=== PATIENT | male | born 1945 | race Caucasian/White ===

== ENCOUNTER → 2016-06-24 | Outpatient (CLI) | payer OTHER, MEDICARE ==
[~2016-06-24] MED LIST: ACET-1257 PO; ACET-1311 PO; ACET2SOL7 OT; ALFU10TA30 PO; ATEN-173 PO; CYAN10005 UT; CYNI1000 INJ; DIGO0.2518 PO; GLC/500 PO; GLC500 PO; GLIM4TAB2 PO; HYDR12.56 PO; LACT10CA3 PO; LISI-461 PO; LISI-729 PO; LORA10CA2 PO; MULT-845 PO; SENN-65 PO; SENN1TAB77 PO; SIMV10TA2 PO; TPRSR50 PO; WARF-283 PO; WARF2.5T8 PO; WARF5TAB7 PO; [UNRECOGNIZED DRUG - CODE] PO; lovenox SQ.
[2016-06-24 12:52] LABS: ALT/SGPT 29 U/L (12-78); BLOOD UREA NITROGEN 18 mg/dl (7-18); BUN/CREATININE RATIO 17.8 (10-20); CALCIUM 9.4 mg/dl (8.5-10.1); CARBON DIOXIDE 29 mmol/L (21-32); CHLORIDE 103 mmol/L (98-107); CHOLESTEROL 142 mg/dl (0-200); GLUCOSE 132 mg/dl (70-99); POTASSIUM 4.1 mmol/L (3.5-5.1); SODIUM 141 mmol/L (136-145); TRIGLYCERIDES 90 mg/dl (0-150); VERY LOW DENSITY LIPOPROT CALC 18 mg/dl
[2016-06-24 12:55] LABS: ALB/GLOB RATIO 1.3 (0.9-2); ALKALINE PHOSPHATASE 51 U/L (45-117); AST/SGOT 17 U/L (15-37); CHOLESTEROL/HDL RATIO 3.1; HDL CHOLESTEROL 46 mg/dl; LDL CHOLESTEROL CALCULATED 78 mg/dl
[2016-06-24 12:56] LABS: ESTIMATED AVERAGE GLUCOSE 140 mg/dl; HA1C FLAG Normal (Normal)
[2016-06-24 13:26] LABS: RATIO 55.4 mcg/mg (0-30.0)
== END | disposition home or self-care (01) ==
LOC: C.LABBFT 08:51
PROVIDERS: ATTEND Family Medicine
DX: E11.9 Type 2 diabetes mellitus without complications (principal)

== ENCOUNTER → 2016-07-12 | Outpatient (CLI) | payer OTHER, MEDICARE ==
[~2016-07-12] MED LIST changes: +ALFU10TA2 PO; -ALFU10TA30 PO
[2016-07-12 18:09] LABS: URINE APPEARANCE CLEAR (CLEAR); URINE BILIRUBIN NEG (NEG); URINE COLOR DK YELLOW; URINE EPITHELIAL CELL AUTO 0-5 /lpf (0-5); URINE NITRITE NEG (NEG); URINE SPECIFIC GRAVITY 1.021 (1.000-1.030); UROBILINOGEN NEG (NEG)
[2016-07-12 18:22] LABS: MANUAL MICROSCOPIC REQUIRED? NO; REVIEW REQ? NO
== END | disposition home or self-care (01) ==
LOC: C.LABBFT 14:57
PROVIDERS: ATTEND Family Medicine
DX: R39.15 Urgency of urination (principal)

== ENCOUNTER 2016-09-05 07:40 | Emergency (ER) | payer OTHER, MEDICARE ==
[~2016-09-05] VITALS: Ht 185.4 cm; Wt 126.1 kg
[~2016-09-05 07:40] MED LIST changes: -ACET-1257 PO; -ACET2SOL7 OT; -CYAN10005 UT; -GLC500 PO; -HYDR12.56 PO; -LACT10CA3 PO; -LISI-729 PO; -LORA10CA2 PO; -SENN-65 PO; -SENN1TAB77 PO; -TPRSR50 PO; -WARF-283 PO; -[UNRECOGNIZED DRUG - CODE] PO; -lovenox SQ.
[2016-09-05 07:50] VITALS: Ht 185.4 cm; Wt 126.1 kg
[2016-09-05] MEDS ORDERED: MoRPHine SULFATE 4 MG/ML 1 ML CARP\\VIAL IV STA (07:51)
[2016-09-05 08:07] VITALS: O2SAT 94
[2016-09-05] MEDS ORDERED: ALFU10TA2 PO (08:15)
[2016-09-05] MEDS ORDERED: SIMV10TA2 PO (08:15)
[2016-09-05] MEDS ORDERED: SENN-65 PO (08:15)
[2016-09-05] MEDS ORDERED: WARF-283 PO (08:15)
[2016-09-05] MEDS ORDERED: TPRSR50 PO (08:15)
[2016-09-05] MEDS ORDERED: [UNRECOGNIZED DRUG - CODE] PO (08:15)
[2016-09-05] MEDS ORDERED: ACET2SOL7 OT (08:15)
[2016-09-05] MEDS ORDERED: OPTIRAY 320 IV PRN (08:15)
[2016-09-05] MEDS ORDERED: LORA10CA2 PO (08:15)
[2016-09-05] MEDS ORDERED: LACT10CA3 PO (08:15)
[2016-09-05] MEDS ORDERED: LISI-729 PO (08:15)
[2016-09-05] MEDS ORDERED: CYAN10005 UT (08:15)
[2016-09-05] MEDS ORDERED: ACET-1257 PO (08:15)
[2016-09-05] MEDS ORDERED: HYDR12.56 PO (08:15)
[2016-09-05] MEDS ORDERED: SENN1TAB77 PO (08:15)
[2016-09-05] MEDS ORDERED: GLIM4TAB2 PO (08:15)
[2016-09-05] MEDS ORDERED: GLC500 PO (08:15)
[2016-09-05] MEDS ORDERED: MULT-845 PO (08:15)
[2016-09-05 08:25] LABS: BASO % 0.4 %; BASO ABS # 0.02 K/uL (0-0.2); COMPLETE YES; EOS % 1.4 %; HEMATOCRIT 41.8 % (42-52); IG% 0.2 %; LYMPH % 48.9 %; LYMPH ABS # 2.46 K/uL (1.2-3.4); MEAN CELL VOLUME 91.9 fL (80-100); MEAN CORPUSCULAR HGB CONC 33.7 g/dl (32-36); MEAN PLATELET VOLUME 11.5 fL (7.4-10.4); NEUT % 41.1 %; PLATELET COUNT 150 K/uL (130-400); RED BLOOD COUNT 4.55 M/uL (4.7-6.1); WHITE BLOOD COUNT 5.03 K/uL (4.8-10.8)
--- NOTE | 2016-09-05 08:29 | DIAGNOSTIC IMAGING REPORT ---
CHEST ONE VIEW PORTABLE CLINICAL HISTORY: Fever, sepsis COMPARISON STUDY: 06/07/2013 FINDINGS: The heart is mildly enlarged. There is no failure. There is no focal pulmonary consolidation. No pleural effusions are visualized.[ IMPRESSION: Mild cardiomegaly. No acute findings. Electronically signed by: Narciso Parson M.D. 09/05/2016 8:28 AM Dictated Date/Time: 09/05/2016 8:27 AM
[2016-09-05 08:51] LABS: ALKALINE PHOSPHATASE 56 U/L (45-117); ALT/SGPT 38 U/L (12-78); AST/SGOT 26 U/L (15-37); BLOOD UREA NITROGEN 13 mg/dl (7-18); BUN/CREATININE RATIO 12.5 (10-20); CALCIUM 9.5 mg/dl (8.5-10.1); CARBON DIOXIDE 28 mmol/L (21-32); CHLORIDE 105 mmol/L (98-107); CKMB/CK RATIO 1.4 (0-3.0); GLUCOSE 190 mg/dl (70-99); POTASSIUM 3.9 mmol/L (3.5-5.1); SODIUM 142 mmol/L (136-145)
--- NOTE | 2016-09-05 09:33 | DIAGNOSTIC IMAGING REPORT ---
ABDOMINAL ULTRASOUND, RIGHT UPPER QUADRANT HISTORY: Right upper quadrant pain. COMPARISON: CT of the chest abdomen and pelvis and) ultrasound June 07, 2013. FINDINGS: This exam is compromised by suboptimal penetration. There is fatty infiltration of the liver. No hepatic lesions are identified by sonography. There is no biliary ductal dilatation. The pancreatic body is normal. The head and tail are partially obscured. Stones and sludge are noted within the gallbladder. There is no gallbladder wall thickening. There is no right hydronephrosis. IMPRESSION: 1. Gallstones and sludge within the gallbladder. No gallbladder wall thickening. 2. Fatty liver. 3. No biliary ductal dilatation. Electronically signed by: Maciel Saldivar M.D. 09/05/2016 9:32 AM Dictated Date/Time: 09/05/2016 9:29 AM
[2016-09-05 10:21] LABS: INR 1.8 (0.9-1.1); PARTIAL THROMBOPLASTIN RATIO 1.2; PROTHROMBIN TIME (PATIENT) 19.3 SECONDS (9.0-12.0)
--- NOTE | 2016-09-05 10:37 | DIAGNOSTIC IMAGING REPORT ---
Study: CT angiography of the chest HISTORY: Chest pain FINDINGS: Moderate atherosclerotic change thoracic aorta. No evidence for aneurysm or dissection. No significant hilar or mediastinal adenopathy. Pulmonary vasculature enhances appropriately. There is a component of mild emphysematous change. IMPRESSION: 1. Mild atherosclerotic change thoracic aorta. 2. Otherwise negative study of the thoracic aorta. 3. Mild emphysematous change. Electronically signed by: Yunier Solorzano M.D. 09/05/2016 10:36 AM Dictated Date/Time: 09/05/2016 10:32 AM
--- NOTE | 2016-09-05 12:18 | EMERGENCY ROOM VISIT NOTE ---
History Report prepared by Marivelibnoemy: Gregory Crawford Under the Supervision of: Dr. Logan Blake D.O. First contact with patient: 07:44 Chief Complaint: CHEST PAIN Stated Complaint: CHEST PAIN History of Present Illness The patient is a 71 year old male who presents to the Emergency Room via EMS with complaints of waxing and waning diffuse chest pain starting about an hour ago. He reports pain radiation to the back. He describes it to be a pressure- like pain. He has worsening pain with lying down flat. He had an initial pain intensity of 10/10. When EMS arrived, he had a pain intensity of 8/10. EMS gave the patient Nitro which reduced the pain intensity to 5/10. He also complains of nausea. The patient denies any abdominal pain but reports that "there is something going on in my upper stomach." He has a history of similar pain but the source of the pain was never found. The patient denies fevers, chills, vomiting, urinary symptoms, or any other complaints. He has a history of A-Fib. Source of History: patient Onset: about an hour ago Position: chest (diffuse) Symptom Intensity: 5/10 Quality: pressure Timing: waxes/wanes Modifying Factors (Worsening): other (lying down flat) Modifying Factors (Relieving): other (Nitro) Associated Symptoms: + nausea, No chills, No fevers, No urinary symptoms, No vomiting Review of Systems See HPI for pertinent positives & negatives. A total of 10 systems reviewed and were otherwise negative. Past Medical & Surgical Medical Problems: (1) Atrial fibrillation (2) Diabetes mellitus (3) Diverticulitis (4) Heart disease (5) HTN (hypertension) (6) Hyperlipidemia Family History Diabetes mellitus FH: cancer FH: heart disease Social History Alcohol Use: none Marital Status: Housing Status: lives with significant other Current/Historical Medications Scheduled Acetic Acid (Otic) (Acetic Acid), 4-6 DROPS OT Q2-3H Alfuzosin Hcl (Uroxatral), 10 MG PO DAILY Cyanocobalamin (Vitamin B-12), 1,000 MCG UT DAILY Qod-Hiz-Hsxgxzdh Oil-Vitamin E (Thera Tears Nutrition), 1 CAP PO DAILY Glimepiride (Glimepiride), 2 MG PO DAILY Hydrochlorothiazide (Hctz), 12.5 MG PO DAILY Lactobacillus-Inulin (Culturelle), 1 CAP PO UD Lisinopril (Prinivil), 7.5 MG PO DAILY Metformin HCl (Metformin HCl), 1,000 MG PO BID Metoprolol Succinate (Metoprolol Succinate ER), 50 MG PO QAM Multiple Vitamins W/ Minerals (Centrum Silver Adult 50+), 1 TAB PO DAILY Simvastatin (Zocor), 10 MG PO HS Warfarin Sodium (Warfarin Sodium), 1 TAB PO DAILY Scheduled PRN Acetaminophen (Tylenol Extra Strength), 500 MG PO UD PRN for Pain Loratadine (Claritin), 10 MG PO UD PRN for ALLERGIES Senna/Docusate Sod (Senokot S), 1 TAB PO UD PRN for Constipation Sennosides (Senokot), 8.6 MG PO UD PRN for Constipation Allergies Coded Allergies: Atorvastatin (Verified Adverse Reaction, Intermediate, MUSCLE PAIN/ WEAKNESS, 06/07/13) Physical Exam Vital Signs Date Time Temp Pulse Resp B/P Pulse Ox O2 Delivery O2 Flow Rate FiO2 09/05/16 12:33 121 09/05/16 12:00 103 13 118/81 96 Nasal Cannula 2.0 09/05/16 10:47 110 12 104/80 96 Room Air 09/05/16 09:46 119 20 94/65 96 Room Air 2.0 Nasal Cannula 09/05/16 08:41 122 09/05/16 08:07 94 Nasal Cannula 2.0 09/05/16 08:04 111 15 93 Room Air 09/05/16 07:50 93 Room Air 09/05/16 07:50 97 25 99/69 93 Room Air Physical Exam CONSTITUTIONAL/VITAL SIGNS: Reviewed / noted above. GENERAL: Non-toxic in appearance. INTEGUMENTARY: Warm, dry, and [place]. HEAD: Normocephalic. EYES: without scleral icterus or trauma. ENT/OROPHARYNX: clear and moist. LYMPHADENOPATHY/NECK: Is supple without lymphadenopathy or meningismus. RESPIRATORY: Lungs clear and equal. CARDIOVASCULAR: Regular rate and rhythm. GI/ABDOMEN: Soft and nontender. No organomegaly or pulsatile mass. No rebound or guarding. Normal bowel sounds. EXTREMITIES: Warm and well perfused. BACK: No CVA tenderness. NEUROLOGICAL: Intact without focal deficits. PSYCHIATRIC: normal affect. MUSCULOSKELETAL: Normally developed with good muscle tone. TRIAGE NURSING DOCUMENTATION REVIEWED. Medical Decision & Procedures ER Provider Diagnostic Interpretation: X ray results and stated below per my interpretation and radiology interpretation. CHEST ONE VIEW PORTABLE CLINICAL HISTORY: Fever, sepsis COMPARISON STUDY: 06/07/2013 FINDINGS: The heart is mildly enlarged. There is no failure. There is no focal pulmonary consolidation. No pleural effusions are visualized.[ IMPRESSION: Mild cardiomegaly. No acute findings. Electronically signed by: Narciso Parson M.D. 09/05/2016 8:28 AM Dictated Date/Time: 09/05/2016 8:[address] and US results as stated below per my review and radiologist interpretation: Study: CT angiography of the chest HISTORY: Chest pain FINDINGS: Moderate atherosclerotic change thoracic aorta. No evidence for aneurysm or dissection. No significant hilar or mediastinal adenopathy. Pulmonary vasculature enhances appropriately. There is a component of mild emphysematous change. IMPRESSION: 1. Mild atherosclerotic change thoracic aorta. 2. Otherwise negative study of the thoracic aorta. 3. Mild emphysematous change. Electronically signed by: Yunier Solorzano M.D. 09/05/2016 10:36 AM Dictated Date/Time: 09/05/2016 10:32 AM ABDOMINAL ULTRASOUND, RIGHT UPPER QUADRANT HISTORY: Right upper quadrant pain. COMPARISON: CT of the chest abdomen and pelvis and) ultrasound June 07, 2013. FINDINGS: This exam is compromised by suboptimal penetration. There is fatty infiltration of the liver. No hepatic lesions are identified by sonography. There is no biliary ductal dilatation. The pancreatic body is normal. The head and tail are partially obscured. Stones and sludge are noted within the gallbladder. There is no gallbladder wall thickening. There is no right hydronephrosis. IMPRESSION: 1. Gallstones and sludge within the gallbladder. No gallbladder wall thickening. 2. Fatty liver. 3. No biliary ductal dilatation. Electronically signed by: Maciel Saldivar M.D. 09/05/2016 9:32 AM Dictated Date/Time: 09/05/2016 9:29 AM Laboratory Results 09/05/16 07:15 Red Blood Count 4.55, Mean Corpuscular Volume 91.9, Mean Corpuscular Hemoglobin 31.0, Mean Corpuscular Hemoglobin Concent 33.7, Mean Platelet Volume 11.5, Neutrophils (%) (Auto) 41.1, Lymphocytes (%) (Auto) 48.9, Monocytes (%) (Auto) 8.0, Eosinophils (%) (Auto) 1.4, Basophils (%) (Auto) 0.4, Neutrophils # (Auto) 2.07, Lymphocytes # (Auto) 2.46, Monocytes # (Auto) 0.40, Eosinophils # (Auto) 0.07, Basophils # (Auto) 0.02 09/05/16 07:15 Test 09/05/16 07:15 09/05/16 09:45 09/05/16 12:06 White Blood Count 5.03 K/uL (4.8-10.8) Red Blood Count 4.55 M/uL (4.7-6.1) Hemoglobin 14.1 g/dL (14.0-18.0) Hematocrit 41.8 % (42-52) Mean Corpuscular Volume 91.9 fL (80-100) Mean Corpuscular Hemoglobin 31.0 pg (25-34) Mean Corpuscular Hemoglobin Concent 33.7 g/dl (32-36) Platelet Count 150 K/uL (130-400) Mean Platelet Volume 11.5 fL (7.4-10.4) Neutrophils (%) (Auto) 41.1 % Lymphocytes (%) (Auto) 48.9 % Monocytes (%) (Auto) 8.0 % Eosinophils (%) (Auto) 1.4 % Basophils (%) (Auto) 0.4 % Neutrophils # (Auto) 2.07 K/uL (1.4-6.5) Lymphocytes # (Auto) 2.46 K/uL (1.2-3.4) Monocytes # (Auto) 0.40 K/uL (0.11-0.59) Eosinophils # (Auto) 0.07 K/uL (0-0.5) Basophils # (Auto) 0.02 K/uL (0-0.2) RDW Standard Deviation 43.4 fL (36.4-46.3) RDW Coefficient of Variation 13.0 % (11.5-14.5) Immature Granulocyte % (Auto) 0.2 % Immature Granulocyte # (Auto) 0.01 K/uL (0.00-0.02) Anion Gap 9.0 mmol/L (3-11) Est Creatinine Clear Calc Drug Dose 91.5 ml/min Estimated GFR () 86.2 Estimated GFR (Non- 74.3 BUN/Creatinine Ratio 12.5 (10-20) Calcium Level 9.5 mg/dl (8.5-10.1) Total Bilirubin 1.2 mg/dl (0.2-1) Direct Bilirubin 0.2 mg/dl (0-0.2) Aspartate Amino Transf (AST/SGOT) 26 U/L (15-37) Alanine Aminotransferase (ALT/SGPT) 38 U/L (12-78) Alkaline Phosphatase 56 U/L (45-117) Total Creatine Kinase 92 U/L (39-308) Creatine Kinase MB 1.3 ng/ml (0.5-3.6) Creatine Kinase MB Ratio 1.4 (0-3.0) Troponin I < 0.015 ng/ml (0-0.045) Total Protein 7.3 gm/dl (6.4-8.2) Albumin 4.1 gm/dl (3.4-5.0) Lipase 173 U/L (73-393) Thyroid Stimulating Hormone (TSH) 2.940 uIu/ml (0.300-4.500) Digoxin Level 0.1 ng/ml (0.8-2.0) Prothrombin Time 19.3 SECONDS (9.0-12.0) Prothromb Time International Ratio 1.8 (0.9-1.1) Activated Partial Thromboplast Time 30.8 SECONDS (21.0-31.0) Partial Thromboplastin Ratio 1.2 Laboratory results as stated above per my review. Medications Administered Medications (Trade) Dose Ordered Sig/Homero Route Start Time Stop Time Status Last Admin Dose Admin Morphine Sulfate (MoRPHine SULFATE INJ) 4 mg NOW STAT IV 09/05/16 07:51 09/05/16 07:54 DC 09/05/16 08:10 4 MG ECG Indication: chest pain Rate (beats per minute): 98 Rhythm: atrial fibrillation Findings: no acute ischemic change, no ectopy ED Course 0744: Previous medical records were reviewed. The patient was evaluated in room A02. A complete history and physical examination was performed. 0751: Morphine Sulfate 4 mg IV 1214: On reevaluation, the patient is resting comfortably. I discussed the results and findings with the patient. He verbalized agreement of the treatment plan. The patient was discharged home. Medical Decision Differential considered: pancreatitis, hepatitis, acute cholecystitis, AAA, UTI , pyelonephritis, kidney stones, appendicitis, diverticulitis, shingles, bowel obstruction, mesenteric ischemia, intussusception,hernia, testicular torsion.the differential that was considered includes acute myocardial infarction, acute coronary syndrome, myocarditis, pericarditis, pericardial effusions /tamponade, esophageal perforation, thoracic aortic dissection, pulmonary embolism, pneumonia, pneumothorax, pancreatitis, shingles, acute cholecystitis, perforated abdominal viscus. This is a 71-year-old male who presents to the ED with a chief complaint of upper abdominal pain and back pain. The patient states that his symptoms started suddenly this morning around 6:30 AM. He reports having had previous symptoms like this in 2013 but no one could tell him what was the cause. He denies associated shortness of breath. He has not had a fever. He denies any trauma. His exam was unremarkable. He does appear to be in distress. At times he screams/groans because of his pain. An EKG shows A. fib at a rate of 98. He does have a history of this. There is no acute injury or ectopy. CBC is normal. Complete metabolic panel was unremarkable with exception of a glucose of 190. Troponin is negative. Lipase is negative. TSH was normal. Chest x-ray did not show acute disease. INR is 1.8. He is on Coumadin. CT scan of the chest did not show acute process for dissection study that goes through the abdomen. Chest x-ray did not show acute disease. Gallbladder ultrasound shows gallbladder stones and sludge. There is no evidence of acute cholecystitis. The patient was treated with IV morphine and IV fluids. He was reassessed. He was told the results. His symptoms did improve. The patient's symptoms might be related to biliary colic. There is no evidence of other acute intrathoracic or intra-abdominal process. His glucose is little elevated. He does have diabetes. He is felt to be stable for discharge. His is going to drive him home. Referral to general surgery provided. Impression Primary Impression: Biliary colic Scribe Attestation The scribe's documentation has been prepared under my direction and personally reviewed by me in its entirety. I confirm that the note above accurately reflects all work, treatment, procedures, and medical decision making performed by me. Departure Information Dispostion Home / Self-Care Referrals Shameka Mejia DO (PCP) Kulwant Ellison D.O. Forms HOME CARE DOCUMENTATION FORM, IMPORTANT VISIT INFORMATION Patient Instructions My [facility] [employer] Additional Instructions Your symptoms today could be related to your gallstones. Follow-up with Dr. Kulwant Ellison for further evaluation for possible gallbladder removal. Follow-up with your doctor for further care and evaluation in 1-2 days. Return to the emergency department for worsening or new symptoms or any concerns. You have been examined and treated today on an emergency basis only. This is not a substitute for, or an effort to provide, complete comprehensive medical care. It is impossible to recognize and treat all injuries or illnesses in a single emergency department visit. It is therefore important that you follow up closely with your doctor. Call as soon as possible for an appointment.
[2016-09-05 12:36] LABS: URINE APPEARANCE CLEAR (CLEAR); URINE BILIRUBIN NEG (NEG); URINE COLOR DK YELLOW; URINE NITRITE NEG (NEG); URINE PH 5.5 (4.5-7.5); URINE SPECIFIC GRAVITY > 1.045 (1.000-1.030); UROBILINOGEN NEG (NEG)
[2016-09-05 12:51] LABS: MANUAL MICROSCOPIC REQUIRED? NO; REVIEW REQ? NO
[2016-09-05 13:03] VITALS: BP 120/79; PULSE 112; O2SAT 94
--- NOTE | 2016-09-06 11:42 | DIAGNOSTIC IMAGING REPORT ---
CT abdomen and pelvis angiogram ANGIO ABD/PELVIS COMBO CLINICAL HISTORY: Pain nausea TECHNIQUE: Transaxial acquisition with multi axial reformatted images COMPARISON STUDY: 06/07/2013 FINDINGS: Study is submitted delayed fashion for unknown reasons. Atherosclerotic changes noted throughout the arterial vasculature of the abdomen as well as pelvis. No evidence for aneurysm or dissection. Gallstones are present within the gallbladder lumen. Kidneys negative for hydronephrosis. Bowel pattern is nonobstructive. Several bladder calculi are present. IMPRESSION: 1. No evidence for aneurysm or dissection. 2. Nonobstructive bowel pattern. 3. Gallstones. 4. Bladder calculi. 5. This examination is submitted in a delayed fashion for interpretation for unknown reasons Electronically signed by: Yunier Solorzano M.D. 09/06/2016 11:41 AM Dictated Date/Time: 09/06/2016 11:36 AM
[2016-09-06] MEDS ORDERED: OPTIRAY 320 IV PRN (12:00)
[2016-10-10] MEDS ORDERED: lovenox SQ. (05:45)
== END 2016-09-05 13:10 | disposition home or self-care (01) ==
LOC: EDBD 07:40 → C.EDA 07:41
DX: K80.70 Calculus of gallbladder and bile duct without cholecystitis without obstruction (principal); E11.65 Type 2 diabetes mellitus with hyperglycemia; I48.91 Unspecified atrial fibrillation; I10 Essential (primary) hypertension; E78.5 Hyperlipidemia, unspecified; Z83.3 Family history of diabetes mellitus; Z80.9 Family history of malignant neoplasm, unspecified; Z79.899 Other long term (current) drug therapy; Z79.01 Long term (current) use of anticoagulants

== ENCOUNTER → 2016-10-10 | Day surgery (SDC) | payer OTHER, MEDICARE ==
[2016-09-26 09:03] VITALS: BMI 32.0
--- NOTE | 2016-09-26 10:01 | PAT Medication Instructions ---
Service Date September 26, 2016. Current Home Medication List Acetaminophen (Tylenol Extra Strength), 500 MG PO UD PRN for Pain Alfuzosin Hcl (Uroxatral), 10 MG PO QPM Cyanocobalamin (Vitamin B-12), 1,000 MCG UT QPM Kaa-Cuz-Pvwlhqtk Oil-Vitamin E (Thera Tears Nutrition), 1 CAP PO QPM Glimepiride (Glimepiride), 2 MG PO QAM Hydrochlorothiazide (Hctz), 12.5 MG PO QAM Lisinopril (Prinivil), 7.5 MG PO QAM Loratadine (Claritin), 10 MG PO UD PRN for ALLERGIES Metformin HCl (Metformin HCl), 1,000 MG PO BID Metoprolol Succinate (Metoprolol Succinate ER), 50 MG PO QAM Multiple Vitamins W/ Minerals (Centrum Silver Adult 50+), 1 TAB PO QAM Senna/Docusate Sod (Senokot S), 1 TAB PO UD PRN for Constipation Sennosides (Senokot), 8.6 MG PO UD PRN for Constipation Simvastatin (Zocor), 10 MG PO HS Warfarin Sodium (Warfarin Sodium), 1 TAB PO DAILY Medication Instructions For Your Scheduled Surgery - Check with surgeon/resolution specialist for instructions: Warfarin Sodium (Warfarin Sodium), 1 TAB PO DAILY - Hold the following medications 48 hours prior to surgery: Metformin HCl (Metformin HCl), 1,000 MG PO BID - Hold the following medications the morning of surgery: Sennosides (Senokot), 8.6 MG PO UD PRN for Constipation Multiple Vitamins W/ Minerals (Centrum Silver Adult 50+), 1 TAB PO QAM Senna/Docusate Sod (Senokot S), 1 TAB PO UD PRN for Constipation Glimepiride (Glimepiride), 2 MG PO QAM Loratadine (Claritin), 10 MG PO UD PRN for ALLERGIES Hydrochlorothiazide (Hctz), 12.5 MG PO QAM Lisinopril (Prinivil), 7.5 MG PO QAM - Take the following medications the morning of surgery with a sip of water: Metoprolol Succinate (Metoprolol Succinate ER), 50 MG PO QAM Acetaminophen (Tylenol Extra Strength), 500 MG PO UD PRN for Pain (if needed) - Take the following medications as scheduled the night before surgery: Simvastatin (Zocor), 10 MG PO HS Sennosides (Senokot), 8.6 MG PO UD PRN for Constipation Loratadine (Claritin), 10 MG PO UD PRN for ALLERGIES Eym-Svm-Nbjhyion Oil-Vitamin E (Thera Tears Nutrition), 1 CAP PO QPM Cyanocobalamin (Vitamin B-12), 1,000 MCG UT QPM Alfuzosin Hcl (Uroxatral), 10 MG PO QPM Acetaminophen (Tylenol Extra Strength), 500 MG PO UD PRN for Pain (if needed) If you have any questions please call us at [phone] (Elvie Hernández PA-C ) or [phone] or [phone]
[~2016-10-10] VITALS: Ht 185.4 cm; Wt 112.3 kg
[~2016-10-10] MED LIST changes: +ACET-1257 PO; -ACET-1311 PO; -ATEN-173 PO; +ATROPINE SULFATE 0.1 MG/ML 5ML SYR IV PRN; +BUPIVACAINE 0.5 % 5 MG/1 ML MPF 30ML VIAL ONE; +CEFAZOLIN 2000 MG/60 ML D5W IV SCH; +CEFAZOLIN SOD 1 GM VIAL ONE; +CONRAY 60% 50 ML VIAL ONE; +CYAN10005 UT; -CYNI1000 INJ; -DIGO0.2518 PO; +EpHEDrine SULFATE INJ 50 MG/ML AMP IV PRN; +FENTANYL CITRATE INJ 50 MCG/1 ML 2 ML VIAL ONE; -GLC/500 PO; +GLC500 PO; +GLYCOPYRROLATE INJ 0.2 MG/ML VIAL ONE; +HEPARIN SOD (PORCINE) 1000 UNIT/ML 10 ML VIAL ONE; +HYDR12.56 PO; +HYDROmorphone INJ 1 MG/ML SYR ONE; +LACTATED RINGER'S 1000ML 1,000 ML IV SCH; +LIDOCAINE HCL 2% 2 ML VIAL (20MG/ML) ONE; -LISI-461 PO; +LISI-729 PO; +LORA10CA2 PO; +MIDAZOLAM HCL 1 MG/ML 2ML VIAL ONE; +MoRPHine SULFATE 4 MG/ML 1 ML CARP\\VIAL IV PRN; +NEOSTIGMINE METHYLSULFATE 5 MG/5 ML SYR ONE; +ONDANSETRON INJ 2 MG/ML 2 ML VIAL IV PRN; +ONDANSETRON INJ 2 MG/ML 2 ML VIAL ONE; +OXYCODONE/ACETAMINOPHEN 5-325 TAB PO PRN; +PHENYLEPHRINE 100MCG/ML 5ML SYR IV PRN; +PROPOFOL IV EMULSION 10 MG/ML 20 ML VIAL IV ONE; +ROCURONIUM BROMIDE 10 MG/ML 5 ML VIAL ONE; +SENN-65 PO; +SENN1TAB77 PO; +SODIUM CHLORIDE 0.9% 1000ML 1,000 ML IV SCH; +TPRSR50 PO; +WARF-283 PO; -WARF2.5T8 PO; -WARF5TAB7 PO; +[UNRECOGNIZED DRUG - CODE] PO; +lovenox SQ.
[2016-10-10 05:49] VITALS: BP 140/87; PULSE 88; TEMP 36.7; O2SAT 98; Ht 185.4 cm; Wt 112.3 kg
[2016-10-10 06:02] LABS: INR 1.1 (0.9-1.1); PARTIAL THROMBOPLASTIN RATIO 1.2
--- NOTE | 2016-10-10 06:39 | History & Physical Bridge Note ---
H&P Re-Evaluation Bridge Note: I have examined the patient, reviewed the History & Physical and in the interval since the performance of the History & Physical I have noted the following changes of clinical significance: No changes noted
--- NOTE | 2016-10-10 08:23 | [facility] Post Operative Brief Note ---
Immediate Operative Summary Operative Date Oct 10, 2016. Pre-Operative Diagnosis cholelithiasis; gallbladder sludge Post-Operative Diagnosis cholelithiasis; gallbladder sludge Procedure(s) Performed Laparoscopic Cholecystectomy Surgeon Dr. Yunier Dial [employer] Rep Surgeon(s) Joy Stewart PA-C Estimated Blood Loss 5ML Findings See dictation Specimens A. Gallbladder Drains None Anesthesia General Complication(s) None Disposition Recovery Room / PACU
--- NOTE | 2016-10-10 08:26 | Discharge Instructions ---
Discharge Instructions Date of Service Oct 10, 2016. Admission Reason for Admission: Cholelitthiasis Discharge Discharge Diagnosis / Problem: Same Discharge Goals Goal(s): Decrease discomfort Activity Recommendations Activity Limitations: per Instructions/Follow-up section Lifting Limitations: no more than 10 pounds (for 2 weeks) Shower/Bathe: tomorrow (Shower only) . Instructions / Follow-Up Instructions / Follow-Up Post-Surgical ~ Discharge Instructions Activity Recommendations: - lifting limitation: (10 pounds for 2 weeks), - exercise/sex/sports limit: (nonstrenuous for 2 weeks), - driving or machine use limit: (none for 1 week), - Shower/bathe limit: (may shower beginning tomorrow) Diet: - Resume previous diet SPECIAL CARE INSTRUCTIONS: - May shower in 24 hours. Let water run over area and pat dry. - Leave steri strips on for one week. - Call the surgeon's office with any questions or concerns - - (ex. temperature higher than 101 degrees F, excessive bleeding or pain). MEDICATIONS: - Resume previous medications unless instructed otherwise by your surgeon. - Ibuprofen 600 mg every 6 hours with food - Percocet 1 every 4 hours, as needed for pain FOLLOW UP VISIT: - If not already scheduled, please call the office to schedule a two week follow-up appointment. Office number Current Hospital Diet Patient's current hospital diet: Discharge Diet Recommended Diet: Regular Diet Procedures Procedures Performed: Laparoscopic Cholecystectomy Pending Studies Studies pending at discharge: no Medical Emergencies . Who to Call and When: Medical Emergencies: If at any time you feel your situation is an emergency, please call 911 immediately. . Non-Emergent Contact Non-Emergency issues call your: Primary Care Provider, Surgeon Call Non-Emergent contact if: your pain is worsening, wound has increased redness, wound has increased pain . "Provider Documentation" section prepared by Yunier Dial. . VTE Core Measure Inpt VTE Proph given/why not?: Enoxaparin (Lovenox)SQ, Warfarin (Coumadin) (As per instructions)
[2016-10-10] MEDS: HYDROmorphone INJ 2 MG/ML SYR/VIAL IV PRN ×6 (08:40→09:05)
--- NOTE | 2016-10-10 09:03 | OPERATIVE REPORT ---
DATE OF OPERATION: 10/10/2016 PREOPERATIVE DIAGNOSES: Cholelithiasis, gallbladder sludge, and chronic cholecystitis. POSTOPERATIVE DIAGNOSES: Same. PROCEDURE: Laparoscopic cholecystectomy. SURGEON: Dr. Yunier Dial. POLYGRAPH OPERATOR: Rea Stewart PA-C. FINDINGS: The gallbladder was not enlarged. It had multiple very small black stones and a lot of sludge. There was no evidence of acute inflammation. The liver was of normal size and contour. The visible bowel appeared normal. The cystic duct was not dilated. TECHNIQUE: The patient was given a general anesthetic and the area was prepped and draped in the usual sterile fashion. Transverse incision was made below the umbilicus and carried down through the subcutaneous tissue to the fascia, which was grasped with 2 Jesus clamps and incised between. The peritoneum was identified, incised, and the introducer was placed bluntly. The abdomen was then insufflated to a pressure of 15 mmHg with carbon dioxide. The upper midline, mid clavicular and anterior axillary introducers were placed under direct vision through small skin incisions. Traction was placed on the gallbladder beginning on the lateral side of the infundibulum. The peritoneum was opened and peeled down towards the common bile duct. That was carried out until the inferior side of the infundibulum was identified. I then worked over the anterior infundibulum and into the triangle of Calot and opened that and peeled all those tissues and connective tissue as well as some lymphatics until I could identify the cystic duct. The cystic duct was then skeletonized medially and laterally. I was then able to establish a plane behind the cystic duct that allowing me to confirm the junction of the cystic duct with the gallbladder. I then skeletonized the duct medially. The cystic duct lymph node was identified and the feeding lymphatics were cauterized and were kept with the gallbladder. That allowed better mobility and I was able to confirm the gallbladder cystic duct junction. Three clips were placed on the proximal cystic duct, one near the junction with the gallbladder and it was divided. Further dissection was then carried out posterior to where the cystic duct again. There was a large lymphatic that was clamped and divided. That allowed access behind there where the cystic artery was identified. It was isolated, clamped twice proximally and once near the gallbladder and divided. Further dissection was then carried out of the gallbladder away from the liver. There was 1 posterior branch of the artery that was identified, clipped and divided. Completion of the division of the attachments to the liver was undertaken. It was then placed into an Endobag and brought out through the upper midline incision. I had to open the gallbladder outside and remove the stones and allowing me to extract the gallbladder within the bag. That introducer was replaced and liver edge was elevated. There was a small amount of oozing from the dissected area near where the cystic duct lymph node had been and this area was clipped. There was no further oozing. The gallbladder bed of the liver was inspected. There was no oozing. The subdiaphragmatic and subhepatic spaces were irrigated. The irrigation was removed. The gas was allowed to escape and was removed. The introducers were removed and the fascia of the umbilical and upper midline introducer sites was closed with interrupted 0 Vicryl. The skin of all the incisions was closed with 4-0 Monocryl in either an interrupted or running subcuticular fashion. The skin was anesthetized with 0.5% Marcaine. The skin was cleansed, dried, and benzoin placed. Steri-Strips applied. The estimated blood loss was 5 mL. Sponge, needle and instrument counts were correct prior to closure. The patient tolerated the surgical procedure without complication and was transferred to recovery. I attest to the content of the Intraoperative Record and any orders documented therein. Any exceptions are noted below. CHRISTIED
[2016-10-10 09:30] VITALS: BP 101/66; PULSE 74; TEMP 36.6; O2SAT 93
[2016-10-10 10:00] VITALS: BP 111/66; PULSE 72; O2SAT 95
--- NOTE | 2016-10-10 10:25 | Anesthesiology Progress Note ---
Anesthesia Post Op Note Date & Time Oct 10, 2016 at 10:25 Vital Signs Pain Intensity: 1 Vital Signs Past 12 Hours Date Time Temp Pulse Resp B/P (MAP) Pulse Ox O2 Delivery O2 Flow Rate FiO2 10/10/16 10:00 72 18 111/66 95 Room Air 10/10/16 09:30 36.6 74 18 101/66 93 Room Air 10/10/16 09:20 36.7 76 18 96/74 95 Room Air 10/10/16 09:10 75 18 108/77 96 Mask 4 10/10/16 09:00 79 18 113/77 96 Mask 4 10/10/16 08:50 63 18 115/66 96 Mask 4 10/10/16 08:40 69 18 130/85 99 Mask 10 10/10/16 08:32 36.8 92 18 128/79 99 Mask 10 10/10/16 05:49 36.7 88 20 140/87 (104) 98 Room Air Notes Mental Status: alert / awake / arousable, participated in evaluation Pt Amnestic to Procedure: Yes Nausea / Vomiting: adequately controlled Pain: adequately controlled Airway Patency, RR, SpO2: stable & adequate BP & HR: stable & adequate Hydration State: stable & adequate Anesthetic Complications: no major complications apparent
[2016-10-10 10:30] VITALS: BP 107/67; PULSE 80; TEMP 36.6; O2SAT 94
[2016-10-10 11:30] VITALS: BP 118/69; PULSE 85; O2SAT 94
[2016-10-10 12:35] VITALS: BP 121/82; PULSE 78; TEMP 36.8; O2SAT 95
== END | disposition home or self-care (01) ==
LOC: C.ACU 05:06
PROVIDERS: ATTEND Surgery
DX: K80.10 Calculus of gallbladder with chronic cholecystitis without obstruction (principal); K82.8 Other specified diseases of gallbladder; Z86.73 Personal history of transient ischemic attack (TIA), and cerebral infarction without residual deficits; E11.9 Type 2 diabetes mellitus without complications; E78.00 Pure hypercholesterolemia, unspecified; I10 Essential (primary) hypertension; Z96.651 Presence of right artificial knee joint; Z79.01 Long term (current) use of anticoagulants; Z79.84 Long term (current) use of oral hypoglycemic drugs; Z87.891 Personal history of nicotine dependence; Z90.79 Acquired absence of other genital organ(s); I48.91 Unspecified atrial fibrillation; F41.9 Anxiety disorder, unspecified; E66.9 Obesity, unspecified

== ENCOUNTER → 2017-01-18 | Outpatient (CLI) | payer OTHER, MEDICARE ==
[~2017-01-18] MED LIST changes: -ACET-1257 PO; -ALFU10TA2 PO; +ALFU10TA30 PO; -ATROPINE SULFATE 0.1 MG/ML 5ML SYR IV PRN; -BUPIVACAINE 0.5 % 5 MG/1 ML MPF 30ML VIAL ONE; -CEFAZOLIN 2000 MG/60 ML D5W IV SCH; -CEFAZOLIN SOD 1 GM VIAL ONE; -CONRAY 60% 50 ML VIAL ONE; -EpHEDrine SULFATE INJ 50 MG/ML AMP IV PRN; -FENTANYL CITRATE INJ 50 MCG/1 ML 2 ML VIAL ONE; -GLYCOPYRROLATE INJ 0.2 MG/ML VIAL ONE; -HEPARIN SOD (PORCINE) 1000 UNIT/ML 10 ML VIAL ONE; -HYDROmorphone INJ 1 MG/ML SYR ONE; -LACTATED RINGER'S 1000ML 1,000 ML IV SCH; -LIDOCAINE HCL 2% 2 ML VIAL (20MG/ML) ONE; -MIDAZOLAM HCL 1 MG/ML 2ML VIAL ONE; -MoRPHine SULFATE 4 MG/ML 1 ML CARP\\VIAL IV PRN; -NEOSTIGMINE METHYLSULFATE 5 MG/5 ML SYR ONE; -ONDANSETRON INJ 2 MG/ML 2 ML VIAL IV PRN; -ONDANSETRON INJ 2 MG/ML 2 ML VIAL ONE; -OXYCODONE/ACETAMINOPHEN 5-325 TAB PO PRN; -PHENYLEPHRINE 100MCG/ML 5ML SYR IV PRN; -PROPOFOL IV EMULSION 10 MG/ML 20 ML VIAL IV ONE; -ROCURONIUM BROMIDE 10 MG/ML 5 ML VIAL ONE; -SODIUM CHLORIDE 0.9% 1000ML 1,000 ML IV SCH
[2017-01-18 12:41] LABS: BASO % 0.5 %; BASO ABS # 0.02 K/uL (0-0.2); COMPLETE YES; EOS % 2.1 %; HEMATOCRIT 42.6 % (42-52); IG% 0.2 %; LYMPH % 41.7 %; LYMPH ABS # 1.83 K/uL (1.2-3.4); MEAN CELL VOLUME 90.6 fL (80-100); MEAN CORPUSCULAR HEMOGLOBIN 31.1 pg (25-34); MEAN CORPUSCULAR HGB CONC 34.3 g/dl (32-36); MEAN PLATELET VOLUME 11.2 fL (7.4-10.4); MONO % 6.4 %; NEUT % 49.1 %; PLATELET COUNT 165 K/uL (130-400); WHITE BLOOD COUNT 4.39 K/uL (4.8-10.8)
[2017-01-18 13:04] LABS: ALT/SGPT 29 U/L (12-78); BLOOD UREA NITROGEN 15 mg/dl (7-18); BUN/CREATININE RATIO 16.3 (10-20); CALCIUM 9.7 mg/dl (8.5-10.1); CARBON DIOXIDE 31 mmol/L (21-32); CHLORIDE 103 mmol/L (98-107); CHOLESTEROL 116 mg/dl (0-200); CREATININE 0.89 mg/dl (0.60-1.40); GLUCOSE 110 mg/dl (70-99); SODIUM 138 mmol/L (136-145)
[2017-01-18 13:14] LABS: ESTIMATED AVERAGE GLUCOSE 137 mg/dl; HA1C FLAG Normal (Normal)
[2017-01-18 13:15] LABS: ALB/GLOB RATIO 1.2 (0.9-2); ALKALINE PHOSPHATASE 50 U/L (45-117); AST/SGOT 19 U/L (15-37); HDL CHOLESTEROL 39 mg/dl; LDL CHOLESTEROL CALCULATED 56 mg/dl; TRIGLYCERIDES 103 mg/dl (0-150); VERY LOW DENSITY LIPOPROT CALC 21 mg/dl
== END | disposition home or self-care (01) ==
LOC: C.LABPVFM 08:12
PROVIDERS: ATTEND Family Medicine
DX: I48.91 Unspecified atrial fibrillation (principal); E11.9 Type 2 diabetes mellitus without complications; M48.06 Spinal stenosis, lumbar region; E78.5 Hyperlipidemia, unspecified; I10 Essential (primary) hypertension; N40.1 Benign prostatic hyperplasia with lower urinary tract symptoms; E53.8 Deficiency of other specified B group vitamins; R21 Rash and other nonspecific skin eruption

== ENCOUNTER → 2017-01-20 | Outpatient (CLI) | payer OTHER, MEDICARE ==
--- NOTE | 2017-01-20 11:31 | DIAGNOSTIC IMAGING REPORT ---
LEFT PELVIS/UNILATERAL HIP 2-3VIEWS CLINICAL HISTORY: Left buttock pain. COMPARISON: CT of the abdomen and pelvis September 05, 2016. FINDINGS: Multiple bladder calculi measure up to 1.1 cm. There is no acute fracture or suspicious lesion within the pelvis or hips. Calcification at the origin of the hamstrings is unchanged. There is mild arthritis of both hips. There is no evidence for avascular necrosis of the femoral heads. IMPRESSION: 1. No acute fracture within the pelvis or hips. 2. Mild osteoarthritis of the left hip. 3. No change in calcification of the proximal bilateral hamstrings which suggests tendinopathy. 4. Bladder calculi. Electronically signed by: Maciel Saldivar M.D. 01/20/2017 11:29 AM Dictated Date/Time: 01/20/2017 11:25 AM
--- NOTE | 2017-01-20 11:36 | DIAGNOSTIC IMAGING REPORT ---
LUMBAR SPINE 5 VIEWS HISTORY: M51.9 Lumbar disc [id number] Lumbar spinal [id number] Le COMPARISON: Lumbar spine MRI 06/24/2015. FINDINGS: There is no fracture. No subluxation. Cholecystectomy. Old, healed right 10th rib fracture. The sacrum appears intact. A 4 mm calcification within the left kidney. Mild facet degenerative changes seen within the lower lumbar spine. Mild disc space narrowing at L4-L5. Moderate disc space narrowing at L5-S1 with small endplate osteophytes. IMPRESSION: No fracture or subluxation within the lumbar spine. Degenerative changes as described above. Electronically signed by: Jose Carreon M.D. 01/20/2017 11:34 AM Dictated Date/Time: 01/20/2017 11:32 AM
== END | disposition home or self-care (01) ==
LOC: C.RADBC 10:37
PROVIDERS: ATTEND Nurse Practitioner Family
DX: M51.9 Unspecified thoracic, thoracolumbar and lumbosacral intervertebral disc disorder (principal); M48.06 Spinal stenosis, lumbar region; M25.552 Pain in left hip; N32.89 Other specified disorders of bladder

== ENCOUNTER → 2017-05-11 | Outpatient (CLI) | payer OTHER, MEDICARE ==
[~2017-05-11] MED LIST changes: +ALFU10TA2 PO; -ALFU10TA30 PO; +CYAN10005 SL; -CYAN10005 UT; +ENOX1INJ14 SQ
--- NOTE | 2017-05-11 09:50 | DIAGNOSTIC IMAGING REPORT ---
LUMBAR SPINE W/O CONTRAST CLINICAL HISTORY: 71 years-old Male with SPINAL STENOSIS. Chronic low back pain with left-sided sciatica. Left buttock and left foot pain and numbness COMPARISON: Lumbar spine radiographs 01/20/2017. TECHNIQUE: Multiplanar, multi sequence MRI of the lumbar spine was performed without intravenous contrast. FINDINGS: No acute fracture, subluxation, focal soft tissue or bone marrow edema. Conus medullaris terminates at the T12-L1 level. Signal within the imaged spinal cord is unremarkable. The cauda equina appear to be within normal limits. No acute intra-abdominal, intrapelvic or paraspinal abnormality identified. Mild nonspecific bilateral perinephric stranding. T12-L1: Mild spondylitic spurring and facet arthrosis without central canal or foraminal narrowing on the sagittal images alone. L1-L2: Mild intervertebral disc space narrowing with circumferential spondylitic spurring and circumferential annular disc bulge favoring the left paracentral and left lateral recess region causes mild left lateral recess and mild inferior left foraminal narrowing. The central canal and right foramen are patent. Mild facet arthrosis. L2-L3: Minimal posterior spondylitic spurring and mild facet arthrosis. Small broad-based posterior disc bulge causes mild inferior foraminal stenosis bilaterally. No central canal narrowing. L3-L4: Minimal posterior spondylitic spurring with moderate facet arthrosis and ligamentum flavum thickening with broad-based right foraminal and extraforaminal disc protrusion with annular fissure causes mild right lateral recess and moderate right foraminal narrowing abutting the adjacent exiting L3 nerve root. L4-L5: Moderate posterior intervertebral disc space narrowing with disc desiccation, broad-based posterior disc bulge with central disc protrusion causes moderate central canal, moderate left lateral recess and mild inferior bilateral foraminal narrowing. Moderate facet arthrosis. L5-S1: Moderate intervertebral disc space narrowing with mild posterior spondylitic spurring and small circumferential annular disc bulge with mild facet arthrosis. Mild inferior bilateral foraminal narrowing. Flattening of the ventral thecal sac without significant central canal stenosis. IMPRESSION: 1. At L3-L4 there is minimal posterior spondylitic spurring with moderate facet arthrosis and ligamentum flavum thickening along with a broad-based right foraminal and extraforaminal disc protrusion and annular fissure causing mild right lateral recess and mild right foraminal narrowing abutting the exiting L3 nerve root. 2. Moderate central canal, moderate left lateral recess and mild inferior bilateral foraminal narrowing at L4-L5 as above. 3. No acute fracture, subluxation or focal bone marrow edema. The above report was generated using voice recognition software. It may contain grammatical, syntax or spelling errors. Electronically signed by: Navin Flores M.D. 05/11/2017 9:49 AM Dictated Date/Time: 05/11/2017 9:35 AM
== END | disposition home or self-care (01) ==
LOC: C.MRIBC 08:35
PROVIDERS: ATTEND Orthopaedic Surgery Orthopaedic Surgery of the Spine
DX: M48.061 Spinal stenosis, lumbar region without neurogenic claudication (principal); M46.06 Spinal enthesopathy, lumbar region; M47.896 Other spondylosis, lumbar region; M51.26 Other intervertebral disc displacement, lumbar region; M51.36 Other intervertebral disc degeneration, lumbar region

== ENCOUNTER → 2017-05-17 | Outpatient (CLI) | payer OTHER, MEDICARE ==
[2017-05-17 13:46] LABS: INR 2.5 (0.9-1.1); PTT PATIENT 37.3 SECONDS (21.0-31.0)
[2017-05-17 13:56] LABS: BASO % 0.5 %; BASO ABS # 0.02 K/uL (0-0.2); EOS % 0.7 %; EOS ABS # 0.03 K/uL (0-0.5); HEMATOCRIT 43.7 % (42-52); HEMOGLOBIN 14.5 g/dL (14.0-18.0); IG# 0.01 K/uL (0.00-0.02); LYMPH % 29.1 %; LYMPH ABS # 1.27 K/uL (1.2-3.4); MEAN CELL VOLUME 91.8 fL (80-100); MEAN CORPUSCULAR HEMOGLOBIN 30.5 pg (25-34); MEAN CORPUSCULAR HGB CONC 33.2 g/dl (32-36); MEAN PLATELET VOLUME 11.2 fL (7.4-10.4); MONO % 8.5 %; MONO ABS # 0.37 K/uL (0.11-0.59); NEUT ABS # 2.66 K/uL (1.4-6.5); PLATELET COUNT 141 K/uL (130-400); RED CELL DISTRIBUTION WIDTH SD 43.6 fL (36.4-46.3); WHITE BLOOD COUNT 4.36 K/uL (4.8-10.8)
[2017-05-17 14:02] LABS: BLOOD UREA NITROGEN 12 mg/dl (7-18); CALCIUM 9.5 mg/dl (8.5-10.1); CARBON DIOXIDE 29 mmol/L (21-32); CREATININE 1.02 mg/dl (0.60-1.40); GLUCOSE 132 mg/dl (70-99); POTASSIUM 4.1 mmol/L (3.5-5.1); SODIUM 137 mmol/L (136-145)
== END | disposition home or self-care (01) ==
LOC: C.LABBC 10:34
PROVIDERS: ATTEND Orthopaedic Surgery Orthopaedic Surgery of the Spine
DX: Z01.818 Encounter for other preprocedural examination (principal)

== ENCOUNTER 2017-05-22 05:08 | Observation (INO) | payer OTHER, MEDICARE ==
[2017-05-18 09:05] VITALS: BMI 33.0
--- NOTE | 2017-05-19 16:28 | HISTORY & PHYSICAL EXAMINATION ---
DATE OF ADMISSION: 05/22/2017 PREOPERATIVE HISTORY AND PHYSICAL CHIEF COMPLAINT: He is being preoped for a lumbar spine, spinal stenosis surgery and laminectomy - L4-L5, L5-S1. HISTORY OF PRESENT ILLNESS: Luiz is a delightful patient with ongoing back and lower extremity difficulty, progressing to sciatic nerve root irritation, 23 years in duration, worsening over time. It progressed to be a pretty disabling for the patient with difficulty standing, walking and irritation. He has no red flags of fevers, sweats, chills, weight loss or gain. PAST MEDICAL HISTORY: Positive for hypertension, high cholesterol, palpitations, positive stress test in the past, type 2 diabetes mellitus, muscle weakness and a prior mini stroke. PAST SURGICAL HISTORY: Knee surgery, right shoulder, cholecystectomy, and tonsils. ALLERGIES: LIPITOR, ADHESIVE TAPE AND EKG LEADS. MEDICATIONS: Listed on this patient inquiry. SOCIAL HISTORY: Nonsmoker, non-[employer] user. REVIEW OF SYSTEMS: Denies any blurred vision, double vision, tinnitus, confusion. No chest pain, palpitations, shortness of breath. No nausea, vomiting, bowel and bladder incontinence. He mostly has back and lower extremity difficulty paresthesias. PHYSICAL EXAMINATION: VITAL SIGNS: Blood pressure 130/80, pulse of 80, respiratory rate 16, afebrile. HEENT: Pupils react to light and accommodation. Ear, nose and throat clear. CARDIAC: Normal S1, S2, no S3. LUNGS: Clear to auscultation. No rales, rhonchi or wheezing. ABDOMEN: Soft and nontender. MUSCULOSKELETAL: He has decreased range of motion of lumbar spine. Pain with percussion of lumbar spine. Pain with straight leg raising. He does walk with a limp. He has some muscle atrophy. He has some pain with straight leg raising and significant ____ pain. IMAGING DATA: Images demonstrated fairly significant stenosis at L4-L5, lesser degree at L5-S1. IMPRESSION: Spinal stenosis, lumbar spine. DISPOSITION: Includes a laminectomy L4-L5 and L5-S1, lumbar spine.
[~2017-05-22] VITALS: Ht 185.4 cm; Wt 113.0 kg
[2017-05-22] VITALS (9 sets, daily range): BP systolic 92–132; BP diastolic 65–97; PULSE 61–91; TEMP 36.4–36.8; O2SAT 92–98; Ht 185.4 cm; Wt 113.0 kg
[~2017-05-22 05:08] MED LIST changes: -LORA10CA2 PO; -SENN-65 PO; -SENN1TAB77 PO; -lovenox SQ.
[2017-05-22 05:59] LABS: PTT PATIENT 28.6 SECONDS (21.0-31.0)
[2017-05-22] MEDS ORDERED: LACTATED RINGER'S 1000ML 1,000 ML IV SCH (06:00)
[2017-05-22] MEDS ORDERED: CEFAZOLIN 2000MG IV PUSH 10 ML IV SCH (06:00)
[2017-05-22] MEDS ORDERED: NSS 1000ML IV SCH (06:00)
[2017-05-22] MEDS ORDERED: GELATIN SPONGE SZ 100 ONE (06:55)
[2017-05-22] MEDS ORDERED: THROMBIN FOR SOLN 20000 UNIT KIT ONE (06:55)
[2017-05-22] MEDS ORDERED: VANCOMYCIN HCL 1000MG/20ML VIAL ONE (06:55)
[2017-05-22] MEDS ORDERED: BACITRACIN 50000 UNIT VIAL ONE (06:56)
[2017-05-22] MEDS ORDERED: BUPIVACAINE 0.25% 30 ML VIAL ONE ×2 (06:57→07:05)
[2017-05-22] MEDS ORDERED: EpINEphrine INJ 1MG/ML AMP 1 MG/ML AMP ONE (06:57)
[2017-05-22] MEDS ORDERED: GLYCOPYRROLATE INJ 0.2 MG/ML VIAL ONE (06:58)
[2017-05-22] MEDS ORDERED: LIDOCAINE HCL 2% 2 ML VIAL (20MG/ML) ONE (06:58)
[2017-05-22] MEDS ORDERED: NEOSTIGMINE METHYLSULFATE 5 MG/5 ML SYR ONE (06:58)
[2017-05-22] MEDS ORDERED: PROPOFOL IV EMULSION 10 MG/ML 20 ML VIAL IV ONE (06:58)
[2017-05-22] MEDS ORDERED: DEXAMETHASONE SOD INJ 4 MG/ML VIAL ONE (06:58)
[2017-05-22] MEDS ORDERED: ROCURONIUM BROMIDE 10 MG/ML 5 ML VIAL IV ONE ×2 (06:58→08:41)
[2017-05-22] MEDS ORDERED: ONDANSETRON INJ 2 MG/ML 2 ML VIAL ONE (06:58)
[2017-05-22] MEDS ORDERED: MIDAZOLAM HCL 1 MG/ML 2ML VIAL ONE (06:59)
[2017-05-22] MEDS ORDERED: FENTANYL CITRATE INJ 50 MCG/1 ML 2 ML VIAL ONE (06:59)
[2017-05-22] MEDS ORDERED: ONDANSETRON INJ 2 MG/ML 2 ML VIAL IV PRN ×2 (08:15→09:30)
[2017-05-22] MEDS ORDERED: ATROPINE SULFATE 0.1 MG/ML 5ML SYR IV PRN (08:15)
[2017-05-22] MEDS ORDERED: EpHEDrine SULFATE INJ 50 MG/ML AMP IV PRN (08:15)
[2017-05-22] MEDS ORDERED: HYDROmorphone INJ 1 MG/ML SYR IV PRN ×3 (08:15→09:30)
[2017-05-22] MEDS ORDERED: FENTANYL CITRATE INJ 50 MCG/1 ML 2 ML VIAL IV PRN (08:15)
[2017-05-22] MEDS ORDERED: HYDROmorphone INJ 2 MG/ML SYR/VIAL ONE (08:36)
[2017-05-22] MEDS ORDERED: SODIUM CHLORIDE 0.9% 1000ML 1,000 ML IV SCH (09:16)
--- NOTE | 2017-05-22 09:19 | [facility] Post Operative Brief Note ---
Immediate Operative Summary Operative Date May 22, 2017. Pre-Operative Diagnosis Spinal stenosis, lumbar spine Post-Operative Diagnosis Same Procedure(s) Performed L4-L5, L5-S1 Laminectomy Surgeon Dr Ricks Manager Lighting Surgeon(s) José Brady PA-C Estimated Blood Loss 100ML Findings severe stenosis Specimens NONE Complication(s) None Disposition Recovery Room / PACU
--- NOTE | 2017-05-22 09:23 | DIAGNOSTIC IMAGING REPORT ---
SPINE ONE VIEW, ANY LEVEL HISTORY: 71 years-old Male L4-S1 LAMINECTOMY COMPARISON: Lumbar spine MR 05/11/2017 TECHNIQUE: Single lateral spot fluoroscopic image of the lumbar spine was obtained utilizing 2.5 seconds of fluoroscopy time FINDINGS: Metallic device is noted posterior to the lumbar spine at the L4-S1 levels. Multilevel endplate spurring and intervertebral disc space narrowing is noted. Alignment appears satisfactory. IMPRESSION: Fluoroscopic assistance as above. Please see operative report for further details. The above report was generated using voice recognition software. It may contain grammatical, syntax or spelling errors. Electronically signed by: Navin Flores M.D. 05/22/2017 9:22 AM Dictated Date/Time: 05/22/2017 9:20 AM
[2017-05-22] MEDS ORDERED: ESMOLOL HCL 10 MG/ML 10 ML VIAL ONE (09:29)
--- NOTE | 2017-05-22 09:29 | OPERATIVE REPORT ---
DATE OF OPERATION: 05/22/2017 PREOPERATIVE DIAGNOSIS: Stenosis lumbar spine L4-5 sacrum. POSTOPERATIVE DIAGNOSIS: Same. PROCEDURE: Include laminectomy at L4-5, sacrum, foraminotomy, partial facetectomy, decompression of all neural elements. SURGEON: Raphael Ricks DO. COMMISSIONER PUBLIC WORKS: VY Balderas. COMPLICATIONS: Again zero. BLOOD LOSS: 100 mL. COUNTS: Sponge and needle count correct at the close. IMPLANTS USED: No implants used. DESCRIPTION OF THE PROCEDURE: The patient was taken to the operating room and general intubated anesthetic provided to the patient, placed prone, scrubbed, prepped, draped sterile. We made a skin incision from L4 to the sacrum dissecting the soft tissue in the same plane. We put in a deep self-retaining retractor. We meticulously dissected off the lamina, L4, L5 and the upper part of S1. Foraminotomy was done at S1, 4 and 5 at the appropriate nerve roots. I was pleased with the decompression complete with the freedom of the nerve roots visually and by palpation. We then irrigated thoroughly, closed with 1-0 Vicryl suture over a Hemovac drain over vancomycin powder. A 2-0 in the subcuticular layer and 3-0 nylon on the skin. Sterile dressings applied. The patient returned to recovery room satisfactory and stable. I attest to the content of the Intraoperative Record and any orders documented therein. Any exception s are noted below.
[2017-05-22] MEDS ORDERED: METOCLOPRAMIDE HCL INJ 5 MG/ML 2 ML VIAL IV PRN (09:30)
[2017-05-22] MEDS ORDERED: LORAZEPAM 1 MG TAB PO PRN (09:30)
[2017-05-22] MEDS ORDERED: OXYCODONE/ACETAMINOPHEN 5-325 TAB PO PRN ×2 (09:30)
[2017-05-22] MEDS ORDERED: CEFAZOLIN IV 2,000 MG in DEXTROSE 5% 50ML 50 ML IV SCH (09:30)
[2017-05-22] MEDS ORDERED: PROMETHAZINE HCL INJ 12.5 MG in SODIUM CHLORIDE 0.9% 50ML 50 ML IV PRN (09:30)
[2017-05-22] MEDS ORDERED: ACETAMINOPHEN 325 MG TAB PO PRN (09:30)
[2017-05-22] MEDS ORDERED: MAGNESIUM HYDROXIDE SUSP 30 ML UDC PO PRN (09:30)
[2017-05-22] MEDS ORDERED: IV FLUIDS COMPLETED PRN (10:15)
--- NOTE | 2017-05-22 10:16 | Anesthesiology Progress Note ---
Anesthesia Post Op Note Date & Time May 22, 2017 at 10:16 Vital Signs Pain Intensity: 0 Vital Signs Past 12 Hours Date Time Temp Pulse Resp B/P (MAP) Pulse Ox O2 Delivery O2 Flow Rate FiO2 05/22/17 10:00 36.3 67 13 137/90 96 Nasal Cannula 2 05/22/17 09:50 78 18 117/86 96 Nasal Cannula 2 05/22/17 09:40 71 12 135/89 98 Oxymask 10 05/22/17 09:30 87 18 120/90 98 Oxymask 10 05/22/17 09:22 36.5 87 18 136/89 100 Oxymask 10 05/22/17 06:01 36.4 88 22 130/97 96 Room Air Notes Mental Status: alert / awake / arousable, participated in evaluation Pt Amnestic to Procedure: Yes Nausea / Vomiting: adequately controlled Pain: adequately controlled Airway Patency, RR, SpO2: stable & adequate BP & HR: stable & adequate Hydration State: stable & adequate Anesthetic Complications: no major complications apparent
[2017-05-22] MEDS: KETOROLAC TROMETHAMINE 15 MG/ML VIAL IV. SCH ×3 (12:07→23:43)
[2017-05-22] MEDS: ASPIRIN/ALUM/MAGNES/CAL CARB 325 MG TAB PO SCH (12:07)
[2017-05-22] MEDS ORDERED: [UNRECOGNIZED DRUG - OTHER] PO SCH (14:00)
[2017-05-22] MEDS ORDERED: GLUCAGON FOR INJ 1 MG VIAL SQ PRN (14:45)
[2017-05-22] MEDS ORDERED: GLUCOSE 40% GEL 15 GM TUBE PO PRN (14:45)
[2017-05-22] MEDS ORDERED: DEXTROSE 50% 50 ML SYR IV PRN (14:45)
[2017-05-22] MEDS ORDERED: GLUCOSE 10 TABS/TUBE PO PRN (14:45)
--- NOTE | 2017-05-22 15:03 | Medical Consult ---
Consultation Date of Consultation: May 22, 2017. Attending Physician: Raphael Ricks DO History of Present Illness Mr. Turner has a history of Type 2 DM and CVA 23 years ago, cholecystectomy in November, hypertension, BPH, atrial fibrillation. He is always in an a.fib and takes warfarin for it. He is post op today with lumbar spine surgery. His feeling well, though he is very concerned for his blood thinner regimen. He is not having pain unless he moves. He does not have any urge to urinate. Blood pressure is generally well controlled. He is unsure about his blood sugars at home as he does not take his blood sugar regularly. ROS Constitutional: no chills, aches, sweats or fever Respiratory: no sob,cough, sputum, or wheezing Cardiac: no chest pain, palpitations, edema, orthopnea or lightheadedness GI: no abdominal pain, nausea, vomiting, diarrhea or constipation : no dysuria or hesitancy Extremities: see HPI Skin: no rash All other systems reviewed and negative Past Medical/Surgical History Medical Problems: (1) Biliary colic Status: Acute Family History Diabetes mellitus FH: cancer FH: heart disease Social History Smoking Status: Former Smoker Smokeless Tobacco Use: No Alcohol Use: none Marital Status: Housing Status: lives with significant other 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[employer]) Allergies Coded Allergies: Adhesives (Verified Adverse Reaction, Intermediate, blister/rash - EKG lead tape, 05/22/17) Atorvastatin (Verified Adverse Reaction, Intermediate, MUSCLE PAIN/ WEAKNESS, 05/22/17) Current Inpatient Medications Current Inpatient Medications Medications (Trade) Dose Ordered Sig/Homero Route Start Time Stop Time Status Last Admin Dose Admin Sodium Chloride 1,000 ml @ 15 mls/hr Q24H IV 05/22/17 06:00 05/23/17 05:59 Cefazolin Sodium 10 ml @ 2.5 mls/min PREOP IV 05/22/17 06:00 05/22/17 18:00 05/22/17 07:30 2.5 MLS/MIN Lactated Ringer's 1,000 ml @ 15 mls/hr Q24H IV 05/22/17 06:00 05/23/17 05:59 05/22/17 06:30 15 MLS/HR Acetaminophen (Tylenol Tab) 650 mg Q6H PRN PO 05/22/17 09:30 06/21/17 09:29 Hydromorphone HCl (Dilaudid Inj) 1 mg Q3H PRN IV 05/22/17 09:30 06/05/17 09:29 Hydromorphone HCl (Dilaudid Inj) 1.5 mg Q3H PRN IV 05/22/17 09:30 06/05/17 09:29 Ketorolac Tromethamine (Toradol Inj) 15 mg Q6H IV. 05/22/17 11:00 05/27/17 10:59 05/22/17 12:07 15 MG Promethazine HCl 12.5 mg/Sodium Chloride 50.5 ml @ 202 mls/hr Q6H PRN IV 05/22/17 09:30 06/21/17 09:29 Ondansetron HCl (Zofran Inj) 4 mg Q6H PRN IV 05/22/17 09:30 06/21/17 09:29 Metoclopramide HCl (Reglan Inj) 10 mg Q6H PRN IV 05/22/17 09:30 06/21/17 09:29 Lorazepam (Ativan Tab) 1 mg Q6H PRN PO 05/22/17 09:30 06/21/17 09:29 Polyethylene (Miralax Powder Packet) 17 gm DAILY PO 05/23/17 09:00 06/22/17 08:59 Bisacodyl (Dulcolax Tab) 5 mg DAILY PRN PO 05/23/17 06:00 06/22/17 05:59 Bisacodyl (Dulcolax Supp) 10 mg DAILY PRN ME 05/23/17 06:00 06/22/17 05:59 Magnesium Hydroxide (Milk Of Magnesia Susp) 30 ml DAILY PRN PO 05/22/17 09:30 06/21/17 09:29 Diphenhydramine HCl (Benadryl Cap) 25 mg Q6H PRN PO 05/22/17 09:30 06/21/17 09:29 Oxycodone/ Acetaminophen (Percocet 5-325mg Tab) 1 tab Q4H PRN PO 05/22/17 09:30 06/05/17 09:29 Oxycodone/ Acetaminophen (Percocet 5-325mg Tab) 2 tab Q4H PRN PO 05/22/17 09:30 06/05/17 09:29 Sodium Chloride 1,000 ml @ 80 mls/hr [id number] IV 05/22/17 09:16 06/21/17 09:15 05/22/17 12:12 80 MLS/HR Aspirin/Aluminum/ Magnesium/Ca Carb (Ascriptin Tab) 325 mg DAILY PO 05/22/17 12:00 05/24/17 08:59 05/22/17 12:07 325 MG Alfuzosin HCl (Uroxatral Tab) 10 mg QPM PO 05/22/17 21:00 06/21/17 20:59 Cyanocobalamin (Vitamin B-12 Tab) 1,000 mcg QPM PO 05/22/17 21:00 06/21/17 20:59 Hydrochlorothiazide (Hydrochlorothiazide Tab) 12.5 mg QAM PO 05/23/17 09:00 06/22/17 08:59 Lisinopril (Zestril Tab) 7.5 mg QAM PO 05/23/17 09:00 06/22/17 08:59 Metformin HCl (Glucophage Tab) 1,000 mg BID PO 05/22/17 21:00 06/21/17 20:59 Metoprolol Succinate (Toprol Xl Tab) 50 mg QAM PO 05/23/17 09:00 06/22/17 08:59 Multivitamins/ Minerals (Multivitamin W/ Minerals Tab) 1 tab QAM PO 05/23/17 09:00 06/22/17 08:59 Simvastatin (Zocor Tab) 10 mg HS PO 05/22/17 21:00 06/21/17 20:59 Warfarin Sodium (Coumadin Tab) 4 mg DAILY@1600 PO 05/22/17 16:00 06/21/17 15:59 Glimepiride (Amaryl Tab) 2 mg QAM PO 05/23/17 09:00 06/22/17 08:59 Miscellaneous (Iv Fluids Completed) 1 ea PRN PRN N/A 05/22/17 10:15 05/22/18 10:14 Cefazolin Sodium 2000 mg/Syringe 10 ml @ 2.5 mls/min Q8H IV 05/22/17 16:00 05/23/17 08:03 Physical Exam Date Time Temp Pulse Resp B/P (MAP) Pulse Ox O2 Delivery O2 Flow Rate FiO2 05/22/17 13:41 36.4 74 17 104/65 (78) 97 Nasal Cannula 2.0 05/22/17 13:21 36.5 61 19 107/70 (82) 98 Room Air 05/22/17 11:41 36.4 68 19 117/75 (89) 96 Nasal Cannula 2.0 05/22/17 11:11 36.4 66 17 117/74 (88) 92 Nasal Cannula 2.0 05/22/17 10:40 Nasal Cannula 2.0 05/22/17 10:40 Nasal Cannula 2.0 05/22/17 10:40 36.4 85 14 132/93 (106) 97 Nasal Cannula 2.0 05/22/17 10:15 80 12 138/99 96 Nasal Cannula 2 05/22/17 10:00 36.3 67 13 137/90 96 Nasal Cannula 2 05/22/17 09:50 78 18 117/86 96 Nasal Cannula 2 05/22/17 09:40 71 12 135/89 98 Oxymask 10 05/22/17 09:30 87 18 120/90 98 Oxymask 10 05/22/17 09:22 36.5 87 18 136/89 100 Oxymask 10 05/22/17 06:01 36.4 88 22 130/97 96 Room Air General: no distress Eyes: normal inspection, PERLL Respiratory: chest non tender, clear to auscultation, normal breath sounds, no respiratory distress, no accessory muscle use Cardiac: irregular rate and rhythm, no rub or gallop, no murmur, no edema, no jvd GI/: active bowel sounds, no abd pain or tenderness, soft, non distended Extremities: normal range of motion, normal strength, non tender Neuro/Psych: alert and oriented x 3, normal mood and affect Skin: normal color, dry Laboratory Results Last 24 Hours Test 05/22/17 05:41 05/22/17 05:45 05/22/17 09:28 05/22/17 10:57 Bedside Glucose 146 mg/dl 146 mg/dl 147 mg/dl Prothrombin Time 10.7 SECONDS Prothromb Time International Ratio 1.0 Activated Partial Thromboplast Time 28.6 SECONDS Partial Thromboplastin Ratio 1.1 Assessment & Plan Mr. Turner is a 71 year old man post op 05/22 spinal surgery Post op - monitor for blood loss - cbc am - bowel regimen, pain control per primary team - DVT prophylaxis/ anticoagulation for A.fib per primary - patient is extremely concerned about his Coumadin management outpatient. Discussed with his pcp - apparently patient is fairly labile when put on ss/nomogram coumadin and he has in the past used bridging with Lovenox rather than titrating Coumadin quickly to achieve therapeutic INR when he has had procedures in the past. Given patient's lower Chads-vasc score, that his history of stroke is remote, and that his A.fib is rate controlled, I would advise against bridging at this point for risk of bleeding. UpToDate search supports this as bridging is not recommended in low risk patients. DMII - hold metformin for now - continue glimepiride - bsgs ac & hs - ss HTN - continue lisinopril, hctz - prp am A.fib - continue metoprolol, - starting warfarin tonight per primary team BPH - continue alfuzosin Attending Attestation & Consult note: Pt seen/examined, chart reviewed, care plan d/w OVI Mckinney. I agree w/ the guerrero components of her consult note except - would hold SULEIMAN and HCTZ due to low-normal BP. Pt w/o cp, dyspnea, abd pain during my post-op visit. He is significantly hearing impaired. pre-op leg paresthesias are resolved - he is happy about such. VSS, BPs low normal gen - nad neck - no JVD heart - irregular, HR<100 lungs - CTA b/l abd - minimally distended, BS+, NT ext - no edema neuro - strength 5/5 x b/l LEs A/P: 1. HTN - would hold SULEIMAN and HCTZ; follow BPs and check BMP in am. 2. a. fib - rates controlled; NO BRIDGE with lovenox due to higher risk of bleeding in the operative site with such. reasonable to resume coumadin and allow it to become therapeutic gradually over several days. 3. h/o stroke - quite remote, nearly 25 years ago. 4. T2DM - controlled; if being d/c home tomorrow, and if creatinine is stable, reasonable to resume PO meds tomorrow AM. Gloria STEPHEN MD
[2017-05-22] MEDS ORDERED: WARFARIN SOD 4 MG TAB PO SCH (16:00)
[2017-05-22] MEDS: CEFAZOLIN IV 2,000 MG in SYRINGE 0 ML IV SCH ×2 (16:49→23:43)
[2017-05-22] MEDS: INSULIN ASPART 100 UNITS/ML 3 ML PEN SC SCH ×2 (17:49→21:22)
[2017-05-22] MEDS ORDERED: METFORMIN HCL 500 MG TAB PO SCH (21:00)
[2017-05-22] MEDS ORDERED: CYANOCOBALAMIN 500 MCG TAB (VIT B-12) PO SCH (21:00)
[2017-05-22] MEDS ORDERED: SIMVASTATIN 10 MG TAB PO SCH (21:00)
[2017-05-22] MEDS ORDERED: ALFUZosin TAB 10 MG TAB PO SCH (21:00)
[2017-05-22] MEDS ORDERED: NURSING VERBAL MED ORDER ONE (21:30)
[2017-05-23 03:46] VITALS: BP 114/73; PULSE 81; TEMP 36.8; O2SAT 97
[2017-05-23] MEDS ORDERED: BISACODYL 5 MG TABEC PO PRN (06:00)
[2017-05-23] MEDS ORDERED: BISACODYL 10 MG SUPP PR PRN (06:00)
[2017-05-23 06:42] LABS: HEMATOCRIT 34.2 % (42-52); HEMOGLOBIN 11.5 g/dL (14.0-18.0); MEAN CELL VOLUME 90.2 fL (80-100); MEAN CORPUSCULAR HEMOGLOBIN 30.3 pg (25-34); MEAN CORPUSCULAR HGB CONC 33.6 g/dl (32-36); MEAN PLATELET VOLUME 10.3 fL (7.4-10.4); PLATELET COUNT 126 K/uL (130-400); RED CELL DISTRIBUTION WIDTH SD 42.2 fL (36.4-46.3); WHITE BLOOD COUNT 6.67 K/uL (4.8-10.8)
[2017-05-23 07:09] LABS: CALCIUM 8.9 mg/dl (8.5-10.1); CREATININE 1.15 mg/dl (0.60-1.40); POTASSIUM 3.9 mmol/L (3.5-5.1)
[2017-05-23 07:18] VITALS: BP 115/78; PULSE 85; TEMP 36.6; O2SAT 96
--- NOTE | 2017-05-23 07:33 | Discharge Instructions ---
Discharge Instructions Date of Service May 23, 2017. Admission Reason for Admission: Lumbar Spinal Stenosis, Disc Herniation L4-L5, L5- Discharge Discharge Diagnosis / Problem: same Discharge Goals Goal(s): Improve function Activity Recommendations Activity Limitations: as noted below Lifting Limitations: no more than 5 pounds Exercise/Sports Limitations: until after follow-up appointment May Resume Sexual Activity: after follow-up appointment Shower/Bathe: keep incision dry Driving or Machine Use: be very careful, dont overdo . Instructions / Follow-Up Instructions / Follow-Up MEDICATIONS: Please take your prescriptions as instructed at your pre-op appointment. SPECIAL CARE: The following information is intended to answer some of the common questions and concerns regarding your surgery. Each patient is an individual and receives individual counselling throughout the course of treatment, from diagnosis to surgery all the way through recovery. What follows is not an exhaustive list, but should be a useful guide to some of the common questions and concerns patients have regarding their surgeries. These are not provided to keep you from calling us; rather, they give you something accurate and concrete to reference as you recover from your procedure. If you need us, we are available to you. As always, if you are not sure about something, call us at [phone]. MEDICAL EMERGENCIES: For these conditions, call 911 or go to your local hospital-based Emergency Department - not [facility] or equivalent. * Paralysis * Severe chest pain or difficulty breathing * Swelling or redness of either leg Spine procedures can be rather complex and though complications are rare, they do occur. In such cases, effective advice regarding emergency situations cannot always be addressed over the telephone. You may be referred to the emergency department for more effective management of your problem. Activity Limitations: It is important to give your body time to heal, so please limit your activities : * In general, don't do anything that moves your spine too much. You should avoid contact sports, twisting or heavy lifting while you recover. * 5-10 pounds is all you should attempt to lift. * You should not plan on driving for approximately 3 weeks and you should avoid traveling more than 30-45 minutes at a time. Longer trips should be broken down with walking breaks spaced appropriately. * Physical therapy is not usually required. * Walking and good posture practices will help you recover and regain your function. * Avoid straining or sudden changes in position. * In general, the goal is to take it easy and recover. Don't cause any new problems. Just relax. Showers: * Do not take a bath, use a Jacuzzi or hot tub or otherwise submerge your incision. * It is usually safe to take a shower 4-5 days after your surgery. * Your incision does not require any special creams or ointments. * Simply clean it with soap and water, dry and re-dress with a clean bandage afterwards. Incision: * Keep incision clean, dry and protected until your first follow-up appointment. * Some amount of drainage and redness is normal. Any drainage should be fairly clear and not have a foul odor. * If you feel anything is wrong or you have excessive drainage, please call us. * Your stitches and mary will be removed 10-14 days after your surgery. At the time of your first post-op visit. * Neck surgeries are typically closed with a suture underneath the skin. The steri-strips over the incision should be maintained until we see you in the office. Bracing: * You may be provided with a back or neck brace to encourage good posture and prevent injury. It will remind you not to do too much as you heal and will alert others to the fact that you have had a surgery. * Back braces may be removed for showers and when you are resting at home. They must be worn when you are walking around for any period of time or for travel. * For neck surgery, you will likely be provided with two cervical collars. The soft collar (Hope or foam rubber) is worn most commonly throughout the day and while sleeping. The plastic collar (provided at the hospital) is for showering/bathing. * Except while eating, collars should remain in place. More specifically, bracing is provided for a purpose and should be worn. * Please obtain your brace or collars prior to your operation and bring them to the hospital with you on the day of surgery. * You should also bring your collars to your post-op appointment with Dr. Ricks. You should always take good care of your body and practice healthy habits, especially following surgery. You should: * Follow your doctor's treatment plan * Sit and stand properly with good posture (ears over shoulders, shoulders over hips) Don't slouch * Learn to lift correctly * Exercise regularly (low-impact aerobic exercise is especially good, but check with your doctor first) * Generally, be up and walking for 5-10 minutes at a time at least 3-4 times per day from the day you get home * Increasing walking to tolerance until you can walk for 20-30 minutes at a time * Attain and maintain a healthy body weight * Eat healthy foods ( a well-balanced, low-fat diet rich in fruits and vegetables) and get enough calcium * Avoid excessive use of alcohol When to call our office - If you notice any of the following: * Increased pain not relieve by pain medicine * Fevers greater then 100 degrees F, chills or flu symptoms * Increased redness around incision * Drainage from the incision that is not clear * Any foul smelling drainage * Swelling or fluid collection beneath the skin Miscellaneous: * In the hospital, you may be given a walker or cane for support while walking. These are temporary needs and are intended to prevent injuries due to falls. You may discontinue them when you feel strong and steady enough on your feet. * Sleep in a comfortable position. We find that many patients find a lounge chair or recliner with several pillows to be beneficial in the early post-operative period. * The support stockings should be used for 7-10 days and may be discontinued when you are back to walking more and conducting usual household activities. No problem is insignificant. We are here to help you and get you well. Contact us at [phone]. Definitions: Foraminotomy: If part of the disc or a bone spur (osteophyte) is pressing on a nerve as it leaves the vertebra (through an exit called the foramen), a foraminotomy may be done. Otomy means "to make an opening." A foraminotomy is making the opening of the foramen larger, so the nerve can exit without being compressed. Laminotomy: Similar to the foraminotomy, a laminotomy makes a larger opening, this time in your bony plate protecting your spinal canal and spinal cord (the lamina). The lamina may be pressing on your nerve, so the surgeon may make more room for the nerves using a laminotomy. Laminectomy: Sometimes, a laminotomy is not sufficient. The surgeon may need to remove all or part of the lamina. This procedure is called a laminectomy. This can often be done at many levels without any harmful effects. Current Hospital Diet Patient's current hospital diet: Diabetes Type 2 Diet Discharge Diet Recommended Diet: Diabetes Type 2 Diet Procedures Procedures Performed: L4-L5, L5-S1 Laminectomy Pending Studies Studies pending at discharge: no Medical Emergencies . Who to Call and When: Medical Emergencies: If at any time you feel your situation is an emergency, please call 911 immediately. . Non-Emergent Contact Non-Emergency issues call your: Primary Care Provider . "Provider Documentation" section prepared by Raphael Ricks. . VTE Core Measure Inpt VTE Proph given/why not?: Treatment not indicated
[2017-05-23] MEDS: CEFAZOLIN IV 2,000 MG in SYRINGE 0 ML IV SCH (07:42)
--- NOTE | 2017-05-23 07:42 | Anesthesiology Progress Note ---
Anesthesia Post Op Note Date & Time May 23, 2017 at 07:42 Vital Signs Pain Intensity: 0.0 Vital Signs Past 12 Hours Date Time Temp Pulse Resp B/P (MAP) Pulse Ox O2 Delivery O2 Flow Rate FiO2 05/23/17 07:18 36.6 85 16 115/78 (90) 96 Room Air 05/23/17 03:46 36.8 81 16 114/73 (87) 97 Room Air 05/23/17 00:00 Room Air 05/22/17 23:11 36.8 76 16 92/67 (75) 96 Room Air Notes Mental Status: alert / awake / arousable, participated in evaluation Pt Amnestic to Procedure: Yes Nausea / Vomiting: adequately controlled Pain: adequately controlled Airway Patency, RR, SpO2: stable & adequate BP & HR: stable & adequate Hydration State: stable & adequate Anesthetic Complications: no major complications apparent
[2017-05-23] MEDS: INSULIN ASPART 100 UNITS/ML 3 ML PEN SC SCH ×2 (08:00→11:56)
--- NOTE | 2017-05-23 08:53 | DISCHARGE SUMMARY ---
DATE OF DISCHARGE: 05/23/2017 SUBJECTIVE: He is alert and oriented this morning. Minimal complaints of pain and voiding. Alert, oriented. No confusion. No chest pain, shortness of breath or leg extremity pain. OBJECTIVE: Vital signs stable, alert, oriented. Wound clean and protected. ASSESSMENT: Status post reconstructive surgery. DISPOSITION: Will discharge him home later on today. I estimate about 1:00 in the afternoon. He has prescription strength medication at home. He can also supplement that with Tylenol and Motrin. He will continue with his home medications. He has a follow-up appointment in approximately 10 days. His wound is to be kept clean and dry at all times. He is given instructions here in the office and in the hospital setting.
[2017-05-23] MEDS ORDERED: HYDROCHLOROTHIAZIDE 25 MG TAB PO SCH (09:00)
[2017-05-23] MEDS ORDERED: CEROVITE ADV FORMULA TAB PO SCH (09:00)
[2017-05-23] MEDS ORDERED: METOPROLOL SUCC 50MG EXT REL TAB PO SCH (09:00)
[2017-05-23] MEDS ORDERED: LISINOPRIL 5 MG TAB PO SCH (09:00)
[2017-05-23] MEDS ORDERED: POLYETHYLENE (MIRALAX) 17 GM PACK PO SCH (09:00)
[2017-05-23] MEDS ORDERED: GLIMEPIRIDE 2 MG TAB PO SCH (09:00)
[2017-05-23] MEDS: ASPIRIN/ALUM/MAGNES/CAL CARB 325 MG TAB PO SCH (09:10)
--- NOTE | 2017-05-23 09:57 | Progress Note ---
Subjective Date of Service: May 23, 2017. Subjective Pt evaluation today including: conversation w/ patient Patient reports feeling well. Patient denies any symptoms. Problem List Medical Problems: (1) Biliary colic Status: Acute Review of Systems Constitutional: No fever, No chills ENT: No hearing loss Respiratory: No cough, No sputum Cardiac: No chest pain, No orthopnea Abdomen: No pain, No nausea Neurologic: No memory loss, No paralysis Psychiatric: No depression symptoms Heme: No abnormal bleeding/bruising Endo: No fatigue Skin: No rash, No itch All Other Systems: Reviewed and Negative Objective Vital Signs Date Time Temp Pulse Resp B/P (MAP) Pulse Ox O2 Delivery O2 Flow Rate FiO2 05/23/17 07:18 36.6 85 16 115/78 (90) 96 Room Air 05/23/17 07:15 Room Air 05/23/17 03:46 36.8 81 16 114/73 (87) 97 Room Air 05/23/17 00:00 Room Air 05/22/17 23:11 36.8 76 16 92/67 (75) 96 Room Air 05/22/17 19:01 36.7 91 20 114/76 (89) 95 Room Air 05/22/17 17:00 Room Air 05/22/17 15:03 36.7 86 18 118/79 (92) 95 Room Air 05/22/17 13:41 36.4 74 17 104/65 (78) 97 Nasal Cannula 2.0 05/22/17 13:21 36.5 61 19 107/70 (82) 98 Room Air 05/22/17 11:41 36.4 68 19 117/75 (89) 96 Nasal Cannula 2.0 05/22/17 11:11 36.4 66 17 117/74 (88) 92 Nasal Cannula 2.0 05/22/17 10:40 Nasal Cannula 2.0 05/22/17 10:40 Nasal Cannula 2.0 05/22/17 10:40 36.4 85 14 132/93 (106) 97 Nasal Cannula 2.0 05/22/17 10:15 80 12 138/99 96 Nasal Cannula 2 05/22/17 10:00 36.3 67 13 137/90 96 Nasal Cannula 2 Physical Exam Comments: General: no distress Eyes: normal inspection, PERLL Respiratory: chest non tender, clear to auscultation, normal breath sounds, no respiratory distress, no accessory muscle use Cardiac: irregular rate and rhythm, no rub or gallop, no murmur, no edema, no jvd GI/: active bowel sounds, no abd pain or tenderness, soft, non distended Extremities: normal range of motion, normal strength, non tender Neuro/Psych: alert and oriented x 3, normal mood and affect Skin: normal color, dry Laboratory Results Last 24 Hours Test 05/22/17 10:57 05/22/17 16:54 05/22/17 21:18 05/23/17 06:04 Bedside Glucose 147 mg/dl 149 mg/dl 161 mg/dl White Blood Count 6.67 K/uL Red Blood Count 3.79 M/uL Hemoglobin 11.5 g/dL Hematocrit 34.2 % Mean Corpuscular Volume 90.2 fL Mean Corpuscular Hemoglobin 30.3 pg Mean Corpuscular Hemoglobin Concent 33.6 g/dl RDW Standard Deviation 42.2 fL RDW Coefficient of Variation 13.0 % Platelet Count 126 K/uL Mean Platelet Volume 10.3 fL Prothrombin Time 10.7 SECONDS Prothromb Time International Ratio 1.0 Sodium Level 135 mmol/L Potassium Level 3.9 mmol/L Chloride Level 101 mmol/L Carbon Dioxide Level 28 mmol/L Anion Gap 6.0 mmol/L Blood Urea Nitrogen 24 mg/dl Creatinine 1.15 mg/dl Est Creatinine Clear Calc Drug Dose 75.4 ml/min Estimated GFR () 72.8 Estimated GFR (Non- 62.8 BUN/Creatinine Ratio 20.9 Random Glucose 139 mg/dl Calcium Level 8.9 mg/dl Test 05/23/17 08:04 Bedside Glucose 138 mg/dl Assessment and Plan Mr. Turner is a 71 year old man post op 05/22 spinal surgery Post op - H and H aas stable - bowel regimen, pain control per primary team - DVT prophylaxis/ anticoagulation for A.fib per primary - patient is extremely concerned about his Coumadin management outpatient. -Yesterday discussed with his pcp - apparently patient is fairly labile when put on ss/nomogram coumadin and he has in the past used bridging with Lovenox rather than titrating Coumadin quickly to achieve therapeutic INR when he has had procedures in the past. Given patient's lower Chads-vasc score, that his history of stroke is remote, and that his A.fib is rate controlled, I would advise against bridging at this point for risk of bleeding. UpToDate search supports this as bridging is not recommended in low risk patients. DMII - hold metformin for now - continue glimepiride -contiue metformin as outpatient - bsgs ac & hs - ss HTN - continue lisinopril, hctz in outpatient setting - prp am A.fib - continue metoprolol, - starting warfarin tonight per primary team BPH - continue alfuzosin
[2017-05-23 12:48] VITALS: BP 117/78; PULSE 72; TEMP 37; O2SAT 98
== END 2017-05-23 14:22 | disposition home health service (06) ==
LOC: C.ACU 05:08 → C.3E 09:25 → ENRESERV 10:15
PROVIDERS: ADMIT Orthopaedic Surgery Orthopaedic Surgery of the Spine; ATTEND Orthopaedic Surgery Orthopaedic Surgery of the Spine
DX: M48.061 Spinal stenosis, lumbar region without neurogenic claudication (principal); E11.9 Type 2 diabetes mellitus without complications; I10 Essential (primary) hypertension; N40.0 Benign prostatic hyperplasia without lower urinary tract symptoms; I48.91 Unspecified atrial fibrillation; Z87.891 Personal history of nicotine dependence; Z79.01 Long term (current) use of anticoagulants; Z86.73 Personal history of transient ischemic attack (TIA), and cerebral infarction without residual deficits; Z90.49 Acquired absence of other specified parts of digestive tract; Z82.49 Family history of ischemic heart disease and other diseases of the circulatory system; Z83.3 Family history of diabetes mellitus

== ENCOUNTER 2017-05-31 11:28 | Inpatient (IN) | payer OTHER, MEDICARE ==
[~2017-05-31] VITALS: Ht 185.4 cm; Wt 110.5 kg
[2017-05-31] MEDS ORDERED: MoRPHine SULFATE 4 MG/ML 1 ML CARP\\VIAL IV STA ×3 (11:45→13:59)
--- NOTE | 2017-05-31 11:54 | EMERGENCY ROOM VISIT NOTE ---
History Report prepared by Todd: John Shea Under the Supervision of: Dr. Supa Torres M.D. First contact with patient: 11:42 Chief Complaint: OTHER COMPLAINT Stated Complaint: HEMATOMA History of Present Illness The patient is a 71 year old male who presents to the Emergency Room with complaints of a constant hematoma in his lower back and severe lower back pain starting yesterday after having spinal surgery on 05/22. He states that he had surgery on his L4, L5, and S1. The patient no is complaining of sharp pain across his lower back. He states that he went to see his spinal surgeon this morning, and his bottom stitch was leaking, and he was told that he had a hematoma. The patient states that he has been weening himself off of Percocet and Tylenol, and he stopped taking those 3 days ago. The patient states that he is currently on warfarin and Lovenox, and yesterday his INR was 1.9. He denies any fever, chills, nausea, vomiting, diarrhea, and weakness in his legs. The patient has a history of A-fib, cholecystectomy, and a stroke 23 years ago. Source of History: patient Onset: yesterday Position: back (lower) Symptom Intensity: severe Quality: other (hematoma) Timing: constant Associated Symptoms: No fevers, No chills, No nausea, No vomiting, No diarrhea, No weakness Review of Systems See HPI for pertinent positives and negatives. A total of ten systems were reviewed and were otherwise negative. Past Medical & Surgical Medical Problems: (1) Atrial fibrillation (2) Diabetes mellitus (3) Diverticulitis (4) Heart disease (5) Hematoma of lumbar muscle (6) HTN (hypertension) (7) Hyperlipidemia (8) Lumbar spinal stenosis Family History Diabetes mellitus FH: cancer FH: heart disease Social History Smoking Status: Former Smoker Alcohol Use: none Marital Status: Housing Status: lives with significant other Occupation Status: retired Current/Historical Medications Scheduled Alfuzosin Hcl (Uroxatral), 10 MG PO QPM Cyanocobalamin (Vitamin B-12), 1,000 MCG SL QPM Aca-Qos-Iwksudkc Oil-Vitamin E (Thera Tears Nutrition), 1 CAP PO TID Enoxaparin Sodium (Enoxaparin Sodium), 1 DOSE SQ UD Glimepiride (Glimepiride), 2 MG PO QAM Hydrochlorothiazide (Hctz), 12.5 MG PO QAM Lisinopril (Prinivil), 7.5 MG PO QAM Metformin HCl (Metformin HCl), 1,000 MG PO BID Metoprolol Succinate (Metoprolol Succinate ER), 50 MG PO QAM Multiple Vitamins W/ Minerals (Centrum Silver Adult 50+), 1 TAB PO QAM Simvastatin (Zocor), 10 MG PO HS Warfarin Sodium (Warfarin Sodium), 6 MG PO QPM Allergies Coded Allergies: Adhesives (Verified Adverse Reaction, Intermediate, blister/rash - EKG lead tape, 05/31/17) Atorvastatin (Verified Adverse Reaction, Intermediate, MUSCLE PAIN/ WEAKNESS, 05/31/17) Physical Exam Vital Signs Date Time Temp Pulse Resp B/P (MAP) Pulse Ox O2 Delivery O2 Flow Rate FiO2 05/31/17 14:08 72 20 121/75 97 Nasal Cannula 2.0 05/31/17 13:42 78 20 110/79 96 Room Air 05/31/17 13:00 81 05/31/17 12:57 88 20 135/95 96 Room Air 05/31/17 11:28 36.8 107 20 120/88 96 Room Air Physical Exam GENERAL: Awake, alert, uncomfortable-appearing, in no distress HENT: Normocephalic, atraumatic. Oropharynx unremarkable. EYES: Normal conjunctiva. Sclera non-icteric. NECK: Supple. No nuchal rigidity. FROM. No JVD. RESPIRATORY: Clear to auscultation. CARDIAC: Regular rate, normal rhythm. Extremities warm and well perfused. Pulses equal. ABDOMEN: Soft, non-distended. No tenderness to palpation. No rebound or guarding. No masses. RECTAL: Deferred. MUSCULOSKELETAL: 10cm area of swelling and tenderness at the incision site with a small amount of bloody ooze. No crepitus or warmth. 5/5 strength in all 4 extremities. SILT. Chest examination reveals no tenderness. There is no CVA tenderness to palpation. No joint edema. LOWER EXTREMITIES: Calves are equal size bilaterally and non-tender. No edema. No discoloration. NEURO: Normal sensorium. No sensory or motor deficits noted. SKIN: No rash or jaundice noted. Medical Decision & Procedures ER Provider Diagnostic Interpretation: Radiology results as stated below per my review and radiologist interpretation: (CHEST) THORAX WITH CT DOSE: 3203.35 mGy.cm HISTORY: Postoperative pain s/p spinal fusion, hematoma TECHNIQUE: Multiaxial CT images of the chest were performed following the intravenous administration of contrast. A dose lowering technique was utilized adhering to the principles of ALARA. COMPARISON: None. FINDINGS: Mild bibasilar dependent atelectasis. Lungs otherwise are clear. Hilar and mediastinal regions show no significant adenopathy. Calcification of several coronary arterial structures. No acute process of the thoracic spine. IMPRESSION: No acute process. The above report was generated using voice recognition software. It may contain grammatical, syntax or spelling errors. Electronically signed by: Yunier Solorzano M.D. 05/31/2017 1:45 PM Dictated Date/Time: 05/31/2017 1:[address] OF THE ABDOMEN AND PELVIS WITH CONTRAST CLINICAL HISTORY: Status post spinal fusion. Hematoma. COMPARISON STUDY: CT of the abdomen and pelvis September 05, 2016 and MRI of the lumbar spine May 11, 2017. TECHNIQUE: Following IV administration of 94 mL of Optiray-320, axial images of the abdomen and pelvis were obtained from the lung bases to the proximal femurs. Images were reviewed in the axial, sagittal, and coronal planes. IV contrast was administered without complication. A dose lowering technique was utilized adhering to the principles of ALARA. FINDINGS: The chest CT will be reported separately. A 6 mm left renal calculus is noted. There are numerous bladder calculi which measure up to 1 cm. A small right lateral bladder diverticulum is present. There are no ureteral calculi and there is no hydronephrosis or hydroureter. There is no biliary ductal dilatation status post cholecystectomy. The spleen, adrenal glands and pancreas are unremarkable. There is no pancreatic ductal dilatation. The caliber and wall thickness of small and large bowel are normal. The appendix is normal. There is colonic diverticulosis without evidence for acute diverticulitis. The prostate is moderately enlarged. No suspicious osseous lesions are present. There are postoperative findings consistent with an L4-S1 laminectomy which is suboptimally assessed by CT. There is a 9.8 x 5.5 x 4.3 cm laminectomy bed fluid collection which contains a fluid fluid level with hematocrit effect consistent with a hematoma. The impact upon the thecal sac is difficult to assess by CT but there may be mass effect upon the thecal sac. Radiolucent material within the posterior epidural space likely reflects surgical material. This may contain a small amount of gas. IMPRESSION: 1. Status post L4-S1 laminectomies with a 9.8 x 5.5 x 4.3 cm laminectomy bed hematoma with hematocrit effect which suggests anticoagulation/coagulopathy. Central canal suboptimally assessed by CT. Hematoma may have mass effect upon the thecal sac which is difficult to assess by CT. Radiolucent material within the posterior epidural space likely reflects surgical material. 2. Left renal calculus and numerous bladder calculi. No ureteral calculi. 3. No bowel obstruction. No evidence for ileus. Electronically signed by: Maciel Saldivar M.D. 05/31/2017 2:00 PM Dictated Date/Time: 05/31/2017 1:45 PM Laboratory Results 05/31/17 12:09 Red Blood Count 3.99, Mean Corpuscular Volume 90.0, Mean Corpuscular Hemoglobin 30.6, Mean Corpuscular Hemoglobin Concent 34.0, Mean Platelet Volume 9.9, Neutrophils (%) (Auto) 68.9, Lymphocytes (%) (Auto) 20.7, Monocytes (%) (Auto) 8.7, Eosinophils (%) (Auto) 0.7, Basophils (%) (Auto) 0.5, Neutrophils # (Auto) 4.21, Lymphocytes # (Auto) 1.26, Monocytes # (Auto) 0.53, Eosinophils # (Auto) 0.04, Basophils # (Auto) 0.03 05/31/17 12:09 Test 05/31/17 12:09 05/31/17 15:20 White Blood Count 6.10 K/uL (4.8-10.8) Red Blood Count 3.99 M/uL (4.7-6.1) Hemoglobin 12.2 g/dL (14.0-18.0) Hematocrit 35.9 % (42-52) Mean Corpuscular Volume 90.0 fL (80-100) Mean Corpuscular Hemoglobin 30.6 pg (25-34) Mean Corpuscular Hemoglobin Concent 34.0 g/dl (32-36) Platelet Count 206 K/uL (130-400) Mean Platelet Volume 9.9 fL (7.4-10.4) Neutrophils (%) (Auto) 68.9 % Lymphocytes (%) (Auto) 20.7 % Monocytes (%) (Auto) 8.7 % Eosinophils (%) (Auto) 0.7 % Basophils (%) (Auto) 0.5 % Neutrophils # (Auto) 4.21 K/uL (1.4-6.5) Lymphocytes # (Auto) 1.26 K/uL (1.2-3.4) Monocytes # (Auto) 0.53 K/uL (0.11-0.59) Eosinophils # (Auto) 0.04 K/uL (0-0.5) Basophils # (Auto) 0.03 K/uL (0-0.2) RDW Standard Deviation 43.2 fL (36.4-46.3) RDW Coefficient of Variation 13.1 % (11.5-14.5) Immature Granulocyte % (Auto) 0.5 % Immature Granulocyte # (Auto) 0.03 K/uL (0.00-0.02) Prothrombin Time 22.6 SECONDS (9.0-12.0) Prothromb Time International Ratio 2.2 (0.9-1.1) Anion Gap 9.0 mmol/L (3-11) Est Creatinine Clear Calc Drug Dose 101.2 ml/min Estimated GFR () 99.7 Estimated GFR (Non- 86.0 BUN/Creatinine Ratio 16.5 (10-20) Calcium Level 9.8 mg/dl (8.5-10.1) Total Bilirubin 1.6 mg/dl (0.2-1) Direct Bilirubin 0.3 mg/dl (0-0.2) Aspartate Amino Transf (AST/SGOT) 26 U/L (15-37) Alanine Aminotransferase (ALT/SGPT) 35 U/L (12-78) Alkaline Phosphatase 48 U/L (45-117) Total Protein 7.6 gm/dl (6.4-8.2) Albumin 3.9 gm/dl (3.4-5.0) Lipase 106 U/L (73-393) Urine Color DK YELLOW Urine Appearance CLEAR (CLEAR) Urine pH 6.5 (4.5-7.5) Urine Specific [place] > 1.045 (1.000-1.030) Urine Protein NEG (NEG) Urine Glucose (UA) NEG (NEG) Urine Ketones 1+ (NEG) Urine Occult Blood NEG (NEG) Urine Nitrite NEG (NEG) Urine Bilirubin NEG (NEG) Urine Urobilinogen NEG (NEG) Urine Leukocyte Esterase NEG (NEG) Laboratory results reviewed by me Medications Administered Medications (Trade) Dose Ordered Sig/Homero Route Start Time Stop Time Status Last Admin Dose Admin Morphine Sulfate (MoRPHine SULFATE INJ) 4 mg NOW STAT IV 05/31/17 11:45 05/31/17 11:53 DC 05/31/17 12:15 4 MG Morphine Sulfate (MoRPHine SULFATE INJ) 4 mg NOW STAT IV 05/31/17 12:49 05/31/17 12:50 DC 05/31/17 12:57 4 MG Lorazepam (Ativan Inj) 0.5 mg NOW STAT IV 05/31/17 14:49 05/31/17 14:50 DC 05/31/17 15:29 0.5 MG ECG Indication: back/shoulder pain Rate (beats per minute): 82 Rhythm: atrial fibrillation Findings: PVC, no acute ischemic change, left axis deviation Change: Patient's EKG has been interpreted by me. ED Course 1142: The patient was evaluated in room B10. A complete history and physical exam was performed. 1421: I discussed the patient's case with Dr. Ricks - Orthopedics, and he recommends that the patient be evaluated by the hospitalist 1543: I discussed the patient with Emma Mckinney PA-C Hospitalist - She will evaluate the patient for further treatment. Medical Decision I reviewed the patient's past medical history, medications, and the nursing notes as described above. The patient's presentation and history were concerning for hematoma, seroma, abscess, and cellulitis. The patient is a 71 y/o gentleman with a pmhx of afib and remote CVA on coumadin with recent Lspine fusion presents to the emergency department with concern for post-op spina hematoma after being re-evaluated by his surgeon, Dr. Ricks, in clinic per HPI. On arrival the patient is uncomfortable but in NAD, AFVSS. On exam the patient lumbar incision site with underlying fluctuance with scant sanguinous ooze. 5/5 strength and SILT x 4 ext. INR 2.2. H/H at baseline. Case d/w Dr. Ricks who agrees with plan for admission and likely OR tomorrow for drainage. D/w Dr. DEVONTE Conway hospitalist. Plan for ortho-spine admission with medicine consultation. Given hemodynamically stable and neuro intact will defer plan for INR reversal to medicine-ortho discussion. Medication Reconcilliation Current Medication List: was personally reviewed by me Blood Pressure Screening Patient's blood pressure: Normal blood pressure Consults Time Called: 1416 Consulting Physician: Dr. Ricks - Orthopedics Returned Call: [phone] I discussed the patient's case with Dr. Rambo Do Orthopedics, and he recommends that the patient be evaluated by the hospitalist Additional Consults: Time Called: 1424 Consulted Physician: Emma Mckinney PA-C Hospitalist Returned Call: [phone] Additional Comments: I discussed the patient with Emma Mckinney PA-C Hospitalist - she will evaluate the patient for further treatment. Impression Primary Impression: Postoperative hematoma Scribe Attestation The scribe's documentation has been prepared under my direction and personally reviewed by me in its entirety. I confirm that the note above accurately reflects all work, treatment, procedures, and medical decision making performed by me. Departure Information Dispostion Being Evaluated By Hospitalist Referrals Alex Tillman III, CRNP (PCP) Patient Instructions My [facility]
[2017-05-31] MEDS ORDERED: OPTIRAY 320 IV PRN (12:00)
[2017-05-31 12:21] LABS: BASO % 0.5 %; BASO ABS # 0.03 K/uL (0-0.2); EOS % 0.7 %; EOS ABS # 0.04 K/uL (0-0.5); HEMATOCRIT 35.9 % (42-52); HEMOGLOBIN 12.2 g/dL (14.0-18.0); IG# 0.03 K/uL (0.00-0.02); LYMPH % 20.7 %; LYMPH ABS # 1.26 K/uL (1.2-3.4); MEAN CORPUSCULAR HEMOGLOBIN 30.6 pg (25-34); MEAN PLATELET VOLUME 9.9 fL (7.4-10.4); MONO % 8.7 %; MONO ABS # 0.53 K/uL (0.11-0.59); NEUT % 68.9 %; NEUT ABS # 4.21 K/uL (1.4-6.5); PLATELET COUNT 206 K/uL (130-400); RED CELL DISTRIBUTION WIDTH CV 13.1 % (11.5-14.5); RED CELL DISTRIBUTION WIDTH SD 43.2 fL (36.4-46.3)
[2017-05-31 12:29] LABS: INR 2.2 (0.9-1.1)
[2017-05-31 12:40] LABS: ALBUMIN 3.9 gm/dl (3.4-5.0); CALCIUM 9.8 mg/dl (8.5-10.1); CREATININE 0.86 mg/dl (0.60-1.40)
[2017-05-31 12:45] LABS: TOTAL PROTEIN 7.6 gm/dl (6.4-8.2)
--- NOTE | 2017-05-31 13:47 | DIAGNOSTIC IMAGING REPORT ---
(CHEST) THORAX WITH CT DOSE: 3203.35 mGy.cm HISTORY: Postoperative pain s/p spinal fusion, hematoma TECHNIQUE: Multiaxial CT images of the chest were performed following the intravenous administration of contrast. A dose lowering technique was utilized adhering to the principles of ALARA. COMPARISON: None. FINDINGS: Mild bibasilar dependent atelectasis. Lungs otherwise are clear. Hilar and mediastinal regions show no significant adenopathy. Calcification of several coronary arterial structures. No acute process of the thoracic spine. IMPRESSION: No acute process. The above report was generated using voice recognition software. It may contain grammatical, syntax or spelling errors. Electronically signed by: Yunier Solorzano M.D. 05/31/2017 1:45 PM Dictated Date/Time: 05/31/2017 1:40 PM
--- NOTE | 2017-05-31 14:02 | DIAGNOSTIC IMAGING REPORT ---
CT OF THE ABDOMEN AND PELVIS WITH CONTRAST CLINICAL HISTORY: Status post spinal fusion. Hematoma. COMPARISON STUDY: CT of the abdomen and pelvis September 05, 2016 and MRI of the lumbar spine May 11, 2017. TECHNIQUE: Following IV administration of 94 mL of Optiray-320, axial images of the abdomen and pelvis were obtained from the lung bases to the proximal femurs. Images were reviewed in the axial, sagittal, and coronal planes. IV contrast was administered without complication. A dose lowering technique was utilized adhering to the principles of ALARA. FINDINGS: The chest CT will be reported separately. A 6 mm left renal calculus is noted. There are numerous bladder calculi which measure up to 1 cm. A small right lateral bladder diverticulum is present. There are no ureteral calculi and there is no hydronephrosis or hydroureter. There is no biliary ductal dilatation status post cholecystectomy. The spleen, adrenal glands and pancreas are unremarkable. There is no pancreatic ductal dilatation. The caliber and wall thickness of small and large bowel are normal. The appendix is normal. There is colonic diverticulosis without evidence for acute diverticulitis. The prostate is moderately enlarged. No suspicious osseous lesions are present. There are postoperative findings consistent with an L4-S1 laminectomy which is suboptimally assessed by CT. There is a 9.8 x 5.5 x 4.3 cm laminectomy bed fluid collection which contains a fluid fluid level with hematocrit effect consistent with a hematoma. The impact upon the thecal sac is difficult to assess by CT but there may be mass effect upon the thecal sac. Radiolucent material within the posterior epidural space likely reflects surgical material. This may contain a small amount of gas. IMPRESSION: 1. Status post L4-S1 laminectomies with a 9.8 x 5.5 x 4.3 cm laminectomy bed hematoma with hematocrit effect which suggests anticoagulation/coagulopathy. Central canal suboptimally assessed by CT. Hematoma may have mass effect upon the thecal sac which is difficult to assess by CT. Radiolucent material within the posterior epidural space likely reflects surgical material. 2. Left renal calculus and numerous bladder calculi. No ureteral calculi. 3. No bowel obstruction. No evidence for ileus. Electronically signed by: Maciel Saldivar M.D. 05/31/2017 2:00 PM Dictated Date/Time: 05/31/2017 1:45 PM
[2017-05-31] MEDS ORDERED: LORAZEPAM 2 MG/ML 1 ML VIAL IV STA (14:49)
[2017-05-31] MEDS ORDERED: OXYCODONE/ACETAMINOPHEN 5-325 TAB PO PRN (16:30)
[2017-05-31] MEDS ORDERED: HYDROmorphone INJ 1 MG/ML SYR IM PRN (16:30)
[2017-05-31] MEDS ORDERED: ONDANSETRON INJ 2 MG/ML 2 ML VIAL IV PRN (16:30)
[2017-05-31 17:00] VITALS: O2SAT 96; Ht 185.4 cm; Wt 110.5 kg
[2017-05-31 17:25] VITALS: BP 148/89; PULSE 105; TEMP 36.7; O2SAT 97
[2017-05-31] MEDS ORDERED: HYDROmorphone INJ 1 MG/ML SYR ONE (17:27)
[2017-05-31] MEDS ORDERED: NURSING VERBAL MED ORDER ONE (17:30)
[2017-05-31] MEDS: ACETAMINOPHEN IV 1,000 MG in EMPTY BAG 0 ML IV SCH (19:06)
--- NOTE | 2017-05-31 19:15 | HISTORY & PHYSICAL EXAMINATION ---
DATE OF ADMISSION: 05/31/2017 CHIEF COMPLAINT: Back pain. HISTORY OF PRESENT ILLNESS: Luiz is a delightful patient. I have known him for several months. He had elective spine surgery 10 days ago. He did well. He developed a hematoma yesterday with increasing pain. He had a window of being pain free and a wonderful recovery for about 1-9 days postop. It was unusual to form a hematoma 9 days postsurgery, but that is what happened. Probably some irregularity in his clotting mechanism when he was going from Coumadin to Lovenox and being bridged with Lovenox. He is alert, oriented, moderate complaints of pain. I am seeing him on rounds at 6:35 on Monday evening and he is actually sleeping and comfortable. Vital signs also stable. PAST MEDICAL HISTORY: Positive for hypertension, high cholesterol, positive stress test, type 2 diabetes mellitus, prior mini stroke. PAST SURGICAL HISTORY: Knee and shoulder, cholecystectomy and recent spine surgery. ALLERGIES: LIPITOR, ADHESIVE TAPE AND EKG LEADS. MEDICATIONS: Listed. SOCIAL HISTORY: Nonsmoker, non-[employer] user. REVIEW OF SYSTEMS: He denied any blurred vision, double vision, tinnitus, vertigo, chest pain, shortness of breath. Denies nausea, vomiting, urgency, frequency, dysuria. He really has just back pain without radicular leg pain. PHYSICAL EXAMINATION: VITAL SIGNS: Stable, alert, oriented, pulse normal at 80 beats per minute, 36.7 temperature, blood pressure 140/80, pulse 72, pulse ox 97. HEENT: Pupils react to light and accommodation. Ear, nose and throat clear. CARDIAC: Normal S1, S2, no S3. LUNGS: Clear. ABDOMEN: Soft, nontender. EXTREMITIES: His wound is clean, has some bleeding consistent with a hematoma. The suture lines intact. IMPRESSION: Delightful human being, 71, with a postop hematoma roughly day 9-10 postoperatively. DISPOSITION: Right now he looks comfortable. We are gong to try and treat him medically with ice and Dilaudid see if we get this quieted down. I am not planning at this moment any repeat surgery or evacuation of hematoma. If he would not improve over the next few days, then surgery of evacuation of hematoma is certainly indicated but right now we are going to try to avoid surgery. We appreciate medical management. It will be tedious to monitor his Coumadin and Lovenox. Wanted to have direct communication and try to figure out the appropriate pathway. ARO
[2017-05-31 19:56] VITALS: PULSE 80
[2017-05-31] MEDS: DOCUSATE SODIUM 100 MG CAP PO SCH (21:37)
[2017-05-31] MEDS: HYDROmorphone INJ 1 MG/ML SYR IV PRN (21:40)
[2017-05-31 22:52] VITALS: BP 126/81; PULSE 77; TEMP 36.6; O2SAT 97
[2017-06-01] MEDS ORDERED: NURSING DECISION MEDICATION ORDER SCH (00:30)
[2017-06-01] MEDS: ACETAMINOPHEN IV 1,000 MG in EMPTY BAG 0 ML IV SCH ×3 (01:55→18:53)
[2017-06-01] MEDS: HYDROmorphone INJ 1 MG/ML SYR IV PRN ×2 (06:08→08:43)
[2017-06-01 07:16] VITALS: BP 128/73; PULSE 103; TEMP 36.8; O2SAT 97
[2017-06-01] MEDS ORDERED: OXYCODONE HCL IR 5 MG TAB (IMMEDIATE RELEASE) PO PRN (08:00)
[2017-06-01] MEDS ORDERED: HydrALAZINE HCL 20 MG/ML VIAL IV PRN (08:00)
[2017-06-01] MEDS: INSULIN ASPART 100 UNITS/ML 3 ML PEN SC SCH ×4 (08:00→21:13)
[2017-06-01] MEDS ORDERED: LORAZEPAM 2 MG/ML 1 ML VIAL IV PRN ×2 (08:00)
[2017-06-01] MEDS ORDERED: DEXTROSE 50% 50 ML SYR IV PRN (08:15)
[2017-06-01] MEDS ORDERED: GLUCOSE 10 TABS/TUBE PO PRN (08:15)
[2017-06-01] MEDS ORDERED: LORAZEPAM INJ 0.5 MG in SYRINGE 0.75 ML IV PRN (08:15)
[2017-06-01] MEDS ORDERED: GLUCAGON FOR INJ 1 MG VIAL SQ PRN (08:15)
[2017-06-01] MEDS ORDERED: GLUCOSE 40% GEL 15 GM TUBE PO PRN (08:15)
[2017-06-01] MEDS: LORAZEPAM INJ 1 MG in SYRINGE 0.5 ML IV PRN ×2 (08:43→16:01)
[2017-06-01] MEDS: DOCUSATE SODIUM 100 MG CAP PO SCH ×2 (08:44→21:10)
[2017-06-01] MEDS: SODIUM CHLORIDE 0.9% 1000ML 1,000 ML IV SCH ×2 (08:44→18:53)
--- NOTE | 2017-06-01 08:45 | ORTHOPEDICS PROGRESS NOTE ---
DATE: 06/01/2017 SUBJECTIVE: Luiz is in significant amount of pain this morning compared to last evening. The medication does work, but he gets significant pain when he moves even a little bit in the hospital bed. Fortunately, he has no gross neurological deficit. Moves all extremities and has no bowel or bladder issues. Images reviewed. He does have a hematoma of the lumbar spine. ASSESSMENT: Status post surgery with a hematoma of the lumbar spine with a delightful gentleman also in atrial fibrillation, also on Coumadin and few other comorbidities but relatively healthy. DISPOSITION: More than likely he will need evacuation of hematoma to reduce his pain. He has no neurological deficits and he was not in absolute emergency. He is also quite anxious. We will try to control his pain and anxiety today. We will also try to optimize him medically today including his anticoagulants. As of this time, I am going to be setting up for surgery tomorrow, which is Monday, about mid to late afternoon for evacuation of his hematoma, lumbar spine. We will do that under general anesthetic. I will be posting the case and that should work out appropriately. Dr. Ellington will be seeing him in consultation as well.
[2017-06-01 09:01] LABS: INR 2.2 (0.9-1.1)
[2017-06-01 09:13] LABS: HEMATOCRIT 33.1 % (42-52); MEAN CELL VOLUME 90.7 fL (80-100); MEAN CORPUSCULAR HEMOGLOBIN 30.1 pg (25-34); MEAN CORPUSCULAR HGB CONC 33.2 g/dl (32-36); MEAN PLATELET VOLUME 10.3 fL (7.4-10.4); PLATELET COUNT 186 K/uL (130-400); RED CELL DISTRIBUTION WIDTH CV 13.1 % (11.5-14.5); RED CELL DISTRIBUTION WIDTH SD 43.5 fL (36.4-46.3); WHITE BLOOD COUNT 6.12 K/uL (4.8-10.8)
[2017-06-01] MEDS: METOPROLOL TARTRATE 25 MG TAB PO SCH ×2 (09:59→21:11)
--- NOTE | 2017-06-01 14:45 | Anesthesiology Progress Note ---
Anesthesia Progress Note Date of Service Jun 01, 2017. Progress Notes Mr. Turner had lumbar surgery 10 days ago without incident. No significant changes in his medical status other than acute hematoma in lumbar spine now requiring evacuation. PMH significant for A fib, HTN, HLD, CVA 1994, NIDDM, anxiety and obesity. Previous smoker. Patient consented for GETA. All questions answered. Appears to be appropriate for anesthesia tomorrow.
[2017-06-01 15:34] VITALS: BP 113/74; PULSE 84; TEMP 36.7; O2SAT 96
[2017-06-01] MEDS: HYDROmorphone INJ 2 MG/ML SYR/VIAL IV PRN ×2 (16:01→21:05)
--- NOTE | 2017-06-01 16:16 | Medical Consult ---
History General Date of Service: Jun 01, 2017. Stated Complaint: Hematoma HPI The patient is a 71 year old male who presents to [facility] with complaints of Hematoma. The patient's primary care provider is Alex Tillman III, CRNP. pt presents with severe back pain and is found to have a epidural hematoma encouraged by his mcc anticoagulant, he has no neurological compromise and is not having bowel or bladder dysfunction Historian: patient Review of Systems Constitutional: reports: weakness, denies: chills, diaphoresis Cardiovascular: denies: chest pain, chest pressure Respiratory: denies: cough, orthopnea Gastrointestinal: denies: abdominal pain, constipation, diarrhea Genitourinary - Male: denies: dysuria, hematuria Musculoskeletal: reports: back pain, myalgias Integumentary: denies: rash, redness Neurologic: reports: general weakness, denies: focal weakness Past Medical History Past Medical History: A Fib, BPH, diabetes, hypertension Past Surgical History: other (spinal surgery) Family History Diabetes mellitus FH: cancer FH: heart disease Parent: Heart Disease, Hypertension Social History Hx Tobacco Use In Past Year?: No (QUIT 2008, SMOKED OFF AND ON FOR 20 YRS) Smoking Status: Former Smoker Marital status: Occupational Status: retired Allergies Coded Allergies: Adhesives (Verified Adverse Reaction, Intermediate, blister/rash - EKG lead tape, 05/31/17) Atorvastatin (Verified Adverse Reaction, Intermediate, MUSCLE PAIN/ WEAKNESS, 05/31/17) Current Medications Reported Home Medications Medications Dose Route/Sig Max Daily Dose Days Date Category Dose Instructions Enoxaparin Sodium 150 Mg/Ml Inj 1 Dose SQ UD 05/18/17 Reported STARTED 05/17/17 Uroxatral (Alfuzosin HCl) 10 Mg Tab 10 Mg PO QPM 09/05/16 Reported Metoprolol Succinate ER (Metoprolol Succinate) 50 Mg Tabcr 50 Mg PO QAM 09/05/16 Reported Hctz (Hydrochlorothiazide) 12.5 Mg Cap 12.5 Mg PO QAM 09/05/16 Reported Warfarin Sodium Unknown Strength Tab 6 Mg PO QPM 09/05/16 Reported sent home on 4mg, then pt states he was changed to 6mg daily. Thera Tears Nutrition (Mke-Jlk-Rsekkzhn Oil-Vitamin E) 1 Cap Cap 1 Cap PO TID 09/05/16 Reported Glimepiride 4 Mg Tab 2 Mg PO QAM 09/05/16 Reported Prinivil (Lisinopril) 5 Mg Tab 7.5 Mg PO QAM 09/05/16 Reported Metformin HCl 500 Mg Tab 1,000 Mg PO BID 09/05/16 Reported Vitamin B-12 (Cyanocobalamin) 1,000 Mcg Tab 1,000 Mcg SL QPM 09/05/16 Reported Zocor (Simvastatin) 10 Mg Tab 10 Mg PO HS 09/05/16 Reported Centrum Silver Adult 50+ (Multiple Vitamins W/ Minerals) 1 Tab Tab 1 Tab PO QAM 09/05/16 Reported Physical Physical Exam Vital Signs: Date Time Temp Pulse Resp B/P (MAP) Pulse Ox O2 Delivery O2 Flow Rate FiO2 06/01/17 07:45 Nasal Cannula 2.0 06/01/17 07:16 36.8 103 16 128/73 (91) 97 2.0 05/31/17 23:30 Nasal Cannula 2.0 05/31/17 22:52 36.6 77 20 126/81 (96) 97 Nasal Cannula 2.0 05/31/17 19:56 80 05/31/17 17:25 36.7 105 22 148/89 (108) 97 Nasal Cannula 2.0 05/31/17 17:20 36.8 72 20 121/75 96 05/31/17 17:20 Nasal Cannula 2.0 05/31/17 17:00 96 Nasal Cannula 2.0 General Appearance: WELL-APPEARING, moderate distress Head: NORMOCEPHALIC, ATRAUMATIC Eyes: PERRLA, EOMI Neck: NO TENDERNESS, TRACHEA MIDLINE Respiratory: BREATH SOUNDS NORMAL, CLEAR TO AUSCULTATION, CLEAR TO PERCUSSION Cardiovasular: REGULAR RATE/RHYTHM, NORMAL S1S2, NO M/G/R Abdomen: NON TENDER, NORMAL BOWEL SOUNDS, NO REBOUND, NO MASSES Upper Extremities: NO EDEMA, NORMAL ROM Lower Extremities: NO EDEMA, NORMAL ROM Neuro: ALERT, ORIENTED x 3, NORMAL MOTOR EXAM, NORMAL SENSATION Psychiatric: NORMAL AFFECT, NO SUICIDAL IDEATION Diagnostics Labs Results Past 24 Hours Test 05/31/17 15:20 05/31/17 17:50 05/31/17 20:33 06/01/17 00:29 Range/Units Urine Color DK YELLOW Urine Appearance CLEAR CLEAR Urine pH 6.5 4.5-7.5 Urine Specific [place] > 1.045 1.000-1.030 Urine Protein NEG NEG Urine Glucose (UA) NEG NEG Urine Ketones 1+ NEG Urine Occult Blood NEG NEG Urine Nitrite NEG NEG Urine Bilirubin NEG NEG Urine Urobilinogen NEG NEG Urine Leukocyte Esterase NEG NEG Bedside Glucose 110 131 139 70-99 mg/dl Test 06/01/17 08:31 Range/Units White Blood Count 6.12 4.8-10.8 K/uL Red Blood Count 3.65 4.7-6.1 M/uL Hemoglobin 11.0 14.0-18.0 g/dL Hematocrit 33.1 42-52 % Mean Corpuscular Volume 90.7 80-100 fL Mean Corpuscular Hemoglobin 30.1 25-34 pg Mean Corpuscular Hemoglobin Concent 33.2 32-36 g/dl RDW Standard Deviation 43.5 36.4-46.3 fL RDW Coefficient of Variation 13.1 11.5-14.5 % Platelet Count 186 130-400 K/uL Mean Platelet Volume 10.3 7.4-10.4 fL Prothrombin Time 22.7 9.0-12.0 SECONDS Prothromb Time International Ratio 2.2 0.9-1.1 Impression Assessment and Plan Mr. Turner is a 71 year old man post op 05/22 spinal surgery, developed a spinal hematoma and planning on surgical evacuation For surgical evacuation anticoagulation for A.fib will need to be reversed to INR less than 1.4, patient is extremely concerned about his Coumadin management. the pt will have vitamin K given to reverse inr as it is still elevated to 2.2 on 06/01 DMII- hold metformin bsgs ac & hs, continue ssi HTN/A.fib, will have metoprolol to control afib and prn hydralazine BPH alfuzosin was previously used, will have iglesias cath for now
[2017-06-01] MEDS ORDERED: PHYTONADIONE INJ 5 MG in SODIUM CHLORIDE 0.9% 50ML 50 ML IV ONE (16:30)
[2017-06-01 19:30] VITALS: BP 135/89; PULSE 101; TEMP 36.9; O2SAT 91
[2017-06-01 19:47] VITALS: BP 146/65; PULSE 106; TEMP 37.3; O2SAT 90
[2017-06-01 20:11] VITALS: BP 115/64; PULSE 96; TEMP 36.9; O2SAT 94
[2017-06-01 22:38] VITALS: BP 113/69; PULSE 95; TEMP 37.2; O2SAT 95
[2017-06-02] MEDS ORDERED: NURSING VERBAL MED ORDER ONE ×3 (01:15→19:15)
[2017-06-02] MEDS: ACETAMINOPHEN IV 1,000 MG in EMPTY BAG 0 ML IV SCH ×3 (01:51→18:00)
[2017-06-02] MEDS: HYDROmorphone INJ 1 MG/ML SYR IV PRN ×3 (01:52→12:27)
[2017-06-02] MEDS: SODIUM CHLORIDE 0.9% 1000ML 1,000 ML IV SCH ×2 (05:22→14:08)
[2017-06-02] MEDS: INSULIN ASPART 100 UNITS/ML 3 ML PEN SC SCH ×4 (06:00→21:00)
[2017-06-02 06:34] VITALS: BP 118/75; PULSE 89; TEMP 36.5; O2SAT 98
[2017-06-02 07:54] LABS: BASO % 0.3 %; BASO ABS # 0.02 K/uL (0-0.2); EOS % 1.3 %; EOS ABS # 0.08 K/uL (0-0.5); HEMATOCRIT 30.3 % (42-52); HEMOGLOBIN 10.1 g/dL (14.0-18.0); IG# 0.02 K/uL (0.00-0.02); LYMPH % 22.7 %; LYMPH ABS # 1.43 K/uL (1.2-3.4); MEAN CORPUSCULAR HEMOGLOBIN 30.3 pg (25-34); MEAN CORPUSCULAR HGB CONC 33.3 g/dl (32-36); MEAN PLATELET VOLUME 10.1 fL (7.4-10.4); MONO ABS # 0.63 K/uL (0.11-0.59); NEUT % 65.4 %; NEUT ABS # 4.11 K/uL (1.4-6.5); PLATELET COUNT 177 K/uL (130-400); RED CELL DISTRIBUTION WIDTH CV 13.2 % (11.5-14.5); RED CELL DISTRIBUTION WIDTH SD 43.8 fL (36.4-46.3); WHITE BLOOD COUNT 6.29 K/uL (4.8-10.8)
[2017-06-02] MEDS: DOCUSATE SODIUM 100 MG CAP PO SCH ×2 (07:59→21:36)
[2017-06-02] MEDS: METOPROLOL TARTRATE 25 MG TAB PO SCH (08:00)
[2017-06-02 08:02] LABS: INR 1.3 (0.9-1.1)
[2017-06-02] MEDS: LORAZEPAM INJ 1 MG in SYRINGE 0.5 ML IV PRN (10:02)
[2017-06-02] MEDS ORDERED: CEFAZOLIN SOD 2000MG/15 ML IV PUSH IV ONE (15:44)
[2017-06-02] MEDS ORDERED: BUPIVACAINE/EPINEPHRINE 0.5% MPF 1:200,000 30 ML VIAL ONE ×2 (15:49→16:03)
[2017-06-02] MEDS ORDERED: BACITRACIN 50000 UNIT VIAL ONE (15:50)
[2017-06-02] MEDS ORDERED: VANCOMYCIN HCL 1000MG/20ML VIAL ONE (15:50)
[2017-06-02] MEDS ORDERED: CEFAZOLIN 2000MG IV PUSH 10 ML IV SCH (16:00)
[2017-06-02] MEDS ORDERED: DEXAMETHASONE SOD INJ 4 MG/ML VIAL ONE (16:03)
[2017-06-02] MEDS ORDERED: GLYCOPYRROLATE INJ 0.2 MG/ML VIAL ONE (16:03)
[2017-06-02] MEDS ORDERED: LIDOCAINE HCL 2% 2 ML VIAL (20MG/ML) ONE (16:03)
[2017-06-02] MEDS ORDERED: FENTANYL CITRATE INJ 50 MCG/1 ML 2 ML VIAL ONE ×3 (16:03→17:55)
[2017-06-02] MEDS ORDERED: NEOSTIGMINE METHYLSULFATE 1 MG/ML 10ML VIAL ONE (16:03)
[2017-06-02] MEDS ORDERED: PROPOFOL IV EMULSION 10 MG/ML 20 ML VIAL IV ONE (16:03)
[2017-06-02] MEDS ORDERED: MIDAZOLAM HCL 1 MG/ML 2ML VIAL ONE (16:03)
[2017-06-02] MEDS ORDERED: ONDANSETRON INJ 2 MG/ML 2 ML VIAL ONE (16:03)
[2017-06-02] MEDS ORDERED: PHENYLEPHRINE 100MCG/ML 5ML SYR IV PRN (16:15)
[2017-06-02] MEDS ORDERED: ATROPINE SULFATE 0.1 MG/ML 5ML SYR IV PRN (16:15)
[2017-06-02] MEDS ORDERED: EpHEDrine SULFATE INJ 50 MG/ML AMP IV PRN (16:15)
[2017-06-02] MEDS ORDERED: ONDANSETRON INJ 2 MG/ML 2 ML VIAL IV PRN ×2 (16:15→18:00)
[2017-06-02] MEDS ORDERED: THROMBIN FOR SOLN 20000 UNIT KIT ONE (16:24)
[2017-06-02] MEDS ORDERED: GELATIN SPONGE SZ 100 ONE (16:24)
--- NOTE | 2017-06-02 16:45 | Progress Note ---
Subjective Date of Service: Jun 02, 2017. Subjective this pt is doing well having intermittent spasms of pain, slated for surgery today for hematoma evacuation Problem List Medical Problems: (1) Biliary colic Status: Acute (2) Postoperative hematoma Status: Acute Review of Systems Constitutional: No fever, No chills Respiratory: No cough, No shortness of breath Cardiac: No chest pain, No edema Abdomen: + constipation, No pain, No nausea, No diarrhea Musculoskeletal: No joint pain, No muscle pain Neurologic: No memory loss, No weakness Psychiatric: No depression symptoms, No anhedonism Objective Vital Signs Date Time Temp Pulse Resp B/P (MAP) Pulse Ox O2 Delivery O2 Flow Rate FiO2 06/02/17 07:30 Room Air 06/02/17 06:34 36.5 89 16 118/75 (89) 98 Room Air 06/01/17 22:38 37.2 95 18 113/69 (84) 95 Room Air 06/01/17 20:11 36.9 96 18 115/64 (81) 94 Room Air 06/01/17 19:47 37.3 106 20 146/65 (92) 90 Room Air 06/01/17 19:30 36.9 101 22 135/89 (104) 91 Room Air 06/01/17 19:15 Room Air Physical Exam General Appearance: WD/WN, + mild distress, + moderate distress Eyes: normal inspection, sclerae normal Neck: supple, no JVD Respiratory/Chest: chest non-tender, lungs clear, normal breath sounds Cardiovascular: regular rate, rhythm, no murmur Abdomen: normal bowel sounds, non tender, soft Neurologic/Psychiatric: alert, oriented x 3 Laboratory Results Last 24 Hours Test 06/01/17 17:20 06/01/17 20:50 06/02/17 06:11 06/02/17 07:33 Bedside Glucose 121 mg/dl 156 mg/dl 117 mg/dl White Blood Count 6.29 K/uL Red Blood Count 3.33 M/uL Hemoglobin 10.1 g/dL Hematocrit 30.3 % Mean Corpuscular Volume 91.0 fL Mean Corpuscular Hemoglobin 30.3 pg Mean Corpuscular Hemoglobin Concent 33.3 g/dl Platelet Count 177 K/uL Mean Platelet Volume 10.1 fL Neutrophils (%) (Auto) 65.4 % Lymphocytes (%) (Auto) 22.7 % Monocytes (%) (Auto) 10.0 % Eosinophils (%) (Auto) 1.3 % Basophils (%) (Auto) 0.3 % Neutrophils # (Auto) 4.11 K/uL Lymphocytes # (Auto) 1.43 K/uL Monocytes # (Auto) 0.63 K/uL Eosinophils # (Auto) 0.08 K/uL Basophils # (Auto) 0.02 K/uL RDW Standard Deviation 43.8 fL RDW Coefficient of Variation 13.2 % Immature Granulocyte % (Auto) 0.3 % Immature Granulocyte # (Auto) 0.02 K/uL Prothrombin Time 13.1 SECONDS Prothromb Time International Ratio 1.3 Test 06/02/17 11:54 Bedside Glucose 115 mg/dl Assessment and Plan Mr. Turner is a 71 year old man post op 05/22 spinal surgery, developed a spinal hematoma and planning on surgical evacuation 06/02 For surgical evacuation anticoagulation for A.fib was reversed with vitamin k to INR 1.3, patient is extremely concerned about his Coumadin management. will discuss with Dr Ricks about timing to restart given his recent bleeding DMII-continue holding metformin bsgs ac & hs, continue ssi, monitoring for toxic affects of hypoglycemia HTN/A.fib, metoprolol has controled rate of afib and prn hydralazine is being used to control blood pressure BPH alfuzosin was previously used, will have iglesias cath post op PT/OT scd's
[2017-06-02] MEDS ORDERED: ROCURONIUM BROMIDE 10 MG/ML 5 ML VIAL IV ONE (16:50)
[2017-06-02] MEDS ORDERED: COLLAGEN HEMOSTAT ABSORBABLE ONE (17:05)
--- NOTE | 2017-06-02 17:59 | [facility] Post Operative Brief Note ---
Immediate Operative Summary Operative Date Jun 02, 2017. Pre-Operative Diagnosis Lumbar hematoma Post-Operative Diagnosis Lumbar hematoma Procedure(s) Performed Evacuation of lumbar hematoma Surgeon Dr. Raphael Ricks Coil Tester Surgeon(s) Josué MCCLELLAN Estimated Blood Loss 50ml Findings Consistent with Post-Op Diagnosis Specimens none per surgeon Drains None Anesthesia Type General Disposition Disposition: Recovery Room / PACU
[2017-06-02] MEDS ORDERED: HYDROmorphone INJ 1 MG/ML SYR IV PRN (18:00)
[2017-06-02] MEDS ORDERED: ACETAMINOPHEN 325 MG TAB PO PRN (18:00)
[2017-06-02] MEDS ORDERED: PROMETHAZINE HCL INJ 12.5 MG in SODIUM CHLORIDE 0.9% 50ML 50 ML IV PRN (18:00)
[2017-06-02] MEDS ORDERED: HYDROmorphone INJ 2 MG/ML SYR/VIAL IV PRN (18:00)
[2017-06-02] MEDS ORDERED: LORAZEPAM INJ 1 MG in SYRINGE 0.5 ML IV PRN (18:00)
[2017-06-02] MEDS ORDERED: OXYCODONE/ACETAMINOPHEN 5-325 TAB PO PRN ×2 (18:00)
[2017-06-02] MEDS ORDERED: OXYCODONE HCL IR 5 MG TAB (IMMEDIATE RELEASE) PO PRN (18:00)
[2017-06-02] MEDS ORDERED: METOCLOPRAMIDE HCL INJ 5 MG/ML 2 ML VIAL IV PRN (18:00)
[2017-06-02] MEDS: HYDROmorphone INJ 2 MG/ML SYR/VIAL IV PRN ×4 (18:30→18:45)
[2017-06-02] MEDS ORDERED: SODIUM CHLORIDE 0.9% 1000ML 1,000 ML IV SCH (18:45)
--- NOTE | 2017-06-02 18:50 | Anesthesiology Progress Note ---
Anesthesia Post Op Note Date & Time Jun 02, 2017 at 18:50 Vital Signs Pain Intensity: 1 Vital Signs Past 12 Hours Date Time Temp Pulse Resp B/P (MAP) Pulse Ox O2 Delivery O2 Flow Rate FiO2 06/02/17 18:40 84 16 122/72 100 Nasal Cannula 4 06/02/17 18:30 79 16 133/80 100 Nasal Cannula 4 06/02/17 18:20 85 16 133/79 100 Oxymask 10 06/02/17 18:10 92 16 138/92 100 Oxymask 10 06/02/17 18:02 36.7 85 16 125/83 99 Oxymask 10 06/02/17 07:30 Room Air Notes Mental Status: alert / awake / arousable, participated in evaluation Pt Amnestic to Procedure: Yes Nausea / Vomiting: adequately controlled Pain: adequately controlled Airway Patency, RR, SpO2: stable & adequate BP & HR: stable & adequate Hydration State: stable & adequate Anesthetic Complications: no major complications apparent
[2017-06-02 19:10] VITALS: BP 128/77; PULSE 78; TEMP 36.7; O2SAT 95
[2017-06-02 19:40] VITALS: BP 132/77; PULSE 100; TEMP 36.7; O2SAT 95
[2017-06-02] MEDS ORDERED: IV FLUIDS COMPLETED PRN (20:30)
[2017-06-02] MEDS ORDERED: [UNRECOGNIZED DRUG - OTHER] PO SCH (21:00)
[2017-06-02] MEDS: ALFUZosin TAB 10 MG TAB PO SCH (21:36)
[2017-06-02] MEDS: SIMVASTATIN 10 MG TAB PO SCH (21:36)
[2017-06-02 22:10] VITALS: BP 118/71; PULSE 99; TEMP 37; O2SAT 93
[2017-06-02 23:13] VITALS: BP 123/70; PULSE 88; TEMP 37; O2SAT 94
[2017-06-03] VITALS (7 sets, daily range): BP systolic 106–148; BP diastolic 67–83; PULSE 75–116; TEMP 36.6–36.9; O2SAT 91–99
[2017-06-03] MEDS: CEFAZOLIN IV 2,000 MG in SYRINGE 0 ML IV SCH ×2 (00:10→08:58)
[2017-06-03] MEDS: DEXAMETHASONE INJ 10 MG in SYRINGE 0 ML IV SCH ×3 (00:10→16:26)
[2017-06-03] MEDS: ACETAMINOPHEN IV 1,000 MG in EMPTY BAG 0 ML IV SCH ×3 (01:58→18:27)
[2017-06-03] MEDS ORDERED: BISACODYL 10 MG SUPP PR PRN (06:00)
[2017-06-03] MEDS ORDERED: BISACODYL 5 MG TABEC PO PRN (06:00)
[2017-06-03] MEDS ORDERED: NURSING VERBAL MED ORDER ONE (06:45)
[2017-06-03 07:15] LABS: HEMATOCRIT 29.4 % (42-52); HEMOGLOBIN 9.8 g/dL (14.0-18.0); IG# 0.02 K/uL (0.00-0.02); LYMPH % 8.7 %; LYMPH ABS # 0.51 K/uL (1.2-3.4); MEAN CELL VOLUME 91.3 fL (80-100); MEAN CORPUSCULAR HEMOGLOBIN 30.4 pg (25-34); MEAN CORPUSCULAR HGB CONC 33.3 g/dl (32-36); MONO % 1.4 %; MONO ABS # 0.08 K/uL (0.11-0.59); NEUT % 89.6 %; NEUT ABS # 5.27 K/uL (1.4-6.5); PLATELET COUNT 201 K/uL (130-400); WHITE BLOOD COUNT 5.88 K/uL (4.8-10.8)
[2017-06-03 07:25] LABS: INR 1.1 (0.9-1.1)
[2017-06-03] MEDS: GLIMEPIRIDE 2 MG TAB PO SCH (08:59)
[2017-06-03] MEDS: DOCUSATE SODIUM 100 MG CAP PO SCH (09:00)
[2017-06-03] MEDS: METFORMIN HCL 500 MG TAB PO SCH ×2 (09:00→18:24)
[2017-06-03] MEDS ORDERED: POLYETHYLENE (MIRALAX) 17 GM PACK PO SCH (09:00)
[2017-06-03] MEDS: HYDROCHLOROTHIAZIDE 25 MG TAB PO SCH (09:01)
[2017-06-03] MEDS: CEROVITE ADV FORMULA TAB PO SCH (09:02)
[2017-06-03] MEDS: METOPROLOL SUCC 50MG EXT REL TAB PO SCH (09:14)
[2017-06-03] MEDS: LISINOPRIL 5 MG TAB PO SCH (09:16)
[2017-06-03] MEDS: INSULIN ASPART 100 UNITS/ML 3 ML PEN SC SCH ×4 (09:20→21:52)
--- NOTE | 2017-06-03 09:32 | ORTHOPEDICS PROGRESS NOTE ---
DATE: 06/03/2017 SUBJECTIVE: Alert, oriented, seemed pain controlled. Moves all 4 extremities. No paralysis. OBJECTIVE: Vital signs stable, blood pressure is stable. ASSESSMENT: Status post lumbar spine evacuation of hematoma, atrial fib, diabetes mellitus, moderate obesity, prior cerebrovascular accident. DISPOSITION: We will basically get him to sit up today and that will be the stent. He may use the bathroom. I went over with the nursing staff. We will advance his diet. We will discontinue his Dotson catheter and then progress. He also will be a good candidate for [facility] and a consultation will be placed today.
--- NOTE | 2017-06-03 11:01 | Progress Note ---
Subjective Date of Service: Jun 03, 2017. Subjective this pt is having some pain at the left drain site, otherwise is only slightly more groggy than yesterday. his and daughter are at the bedside Problem List Medical Problems: (1) Biliary colic Status: Acute (2) Postoperative hematoma Status: Acute Review of Systems Constitutional: No fever, No chills Respiratory: No cough, No shortness of breath Cardiac: No chest pain, No edema Abdomen: + constipation, No pain, No diarrhea Musculoskeletal: + muscle pain, + swelling, No joint pain Objective Vital Signs Date Time Temp Pulse Resp B/P (MAP) Pulse Ox O2 Delivery O2 Flow Rate FiO2 06/03/17 06:59 36.7 111 16 109/76 (87) 91 Room Air 06/03/17 06:03 115 97 Room Air 06/03/17 04:08 36.9 116 16 120/78 (92) 94 Nasal Cannula 2.0 06/03/17 00:10 Nasal Cannula 2.0 06/02/17 23:13 37.0 88 18 123/70 (87) 94 Nasal Cannula 2.0 06/02/17 22:10 37.0 99 18 118/71 (87) 93 Nasal Cannula 2.0 06/02/17 19:40 36.7 100 16 132/77 (95) 95 Nasal Cannula 2.0 06/02/17 19:10 36.7 78 14 128/77 (94) 95 Nasal Cannula 2.0 06/02/17 19:10 Nasal Cannula 2.0 06/02/17 19:00 36.6 92 16 139/79 98 Nasal Cannula 4 06/02/17 18:50 86 16 122/84 100 Nasal Cannula 4 06/02/17 18:40 84 16 122/72 100 Nasal Cannula 4 06/02/17 18:30 79 16 133/80 100 Nasal Cannula 4 06/02/17 18:20 85 16 133/79 100 Oxymask 10 06/02/17 18:10 92 16 138/92 100 Oxymask 10 06/02/17 18:02 36.7 85 16 125/83 99 Oxymask 10 Physical Exam General Appearance: WD/WN, + mild distress Eyes: normal inspection, sclerae normal Respiratory/Chest: chest non-tender, lungs clear, + decreased breath sounds ( bases) Cardiovascular: no murmur, + irregularly irregular Abdomen: normal bowel sounds, non tender, soft Neurologic/Psychiatric: alert, oriented x 3 Laboratory Results Last 24 Hours Test 06/02/17 11:54 06/02/17 15:56 06/02/17 18:07 06/02/17 20:36 Bedside Glucose 115 mg/dl 87 mg/dl 123 mg/dl 122 mg/dl Test 06/03/17 06:54 06/03/17 08:14 White Blood Count 5.88 K/uL Red Blood Count 3.22 M/uL Hemoglobin 9.8 g/dL Hematocrit 29.4 % Mean Corpuscular Volume 91.3 fL Mean Corpuscular Hemoglobin 30.4 pg Mean Corpuscular Hemoglobin Concent 33.3 g/dl Platelet Count 201 K/uL Mean Platelet Volume 10.0 fL Neutrophils (%) (Auto) 89.6 % Lymphocytes (%) (Auto) 8.7 % Monocytes (%) (Auto) 1.4 % Eosinophils (%) (Auto) 0.0 % Basophils (%) (Auto) 0.0 % Neutrophils # (Auto) 5.27 K/uL Lymphocytes # (Auto) 0.51 K/uL Monocytes # (Auto) 0.08 K/uL Eosinophils # (Auto) 0.00 K/uL Basophils # (Auto) 0.00 K/uL RDW Standard Deviation 43.0 fL RDW Coefficient of Variation 13.0 % Immature Granulocyte % (Auto) 0.3 % Immature Granulocyte # (Auto) 0.02 K/uL Prothrombin Time 11.6 SECONDS Prothromb Time International Ratio 1.1 Bedside Glucose 158 mg/dl Assessment and Plan Mr. Turner is a 71 year old man post op 05/22 spinal surgery, developed a spinal hematoma and surgical evacuation 06/02 with bilateral drains in place For surgical evacuation anticoagulation for A.fib was reversed with vitamin k patient is extremely concerned about his Coumadin management. i personally discussed this plan Dr Ricks about timing to restart given his recent bleeding , we will likely restart coumadin once the drains are removed and not bridge him with lovenox DMII has started po and po glimeparide intake but will be holding metformin and using bsgs ac & hs,plus ssi, monitoring for toxic affects of hypoglycemia HTN/A.fib, metoprolol has controlled rate of afib and prn hydralazine is being used to control blood pressure BPH alfuzosin was previously used, will have iglesias cath post op Constipation remains a big complaint, once pt is more mobile will use suppository or enema, for now will use oral meds PT/OT scd's
--- NOTE | 2017-06-03 12:07 | OPERATIVE REPORT ---
DATE OF OPERATION: 06/02/2017 PREOPERATIVE DIAGNOSIS: Hematoma lumbar spine post-surgical. POSTOPERATIVE DIAGNOSIS: Same. PRIMARY PROCEDURE: Included an evacuation of a hematoma on lumbar spinal elements. SURGEON: Dr. Raphael Ricks. MEDICAL IMAGING DIRECTOR: Josué Norris PA-C. COMPLICATIONS: Zero. BLOOD LOSS: Approximately 100 mL. ANESTHETIC: General. DESCRIPTION OF PROCEDURE: The patient was taken to the operating room and a general intubated anesthetic provided to the patient, placed prone, scrubbed, prepped and draped sterile. We used his old skin incision dissecting the soft tissue. He had absolutely torn through the fascial layer and the muscular layer on his entire lumbar area. We carefully got down to the dura where we were able to evacuate a significant hematoma, most of it looked relatively old, some of it looked relatively new. There was no significant active bleeding, although there was oozing from the skin surfaces and the soft tissue muscle surfaces. There did not appear to be any epidural bleeding. We carefully evacuated the hematoma. We irrigated thoroughly with approximately 1000 mL of fluid. I probed each and every nerve root. They were free of obstruction. There was no pressure. We then placed some FloSeal and Avitene on to the soft tissue structures, Gelfoam over the dura and closed in a layered fashion over 2 large Hemovac drains in layered fashion, 3-0 nylon on the skin surface. Sterile dressings applied. The patient successfully was brought supine to recovery room satisfactory and stable. Sponge and needle count correct at the close. I attest to the content of the Intraoperative Record and any orders documented therein. Any exception s are noted below.
[2017-06-03] MEDS: MAGNESIUM HYDROXIDE SUSP 30 ML UDC PO PRN (18:58)
[2017-06-03] MEDS: ALFUZosin TAB 10 MG TAB PO SCH (21:42)
[2017-06-03] MEDS: SENNA 8.6 MG TAB PO SCH (21:42)
[2017-06-03] MEDS: SIMVASTATIN 10 MG TAB PO SCH (21:42)
[2017-06-03] MEDS: POLYETHYLENE (MIRALAX) 17 GM PACK PO SCH (21:43)
[2017-06-04] MEDS: DEXAMETHASONE INJ 10 MG in SYRINGE 0 ML IV SCH ×2 (00:13→09:02)
[2017-06-04] MEDS: ACETAMINOPHEN IV 1,000 MG in EMPTY BAG 0 ML IV SCH ×3 (01:45→18:12)
[2017-06-04] MEDS: LORAZEPAM 1 MG TAB PO PRN (02:14)
[2017-06-04 07:14] LABS: HEMATOCRIT 28.4 % (42-52); HEMOGLOBIN 9.6 g/dL (14.0-18.0); IG# 0.03 K/uL (0.00-0.02); LYMPH % 5.7 %; LYMPH ABS # 0.63 K/uL (1.2-3.4); MEAN CELL VOLUME 89.9 fL (80-100); MEAN CORPUSCULAR HEMOGLOBIN 30.4 pg (25-34); MEAN CORPUSCULAR HGB CONC 33.8 g/dl (32-36); MEAN PLATELET VOLUME 10.5 fL (7.4-10.4); MONO % 2.5 %; MONO ABS # 0.27 K/uL (0.11-0.59); NEUT % 91.5 %; NEUT ABS # 10.08 K/uL (1.4-6.5); PLATELET COUNT 233 K/uL (130-400); RED CELL DISTRIBUTION WIDTH CV 12.9 % (11.5-14.5); WHITE BLOOD COUNT 11.01 K/uL (4.8-10.8)
[2017-06-04 07:25] VITALS: BP 113/79; PULSE 115; TEMP 36.5; O2SAT 95
[2017-06-04] MEDS: GLIMEPIRIDE 2 MG TAB PO SCH (09:03)
[2017-06-04] MEDS: METFORMIN HCL 500 MG TAB PO SCH ×2 (09:04→18:12)
[2017-06-04] MEDS: HYDROCHLOROTHIAZIDE 25 MG TAB PO SCH (09:05)
--- NOTE | 2017-06-04 09:06 | ORTHOPEDICS PROGRESS NOTE ---
DATE: 06/04/2017 SUBJECTIVE: He is improved, stable. Moves all extremities. Alert, oriented. Denies chest pain, shortness of breath. He has had no bowel movement now for 4 days. OBJECTIVE: Vital signs stable. His drains are functioning. Hemoglobin 9.6, hematocrit 28.4. INR 1 as this morning. ASSESSMENT: Delightful gentleman with a spinal hematoma ____ other comorbidities. DISPOSITION: 1. We will put an order for physical therapy, hopefully get his bowels moving today. 2. We will try to get him to [facility] on Monday or Monday. His drains are still working. We will keep them in place. There is no reason to take those out and keep his dressing clean and dry as well.
[2017-06-04] MEDS: CEROVITE ADV FORMULA TAB PO SCH (09:09)
[2017-06-04] MEDS: METOPROLOL SUCC 50MG EXT REL TAB PO SCH (09:10)
[2017-06-04] MEDS: LISINOPRIL 5 MG TAB PO SCH (09:12)
[2017-06-04] MEDS: INSULIN ASPART 100 UNITS/ML 3 ML PEN SC SCH ×4 (09:18→21:00)
[2017-06-04] MEDS: SENNA 8.6 MG TAB PO SCH ×2 (09:21→21:03)
[2017-06-04] MEDS: POLYETHYLENE (MIRALAX) 17 GM PACK PO SCH ×2 (09:21→21:01)
[2017-06-04 15:33] VITALS: BP 105/73; PULSE 95; TEMP 36.9; O2SAT 97
[2017-06-04] MEDS: ALFUZosin TAB 10 MG TAB PO SCH (21:02)
[2017-06-04] MEDS: SIMVASTATIN 10 MG TAB PO SCH (21:02)
[2017-06-04 23:00] VITALS: BP 101/64; PULSE 85; TEMP 36.5; O2SAT 96
[2017-06-05] MEDS: ACETAMINOPHEN IV 1,000 MG in EMPTY BAG 0 ML IV SCH (01:55)
[2017-06-05 06:31] LABS: HEMATOCRIT 28.7 % (42-52); HEMOGLOBIN 9.5 g/dL (14.0-18.0); IG# 0.04 K/uL (0.00-0.02); LYMPH % 10.3 %; LYMPH ABS # 1.17 K/uL (1.2-3.4); MEAN CELL VOLUME 91.1 fL (80-100); MEAN CORPUSCULAR HEMOGLOBIN 30.2 pg (25-34); MEAN CORPUSCULAR HGB CONC 33.1 g/dl (32-36); MEAN PLATELET VOLUME 10.2 fL (7.4-10.4); MONO % 4.7 %; MONO ABS # 0.53 K/uL (0.11-0.59); NEUT % 84.6 %; NEUT ABS # 9.61 K/uL (1.4-6.5); PLATELET COUNT 241 K/uL (130-400); RED CELL DISTRIBUTION WIDTH CV 13.4 % (11.5-14.5); RED CELL DISTRIBUTION WIDTH SD 44.5 fL (36.4-46.3); WHITE BLOOD COUNT 11.35 K/uL (4.8-10.8)
[2017-06-05 06:57] VITALS: BP 117/76; PULSE 113; TEMP 36.6; O2SAT 97
--- NOTE | 2017-06-05 07:47 | Anesthesiology Progress Note ---
Anesthesia Post Op Note Date & Time Jun 05, 2017 at 07:47 Vital Signs Pain Intensity: 4.0 Vital Signs Past 12 Hours Date Time Temp Pulse Resp B/P (MAP) Pulse Ox O2 Delivery O2 Flow Rate FiO2 06/05/17 06:57 36.6 113 16 117/76 (90) 97 Room Air 06/04/17 23:20 Room Air 06/04/17 23:00 36.5 85 18 101/64 (76) 96 Room Air Notes Mental Status: alert / awake / arousable, participated in evaluation Pt Amnestic to Procedure: Yes Nausea / Vomiting: adequately controlled Pain: adequately controlled Airway Patency, RR, SpO2: stable & adequate BP & HR: stable & adequate Hydration State: stable & adequate Anesthetic Complications: no major complications apparent
[2017-06-05] MEDS: INSULIN ASPART 100 UNITS/ML 3 ML PEN SC SCH ×4 (07:51→21:00)
[2017-06-05] MEDS: SENNA 8.6 MG TAB PO SCH ×2 (07:56→20:32)
[2017-06-05] MEDS: GLIMEPIRIDE 2 MG TAB PO SCH (07:56)
[2017-06-05] MEDS: CEROVITE ADV FORMULA TAB PO SCH (07:57)
[2017-06-05] MEDS: METOPROLOL SUCC 50MG EXT REL TAB PO SCH (07:57)
[2017-06-05] MEDS: LISINOPRIL 5 MG TAB PO SCH (07:58)
[2017-06-05] MEDS: HYDROCHLOROTHIAZIDE 25 MG TAB PO SCH (07:59)
[2017-06-05] MEDS: METFORMIN HCL 500 MG TAB PO SCH ×2 (08:00→18:07)
[2017-06-05] MEDS: POLYETHYLENE (MIRALAX) 17 GM PACK PO SCH ×2 (08:00→20:32)
[2017-06-05] MEDS ORDERED: NURSING VERBAL MED ORDER ONE (09:30)
--- NOTE | 2017-06-05 09:46 | ORTHOPEDICS PROGRESS NOTE ---
DATE: 06/05/2017 SUBJECTIVE: Minimal complaints of pain. No chest pain, shortness of breath. He is constipated and cannot have a bowel movement as of yet. Alert, oriented, moves all extremities. Pain controlled. Up, walked approximately 80 feet yesterday with physical therapy. ASSESSMENT: Delightful human being. Surgery 2 weeks ago for severe stenosis and surgery 3 days ago for a severe hematoma. He is doing well in the short run. He also has several other comorbidities including atrial fibrillation and on chronic Coumadin. DISPOSITION: At this point in time, we will continue him up and ambulatory. We will switch over some of his medications, he is on a good bowel program and we will push him to get him to [facility] tomorrow.
[2017-06-05] MEDS: ACETAMINOPHEN 500 MG TAB PO SCH ×4 (12:36→23:34)
[2017-06-05 15:45] VITALS: BP 115/69; PULSE 79; TEMP 36.5; O2SAT 97
[2017-06-05] MEDS: MAGNESIUM HYDROXIDE SUSP 30 ML UDC PO PRN (18:07)
[2017-06-05] MEDS: SIMVASTATIN 10 MG TAB PO SCH (20:33)
[2017-06-05] MEDS: ALFUZosin TAB 10 MG TAB PO SCH (20:33)
[2017-06-05 23:08] VITALS: BP 89/61; PULSE 78; TEMP 36.3; O2SAT 98
[2017-06-05 23:19] VITALS: BP 87/59
[2017-06-05 23:32] VITALS: BP_SYST 91; BP_SYST 98; BP_DIAS 64; BP_DIAS 66
[2017-06-06] VITALS (10 sets, daily range): BP systolic 91–120; BP diastolic 62–83; PULSE 124–163; TEMP 36.6–36.9; O2SAT 94–97
[2017-06-06] MEDS: ACETAMINOPHEN 500 MG TAB PO SCH ×5 (03:55→20:30)
[2017-06-06] MEDS: METOPROLOL SUCC 50MG EXT REL TAB PO SCH (07:31)
--- NOTE | 2017-06-06 08:05 | ORTHOPEDICS PROGRESS NOTE ---
DATE: 06/06/2017 SUBJECTIVE: He is alert, oriented, minimal complaints of pain, no shortness of breath. Does have a rapid heart rate this morning. He feels his pulse is elevated, but not confused. No shortness of breath. OBJECTIVE: VITAL SIGNS: Stable Physical therapy. LABORATORY DATA: PT is 10.7, INR 1, that is of yesterday morning. ASSESSMENT: Status post lumbar hematoma, evacuated just 3-4 days ago, doing well along with atrial fibrillation and diabetes mellitus. Drain has been removed and that was done yesterday. He is alert and stable. I think we could start the anticoagulants, we got to go slow of course, slowly progressing up with his Coumadin. I do not think he needs to be bridged.
[2017-06-06] MEDS: INSULIN ASPART 100 UNITS/ML 3 ML PEN SC SCH ×4 (08:51→20:29)
[2017-06-06] MEDS: LORAZEPAM 1 MG TAB PO PRN (08:52)
[2017-06-06] MEDS: POLYETHYLENE (MIRALAX) 17 GM PACK PO SCH ×2 (08:53→20:13)
[2017-06-06] MEDS: SENNA 8.6 MG TAB PO SCH ×2 (08:54→20:13)
[2017-06-06] MEDS: METFORMIN HCL 500 MG TAB PO SCH ×2 (08:56→18:32)
[2017-06-06] MEDS: CEROVITE ADV FORMULA TAB PO SCH (08:56)
[2017-06-06] MEDS: GLIMEPIRIDE 2 MG TAB PO SCH (08:56)
[2017-06-06] MEDS: LISINOPRIL 5 MG TAB PO SCH (08:57)
[2017-06-06] MEDS: HYDROCHLOROTHIAZIDE 25 MG TAB PO SCH (08:58)
[2017-06-06] MEDS ORDERED: SODIUM CHLORIDE 0.9% 500ML 500 ML IV STA (10:40)
[2017-06-06] MEDS ORDERED: METOPROLOL SUCC 25MG EXT REL TAB PO STA ×2 (10:42→14:43)
[2017-06-06] MEDS ORDERED: SODIUM CHLORIDE 0.9% 1000ML 1,000 ML IV STA (12:02)
--- NOTE | 2017-06-06 14:43 | Progress Note ---
Subjective Date of Service: Jun 06, 2017. Subjective Pt evaluation today including: conversation w/ patient, conversation w/ family 72 yo male reports feeling well. Patient though is having diarrhea today. Patient reports that he has not had BM for past 4 days. He reports he is having difficulty making it to the bathroom in time. Patient denies any fever, chills, nausea, vomiting. Problem List Medical Problems: (1) Biliary colic Status: Acute (2) Postoperative hematoma Status: Acute Review of Systems Constitutional: No fever, No chills ENT: No hearing loss, No unusual epistaxis Respiratory: No cough, No sputum Cardiac: No chest pain, No orthopnea Abdomen: No pain, No nausea Musculoskeletal: No joint pain Neurologic: No memory loss, No paralysis Skin: No rash, No itch All Other Systems: Reviewed and Negative Medications Current Inpatient Medications Medications (Trade) Dose Ordered Sig/Homero Route Start Time Stop Time Status Last Admin Dose Admin Ondansetron HCl (Zofran Inj) 4 mg Q6H PRN IV 05/31/17 16:30 06/30/17 16:29 Lorazepam (Ativan Inj) 0.5 mg Q4H PRN IV 06/01/17 08:00 07/01/17 07:59 Oxycodone HCl (Roxicodone Immediate Rel Tab) 10 mg Q6 PRN PO 06/01/17 08:00 06/15/17 07:59 06/05/17 07:54 10 MG Hydralazine HCl (HydrALAZINE INJ) 10 mg Q4H PRN IV 06/01/17 08:00 07/01/17 07:59 Glucose (Glucose 40% Gel) 15-30 GRAMS 15 GRAMS... UD PRN PO 06/01/17 08:15 07/01/17 08:14 Glucose (Glucose Chew Tab) 4-8 Tablets 4 Tabl... UD PRN PO 06/01/17 08:15 07/01/17 08:14 Dextrose (Dextrose 50% 50ML Syringe) 25-50ML OF 50% DW IV FOR... UD PRN IV 06/01/17 08:15 07/01/17 08:14 Glucagon (Glucagon Inj) 1 mg UD PRN SQ 06/01/17 08:15 07/01/17 08:14 Lorazepam 0.5 mg/ Syringe 1 ml @ 1 mls/min Q4H PRN IV 06/01/17 08:15 07/01/17 08:14 Acetaminophen (Tylenol Tab) 650 mg Q6H PRN PO 06/02/17 18:00 07/02/17 17:59 Future Hold Hydromorphone HCl (Dilaudid Inj) 1 mg Q3H PRN IV 06/02/17 18:00 06/16/17 17:59 Hydromorphone HCl (Dilaudid Inj) 1.5 mg Q3H PRN IV 06/02/17 18:00 06/16/17 17:59 Promethazine HCl 12.5 mg/Sodium Chloride 50.5 ml @ 202 mls/hr Q6H PRN IV 06/02/17 18:00 07/02/17 17:59 Metoclopramide HCl (Reglan Inj) 10 mg Q6H PRN IV 06/02/17 18:00 07/02/17 17:59 Lorazepam (Ativan Tab) 1 mg Q6H PRN PO 06/02/17 18:00 07/02/17 17:59 06/07/17 07:49 1 MG Lorazepam 1 mg/ Syringe 1 ml @ 1 mls/min Q6H PRN IV 06/02/17 18:00 07/02/17 17:59 Bisacodyl (Dulcolax Tab) 5 mg DAILY PRN PO 06/03/17 06:00 07/03/17 05:59 06/05/17 20:32 5 MG Bisacodyl (Dulcolax Supp) 10 mg DAILY PRN OK 06/03/17 06:00 07/03/17 05:59 Magnesium Hydroxide (Milk Of Magnesia Susp) 30 ml DAILY PRN PO 06/02/17 18:00 07/02/17 17:59 06/05/17 18:07 30 ML Diphenhydramine HCl (Benadryl Cap) 25 mg Q6H PRN PO 06/02/17 18:00 07/02/17 17:59 06/03/17 22:11 25 MG Oxycodone/ Acetaminophen (Percocet 5-325mg Tab) `1-2 tabs for pain 1 tab ... Q4H PRN PO 06/02/17 18:00 06/16/17 17:59 Oxycodone HCl (Roxicodone Immediate Rel Tab) 5 mg Q4H PRN PO 06/02/17 18:00 06/16/17 17:59 Alfuzosin HCl (Uroxatral Tab) 10 mg QPM PO 06/02/17 21:00 07/02/17 20:59 06/06/17 20:31 10 MG Hydrochlorothiazide (Hydrochlorothiazide Tab) 12.5 mg QAM PO 06/03/17 09:00 07/03/17 08:59 06/07/17 07:41 12.5 MG Lisinopril (Zestril Tab) 7.5 mg QAM PO 06/03/17 09:00 07/03/17 08:59 06/07/17 07:43 7.5 MG Metformin HCl (Glucophage Tab) 1,000 mg BIDM PO 06/03/17 08:30 07/03/17 08:29 06/07/17 07:41 1,000 MG Metoprolol Succinate (Toprol Xl Tab) 50 mg QAM PO 06/03/17 09:00 07/03/17 08:59 06/07/17 07:43 50 MG Multivitamins/ Minerals (Multivitamin W/ Minerals Tab) 1 tab QAM PO 06/03/17 09:00 07/03/17 08:59 06/07/17 07:42 1 TAB Simvastatin (Zocor Tab) 10 mg HS PO 06/02/17 21:00 07/02/17 20:59 06/06/17 20:31 10 MG Glimepiride (Amaryl Tab) 2 mg QDB PO 06/03/17 08:30 07/03/17 08:29 06/07/17 07:40 2 MG Insulin Aspart (novoLOG ASPART) SLIDING SCALE PARAMETER ACHS SC 06/02/17 21:00 07/02/17 20:59 06/04/17 13:01 2 UNITS Miscellaneous (Iv Fluids Completed) 1 ea PRN PRN N/A 06/02/17 20:30 06/02/18 20:29 Polyethylene (Miralax Powder Packet) 17 gm BID PO 06/03/17 21:00 07/03/17 08:59 06/05/17 20:32 17 GM Senna (Senokot Tab) 8.6 mg BID PO 06/03/17 21:00 07/03/17 20:59 06/05/17 20:32 8.6 MG Acetaminophen (Tylenol Tab) 500 mg Q4 PO 06/05/17 12:00 07/05/17 11:59 06/07/17 07:39 500 MG Warfarin Sodium (Coumadin Tab) 6 mg DAILY@16 PO 06/07/17 16:00 07/07/17 15:59 Objective Vital Signs Date Time Temp Pulse Resp B/P (MAP) Pulse Ox O2 Delivery O2 Flow Rate FiO2 06/06/17 08:54 130 120/71 (87) 06/06/17 07:30 94 Room Air 06/06/17 07:08 163 102/72 (82) 06/06/17 07:07 36.6 145 18 91/62 (72) 94 Room Air 06/06/17 03:58 102/67 (79) 06/05/17 23:32 98/66 (77) 91/64 (73) 06/05/17 23:19 87/59 (68) 06/05/17 23:08 36.3 78 17 89/61 (70) 98 Room Air 06/05/17 22:38 Room Air 06/05/17 16:00 Room Air 06/05/17 15:45 36.5 79 18 115/69 (84) 97 Room Air Physical Exam General Appearance: WD/WN, no apparent distress ENT: normal ENT inspection Neck: supple, no adenopathy Respiratory/Chest: chest non-tender, lungs clear, normal breath sounds Cardiovascular: no edema, + irregularly irregular Abdomen: normal bowel sounds, non tender, soft Extremities: normal range of motion Neurologic/Psychiatric: alert, oriented x 3 Skin: normal color, warm/dry Lymphatic: no adenopathy Laboratory Results Last 24 Hours Test 06/05/17 17:09 06/05/17 20:38 Bedside Glucose 84 mg/dl 93 mg/dl Assessment and Plan Mr. Turner is a 71 year old man post op 05/22 spinal surgery, developed a spinal hematoma and surgical evacuation 06/02 with bilateral drains in place For surgical evacuation anticoagulation for A.fib was reversed with vitamin k patient is extremely concerned about his Coumadin management. i personally discussed this plan Dr Ricks about timing to restart given his recent bleeding , we will likely restart coumadin once the drains are removed and not bridge him with lovenox. DMII has started po and po glimeparide intake but will be holding metformin and using bsgs ac & hs,plus ssi, monitoring for toxic affects of hypoglycemia HTN/A.fib, metoprolol has controlled rate of afib and prn hydralazine is being used to control blood pressure. Heart rate has been elevated 120s-140s. Patient was given a fluid bolus of 1.5 liters and gave extra dose toprol xl of 25 mg. His Heart rate improved mildly. Dehydration may be contributing factor, as well as anxiety from his diarrhea. Patient though denies any palpitations. As stated above, coumadin is restarted at 6mg PO daily BPH alfuzosin was previously used, will have iglesias cath post op Constipation : improved. Patient is now having bowel movements today. Patient is very anxious about his BM. Will continue to monitor. Spent about 70 minutes with patient through multiple visits in the day discussing about plan of care with patient and his .
[2017-06-06] MEDS ORDERED: WARFARIN SOD 6 MG TAB PO ONE (20:00)
[2017-06-06] MEDS: SIMVASTATIN 10 MG TAB PO SCH (20:31)
[2017-06-06] MEDS: ALFUZosin TAB 10 MG TAB PO SCH (20:31)
[2017-06-07] VITALS (13 sets, daily range): BP systolic 93–134; BP diastolic 66–88; PULSE 69–144; TEMP 36.4–36.7; O2SAT 94–98
[2017-06-07] MEDS: ACETAMINOPHEN 500 MG TAB PO SCH ×7 (00:28→23:43)
[2017-06-07] MEDS: GLIMEPIRIDE 2 MG TAB PO SCH (07:40)
[2017-06-07] MEDS: INSULIN ASPART 100 UNITS/ML 3 ML PEN SC SCH ×4 (07:40→20:00)
[2017-06-07] MEDS: METFORMIN HCL 500 MG TAB PO SCH ×2 (07:41→17:38)
[2017-06-07] MEDS: HYDROCHLOROTHIAZIDE 25 MG TAB PO SCH (07:41)
[2017-06-07] MEDS: SENNA 8.6 MG TAB PO SCH ×2 (07:42→19:57)
[2017-06-07] MEDS: CEROVITE ADV FORMULA TAB PO SCH (07:42)
[2017-06-07] MEDS: POLYETHYLENE (MIRALAX) 17 GM PACK PO SCH ×2 (07:42→19:57)
[2017-06-07] MEDS: LISINOPRIL 5 MG TAB PO SCH (07:43)
[2017-06-07] MEDS: METOPROLOL SUCC 50MG EXT REL TAB PO SCH (07:43)
[2017-06-07] MEDS: LORAZEPAM 1 MG TAB PO PRN (07:49)
--- NOTE | 2017-06-07 08:08 | Discharge Instructions ---
Discharge Instructions Date of Service Jun 07, 2017. Admission Reason for Admission: Hematoma Discharge Discharge Diagnosis / Problem: SAME AND STENOSIS Discharge Goals Goal(s): Improve function Activity Recommendations Activity Limitations: as noted below . Instructions / Follow-Up Instructions / Follow-Up MEDICATIONS: Please take your prescriptions as instructed at your pre-op appointment. SPECIAL CARE: The following information is intended to answer some of the common questions and concerns regarding your surgery. Each patient is an individual and receives individual counselling throughout the course of treatment, from diagnosis to surgery all the way through recovery. What follows is not an exhaustive list, but should be a useful guide to some of the common questions and concerns patients have regarding their surgeries. These are not provided to keep you from calling us; rather, they give you something accurate and concrete to reference as you recover from your procedure. If you need us, we are available to you. As always, if you are not sure about something, call us at [phone]. MEDICAL EMERGENCIES: For these conditions, call 911 or go to your local hospital-based Emergency Department - not [facility] or equivalent. * Paralysis * Severe chest pain or difficulty breathing * Swelling or redness of either leg Spine procedures can be rather complex and though complications are rare, they do occur. In such cases, effective advice regarding emergency situations cannot always be addressed over the telephone. You may be referred to the emergency department for more effective management of your problem. Activity Limitations: It is important to give your body time to heal, so please limit your activities : * In general, don't do anything that moves your spine too much. You should avoid contact sports, twisting or heavy lifting while you recover. * 5-10 pounds is all you should attempt to lift. * You should not plan on driving for approximately 3 weeks and you should avoid traveling more than 30-45 minutes at a time. Longer trips should be broken down with walking breaks spaced appropriately. * Physical therapy is not usually required. * Walking and good posture practices will help you recover and regain your function. * Avoid straining or sudden changes in position. * In general, the goal is to take it easy and recover. Don't cause any new problems. Just relax. Showers: * Do not take a bath, use a Jacuzzi or hot tub or otherwise submerge your incision. * It is usually safe to take a shower 4-5 days after your surgery. * Your incision does not require any special creams or ointments. * Simply clean it with soap and water, dry and re-dress with a clean bandage afterwards. Incision: * Keep incision clean, dry and protected until your first follow-up appointment. * Some amount of drainage and redness is normal. Any drainage should be fairly clear and not have a foul odor. * If you feel anything is wrong or you have excessive drainage, please call us. * Your stitches and mary will be removed 10-14 days after your surgery. At the time of your first post-op visit. * Neck surgeries are typically closed with a suture underneath the skin. The steri-strips over the incision should be maintained until we see you in the office. Bracing: * You may be provided with a back or neck brace to encourage good posture and prevent injury. It will remind you not to do too much as you heal and will alert others to the fact that you have had a surgery. * Back braces may be removed for showers and when you are resting at home. They must be worn when you are walking around for any period of time or for travel. * For neck surgery, you will likely be provided with two cervical collars. The soft collar (Fletcher or foam rubber) is worn most commonly throughout the day and while sleeping. The plastic collar (provided at the hospital) is for showering/bathing. * Except while eating, collars should remain in place. More specifically, bracing is provided for a purpose and should be worn. * Please obtain your brace or collars prior to your operation and bring them to the hospital with you on the day of surgery. * You should also bring your collars to your post-op appointment with Dr. Ricks. You should always take good care of your body and practice healthy habits, especially following surgery. You should: * Follow your doctor's treatment plan * Sit and stand properly with good posture (ears over shoulders, shoulders over hips) Don't slouch * Learn to lift correctly * Exercise regularly (low-impact aerobic exercise is especially good, but check with your doctor first) * Generally, be up and walking for 5-10 minutes at a time at least 3-4 times per day from the day you get home * Increasing walking to tolerance until you can walk for 20-30 minutes at a time * Attain and maintain a healthy body weight * Eat healthy foods ( a well-balanced, low-fat diet rich in fruits and vegetables) and get enough calcium * Avoid excessive use of alcohol When to call our office - If you notice any of the following: * Increased pain not relieve by pain medicine * Fevers greater then 100 degrees F, chills or flu symptoms * Increased redness around incision * Drainage from the incision that is not clear * Any foul smelling drainage * Swelling or fluid collection beneath the skin Miscellaneous: * In the hospital, you may be given a walker or cane for support while walking. These are temporary needs and are intended to prevent injuries due to falls. You may discontinue them when you feel strong and steady enough on your feet. * Sleep in a comfortable position. We find that many patients find a lounge chair or recliner with several pillows to be beneficial in the early post-operative period. * The support stockings should be used for 7-10 days and may be discontinued when you are back to walking more and conducting usual household activities. No problem is insignificant. We are here to help you and get you well. Contact us at [phone]. Definitions: Foraminotomy: If part of the disc or a bone spur (osteophyte) is pressing on a nerve as it leaves the vertebra (through an exit called the foramen), a foraminotomy may be done. Otomy means "to make an opening." A foraminotomy is making the opening of the foramen larger, so the nerve can exit without being compressed. Laminotomy: Similar to the foraminotomy, a laminotomy makes a larger opening, this time in your bony plate protecting your spinal canal and spinal cord (the lamina). The lamina may be pressing on your nerve, so the surgeon may make more room for the nerves using a laminotomy. Laminectomy: Sometimes, a laminotomy is not sufficient. The surgeon may need to remove all or part of the lamina. This procedure is called a laminectomy. This can often be done at many levels without any harmful effects. Current Hospital Diet Patient's current hospital diet: Diabetes Type 2 Diet Discharge Diet Recommended Diet: Regular Diet Procedures Procedures Performed: Evacuation of lumbar hematoma Pending Studies Studies pending at discharge: no Medical Emergencies . Who to Call and When: Medical Emergencies: If at any time you feel your situation is an emergency, please call 911 immediately. . Non-Emergent Contact Non-Emergency issues call your: Primary Care Provider Call Non-Emergent contact if: your pain is concerning you . "Provider Documentation" section prepared by Raphael Ricks. . VTE Core Measure Inpt VTE Proph given/why not?: Treatment not indicated
[2017-06-07] MEDS ORDERED: METOPROLOL SUCC 25MG EXT REL TAB PO STA (09:49)
--- NOTE | 2017-06-07 10:02 | Progress Note ---
Subjective Date of Service: Jun 07, 2017. Subjective Pt evaluation today including: conversation w/ patient, conversation w/ family Patient states he feels back to his baseline. He states he never felt better. Patient denies palpitations Problem List Medical Problems: (1) Biliary colic Status: Acute (2) Postoperative hematoma Status: Acute Review of Systems Constitutional: No fever, No chills ENT: No hearing loss Respiratory: No cough, No sputum Cardiac: No chest pain, No orthopnea Abdomen: No pain Musculoskeletal: No joint pain Psychiatric: No depression symptoms, No anhedonism Heme: No abnormal bleeding/bruising Skin: No rash, No itch All Other Systems: Reviewed and Negative Medications Current Inpatient Medications Medications (Trade) Dose Ordered Sig/Homero Route Start Time Stop Time Status Last Admin Dose Admin Ondansetron HCl (Zofran Inj) 4 mg Q6H PRN IV 05/31/17 16:30 06/30/17 16:29 Lorazepam (Ativan Inj) 0.5 mg Q4H PRN IV 06/01/17 08:00 07/01/17 07:59 Oxycodone HCl (Roxicodone Immediate Rel Tab) 10 mg Q6 PRN PO 06/01/17 08:00 06/15/17 07:59 06/05/17 07:54 10 MG Hydralazine HCl (HydrALAZINE INJ) 10 mg Q4H PRN IV 06/01/17 08:00 07/01/17 07:59 Glucose (Glucose 40% Gel) 15-30 GRAMS 15 GRAMS... UD PRN PO 06/01/17 08:15 07/01/17 08:14 Glucose (Glucose Chew Tab) 4-8 Tablets 4 Tabl... UD PRN PO 06/01/17 08:15 07/01/17 08:14 Dextrose (Dextrose 50% 50ML Syringe) 25-50ML OF 50% DW IV FOR... UD PRN IV 06/01/17 08:15 07/01/17 08:14 Glucagon (Glucagon Inj) 1 mg UD PRN SQ 06/01/17 08:15 07/01/17 08:14 Lorazepam 0.5 mg/ Syringe 1 ml @ 1 mls/min Q4H PRN IV 06/01/17 08:15 07/01/17 08:14 Acetaminophen (Tylenol Tab) 650 mg Q6H PRN PO 06/02/17 18:00 07/02/17 17:59 Future Hold Hydromorphone HCl (Dilaudid Inj) 1 mg Q3H PRN IV 06/02/17 18:00 06/16/17 17:59 Hydromorphone HCl (Dilaudid Inj) 1.5 mg Q3H PRN IV 06/02/17 18:00 06/16/17 17:59 Promethazine HCl 12.5 mg/Sodium Chloride 50.5 ml @ 202 mls/hr Q6H PRN IV 06/02/17 18:00 07/02/17 17:59 Metoclopramide HCl (Reglan Inj) 10 mg Q6H PRN IV 06/02/17 18:00 07/02/17 17:59 Lorazepam (Ativan Tab) 1 mg Q6H PRN PO 06/02/17 18:00 07/02/17 17:59 06/07/17 07:49 1 MG Lorazepam 1 mg/ Syringe 1 ml @ 1 mls/min Q6H PRN IV 06/02/17 18:00 07/02/17 17:59 Bisacodyl (Dulcolax Tab) 5 mg DAILY PRN PO 06/03/17 06:00 07/03/17 05:59 06/05/17 20:32 5 MG Bisacodyl (Dulcolax Supp) 10 mg DAILY PRN OR 06/03/17 06:00 07/03/17 05:59 Magnesium Hydroxide (Milk Of Magnesia Susp) 30 ml DAILY PRN PO 06/02/17 18:00 07/02/17 17:59 06/05/17 18:07 30 ML Diphenhydramine HCl (Benadryl Cap) 25 mg Q6H PRN PO 06/02/17 18:00 07/02/17 17:59 06/03/17 22:11 25 MG Oxycodone/ Acetaminophen (Percocet 5-325mg Tab) `1-2 tabs for pain 1 tab ... Q4H PRN PO 06/02/17 18:00 06/16/17 17:59 Oxycodone HCl (Roxicodone Immediate Rel Tab) 5 mg Q4H PRN PO 06/02/17 18:00 06/16/17 17:59 Alfuzosin HCl (Uroxatral Tab) 10 mg QPM PO 06/02/17 21:00 07/02/17 20:59 06/06/17 20:31 10 MG Hydrochlorothiazide (Hydrochlorothiazide Tab) 12.5 mg QAM PO 06/03/17 09:00 07/03/17 08:59 06/07/17 07:41 12.5 MG Lisinopril (Zestril Tab) 7.5 mg QAM PO 06/03/17 09:00 07/03/17 08:59 06/07/17 07:43 7.5 MG Metformin HCl (Glucophage Tab) 1,000 mg BIDM PO 06/03/17 08:30 07/03/17 08:29 06/07/17 07:41 1,000 MG Metoprolol Succinate (Toprol Xl Tab) 50 mg QAM PO 06/03/17 09:00 07/03/17 08:59 06/07/17 07:43 50 MG Multivitamins/ Minerals (Multivitamin W/ Minerals Tab) 1 tab QAM PO 06/03/17 09:00 07/03/17 08:59 06/07/17 07:42 1 TAB Simvastatin (Zocor Tab) 10 mg HS PO 06/02/17 21:00 07/02/17 20:59 06/06/17 20:31 10 MG Glimepiride (Amaryl Tab) 2 mg QDB PO 06/03/17 08:30 07/03/17 08:29 06/07/17 07:40 2 MG Insulin Aspart (novoLOG ASPART) SLIDING SCALE PARAMETER ACHS SC 06/02/17 21:00 07/02/17 20:59 06/04/17 13:01 2 UNITS Miscellaneous (Iv Fluids Completed) 1 ea PRN PRN N/A 06/02/17 20:30 06/02/18 20:29 Polyethylene (Miralax Powder Packet) 17 gm BID PO 06/03/17 21:00 07/03/17 08:59 06/05/17 20:32 17 GM Senna (Senokot Tab) 8.6 mg BID PO 06/03/17 21:00 07/03/17 20:59 06/05/17 20:32 8.6 MG Acetaminophen (Tylenol Tab) 500 mg Q4 PO 06/05/17 12:00 07/05/17 11:59 06/07/17 07:39 500 MG Warfarin Sodium (Coumadin Tab) 6 mg DAILY@16 PO 06/07/17 16:00 07/07/17 15:59 Objective Vital Signs Date Time Temp Pulse Resp B/P (MAP) Pulse Ox O2 Delivery O2 Flow Rate FiO2 06/07/17 09:16 95 Room Air 06/07/17 08:44 Room Air 06/07/17 07:50 36.6 144 18 114/80 (91) 95 Room Air 06/07/17 06:52 36.7 69 20 109/72 (84) 97 Room Air 06/07/17 00:05 36.6 80 14 123/84 (97) 98 Room Air 06/06/17 23:30 97 Room Air 06/06/17 22:55 36.6 135 20 94/66 (75) 97 Room Air 06/06/17 20:25 145 109/83 (92) 06/06/17 15:40 96 Room Air 06/06/17 15:14 36.9 124 16 91/68 (76) 96 Room Air Physical Exam Comments: General Appearance: WD/WN, no apparent distress ENT: normal ENT inspection Neck: supple, no adenopathy Respiratory/Chest: chest non-tender, lungs clear, normal breath sounds Cardiovascular: no edema, + irregularly irregular Abdomen: normal bowel sounds, non tender, soft Extremities: normal range of motion Neurologic/Psychiatric: alert, oriented x 3 Skin: normal color, warm/dry Lymphatic: no adenopathy Laboratory Results Last 24 Hours Test 06/06/17 12:04 06/06/17 16:57 06/06/17 20:28 06/07/17 06:50 Bedside Glucose 85 mg/dl 90 mg/dl 138 mg/dl 109 mg/dl Assessment and Plan Increased metoprolol to 75 mg PO daily as patient tolerated this dose yesterday. HR is better controlled with rates from 80-120. Diarrhea has also subsided. Mr. Turner is a 71 year old man post op 05/22 spinal surgery, developed a spinal hematoma and surgical evacuation 06/02 with bilateral drains in place A. fib: Patient heart rate is better controlled today. Heart rate is 105 this AM. Nurse has been documenting 140 but is using the pulse ox as a means to measure the HR which is not accurate when patient has an irregular heart beat. I will maintain his Beta aurea at 75 mg PO daily. will resume his coumadin at 6mg PO daily. will check INR in 3-4 days. DMII will resume his home meds. BPH alfuzosin was previously used, will have iglesias cath post op Constipation : improved. Patient no longer has complaints of this. No longer having diarrhea either. Update 13:00 Ordered EKG. HR while on monitor was ranging between 105-140. This heart rate however is at rest. Initial plan was to initiate DIG, but will wait until cardiology sees patient. Dr. Michel is his network support engineer, and will place consult after discussing case with him. Dr. Michel knows patient well. will cancel discharge and upgrade patient to telemetry.
[2017-06-07] MEDS: WARFARIN SOD 6 MG TAB PO SCH (17:10)
--- NOTE | 2017-06-07 17:13 | Cardiology Consultation ---
Cardiology Consultation Date of Service Jun 07, 2017. Cardiology Consultation History: This is a 72-year-old male patient by follow through my clinic. He has a history of chronic atrial fibrillation and in the past has had an embolic stroke. Recently he had a lumbar surgery performed for disc disease. He has been on chronic Coumadin therapy for many years. He was restarted on anticoagulation after the surgery and unfortunately developed a spinal hematoma. He was readmitted and had the hematoma evacuated. He was convalescing on the floor and doing well. Unfortunately he has had high heart rates and was transferred to the telemetry unit. He remains in atrial fibrillation. His heart rates are 110-120 beats per minute. He is asymptomatic in regard to his tachycardia. He has also been hypotensive. He has received additional IV fluids but still remains tachycardic with low blood pressure. He denies dizziness or lightheadedness. He's had no chest pain or shortness of breath. Allergies: Adhesives and atorvastatin Current Inpatient Medications Medications (Trade) Dose Ordered Sig/Homero Route Start Time Stop Time Status Last Admin Dose Admin Ondansetron HCl (Zofran Inj) 4 mg Q6H PRN IV 05/31/17 16:30 06/30/17 16:29 Lorazepam (Ativan Inj) 0.5 mg Q4H PRN IV 06/01/17 08:00 07/01/17 07:59 Oxycodone HCl (Roxicodone Immediate Rel Tab) 10 mg Q6 PRN PO 06/01/17 08:00 06/15/17 07:59 06/05/17 07:54 10 MG Hydralazine HCl (HydrALAZINE INJ) 10 mg Q4H PRN IV 06/01/17 08:00 07/01/17 07:59 Glucose (Glucose 40% Gel) 15-30 GRAMS 15 GRAMS... UD PRN PO 06/01/17 08:15 07/01/17 08:14 Glucose (Glucose Chew Tab) 4-8 Tablets 4 Tabl... UD PRN PO 06/01/17 08:15 07/01/17 08:14 Dextrose (Dextrose 50% 50ML Syringe) 25-50ML OF 50% DW IV FOR... UD PRN IV 06/01/17 08:15 07/01/17 08:14 Glucagon (Glucagon Inj) 1 mg UD PRN SQ 06/01/17 08:15 07/01/17 08:14 Lorazepam 0.5 mg/ Syringe 1 ml @ 1 mls/min Q4H PRN IV 06/01/17 08:15 07/01/17 08:14 Acetaminophen (Tylenol Tab) 650 mg Q6H PRN PO 06/02/17 18:00 07/02/17 17:59 Future Hold Hydromorphone HCl (Dilaudid Inj) 1 mg Q3H PRN IV 06/02/17 18:00 06/16/17 17:59 Hydromorphone HCl (Dilaudid Inj) 1.5 mg Q3H PRN IV 06/02/17 18:00 06/16/17 17:59 Promethazine HCl 12.5 mg/Sodium Chloride 50.5 ml @ 202 mls/hr Q6H PRN IV 06/02/17 18:00 07/02/17 17:59 Metoclopramide HCl (Reglan Inj) 10 mg Q6H PRN IV 06/02/17 18:00 07/02/17 17:59 Lorazepam (Ativan Tab) 1 mg Q6H PRN PO 06/02/17 18:00 07/02/17 17:59 06/07/17 07:49 1 MG Lorazepam 1 mg/ Syringe 1 ml @ 1 mls/min Q6H PRN IV 06/02/17 18:00 07/02/17 17:59 Bisacodyl (Dulcolax Tab) 5 mg DAILY PRN PO 06/03/17 06:00 07/03/17 05:59 06/05/17 20:32 5 MG Bisacodyl (Dulcolax Supp) 10 mg DAILY PRN [place] 06/03/17 06:00 07/03/17 05:59 Magnesium Hydroxide (Milk Of Magnesia Susp) 30 ml DAILY PRN PO 06/02/17 18:00 07/02/17 17:59 06/05/17 18:07 30 ML Diphenhydramine HCl (Benadryl Cap) 25 mg Q6H PRN PO 06/02/17 18:00 07/02/17 17:59 06/03/17 22:11 25 MG Oxycodone/ Acetaminophen (Percocet 5-325mg Tab) `1-2 tabs for pain 1 tab ... Q4H PRN PO 06/02/17 18:00 06/16/17 17:59 Oxycodone HCl (Roxicodone Immediate Rel Tab) 5 mg Q4H PRN PO 06/02/17 18:00 06/16/17 17:59 Alfuzosin HCl (Uroxatral Tab) 10 mg QPM PO 06/02/17 21:00 07/02/17 20:59 06/06/17 20:31 10 MG Hydrochlorothiazide (Hydrochlorothiazide Tab) 12.5 mg QAM PO 06/03/17 09:00 07/03/17 08:59 06/07/17 07:41 12.5 MG Lisinopril (Zestril Tab) 7.5 mg QAM PO 06/03/17 09:00 07/03/17 08:59 06/07/17 07:43 7.5 MG Metformin HCl (Glucophage Tab) 1,000 mg BIDM PO 06/03/17 08:30 07/03/17 08:29 06/07/17 07:41 1,000 MG Metoprolol Succinate (Toprol Xl Tab) 50 mg QAM PO 06/03/17 09:00 07/03/17 08:59 06/07/17 07:43 50 MG Multivitamins/ Minerals (Multivitamin W/ Minerals Tab) 1 tab QAM PO 06/03/17 09:00 07/03/17 08:59 06/07/17 07:42 1 TAB Simvastatin (Zocor Tab) 10 mg HS PO 06/02/17 21:00 07/02/17 20:59 06/06/17 20:31 10 MG Glimepiride (Amaryl Tab) 2 mg QDB PO 06/03/17 08:30 07/03/17 08:29 06/07/17 07:40 2 MG Insulin Aspart (novoLOG ASPART) SLIDING SCALE PARAMETER ACHS SC 06/02/17 21:00 07/02/17 20:59 06/04/17 13:01 2 UNITS Miscellaneous (Iv Fluids Completed) 1 ea PRN PRN N/A 06/02/17 20:30 06/02/18 20:29 Polyethylene (Miralax Powder Packet) 17 gm BID PO 06/03/17 21:00 07/03/17 08:59 06/05/17 20:32 17 GM Senna (Senokot Tab) 8.6 mg BID PO 06/03/17 21:00 07/03/17 20:59 06/05/17 20:32 8.6 MG Acetaminophen (Tylenol Tab) 500 mg Q4 PO 06/05/17 12:00 07/05/17 11:59 06/07/17 13:43 500 MG Warfarin Sodium (Coumadin Tab) 6 mg DAILY@16 PO 06/07/17 16:00 07/07/17 15:59 Diphenhydramine HCl (Benadryl Extra Strength Cream) 1 appln Q8 PRN EXT 06/07/17 12:15 07/07/17 12:14 Past medical history: As mentioned previously the patient has had chronic atrial fibrillation for many years. He has a remote history of an embolic stroke after which she was placed on Coumadin. He has a history of mild nonischemic cardiomyopathy. He is a diabetic with a history of hypertension and hypercholesterolemia. Social history: He is nonsmoker and currently lives with his . Family medical history: Noncontributory General: The patient denies weight change, night sweats, fever, chills. Head: The patient denies headache and prior head trauma. Cardiovascular: The patient denies chest pain or chest discomfort, dyspnea on exertion, palpitations, PND, orthopnea, edema, spontaneous shortness of breath, syncope and near syncope. Pulmonary: The patient denies cough, wheeze, pleurisy, hemoptysis, sputum, and excessive snoring. Gastrointestinal: The patient denies nausea, vomiting, diarrhea, constipation, bloating, hematemesis, hematochezia, and abdominal pain. Skin: The patient denies diaphoresis and rash. Musculoskeletal: The patient denies joint pain, joint swelling, myalgia, back pain, neck pain and prior injuries. Neurological: The patient denies prior stroke and seizures Vital Signs Past 12 Hours Date Time Temp Pulse Resp B/P (MAP) Pulse Ox O2 Delivery O2 Flow Rate FiO2 06/07/17 14:39 36.6 123 26 95 06/07/17 14:26 36.6 123 26 98/67 (77) 95 Room Air 06/07/17 09:16 95 Room Air 06/07/17 09:12 140 97 06/07/17 08:44 Room Air 06/07/17 07:50 36.6 144 18 114/80 (91) 95 Room Air 06/07/17 06:52 36.7 69 20 109/72 (84) 97 Room Air General Appearance: Alert and Oriented x3. NAD. Head: Normocephalic Atraumatic. Eyes: PERRLA, EOMI, conjunctiva and sclera clear Neck: Supple. No carotid bruits noted. No JVD. No HJD. Respiratory: Breath sounds clear to auscultation bilaterally. No w/r/r. Cardiovascular: irreg rate and rhythm. S1 and S2 noted. No murmurs, rubs, gallops. PMI non displace. Abdomen: Normal bowel sounds, soft nontender. no abdominal bruits. Extremities: No edema, no clubbing or cyanosis. distal pulses 2/4 bilaterally. Neuro: No focal deficits. Psychiatric: Normal affect. Last 24 Hours Test 06/06/17 20:28 06/07/17 06:50 Bedside Glucose 138 mg/dl 109 mg/dl Impression: 1. Spinal cord hematoma 2. Chronic atrial fibrillation 3. Tachycardia 4. Hypotension 5. Diabetes Recommendations: At this point I would recommend holding the lisinopril as well as hydrochlorothiazide for better blood pressure control. He is on 50 of metoprolol which she was on some outpatient for his atrial fibrillation. I will give him 1 dose of digoxin today to see if we can bring his heart rate under better control. He was scheduled to go to [facility] however, I would hold any transfers until we have better control his heart rate and blood pressure.
[2017-06-07] MEDS ORDERED: DIGOXIN IV 250 MCG in SYRINGE 9 ML IV ONE (17:30)
[2017-06-07] MEDS: SIMVASTATIN 10 MG TAB PO SCH (19:53)
[2017-06-07] MEDS: ALFUZosin TAB 10 MG TAB PO SCH (19:53)
[2017-06-08] MEDS ORDERED: DIGOXIN INJ 500 MCG/2 ML AMP ONE (00:18)
[2017-06-08] MEDS ORDERED: DIGOXIN IV 250 MCG in SYRINGE 9 ML IV ONE (00:30)
[2017-06-08 00:34] LABS: HEMATOCRIT 31.9 % (42-52); HEMOGLOBIN 10.6 g/dL (14.0-18.0); MEAN CELL VOLUME 91.4 fL (80-100); MEAN CORPUSCULAR HEMOGLOBIN 30.4 pg (25-34); MEAN CORPUSCULAR HGB CONC 33.2 g/dl (32-36); MEAN PLATELET VOLUME 10.4 fL (7.4-10.4); PLATELET COUNT 223 K/uL (130-400); RED CELL DISTRIBUTION WIDTH CV 13.5 % (11.5-14.5); RED CELL DISTRIBUTION WIDTH SD 44.3 fL (36.4-46.3); WHITE BLOOD COUNT 5.68 K/uL (4.8-10.8)
[2017-06-08] MEDS: ACETAMINOPHEN 500 MG TAB PO SCH ×6 (00:37→21:37)
[2017-06-08 00:52] LABS: CALCIUM 8.9 mg/dl (8.5-10.1); CREATININE 0.94 mg/dl (0.60-1.40); POTASSIUM 4.2 mmol/L (3.5-5.1)
[2017-06-08] MEDS ORDERED: MAGNESIUM OXIDE 400 MG TAB PO ONE (02:00)
[2017-06-08] MEDS: DiphenhydrAMINE 2%/ZINC 0.1% CREAM 28GM TUBE EXT PRN ×2 (03:20→22:14)
[2017-06-08 04:00] VITALS: BP 103/72; PULSE 124; TEMP 37; O2SAT 98
[2017-06-08] MEDS: INSULIN ASPART 100 UNITS/ML 3 ML PEN SC SCH ×4 (07:00→21:00)
[2017-06-08 07:39] VITALS: BP_SYST 97; BP_SYST 99; BP_DIAS 64; PULSE 145; TEMP 36.9; O2SAT 94
[2017-06-08] MEDS: METFORMIN HCL 500 MG TAB PO SCH ×2 (07:51→16:58)
[2017-06-08] MEDS: MAGNESIUM OXIDE 400 MG TAB PO SCH ×2 (07:51→22:13)
[2017-06-08] MEDS: METOPROLOL SUCC 50MG EXT REL TAB PO SCH (07:52)
[2017-06-08] MEDS: SENNA 8.6 MG TAB PO SCH ×2 (07:52→19:23)
[2017-06-08] MEDS: GLIMEPIRIDE 2 MG TAB PO SCH (07:52)
[2017-06-08] MEDS: CEROVITE ADV FORMULA TAB PO SCH (07:52)
[2017-06-08] MEDS: POLYETHYLENE (MIRALAX) 17 GM PACK PO SCH ×2 (07:53→19:23)
[2017-06-08] MEDS: LORAZEPAM 1 MG TAB PO PRN ×3 (07:59→22:14)
[2017-06-08 11:30] VITALS: BP 104/65; PULSE 78; TEMP 36.5; O2SAT 97
[2017-06-08] MEDS ORDERED: AMIODARONE IV BOLUS / DRIP IV STA (12:00)
[2017-06-08] MEDS ORDERED: AMIODARONE 150MG / 100ML D5W ONE (12:02)
[2017-06-08] MEDS ORDERED: AMIODARONE 360MG / 200ML D5W ONE (12:02)
[2017-06-08] MEDS ORDERED: AMIODARONE / D5W 200 ML IV SCH (12:15)
--- NOTE | 2017-06-08 12:15 | Cardiology Consultation ---
Cardiology Consultation Date of Consultation: Jun 08, 2017. Requesting Physician: Dr. Michel Reason for Consultation: WCT Pt evaluation today including: conversation w/ patient, conversation w/ family , physical exam, lab review, review of studies, conversation w/ automotive service consultant, review of inpatient medication list History of Present Illness This is a 72-year-old male who has a history of embolic stroke many years ago ( his tells me 23 years ago) as well as a long history of atrial fibrillation dating back to around that time. He has been on anticoagulation with warfarin, he had lumbar disc surgery performed and then had a late complication of a spinal hematoma which has been evacuated. He was observed to have a high heart rate and on evaluation has runs of a wide complex tachycardia. He was not on telemetry at that time, he was therefore transferred to the telemetry floor. He has had relative hypotension although not very low, generally around 100 systolic. At the time I evaluation he was completely asymptomatic with his arrhythmia, he is also asymptomatic with his permanent atrial fibrillation. His tells me that when he had his stroke some 23 years ago that she observed very frequent premature ventricular beats at that time. She hasn't recall him having them in the interim, but he did not feel them at that time either. He has been maintained on metoprolol succinate for his atrial fibrillation. He has no cardiovascular complaints today, he does not have lightheadedness or dizziness, does not have chest discomfort or shortness of breath. Past Medical/Surgical History (1) Atrial fibrillation (2) HTN (hypertension) (3) Hyperlipidemia (4) Diabetes mellitus Family History Diabetes mellitus FH: cancer FH: heart disease Social History Smoking Status: Former Smoker History of Alcohol Use: No Review of Systems Constitutional: No fever, No weight loss, No weakness Respiratory: No cough, No sputum, No shortness of breath Cardiac: No chest pain, No orthopnea Abdomen: No pain, No nausea, No vomiting, No diarrhea, No GI bleeding Male : No urinary frequency, No nocturia more than once/night, No slowing stream, No sexual dysfunction Neurologic: No paralysis, No weakness, No numbness/tingling, No balance problems Heme: No abnormal bleeding/bruising, No clotting problems Endo: No fatigue Skin: No problem reported All Other Systems: Reviewed and Negative Allergies Coded Allergies: Adhesives (Verified Adverse Reaction, Intermediate, blister/rash - EKG lead tape, 05/31/17) Atorvastatin (Verified Adverse Reaction, Intermediate, MUSCLE PAIN/ WEAKNESS, 05/31/17) Medications Current Inpatient Medications Medications (Trade) Dose Ordered Sig/Homero Route Start Time Stop Time Status Last Admin Dose Admin Ondansetron HCl (Zofran Inj) 4 mg Q6H PRN IV 05/31/17 16:30 06/30/17 16:29 Lorazepam (Ativan Inj) 0.5 mg Q4H PRN IV 06/01/17 08:00 07/01/17 07:59 Oxycodone HCl (Roxicodone Immediate Rel Tab) 10 mg Q6 PRN PO 06/01/17 08:00 06/15/17 07:59 06/05/17 07:54 10 MG Hydralazine HCl (HydrALAZINE INJ) 10 mg Q4H PRN IV 06/01/17 08:00 07/01/17 07:59 Glucose (Glucose 40% Gel) 15-30 GRAMS 15 GRAMS... UD PRN PO 06/01/17 08:15 07/01/17 08:14 Glucose (Glucose Chew Tab) 4-8 Tablets 4 Tabl... UD PRN PO 06/01/17 08:15 07/01/17 08:14 Dextrose (Dextrose 50% 50ML Syringe) 25-50ML OF 50% DW IV FOR... UD PRN IV 06/01/17 08:15 07/01/17 08:14 Glucagon (Glucagon Inj) 1 mg UD PRN SQ 06/01/17 08:15 07/01/17 08:14 Lorazepam 0.5 mg/ Syringe 1 ml @ 1 mls/min Q4H PRN IV 06/01/17 08:15 07/01/17 08:14 Acetaminophen (Tylenol Tab) 650 mg Q6H PRN PO 06/02/17 18:00 07/02/17 17:59 Future Hold Hydromorphone HCl (Dilaudid Inj) 1 mg Q3H PRN IV 06/02/17 18:00 06/16/17 17:59 Hydromorphone HCl (Dilaudid Inj) 1.5 mg Q3H PRN IV 06/02/17 18:00 06/16/17 17:59 Promethazine HCl 12.5 mg/Sodium Chloride 50.5 ml @ 202 mls/hr Q6H PRN IV 06/02/17 18:00 07/02/17 17:59 Metoclopramide HCl (Reglan Inj) 10 mg Q6H PRN IV 06/02/17 18:00 07/02/17 17:59 Lorazepam (Ativan Tab) 1 mg Q6H PRN PO 06/02/17 18:00 07/02/17 17:59 06/08/17 07:59 1 MG Lorazepam 1 mg/ Syringe 1 ml @ 1 mls/min Q6H PRN IV 06/02/17 18:00 07/02/17 17:59 Bisacodyl (Dulcolax Tab) 5 mg DAILY PRN PO 06/03/17 06:00 07/03/17 05:59 06/05/17 20:32 5 MG Bisacodyl (Dulcolax Supp) 10 mg DAILY PRN [place] 06/03/17 06:00 07/03/17 05:59 Magnesium Hydroxide (Milk Of Magnesia Susp) 30 ml DAILY PRN PO 06/02/17 18:00 07/02/17 17:59 06/05/17 18:07 30 ML Diphenhydramine HCl (Benadryl Cap) 25 mg Q6H PRN PO 06/02/17 18:00 07/02/17 17:59 06/08/17 04:45 25 MG Oxycodone/ Acetaminophen (Percocet 5-325mg Tab) `1-2 tabs for pain 1 tab ... Q4H PRN PO 06/02/17 18:00 06/16/17 17:59 Oxycodone HCl (Roxicodone Immediate Rel Tab) 5 mg Q4H PRN PO 06/02/17 18:00 06/16/17 17:59 Alfuzosin HCl (Uroxatral Tab) 10 mg QPM PO 06/02/17 21:00 07/02/17 20:59 06/07/17 19:53 10 MG Metformin HCl (Glucophage Tab) 1,000 mg BIDM PO 06/03/17 08:30 07/03/17 08:29 06/08/17 07:51 1,000 MG Metoprolol Succinate (Toprol Xl Tab) 50 mg QAM PO 06/03/17 09:00 07/03/17 08:59 06/08/17 07:52 50 MG Multivitamins/ Minerals (Multivitamin W/ Minerals Tab) 1 tab QAM PO 06/03/17 09:00 07/03/17 08:59 06/08/17 07:52 1 TAB Simvastatin (Zocor Tab) 10 mg HS PO 06/02/17 21:00 07/02/17 20:59 06/07/17 19:53 10 MG Glimepiride (Amaryl Tab) 2 mg QDB PO 06/03/17 08:30 07/03/17 08:29 06/08/17 07:52 2 MG Insulin Aspart (novoLOG ASPART) SLIDING SCALE PARAMETER ACHS SC 06/02/17 21:00 07/02/17 20:59 06/04/17 13:01 2 UNITS Miscellaneous (Iv Fluids Completed) 1 ea PRN PRN N/A 06/02/17 20:30 06/02/18 20:29 Polyethylene (Miralax Powder Packet) 17 gm BID PO 06/03/17 21:00 07/03/17 08:59 06/05/17 20:32 17 GM Senna (Senokot Tab) 8.6 mg BID PO 06/03/17 21:00 07/03/17 20:59 06/05/17 20:32 8.6 MG Acetaminophen (Tylenol Tab) 500 mg Q4 PO 06/05/17 12:00 07/05/17 11:59 06/08/17 07:50 500 MG Warfarin Sodium (Coumadin Tab) 6 mg DAILY@16 PO 06/07/17 16:00 07/07/17 15:59 06/07/17 17:10 6 MG Diphenhydramine HCl (Benadryl Extra Strength Cream) 1 appln Q8 PRN EXT 06/07/17 12:15 07/07/17 12:14 06/08/17 03:20 1 APPLN Magnesium Oxide (Mag-Ox Tab) 400 mg BID PO 06/08/17 09:00 06/09/17 09:01 06/08/17 07:51 400 MG Physical Exam Vital Signs Past 12 Hours Date Time Temp Pulse Resp B/P (MAP) Pulse Ox O2 Delivery O2 Flow Rate FiO2 06/08/17 11:30 36.5 78 18 104/65 (78) 97 Room Air 06/08/17 08:00 Room Air 06/08/17 07:39 36.9 145 18 99/64 (76) 94 Room Air 06/08/17 04:00 37.0 124 24 103/72 (82) 98 06/08/17 04:00 Room Air 06/08/17 00:40 148 06/08/17 00:37 148 Constitutional: General Apperance: heathly-appearing Level of Distress: mild distress Ambulation: limited ambulation Psychiatric: Mental Status: depressed Head: normocephalic Eyes: EOM: EOMI ENMT: normal ENT inspection, hearing grossly normal Neck: supple, no masses Lungs: Respiratory effort: no dyspnea, good air movement Auscultation: breath sounds normal, no wheezing Cardiovascular: Heart Auscultation: no murmurs, no rubs, no gallops, tachycardia, irregular rate rhythm Peripheral Pulses: Bruits: none appreciated Abdomen: Bowel Sounds: normal Inspection & Palpation: soft, no tenderness, guarding & rebound, no masses Musculoskeletal: normal strength (5/5 throughout) Extremities: no edema Neurologic: Cranial Nerves: grossly intact Sensation: grossly intact Data Laboratory Results: Last 24 Hours Test 06/07/17 16:14 06/07/17 19:58 06/08/17 00:27 06/08/17 06:24 Bedside Glucose 122 mg/dl 108 mg/dl 116 mg/dl White Blood Count 5.68 K/uL Red Blood Count 3.49 M/uL Hemoglobin 10.6 g/dL Hematocrit 31.9 % Mean Corpuscular Volume 91.4 fL Mean Corpuscular Hemoglobin 30.4 pg Mean Corpuscular Hemoglobin Concent 33.2 g/dl RDW Standard Deviation 44.3 fL RDW Coefficient of Variation 13.5 % Platelet Count 223 K/uL Mean Platelet Volume 10.4 fL Sodium Level 137 mmol/L Potassium Level 4.2 mmol/L Chloride Level 102 mmol/L Carbon Dioxide Level 30 mmol/L Anion Gap 5.0 mmol/L Blood Urea Nitrogen 15 mg/dl Creatinine 0.94 mg/dl Est Creatinine Clear Calc Drug Dose 91.2 ml/min Estimated GFR () 92.2 Estimated GFR (Non- 79.6 BUN/Creatinine Ratio 15.9 Random Glucose 99 mg/dl Calcium Level 8.9 mg/dl Magnesium Level 1.6 mg/dl Test 06/08/17 11:32 EK lead shows AF and WCT, appears to be VT from RVOT or coronary cusp area Telemetry reviewed: AF with periods of WCT at a rate of 150 BPM Assessment & Plan 1. 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 Usually these are enhanced by catecholamine excess, however his BP is low and he has some pauses on telemetry (in AF). This may limit beta aurea use which I would ordinarily use. Will try amiodarone, if this doesn't work fairly quickly would consider esmolol (but I believe requires transfer to ICU). Thank you for allowing me to participate in his care.
--- NOTE | 2017-06-08 12:20 | Progress Note ---
Subjective Date of Service: Jun 08, 2017. Subjective This is a 72-year-old male patient who I follow through my clinic with a history of chronic atrial fibrillation and a previous embolic stroke. He was admitted for a lumbar laminectomy earlier this month and then discharged only to be readmitted with a spinal cord hematoma that needed to be evacuated. The patient had been convalescing on the floor. He was scheduled to go to a rehabilitation center but was noted to have high heart rates and a low blood pressure. He was transferred down to the telemetry floor. I saw him yesterday and he was having atrial fibrillation with high heart rates. He was on metoprolol 50 mg daily. I discontinued his lisinopril and hydrochlorothiazide due to low blood pressure. I gave him a single dose of digoxin 250 mg. This morning he was noted be having wide-complex tachycardia. Its morphology is monomorphic. This characteristic lesions be away from apparent see. He remains hypotensive but is relatively comfortable. He is emotional however due to his prolonged hospital stay and disappointment with how things are going. He denies dizziness or lightheadedness. He's had no chest pain or shortness of breath. Problem List Medical Problems: (1) Biliary colic Status: Acute (2) Postoperative hematoma Status: Acute Review of Systems Skin: + rash (he has had a rash from the adhesive tape which has been bothersome and is located on his back.), + itch All Other Systems: Reviewed and Negative Medications Current Inpatient Medications Medications (Trade) Dose Ordered Sig/Homero Route Start Time Stop Time Status Last Admin Dose Admin Ondansetron HCl (Zofran Inj) 4 mg Q6H PRN IV 05/31/17 16:30 06/30/17 16:29 Lorazepam (Ativan Inj) 0.5 mg Q4H PRN IV 06/01/17 08:00 07/01/17 07:59 Oxycodone HCl (Roxicodone Immediate Rel Tab) 10 mg Q6 PRN PO 06/01/17 08:00 06/15/17 07:59 06/05/17 07:54 10 MG Hydralazine HCl (HydrALAZINE INJ) 10 mg Q4H PRN IV 06/01/17 08:00 07/01/17 07:59 Glucose (Glucose 40% Gel) 15-30 GRAMS 15 GRAMS... UD PRN PO 06/01/17 08:15 07/01/17 08:14 Glucose (Glucose Chew Tab) 4-8 Tablets 4 Tabl... UD PRN PO 06/01/17 08:15 07/01/17 08:14 Dextrose (Dextrose 50% 50ML Syringe) 25-50ML OF 50% DW IV FOR... UD PRN IV 06/01/17 08:15 07/01/17 08:14 Glucagon (Glucagon Inj) 1 mg UD PRN SQ 06/01/17 08:15 07/01/17 08:14 Lorazepam 0.5 mg/ Syringe 1 ml @ 1 mls/min Q4H PRN IV 06/01/17 08:15 07/01/17 08:14 Acetaminophen (Tylenol Tab) 650 mg Q6H PRN PO 06/02/17 18:00 07/02/17 17:59 Future Hold Hydromorphone HCl (Dilaudid Inj) 1 mg Q3H PRN IV 06/02/17 18:00 06/16/17 17:59 Hydromorphone HCl (Dilaudid Inj) 1.5 mg Q3H PRN IV 06/02/17 18:00 06/16/17 17:59 Promethazine HCl 12.5 mg/Sodium Chloride 50.5 ml @ 202 mls/hr Q6H PRN IV 06/02/17 18:00 07/02/17 17:59 Metoclopramide HCl (Reglan Inj) 10 mg Q6H PRN IV 06/02/17 18:00 07/02/17 17:59 Lorazepam (Ativan Tab) 1 mg Q6H PRN PO 06/02/17 18:00 07/02/17 17:59 06/08/17 07:59 1 MG Lorazepam 1 mg/ Syringe 1 ml @ 1 mls/min Q6H PRN IV 06/02/17 18:00 07/02/17 17:59 Bisacodyl (Dulcolax Tab) 5 mg DAILY PRN PO 06/03/17 06:00 07/03/17 05:59 06/05/17 20:32 5 MG Bisacodyl (Dulcolax Supp) 10 mg DAILY PRN CO 06/03/17 06:00 07/03/17 05:59 Magnesium Hydroxide (Milk Of Magnesia Susp) 30 ml DAILY PRN PO 06/02/17 18:00 07/02/17 17:59 06/05/17 18:07 30 ML Diphenhydramine HCl (Benadryl Cap) 25 mg Q6H PRN PO 06/02/17 18:00 07/02/17 17:59 06/08/17 04:45 25 MG Oxycodone/ Acetaminophen (Percocet 5-325mg Tab) `1-2 tabs for pain 1 tab ... Q4H PRN PO 06/02/17 18:00 06/16/17 17:59 Oxycodone HCl (Roxicodone Immediate Rel Tab) 5 mg Q4H PRN PO 06/02/17 18:00 06/16/17 17:59 Alfuzosin HCl (Uroxatral Tab) 10 mg QPM PO 06/02/17 21:00 07/02/17 20:59 06/07/17 19:53 10 MG Metformin HCl (Glucophage Tab) 1,000 mg BIDM PO 06/03/17 08:30 07/03/17 08:29 06/08/17 07:51 1,000 MG Metoprolol Succinate (Toprol Xl Tab) 50 mg QAM PO 06/03/17 09:00 07/03/17 08:59 06/08/17 07:52 50 MG Multivitamins/ Minerals (Multivitamin W/ Minerals Tab) 1 tab QAM PO 06/03/17 09:00 07/03/17 08:59 06/08/17 07:52 1 TAB Simvastatin (Zocor Tab) 10 mg HS PO 06/02/17 21:00 07/02/17 20:59 06/07/17 19:53 10 MG Glimepiride (Amaryl Tab) 2 mg QDB PO 06/03/17 08:30 07/03/17 08:29 06/08/17 07:52 2 MG Insulin Aspart (novoLOG ASPART) SLIDING SCALE PARAMETER ACHS SC 06/02/17 21:00 07/02/17 20:59 06/04/17 13:01 2 UNITS Miscellaneous (Iv Fluids Completed) 1 ea PRN PRN N/A 06/02/17 20:30 06/02/18 20:29 Polyethylene (Miralax Powder Packet) 17 gm BID PO 06/03/17 21:00 07/03/17 08:59 06/05/17 20:32 17 GM Senna (Senokot Tab) 8.6 mg BID PO 06/03/17 21:00 07/03/17 20:59 06/05/17 20:32 8.6 MG Acetaminophen (Tylenol Tab) 500 mg Q4 PO 06/05/17 12:00 07/05/17 11:59 06/08/17 07:50 500 MG Warfarin Sodium (Coumadin Tab) 6 mg DAILY@16 PO 06/07/17 16:00 07/07/17 15:59 06/07/17 17:10 6 MG Diphenhydramine HCl (Benadryl Extra Strength Cream) 1 appln Q8 PRN EXT 06/07/17 12:15 07/07/17 12:14 06/08/17 03:20 1 APPLN Magnesium Oxide (Mag-Ox Tab) 400 mg BID PO 06/08/17 09:00 06/09/17 09:01 06/08/17 07:51 400 MG Amiodarone HCl (Cordarone IV Bolus / Drip) 1 ea NOW STAT IV 06/08/17 12:00 06/08/17 12:01 UNV Objective Vital Signs Date Time Temp Pulse Resp B/P (MAP) Pulse Ox O2 Delivery O2 Flow Rate FiO2 06/08/17 11:30 36.5 78 18 104/65 (78) 97 Room Air 06/08/17 08:00 Room Air 06/08/17 07:39 36.9 145 18 99/64 (76) 94 Room Air 06/08/17 04:00 37.0 124 24 103/72 (82) 98 06/08/17 04:00 Room Air 06/08/17 00:40 148 06/08/17 00:37 148 06/08/17 00:01 Room Air 06/07/17 23:57 36.6 116 18 93/66 (75) 97 06/07/17 20:00 Room Air 06/07/17 19:19 36.4 104 18 111/73 (86) 96 Room Air 06/07/17 18:47 113 06/07/17 17:54 108 06/07/17 17:41 136 06/07/17 16:36 124 06/07/17 16:22 138 06/07/17 16:00 Room Air 06/07/17 16:00 36.6 113 20 104/72 (83) 94 Room Air 06/07/17 14:39 36.6 123 26 95 06/07/17 14:26 36.6 123 26 98/67 (77) 95 Room Air Physical Exam General Appearance: WD/WN, + mild distress (mild distress which is emotional due to situation) Eyes: normal inspection, PERRL, EOMI ENT: normal ENT inspection, hearing grossly normal Neck: supple, no adenopathy, no JVD Respiratory/Chest: lungs clear, normal breath sounds, no respiratory distress Cardiovascular: no edema, no gallop, no JVD, no murmur, + irregularly irregular Abdomen: non tender, soft, no organomegaly Extremities: normal range of motion, non-tender, no pedal edema 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, no motor/sensory deficits, alert, normal mood/affect (he is very emotional due to his situation) Skin: normal color, warm/dry, no rash Lymphatic: no adenopathy Laboratory Results Last 24 Hours Test 06/07/17 16:14 06/07/17 19:58 06/08/17 00:27 06/08/17 06:24 Bedside Glucose 122 mg/dl 108 mg/dl 116 mg/dl White Blood Count 5.68 K/uL Red Blood Count 3.49 M/uL Hemoglobin 10.6 g/dL Hematocrit 31.9 % Mean Corpuscular Volume 91.4 fL Mean Corpuscular Hemoglobin 30.4 pg Mean Corpuscular Hemoglobin Concent 33.2 g/dl RDW Standard Deviation 44.3 fL RDW Coefficient of Variation 13.5 % Platelet Count 223 K/uL Mean Platelet Volume 10.4 fL Sodium Level 137 mmol/L Potassium Level 4.2 mmol/L Chloride Level 102 mmol/L Carbon Dioxide Level 30 mmol/L Anion Gap 5.0 mmol/L Blood Urea Nitrogen 15 mg/dl Creatinine 0.94 mg/dl Est Creatinine Clear Calc Drug Dose 91.2 ml/min Estimated GFR () 92.2 Estimated GFR (Non- 79.6 BUN/Creatinine Ratio 15.9 Random Glucose 99 mg/dl Calcium Level 8.9 mg/dl Magnesium Level 1.6 mg/dl Assessment and Plan Impression: 1. Wide complex tachycardia rule out ventricular tachycardia 2. Chronic atrial fibrillation 3. Hypotension which may be multifactorial including medications 4. Spinal hematoma status post lumbar laminectomy 5. Depression and anxiety Recommendations: I have contact consulted the EP service and spoken to Dr. Beverly eager to reviewed the patient's telemetry with me. The morphology of the wide complex suggested that has a ventricular origin. He has recommended that we start the patient on amiodarone. This is the best drug considering the patient's low blood pressure. His potassium levels are normal and although his magnesium levels are a little low I do not believe that they are the result of these arrhythmias. I will have further recommendations following the above thank you Dr. Michel
[2017-06-08] MEDS ORDERED: METOPROLOL TARTRATE 1 MG/ML VIAL IV STA (15:05)
[2017-06-08 15:32] VITALS: BP 115/79; PULSE 75; TEMP 36.3; O2SAT 96
[2017-06-08] MEDS ORDERED: PERFLUTREN LIPID MICROSPHERE (DEFINITY) IV ONE (16:11)
[2017-06-08] MEDS: WARFARIN SOD 6 MG TAB PO SCH (16:59)
--- NOTE | 2017-06-08 17:16 | ECHOCARDIOGRAM REPORT ---
*NOTICE TO RECEIVING [employer] This information is strictly Confidential and protected under [place] law. [place] law prohibits you from making any further disclosure of this information unless further disclosure is expressly permitted by the written consent of the person to whom it pertains or is authorized by law. A general authorization for the release of medical or other information is not sufficient for this purpose. Hospital accepts no responsibility if the information is made available to any other person, INCLUDING THE PATIENT. Interpretation Summary * Name: KENNA MORELAND Study Date: 06/08/2017 03:40 PM BP: 105/68 mmHg * Patient Location: C.2T\S\S244\S\1 HR: 130 * : 1945 (M/d/yyyy) Gender: Male Height: 72 in * Age: 72 yrs Ethnicity: [place] Weight: 251 lb * Ordering Physician: Antonio Michel * Referring Physician: Raphael Ricks * Performed By: Courtney Bernal RDCS * * Reason For Study: Atrial Fibrillation * BSA: 2.3 m2 * -- Conclusions -- * Aortic valve sclerosis mild, without significant aortic valvular stenosis. * The left ventricle is normal in size. * There is mild concentric left ventricular hypertrophy. * Ejection Fraction = 40-45%. * The right ventricular systolic function is normal. * There is mild mitral regurgitation. * There is trace tricuspid regurgitation. Procedure Details * A complete two-dimensional transthoracic echocardiogram was performed (2D, M-mode, Doppler and color flow Doppler). * The study was technically difficult. * The study was technically difficult, but visualization was adequate with the administration of Definity ultrasound contrast. * There were technical limitations due to patient'spoor positioning * A contrast injection of Definity was performed to improve assessment of LV function. * Contrast was injected into an intravenous site in the right arm. * One vial of Definity ultrasound contrast was diluted in normal saline to a total volume of 10 ml. A total of '2' ml of solution was administered during imaging. * Lot # [id number] of Definity utilized for procedure. * Expiration date . * The attending nurse who injected the contrast agent was RG Urrutia. Left Ventricle * The left ventricle is normal in size. * There is mild concentric left ventricular hypertrophy. * Ejection Fraction = 40-45%. * Left ventricular systolic function is mildly reduced. Right Ventricle * The right ventricle is grossly normal size. * The right ventricular systolic function is normal. Atria * The left atrium is not well visualized. * The left atrial size is normal. * Right atrium not well visualized. * Right atrial size is normal. Mitral Valve * The mitral valve is grossly normal. * There is mild mitral regurgitation. Tricuspid Valve * The tricuspid valve anatomy is normal. * There is trace tricuspid regurgitation. Aortic Valve * The aortic valve is tricuspid. The leaflet thickness if normal. There is no aortic stenosis, and no significant insufficiency. * Aortic valve sclerosis mild, without significant aortic valvular stenosis. Pulmonic Valve * The pulmonic valve is not well visualized. Pericardium/Pleural * There is no pericardial effusion. MMode 2D Measurements and Calculations IVSd 1.1 cm IVSs 1.2 cm LVIDd 4.9 cm LVIDs 3.8 cm LVPWd 1.2 cm LVPWs 1.9 cm IVS/LVPW 0.86 FS 22.1 % EDV(Teich) 112.5 ml ESV(Teich) 62.4 ml EF(Teich) 44.6 % EDV(cubed) 117.3 ml ESV(cubed) 55.3 ml EF(cubed) 52.8 % % IVS thick 8.0 % % LVPW thick 56.3 % LV mass(C)d 215.4 grams LV mass(C)dI 91.8 grams/m\S\2 LV mass(C)s 229.9 grams LV mass(C)sI 98.0 grams/m\S\2 SV(Teich) 50.1 ml SI(Teich) 21.4 ml/m\S\2 SV(cubed) 61.9 ml SI(cubed) 26.4 ml/m\S\2 Ao root diam 3.2 cm Ao root area 7.9 cm\S\2 ACS 1.6 cm LA dimension 3.9 cm LA/Ao 1.2 LVAd ap4 43.1 cm\S\2 LVLd ap4 9.3 cm EDV(MOD-sp4) 170.3 ml EDV(sp4-el) 169.4 ml LVAs ap4 33.4 cm\S\2 LVLs ap4 9.2 cm ESV(MOD-sp4) 107.2 ml ESV(sp4-el) 102.2 ml EF(MOD-sp4) 37.1 % EF(sp4-el) 39.6 % LVAd ap2 25.7 cm\S\2 LVLd ap2 7.5 cm EDV(MOD-sp2) 73.5 ml EDV(sp2-el) 74.1 ml LVAs ap2 18.8 cm\S\2 LVLs ap2 7.1 cm ESV(MOD-sp2) 43.0 ml ESV(sp2-el) 42.1 ml EF(MOD-sp2) 41.5 % EF(sp2-el) 43.2 % LVLd %diff -23.68 % EDV(MOD-bp) 124.3 ml LVLs %diff -29.83 % ESV(MOD-bp) 77.5 ml EF(MOD-bp) 37.6 % SV(MOD-sp4) 63.2 ml SI(MOD-sp4) 26.9 ml/m\S\2 SV(MOD-sp2) 30.5 ml SI(MOD-sp2) 13.0 ml/m\S\2 SV(MOD-bp) 46.8 ml SI(MOD-bp) 19.9 ml/m\S\2 SV(sp4-el) 67.2 ml SI(sp4-el) 28.6 ml/m\S\2 SV(sp2-el) 32.0 ml SI(sp2-el) 13.7 ml/m\S\2 Doppler Measurements and Calculations MV E max john 90.6 cm/sec MV dec time 0.30 sec Ao V2 max 104.2 cm/sec Ao max PG 4.3 mmHg Ao max PG (full) 2.3 mmHg LV V1 max PG 2.0 mmHg LV V1 max 71.2 cm/sec PA V2 max 77.0 cm/sec PA max PG 2.4 mmHg TR max john 221.5 cm/sec
[2017-06-08] MEDS: AMIODARONE / D5W 200 ML IV SCH (19:01)
[2017-06-08 19:21] VITALS: BP 107/70; PULSE 66; TEMP 36.7; O2SAT 95
--- NOTE | 2017-06-08 21:57 | Progress Note ---
Subjective Date of Service: Jun 08, 2017. Subjective Pt evaluation today including: conversation w/ patient Patient reports feeling anxious. Patient also reports having an itch on his back. It has not improved since yesterday. Patient denies any palpitations or SOB. Patient reports the diarrhea has improved. Problem List Medical Problems: (1) Biliary colic Status: Acute (2) Postoperative hematoma Status: Acute Review of Systems Constitutional: No fever, No chills ENT: No hearing loss Respiratory: No cough, No sputum Cardiac: No chest pain Abdomen: No pain, No nausea Neurologic: No memory loss Psychiatric: No depression symptoms, No anhedonism Heme: No abnormal bleeding/bruising All Other Systems: Reviewed and Negative Medications Current Inpatient Medications Medications (Trade) Dose Ordered Sig/Homero Route Start Time Stop Time Status Last Admin Dose Admin Ondansetron HCl (Zofran Inj) 4 mg Q6H PRN IV 05/31/17 16:30 06/30/17 16:29 Lorazepam (Ativan Inj) 0.5 mg Q4H PRN IV 06/01/17 08:00 07/01/17 07:59 Oxycodone HCl (Roxicodone Immediate Rel Tab) 10 mg Q6 PRN PO 06/01/17 08:00 06/15/17 07:59 06/05/17 07:54 10 MG Hydralazine HCl (HydrALAZINE INJ) 10 mg Q4H PRN IV 06/01/17 08:00 07/01/17 07:59 Glucose (Glucose 40% Gel) 15-30 GRAMS 15 GRAMS... UD PRN PO 06/01/17 08:15 07/01/17 08:14 Glucose (Glucose Chew Tab) 4-8 Tablets 4 Tabl... UD PRN PO 06/01/17 08:15 07/01/17 08:14 Dextrose (Dextrose 50% 50ML Syringe) 25-50ML OF 50% DW IV FOR... UD PRN IV 06/01/17 08:15 07/01/17 08:14 Glucagon (Glucagon Inj) 1 mg UD PRN SQ 06/01/17 08:15 07/01/17 08:14 Lorazepam 0.5 mg/ Syringe 1 ml @ 1 mls/min Q4H PRN IV 06/01/17 08:15 07/01/17 08:14 Acetaminophen (Tylenol Tab) 650 mg Q6H PRN PO 06/02/17 18:00 07/02/17 17:59 Future Hold Hydromorphone HCl (Dilaudid Inj) 1 mg Q3H PRN IV 06/02/17 18:00 06/16/17 17:59 Hydromorphone HCl (Dilaudid Inj) 1.5 mg Q3H PRN IV 06/02/17 18:00 06/16/17 17:59 Promethazine HCl 12.5 mg/Sodium Chloride 50.5 ml @ 202 mls/hr Q6H PRN IV 06/02/17 18:00 07/02/17 17:59 Metoclopramide HCl (Reglan Inj) 10 mg Q6H PRN IV 06/02/17 18:00 07/02/17 17:59 Lorazepam (Ativan Tab) 1 mg Q6H PRN PO 06/02/17 18:00 07/02/17 17:59 06/08/17 14:47 1 MG Lorazepam 1 mg/ Syringe 1 ml @ 1 mls/min Q6H PRN IV 06/02/17 18:00 07/02/17 17:59 Bisacodyl (Dulcolax Tab) 5 mg DAILY PRN PO 06/03/17 06:00 07/03/17 05:59 06/05/17 20:32 5 MG Bisacodyl (Dulcolax Supp) [address] 06/03/17 06:00 07/03/17 05:59 Magnesium Hydroxide (Milk Of Magnesia Susp) 30 ml DAILY PRN PO 06/02/17 18:00 07/02/17 17:59 06/05/17 18:07 30 ML Diphenhydramine HCl (Benadryl Cap) 25 mg Q6H PRN PO 06/02/17 18:00 07/02/17 17:59 06/08/17 04:45 25 MG Oxycodone/ Acetaminophen (Percocet 5-325mg Tab) `1-2 tabs for pain 1 tab ... Q4H PRN PO 06/02/17 18:00 06/16/17 17:59 Oxycodone HCl (Roxicodone Immediate Rel Tab) 5 mg Q4H PRN PO 06/02/17 18:00 06/16/17 17:59 Alfuzosin HCl (Uroxatral Tab) 10 mg QPM PO 06/02/17 21:00 07/02/17 20:59 06/07/17 19:53 10 MG Metformin HCl (Glucophage Tab) 1,000 mg BIDM PO 06/03/17 08:30 07/03/17 08:29 06/08/17 16:58 1,000 MG Metoprolol Succinate (Toprol Xl Tab) 50 mg QAM PO 06/03/17 09:00 07/03/17 08:59 06/08/17 07:52 50 MG Multivitamins/ Minerals (Multivitamin W/ Minerals Tab) 1 tab QAM PO 06/03/17 09:00 07/03/17 08:59 06/08/17 07:52 1 TAB Simvastatin (Zocor Tab) 10 mg HS PO 06/02/17 21:00 07/02/17 20:59 06/07/17 19:53 10 MG Glimepiride (Amaryl Tab) 2 mg QDB PO 06/03/17 08:30 07/03/17 08:29 06/08/17 07:52 2 MG Insulin Aspart (novoLOG ASPART) SLIDING SCALE PARAMETER ACHS SC 06/02/17 21:00 07/02/17 20:59 06/04/17 13:01 2 UNITS Miscellaneous (Iv Fluids Completed) 1 ea PRN PRN N/A 06/02/17 20:30 06/02/18 20:29 Polyethylene (Miralax Powder Packet) 17 gm BID PO 06/03/17 21:00 07/03/17 08:59 06/05/17 20:32 17 GM Senna (Senokot Tab) 8.6 mg BID PO 06/03/17 21:00 07/03/17 20:59 06/05/17 20:32 8.6 MG Acetaminophen (Tylenol Tab) 500 mg Q4 PO 06/05/17 12:00 07/05/17 11:59 06/08/17 21:37 500 MG Warfarin Sodium (Coumadin Tab) 6 mg DAILY@16 PO 06/07/17 16:00 07/07/17 15:59 06/08/17 16:59 6 MG Diphenhydramine HCl (Benadryl Extra Strength Cream) 1 appln Q8 PRN EXT 06/07/17 12:15 07/07/17 12:14 06/08/17 03:20 1 APPLN Magnesium Oxide (Mag-Ox Tab) 400 mg BID PO 06/08/17 09:00 06/09/17 09:01 06/08/17 07:51 400 MG Amiodarone HCL/ Dextrose 200 ml @ 16.7 mls/hr [id number] IV 06/08/17 18:15 07/08/17 18:14 06/08/17 19:01 16.7 MLS/HR Objective Vital Signs Date Time Temp Pulse Resp B/P (MAP) Pulse Ox O2 Delivery O2 Flow Rate FiO2 06/08/17 20:00 Room Air 06/08/17 19:21 36.7 66 18 107/70 (82) 95 Room Air 06/08/17 16:00 Room Air 06/08/17 15:50 130 105/68 06/08/17 15:32 36.3 75 19 115/79 (91) 96 Room Air 06/08/17 11:30 36.5 78 18 104/65 (78) 97 Room Air 06/08/17 08:00 Room Air 06/08/17 07:39 36.9 145 18 99/64 (76) 94 Room Air 06/08/17 04:00 37.0 124 24 103/72 (82) 98 06/08/17 04:00 Room Air 06/08/17 00:40 148 06/08/17 00:37 148 06/08/17 00:01 Room Air 06/07/17 23:57 36.6 116 18 93/66 (75) 97 Physical Exam Comments: General Appearance: WD/WN, no apparent distress ENT: normal ENT inspection Neck: supple, no adenopathy Respiratory/Chest: chest non-tender, lungs clear, normal breath sounds Cardiovascular: no edema, + irregularly irregular Abdomen: normal bowel sounds, non tender, soft Extremities: normal range of motion Neurologic/Psychiatric: alert, oriented x 3 Skin: normal color, warm/dry Lymphatic: no adenopathy Laboratory Results Last 24 Hours Test 06/08/17 00:27 06/08/17 06:24 06/08/17 10:57 06/08/17 16:30 White Blood Count 5.68 K/uL Red Blood Count 3.49 M/uL Hemoglobin 10.6 g/dL Hematocrit 31.9 % Mean Corpuscular Volume 91.4 fL Mean Corpuscular Hemoglobin 30.4 pg Mean Corpuscular Hemoglobin Concent 33.2 g/dl RDW Standard Deviation 44.3 fL RDW Coefficient of Variation 13.5 % Platelet Count 223 K/uL Mean Platelet Volume 10.4 fL Sodium Level 137 mmol/L Potassium Level 4.2 mmol/L Chloride Level 102 mmol/L Carbon Dioxide Level 30 mmol/L Anion Gap 5.0 mmol/L Blood Urea Nitrogen 15 mg/dl Creatinine 0.94 mg/dl Est Creatinine Clear Calc Drug Dose 91.2 ml/min Estimated GFR () 92.2 Estimated GFR (Non- 79.6 BUN/Creatinine Ratio 15.9 Random Glucose 99 mg/dl Calcium Level 8.9 mg/dl Magnesium Level 1.6 mg/dl Bedside Glucose 116 mg/dl 104 mg/dl 92 mg/dl Test 06/08/17 20:04 Bedside Glucose 118 mg/dl Assessment and Plan Increased metoprolol to 75 mg PO daily as patient tolerated this dose yesterday. HR is better controlled with rates from 80-120. Diarrhea has also subsided. Mr. Turner is a 71 year old man post op 05/22 spinal surgery, developed a spinal hematoma and surgical evacuation 06/02 with bilateral drains in place A. fib: Patient has HR that was elevated at 120-130. Amiodarone gtt was started today. HR appears to have imprved and is now in the low 100s to 90s. Will continue to monitor. DMII will resume his home meds. BPH alfuzosin was previously used, will have iglesias cath post op Constipation : improved. Patient no longer has complaints of this. No longer having diarrhea either. Pruritus lumbar region will continue benadryl and will start a topical steroid cream
[2017-06-08] MEDS ORDERED: BETAMETHASONE DIP AUG (DIPROLENE) 0.05% CR 15 GM TUBE EXT PRN (22:00)
[2017-06-08] MEDS: ALFUZosin TAB 10 MG TAB PO SCH (22:12)
[2017-06-08] MEDS: SIMVASTATIN 10 MG TAB PO SCH (22:12)
[2017-06-09] VITALS (7 sets, daily range): BP systolic 105–113; BP diastolic 63–81; PULSE 75–113; TEMP 36.5–37; O2SAT 93–97
[2017-06-09] MEDS: ACETAMINOPHEN 500 MG TAB PO SCH ×6 (00:35→20:00)
[2017-06-09] MEDS: AMIODARONE / D5W 200 ML IV SCH (06:08)
[2017-06-09] MEDS: METFORMIN HCL 500 MG TAB PO SCH ×2 (07:40→15:58)
[2017-06-09] MEDS: GLIMEPIRIDE 2 MG TAB PO SCH (07:41)
[2017-06-09] MEDS: MAGNESIUM OXIDE 400 MG TAB PO SCH (07:41)
[2017-06-09] MEDS: CEROVITE ADV FORMULA TAB PO SCH (07:43)
[2017-06-09] MEDS: METOPROLOL SUCC 50MG EXT REL TAB PO SCH (07:43)
[2017-06-09] MEDS: SENNA 8.6 MG TAB PO SCH ×2 (07:43→16:02)
[2017-06-09] MEDS: POLYETHYLENE (MIRALAX) 17 GM PACK PO SCH ×2 (07:43→16:02)
--- NOTE | 2017-06-09 08:06 | Cardiology Follow-Up ---
Subjective Date of Service: Jun 09, 2017. Pt evaluation today including: conversation w/ patient, physical exam, lab review, review of studies, review of inpatient medication list History of Present Illness This is a 72-year-old male who has a history of embolic stroke many years ago ( his tells me 23 years ago) as well as a long history of atrial fibrillation dating back to around that time. He has been on anticoagulation with warfarin, he had lumbar disc surgery performed and then had a late complication of a spinal hematoma which has been evacuated. He was observed to have a high heart rate and on evaluation has runs of a wide complex tachycardia. He was not on telemetry at that time, he was therefore transferred to the telemetry floor. He has had relative hypotension although not very low, generally around 100 systolic. At the time I evaluation yesterday he was completely asymptomatic with his arrhythmia, he is also asymptomatic with his permanent atrial fibrillation. His tells me that when he had his stroke some 23 years ago that she observed very frequent premature ventricular beats at that time. She hasn't recall him having them in the interim, but he did not feel them at that time either. He had been maintained on relatively low dose metoprolol succinate for his atrial fibrillation (50 mg daily). On 12-lead electrocardiography his ventricular arrhythmia appears to be right greater outflow tract or coronary cusp, and is likely related to high catecholamine levels here. With his relative bradycardia we did start amiodarone, that helped somewhat and his pressure improved therefore I tried intravenous metoprolol which also helped. He has no cardiovascular complaints today, he does not have lightheadedness or dizziness, does not have chest discomfort or shortness of breath. Social History Smoking Status: Former Smoker History of Alcohol Use: No Review of Systems Respiratory: No cough, No sputum Cardiac: No chest pain Medications Cardiovascular: Item Value Date Time Amiodarone HCL/ 200 ml @ 16.7 mls/hr 06/08/17 1815 Dextrose .[id number] 06/09/17 0608 Warfarin Sodium 6 mg 06/07/17 1600 (Coumadin Tab) DAILY@16/PO 06/08/17 1659 Metoprolol 50 mg 06/03/17 0900 Succinate QAM/PO 06/09/17 0743 (Toprol Xl Tab) Simvastatin 10 mg 06/02/17 2100 (Zocor Tab) HS/PO 2/1/18 9494 Objective Vital Signs Past 12 Hours Date Time Temp Pulse Resp B/P (MAP) Pulse Ox O2 Delivery O2 Flow Rate FiO2 06/09/17 07:46 36.7 75 18 111/63 (79) 97 Room Air 06/09/17 03:22 36.8 113 18 106/66 (79) 93 Room Air 06/09/17 00:15 37.0 95 20 105/71 (82) 95 Room Air 06/09/17 00:01 Room Air 06/08/17 20:00 Room Air Last Recorded Weight-Kilograms: 110.500 Physical Exam Constitutional: General Apperance: heathly-appearing Level of Distress: mild distress Ambulation: limited ambulation Lungs: Respiratory effort: no dyspnea, good air movement Auscultation: breath sounds normal, no wheezing Cardiovascular: Heart Auscultation: no murmurs, no rubs, no gallops, irregular rate rhythm Peripheral Pulses: Bruits: none appreciated Extremities: no edema Data Laboratory Results: Last 24 Hours Test 06/08/17 10:57 06/08/17 16:30 06/08/17 20:04 Bedside Glucose 104 mg/dl 92 mg/dl 118 mg/dl Telemetry reviewed: Atrial fibrillation, heart rate reasonably well-controlled , he continues to have frequent PVCs and brief runs of nonsustained ventricular tachycardia, much improved from yesterday Assessment and Plan 1. 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 Usually these are enhanced by catecholamine excess, he has responded to a combination of increased beta-blockade and amiodarone. Generally these can be controlled with beta blockade alone, I'm going to try to increase his beta blockade and discontinue the amiodarone today. If we can't control it that way we should consider ablation, that may be a better option than lifelong amiodarone. Thank you for allowing me to participate in his care.
[2017-06-09] MEDS: INSULIN ASPART 100 UNITS/ML 3 ML PEN SC SCH ×4 (08:53→21:00)
[2017-06-09] MEDS ORDERED: METOPROLOL SUCC 50MG EXT REL TAB PO SCH (09:53)
--- NOTE | 2017-06-09 10:38 | Progress Note ---
Subjective Date of Service: Jun 09, 2017. Subjective This is a 72-year-old male patient with a long-standing history of chronic atrial fibrillation and previous embolic stroke over 2 decades ago. He was admitted several weeks ago with a lumbar laminectomy but returned with a spinal hematoma that required evacuation. During his hospital admission he was noted to have high heart rates and hypotension. He was transferred to the telemetry unit where he was noted to have runs of wide complex tachycardia in addition to his atrial fibrillation. Dr. Roberts's help is much appreciated. Yesterday he was started on both intravenous amiodarone and his metoprolol was titrated. His arrhythmias are much improved today. As outlined by Dr. Roberts's plan will be to titrate his metoprolol and then discontinue the amiodarone. The tachycardia might be right ventricular outflow tract origin and in the future if necessary could be ablated. Currently the patient is resting comfortably. Medications Current Inpatient Medications Medications (Trade) Dose Ordered Sig/Homero Route Start Time Stop Time Status Last Admin Dose Admin Ondansetron HCl (Zofran Inj) 4 mg Q6H PRN IV 05/31/17 16:30 06/30/17 16:29 Lorazepam (Ativan Inj) 0.5 mg Q4H PRN IV 06/01/17 08:00 07/01/17 07:59 Oxycodone HCl (Roxicodone Immediate Rel Tab) 10 mg Q6 PRN PO 06/01/17 08:00 06/15/17 07:59 06/05/17 07:54 10 MG Hydralazine HCl (HydrALAZINE INJ) 10 mg Q4H PRN IV 06/01/17 08:00 07/01/17 07:59 Glucose (Glucose 40% Gel) 15-30 GRAMS 15 GRAMS... UD PRN PO 06/01/17 08:15 07/01/17 08:14 Glucose (Glucose Chew Tab) 4-8 Tablets 4 Tabl... UD PRN PO 06/01/17 08:15 07/01/17 08:14 Dextrose (Dextrose 50% 50ML Syringe) 25-50ML OF 50% DW IV FOR... UD PRN IV 06/01/17 08:15 07/01/17 08:14 Glucagon (Glucagon Inj) 1 mg UD PRN SQ 06/01/17 08:15 07/01/17 08:14 Lorazepam 0.5 mg/ Syringe 1 ml @ 1 mls/min Q4H PRN IV 06/01/17 08:15 07/01/17 08:14 Acetaminophen (Tylenol Tab) 650 mg Q6H PRN PO 06/02/17 18:00 07/02/17 17:59 Future Hold Hydromorphone HCl (Dilaudid Inj) 1 mg Q3H PRN IV 06/02/17 18:00 06/16/17 17:59 Hydromorphone HCl (Dilaudid Inj) 1.5 mg Q3H PRN IV 06/02/17 18:00 06/16/17 17:59 Promethazine HCl 12.5 mg/Sodium Chloride 50.5 ml @ 202 mls/hr Q6H PRN IV 06/02/17 18:00 07/02/17 17:59 Metoclopramide HCl (Reglan Inj) 10 mg Q6H PRN IV 06/02/17 18:00 07/02/17 17:59 Lorazepam (Ativan Tab) 1 mg Q6H PRN PO 06/02/17 18:00 07/02/17 17:59 06/08/17 22:14 1 MG Lorazepam 1 mg/ Syringe 1 ml @ 1 mls/min Q6H PRN IV 06/02/17 18:00 07/02/17 17:59 Bisacodyl (Dulcolax Tab) 5 mg DAILY PRN PO 06/03/17 06:00 07/03/17 05:59 06/05/17 20:32 5 MG Bisacodyl (Dulcolax Supp) 10 mg DAILY PRN DE 06/03/17 06:00 07/03/17 05:59 Magnesium Hydroxide (Milk Of Magnesia Susp) 30 ml DAILY PRN PO 06/02/17 18:00 07/02/17 17:59 06/05/17 18:07 30 ML Diphenhydramine HCl (Benadryl Cap) 25 mg Q6H PRN PO 06/02/17 18:00 07/02/17 17:59 06/08/17 04:45 25 MG Oxycodone/ Acetaminophen (Percocet 5-325mg Tab) `1-2 tabs for pain 1 tab ... Q4H PRN PO 06/02/17 18:00 06/16/17 17:59 Oxycodone HCl (Roxicodone Immediate Rel Tab) 5 mg Q4H PRN PO 06/02/17 18:00 06/16/17 17:59 Alfuzosin HCl (Uroxatral Tab) 10 mg QPM PO 06/02/17 21:00 07/02/17 20:59 06/08/17 22:12 10 MG Metformin HCl (Glucophage Tab) 1,000 mg BIDM PO 06/03/17 08:30 07/03/17 08:29 06/09/17 07:40 1,000 MG Multivitamins/ Minerals (Multivitamin W/ Minerals Tab) 1 tab QAM PO 06/03/17 09:00 07/03/17 08:59 06/09/17 07:43 1 TAB Simvastatin (Zocor Tab) 10 mg HS PO 06/02/17 21:00 07/02/17 20:59 06/08/17 22:12 10 MG Glimepiride (Amaryl Tab) 2 mg QDB PO 06/03/17 08:30 07/03/17 08:29 06/09/17 07:41 2 MG Insulin Aspart (novoLOG ASPART) SLIDING SCALE PARAMETER ACHS SC 06/02/17 21:00 07/02/17 20:59 06/04/17 13:01 2 UNITS Miscellaneous (Iv Fluids Completed) 1 ea PRN PRN N/A 06/02/17 20:30 06/02/18 20:29 Polyethylene (Miralax Powder Packet) 17 gm BID PO 06/03/17 21:00 07/03/17 08:59 06/05/17 20:32 17 GM Senna (Senokot Tab) 8.6 mg BID PO 06/03/17 21:00 07/03/17 20:59 06/05/17 20:32 8.6 MG Acetaminophen (Tylenol Tab) 500 mg Q4 PO 06/05/17 12:00 07/05/17 11:59 06/09/17 07:40 500 MG Warfarin Sodium (Coumadin Tab) 6 mg DAILY@16 PO 06/07/17 16:00 07/07/17 15:59 06/08/17 16:59 6 MG Diphenhydramine HCl (Benadryl Extra Strength Cream) 1 appln Q8 PRN EXT 06/07/17 12:15 07/07/17 12:14 06/08/17 22:14 1 APPLN Betamethasone Dipropion Augmented (Diprolene 0.05% Cr) 1 appln Q12H PRN EXT 06/08/17 22:00 07/08/17 21:59 Metoprolol Succinate (Toprol Xl Tab) 100 mg QAM PO 06/10/17 09:00 07/10/17 08:59 Objective Vital Signs Date Time Temp Pulse Resp B/P (MAP) Pulse Ox O2 Delivery O2 Flow Rate FiO2 06/09/17 08:00 Room Air 06/09/17 07:46 36.7 75 18 111/63 (79) 97 Room Air 06/09/17 03:22 36.8 113 18 106/66 (79) 93 Room Air 06/09/17 00:15 37.0 95 20 105/71 (82) 95 Room Air 06/09/17 00:01 Room Air 06/08/17 20:00 Room Air 06/08/17 19:21 36.7 66 18 107/70 (82) 95 Room Air 06/08/17 16:00 Room Air 06/08/17 15:50 130 105/68 06/08/17 15:32 36.3 75 19 115/79 (91) 96 Room Air 06/08/17 11:30 36.5 78 18 104/65 (78) 97 Room Air Physical Exam General Appearance: WD/WN, no apparent distress Eyes: normal inspection, PERRL, EOMI ENT: normal ENT inspection, hearing grossly normal, pharynx normal Neck: supple, no adenopathy, thyroid normal, no JVD Respiratory/Chest: lungs clear, normal breath sounds Cardiovascular: regular rate, rhythm, no edema, no gallop, no JVD, no murmur Abdomen: normal bowel sounds, non tender, soft, no organomegaly Extremities: normal range of motion, non-tender, normal inspection, no pedal edema Neurologic/Psychiatric: nicker and breaker II-XII nml as tested, no motor/sensory deficits, normal mood/affect Skin: normal color, warm/dry, no rash Lymphatic: no adenopathy Laboratory Results Last 24 Hours Test 06/08/17 10:57 06/08/17 16:30 06/08/17 20:04 Bedside Glucose 104 mg/dl 92 mg/dl 118 mg/dl Assessment and Plan Impression: 1. Wide complex tachycardia probable right ventricular outflow tract 2. Chronic atrial fibrillation 3. Spinal hematoma status post lumbar laminectomy 4. Depression and anxiety Recommendations: As outlined above the patient's beta aurea will be titrated today with anticipation of stopping the amiodarone. The patient is currently clinically stable.
[2017-06-09] MEDS: LORAZEPAM 1 MG TAB PO PRN (15:57)
[2017-06-09] MEDS: WARFARIN SOD 6 MG TAB PO SCH (15:58)
[2017-06-09] MEDS: SIMVASTATIN 10 MG TAB PO SCH (21:56)
[2017-06-09] MEDS: ALFUZosin TAB 10 MG TAB PO SCH (21:56)
[2017-06-09] MEDS ORDERED: AMIODARONE IV BOLUS / DRIP IV STA (22:40)
--- NOTE | 2017-06-09 22:50 | Progress Note ---
Subjective Date of Service: Jun 09, 2017. Subjective Pt evaluation today including: conversation w/ patient, conversation w/ family , physical exam Patient reports feeling anxious. Patient denies any palpitation, fever, chills, nausea, vomiting, diarrhea Patient wants to be discharged but understands that his HR remains elevated. Problem List Medical Problems: (1) Biliary colic Status: Acute (2) Postoperative hematoma Status: Acute Medications Current Inpatient Medications Medications (Trade) Dose Ordered Sig/Homero Route Start Time Stop Time Status Last Admin Dose Admin Ondansetron HCl (Zofran Inj) 4 mg Q6H PRN IV 05/31/17 16:30 06/30/17 16:29 Lorazepam (Ativan Inj) 0.5 mg Q4H PRN IV 06/01/17 08:00 07/01/17 07:59 Oxycodone HCl (Roxicodone Immediate Rel Tab) 10 mg Q6 PRN PO 06/01/17 08:00 06/15/17 07:59 06/05/17 07:54 10 MG Hydralazine HCl (HydrALAZINE INJ) 10 mg Q4H PRN IV 06/01/17 08:00 07/01/17 07:59 Glucose (Glucose 40% Gel) 15-30 GRAMS 15 GRAMS... UD PRN PO 06/01/17 08:15 07/01/17 08:14 Glucose (Glucose Chew Tab) 4-8 Tablets 4 Tabl... UD PRN PO 06/01/17 08:15 07/01/17 08:14 Dextrose (Dextrose 50% 50ML Syringe) 25-50ML OF 50% DW IV FOR... UD PRN IV 06/01/17 08:15 07/01/17 08:14 Glucagon (Glucagon Inj) 1 mg UD PRN SQ 06/01/17 08:15 07/01/17 08:14 Lorazepam 0.5 mg/ Syringe 1 ml @ 1 mls/min Q4H PRN IV 06/01/17 08:15 07/01/17 08:14 Acetaminophen (Tylenol Tab) 650 mg Q6H PRN PO 06/02/17 18:00 07/02/17 17:59 Future Hold Hydromorphone HCl (Dilaudid Inj) 1 mg Q3H PRN IV 06/02/17 18:00 06/16/17 17:59 Hydromorphone HCl (Dilaudid Inj) 1.5 mg Q3H PRN IV 06/02/17 18:00 06/16/17 17:59 Promethazine HCl 12.5 mg/Sodium Chloride 50.5 ml @ 202 mls/hr Q6H PRN IV 06/02/17 18:00 07/02/17 17:59 Metoclopramide HCl (Reglan Inj) 10 mg Q6H PRN IV 06/02/17 18:00 07/02/17 17:59 Lorazepam (Ativan Tab) 1 mg Q6H PRN PO 06/02/17 18:00 07/02/17 17:59 06/10/17 07:27 1 MG Lorazepam 1 mg/ Syringe 1 ml @ 1 mls/min Q6H PRN IV 06/02/17 18:00 07/02/17 17:59 Bisacodyl (Dulcolax Tab) 5 mg DAILY PRN PO 06/03/17 06:00 07/03/17 05:59 06/05/17 20:32 5 MG Bisacodyl (Dulcolax Supp) 10 mg DAILY PRN MS 06/03/17 06:00 07/03/17 05:59 Magnesium Hydroxide (Milk Of Magnesia Susp) 30 ml DAILY PRN PO 06/02/17 18:00 07/02/17 17:59 06/05/17 18:07 30 ML Diphenhydramine HCl (Benadryl Cap) 25 mg Q6H PRN PO 06/02/17 18:00 07/02/17 17:59 06/08/17 04:45 25 MG Oxycodone/ Acetaminophen (Percocet 5-325mg Tab) `1-2 tabs for pain 1 tab ... Q4H PRN PO 06/02/17 18:00 06/16/17 17:59 Oxycodone HCl (Roxicodone Immediate Rel Tab) 5 mg Q4H PRN PO 06/02/17 18:00 06/16/17 17:59 Alfuzosin HCl (Uroxatral Tab) 10 mg QPM PO 06/02/17 21:00 07/02/17 20:59 06/09/17 21:56 10 MG Metformin HCl (Glucophage Tab) 1,000 mg BIDM PO 06/03/17 08:30 07/03/17 08:29 06/10/17 15:49 1,000 MG Multivitamins/ Minerals (Multivitamin W/ Minerals Tab) 1 tab QAM PO 06/03/17 09:00 07/03/17 08:59 06/10/17 08:18 1 TAB Simvastatin (Zocor Tab) 10 mg HS PO 06/02/17 21:00 07/02/17 20:59 06/09/17 21:56 10 MG Glimepiride (Amaryl Tab) 2 mg QDB PO 06/03/17 08:30 07/03/17 08:29 06/10/17 08:17 2 MG Insulin Aspart (novoLOG ASPART) SLIDING SCALE PARAMETER ACHS SC 06/02/17 21:00 07/02/17 20:59 06/04/17 13:01 2 UNITS Miscellaneous (Iv Fluids Completed) 1 ea PRN PRN N/A 06/02/17 20:30 06/02/18 20:29 Polyethylene (Miralax Powder Packet) 17 gm BID PO 06/03/17 21:00 07/03/17 08:59 06/05/17 20:32 17 GM Senna (Senokot Tab) 8.6 mg BID PO 06/03/17 21:00 07/03/17 20:59 06/05/17 20:32 8.6 MG Acetaminophen (Tylenol Tab) 500 mg Q4 PO 06/05/17 12:00 07/05/17 11:59 06/09/17 15:49 500 MG Warfarin Sodium (Coumadin Tab) 6 mg DAILY@16 PO 06/07/17 16:00 07/07/17 15:59 06/09/17 15:58 6 MG Diphenhydramine HCl (Benadryl Extra Strength Cream) 1 appln Q8 PRN EXT 06/07/17 12:15 07/07/17 12:14 06/08/17 22:14 1 APPLN Betamethasone Dipropion Augmented (Diprolene 0.05% Cr) 1 appln Q12H PRN EXT 06/08/17 22:00 07/08/17 21:59 Objective Vital Signs Date Time Temp Pulse Resp B/P (MAP) Pulse Ox O2 Delivery O2 Flow Rate FiO2 06/09/17 19:51 36.9 87 18 113/75 (88) 97 Room Air 06/09/17 16:00 Room Air 06/09/17 15:32 36.8 83 18 107/72 (84) 97 Room Air 06/09/17 11:22 36.5 101 18 112/81 (91) 96 Room Air 06/09/17 08:00 Room Air 06/09/17 07:46 36.7 75 18 111/63 (79) 97 Room Air 06/09/17 03:22 36.8 113 18 106/66 (79) 93 Room Air 06/09/17 00:15 37.0 95 20 105/71 (82) 95 Room Air 06/09/17 00:01 Room Air Physical Exam Comments: General Appearance: WD/WN, no apparent distress ENT: normal ENT inspection Neck: supple, no adenopathy Respiratory/Chest: chest non-tender, lungs clear, normal breath sounds Cardiovascular: no edema, + irregularly irregular Abdomen: normal bowel sounds, non tender, soft Extremities: normal range of motion Neurologic/Psychiatric: alert, oriented x 3 Skin: normal color, warm/dry Lymphatic: no adenopathy Laboratory Results Last 24 Hours Test 06/09/17 06:33 06/09/17 11:10 06/09/17 16:32 06/09/17 20:05 Bedside Glucose 103 mg/dl 116 mg/dl 85 mg/dl 111 mg/dl Test 06/09/17 21:01 Bedside Glucose 109 mg/dl Assessment and Plan Mr. Turner is a 71 year old man post op 05/22 spinal surgery, developed a spinal hematoma and surgical evacuation 06/02 with bilateral drains in place A. fib: Patient has HR that was elevated at 120-130. Amiodarone will be dc. Increased metoprolol to 100mg PO daily HR appears to be better controlled in the mid 80s to 100. Will continue to monitor. DMII will resume his home meds. BPH alfuzosin was previously used, will have iglesias cath post op Constipation : improved. Patient no longer has complaints of this. No longer having diarrhea either. Pruritus lumbar region will continue benadryl and will start a topical steroid cream
[2017-06-09] MEDS ORDERED: AMIODARONE / D5W 200 ML IV SCH (23:00)
[2017-06-10] VITALS (12 sets, daily range): BP systolic 100–123; BP diastolic 63–80; PULSE 67–100; TEMP 36.4–36.8; O2SAT 95–97
[2017-06-10] MEDS: ACETAMINOPHEN 500 MG TAB PO SCH ×7 (04:00→23:26)
[2017-06-10] MEDS ORDERED: AMIODARONE / D5W 200 ML IV SCH (05:00)
[2017-06-10] MEDS: INSULIN ASPART 100 UNITS/ML 3 ML PEN SC SCH ×4 (07:00→21:00)
[2017-06-10] MEDS: SENNA 8.6 MG TAB PO SCH ×2 (07:20→20:23)
[2017-06-10] MEDS: POLYETHYLENE (MIRALAX) 17 GM PACK PO SCH ×2 (07:20→20:22)
[2017-06-10] MEDS: LORAZEPAM 1 MG TAB PO PRN ×2 (07:27→18:04)
[2017-06-10] MEDS: METFORMIN HCL 500 MG TAB PO SCH ×2 (08:16→15:49)
[2017-06-10] MEDS: GLIMEPIRIDE 2 MG TAB PO SCH (08:17)
[2017-06-10] MEDS: CEROVITE ADV FORMULA TAB PO SCH (08:18)
[2017-06-10] MEDS: METOPROLOL SUCC 50MG EXT REL TAB PO SCH (08:18)
--- NOTE | 2017-06-10 15:05 | Cardiology Follow-Up ---
Subjective General Date of Service: Jun 10, 2017. Chief Complaint: follow up AF, VT Pt evaluation today including: conversation w/ patient, conversation w/ family , physical exam History of Present Illness The patient is a 72 year old male seen in follow up. Patient OOB and feeling well. Was able to walk to the toilet today and he feels good about his progress. Denies any sciatica symptoms. Denies subjective palpitations. Telemetry reveals AF in the 70 bpm range. Severe short salvos of non sustained VT occurred overnight last night prompting short term treatment with an amiodarone infusion. Patient without any addition VT today. Allergies Coded Allergies: Adhesives (Verified Adverse Reaction, Intermediate, blister/rash - EKG lead tape, 05/31/17) Atorvastatin (Verified Adverse Reaction, Intermediate, MUSCLE PAIN/ WEAKNESS, 05/31/17) Social History Smoking Status: Former Smoker Hx Tobacco Use In Past Year?: No (QUIT 2008, SMOKED OFF AND ON FOR 20 YRS) Hx Alcohol Use - Type And Amou: No Hx Substance Use - Type And Am: No Problem List Medical Problems: (1) Biliary colic Status: Acute (2) Postoperative hematoma Status: Acute Physical Exam Vital Signs Last Vital Signs Documentation Date Time Temp Pulse Resp B/P (MAP) Pulse Ox O2 Delivery O2 Flow Rate FiO2 06/10/17 12:00 Room Air 06/10/17 11:47 36.8 75 20 112/77 (89) 97 1.0 Physical Exam Constitutional: General Apperance: heathly-appearing Level of Distress: mild distress Ambulation: limited ambulation Psychiatric: Mental Status: depressed Head: normocephalic Eyes: EOM: EOMI ENMT: normal ENT inspection, hearing grossly normal Neck: supple, no masses Lungs: Respiratory effort: no dyspnea, good air movement Auscultation: breath sounds normal, no wheezing Cardiovascular: Heart Auscultation: no murmurs, no rubs, no gallops, irregular rate rhythm Peripheral Pulses: Bruits: none appreciated Abdomen: Bowel Sounds: normal Inspection & Palpation: soft, no tenderness, guarding & rebound, no masses Musculoskeletal: normal strength (5/5 throughout) Extremities: no edema Neurologic: Cranial Nerves: grossly intact Sensation: grossly intact Assessment and Plan Assessment and Plan IMPRESSION: 72 year old male 1. 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 Chronic atrial fibrillation, past remote cardioembolic stroke 3. Spinal hematoma status post lumbar laminectomy 4. Depression and anxiety PLAN: Patients chronic dose of metoprolol succinate 50 mg had been increased to 100 mg. Will continue to monitor on telemetry. Continue coumadin load, without bridge. Will proceed without amiodarone for now. If VT occurs again, will add back oral amiodarone and revisit ablation options with EP. Laboratory Results Last 24 Hours Test 06/09/17 16:32 06/09/17 20:05 06/09/17 21:01 06/10/17 06:49 Bedside Glucose 85 mg/dl 111 mg/dl 109 mg/dl 108 mg/dl Test 06/10/17 11:05 Bedside Glucose 103 mg/dl
[2017-06-10] MEDS: WARFARIN SOD 6 MG TAB PO SCH (15:58)
[2017-06-10] MEDS: SIMVASTATIN 10 MG TAB PO SCH (20:23)
[2017-06-10] MEDS: ALFUZosin TAB 10 MG TAB PO SCH (20:23)
--- NOTE | 2017-06-10 21:40 | Progress Note ---
Subjective Date of Service: Jun 10, 2017. Subjective Pt evaluation today including: conversation w/ patient Patient continues to feel anxious. Family would like to know if there is anything patient may take while he is in hospital despite Ativan. Patient denies chest pain, nausea, vomiting, SOB. Problem List Medical Problems: (1) Biliary colic Status: Acute (2) Postoperative hematoma Status: Acute Review of Systems Constitutional: No fever Eyes: No worsening of vision ENT: No hearing loss Respiratory: No cough Cardiac: No chest pain Abdomen: No pain Musculoskeletal: No joint pain Psychiatric: No depression symptoms Endo: No fatigue All Other Systems: Reviewed and Negative Medications Current Inpatient Medications Medications (Trade) Dose Ordered Sig/Homero Route Start Time Stop Time Status Last Admin Dose Admin Ondansetron HCl (Zofran Inj) 4 mg Q6H PRN IV 05/31/17 16:30 06/30/17 16:29 Lorazepam (Ativan Inj) 0.5 mg Q4H PRN IV 06/01/17 08:00 07/01/17 07:59 Oxycodone HCl (Roxicodone Immediate Rel Tab) 10 mg Q6 PRN PO 06/01/17 08:00 06/15/17 07:59 06/05/17 07:54 10 MG Hydralazine HCl (HydrALAZINE INJ) 10 mg Q4H PRN IV 06/01/17 08:00 07/01/17 07:59 Glucose (Glucose 40% Gel) 15-30 GRAMS 15 GRAMS... UD PRN PO 06/01/17 08:15 07/01/17 08:14 Glucose (Glucose Chew Tab) 4-8 Tablets 4 Tabl... UD PRN PO 06/01/17 08:15 07/01/17 08:14 Dextrose (Dextrose 50% 50ML Syringe) 25-50ML OF 50% DW IV FOR... UD PRN IV 06/01/17 08:15 07/01/17 08:14 Glucagon (Glucagon Inj) 1 mg UD PRN SQ 06/01/17 08:15 07/01/17 08:14 Lorazepam 0.5 mg/ Syringe 1 ml @ 1 mls/min Q4H PRN IV 06/01/17 08:15 07/01/17 08:14 Acetaminophen (Tylenol Tab) 650 mg Q6H PRN PO 06/02/17 18:00 07/02/17 17:59 Future Hold Hydromorphone HCl (Dilaudid Inj) 1 mg Q3H PRN IV 06/02/17 18:00 06/16/17 17:59 Hydromorphone HCl (Dilaudid Inj) 1.5 mg Q3H PRN IV 06/02/17 18:00 06/16/17 17:59 Promethazine HCl 12.5 mg/Sodium Chloride 50.5 ml @ 202 mls/hr Q6H PRN IV 06/02/17 18:00 07/02/17 17:59 Metoclopramide HCl (Reglan Inj) 10 mg Q6H PRN IV 06/02/17 18:00 07/02/17 17:59 Lorazepam (Ativan Tab) 1 mg Q6H PRN PO 06/02/17 18:00 07/02/17 17:59 06/10/17 18:04 1 MG Lorazepam 1 mg/ Syringe 1 ml @ 1 mls/min Q6H PRN IV 06/02/17 18:00 07/02/17 17:59 Bisacodyl (Dulcolax Tab) 5 mg DAILY PRN PO 06/03/17 06:00 07/03/17 05:59 06/05/17 20:32 5 MG Bisacodyl (Dulcolax Supp) 10 mg DAILY PRN MO 06/03/17 06:00 07/03/17 05:59 Magnesium Hydroxide (Milk Of Magnesia Susp) 30 ml DAILY PRN PO 06/02/17 18:00 07/02/17 17:59 06/05/17 18:07 30 ML Diphenhydramine HCl (Benadryl Cap) 25 mg Q6H PRN PO 06/02/17 18:00 07/02/17 17:59 06/08/17 04:45 25 MG Oxycodone/ Acetaminophen (Percocet 5-325mg Tab) `1-2 tabs for pain 1 tab ... Q4H PRN PO 06/02/17 18:00 06/16/17 17:59 Oxycodone HCl (Roxicodone Immediate Rel Tab) 5 mg Q4H PRN PO 06/02/17 18:00 06/16/17 17:59 Alfuzosin HCl (Uroxatral Tab) 10 mg QPM PO 06/02/17 21:00 07/02/17 20:59 06/10/17 20:23 10 MG Metformin HCl (Glucophage Tab) 1,000 mg BIDM PO 06/03/17 08:30 07/03/17 08:29 06/10/17 15:49 1,000 MG Multivitamins/ Minerals (Multivitamin W/ Minerals Tab) 1 tab QAM PO 06/03/17 09:00 07/03/17 08:59 06/10/17 08:18 1 TAB Simvastatin (Zocor Tab) 10 mg HS PO 06/02/17 21:00 07/02/17 20:59 06/10/17 20:23 10 MG Glimepiride (Amaryl Tab) 2 mg QDB PO 06/03/17 08:30 07/03/17 08:29 06/10/17 08:17 2 MG Insulin Aspart (novoLOG ASPART) SLIDING SCALE PARAMETER ACHS SC 06/02/17 21:00 07/02/17 20:59 06/04/17 13:01 2 UNITS Miscellaneous (Iv Fluids Completed) 1 ea PRN PRN N/A 06/02/17 20:30 06/02/18 20:29 Polyethylene (Miralax Powder Packet) 17 gm BID PO 06/03/17 21:00 07/03/17 08:59 06/05/17 20:32 17 GM Senna (Senokot Tab) 8.6 mg BID PO 06/03/17 21:00 07/03/17 20:59 06/05/17 20:32 8.6 MG Acetaminophen (Tylenol Tab) 500 mg Q4 PO 06/05/17 12:00 07/05/17 11:59 06/10/17 23:26 500 MG Warfarin Sodium (Coumadin Tab) 6 mg DAILY@16 PO 06/07/17 16:00 07/07/17 15:59 06/10/17 15:58 6 MG Diphenhydramine HCl (Benadryl Extra Strength Cream) 1 appln Q8 PRN EXT 06/07/17 12:15 07/07/17 12:14 06/08/17 22:14 1 APPLN Betamethasone Dipropion Augmented (Diprolene 0.05% Cr) 1 appln Q12H PRN EXT 06/08/17 22:00 07/08/17 21:59 Metoprolol Succinate (Toprol Xl Tab) 100 mg QAM PO 06/10/17 09:00 07/10/17 08:59 06/10/17 08:18 100 MG Objective Vital Signs Date Time Temp Pulse Resp B/P (MAP) Pulse Ox O2 Delivery O2 Flow Rate FiO2 06/10/17 20:03 36.6 91 20 112/74 (87) 95 Room Air 06/10/17 16:00 Room Air 06/10/17 15:34 36.4 94 18 107/75 (86) 96 Room Air 06/10/17 12:00 Room Air 06/10/17 11:47 36.8 75 20 112/77 (89) 97 Nasal Cannula 1.0 06/10/17 08:00 Room Air 06/10/17 07:43 36.7 82 18 123/79 (94) 96 Room Air 06/10/17 03:50 36.8 80 18 117/75 (89) 97 Nasal Cannula 1.0 06/10/17 02:41 87 119/80 (93) 06/10/17 02:11 60 100/63 (75) 06/10/17 01:41 67 109/71 (84) 06/10/17 01:11 113/76 (88) 06/10/17 00:41 76 107/72 (84) 06/10/17 00:11 82 104/67 (79) 06/10/17 00:01 Room Air 06/09/17 23:50 36.9 103 18 112/72 (85) 97 Room Air Physical Exam Comments: General Appearance: WD/WN, no apparent distress ENT: normal ENT inspection Neck: supple, no adenopathy Respiratory/Chest: chest non-tender, lungs clear, normal breath sounds Cardiovascular: no edema, + irregularly irregular Abdomen: normal bowel sounds, non tender, soft Extremities: normal range of motion Neurologic/Psychiatric: alert, oriented x 3 Skin: normal color, warm/dry Lymphatic: no adenopathy Laboratory Results Last 24 Hours Test 06/10/17 06:49 06/10/17 11:05 06/10/17 16:15 06/10/17 21:14 Bedside Glucose 108 mg/dl 103 mg/dl 128 mg/dl 89 mg/dl Assessment and Plan Mr. Turner is a 71 year old man post op 05/22 spinal surgery, developed a spinal hematoma and surgical evacuation 06/02 with bilateral drains in place A. fib: Patient has HR is bteer controlled today. Patient did have an episode of tachycardia overnight Amiodarone was started by resident team but due to elevated half life. Doubt it played arole in decreasing heart rate. Amiodarone will be dc. Continue metoprolol to 100mg PO daily Will continue to monitor. May consider discharge tomorow if patient remains with HR below 90 DMII will resume his home meds. BPH alfuzosin was previously used, will have iglesias cath post op Constipation : improved. Patient no longer has complaints of this. No longer having diarrhea either. Pruritus lumbar region will continue benadryl and will start a topical steroid cream
[2017-06-11 03:33] VITALS: BP 109/74; PULSE 66; TEMP 36.7; O2SAT 98
[2017-06-11] MEDS: ACETAMINOPHEN 500 MG TAB PO SCH ×6 (05:36→23:56)
[2017-06-11] MEDS: INSULIN ASPART 100 UNITS/ML 3 ML PEN SC SCH ×4 (07:00→21:00)
[2017-06-11] MEDS: POLYETHYLENE (MIRALAX) 17 GM PACK PO SCH ×2 (07:13→21:00)
[2017-06-11] MEDS: SENNA 8.6 MG TAB PO SCH ×2 (07:13→21:00)
[2017-06-11] MEDS: GLIMEPIRIDE 2 MG TAB PO SCH (07:33)
[2017-06-11] MEDS: METFORMIN HCL 500 MG TAB PO SCH ×2 (07:33→17:53)
[2017-06-11] MEDS: METOPROLOL SUCC 50MG EXT REL TAB PO SCH (07:34)
[2017-06-11] MEDS: CEROVITE ADV FORMULA TAB PO SCH (07:34)
[2017-06-11 07:38] VITALS: BP 111/62; PULSE 70; TEMP 37.2; O2SAT 93
--- NOTE | 2017-06-11 08:14 | Progress Note ---
Subjective Date of Service: Jun 11, 2017. Subjective Pt evaluation today including: conversation w/ patient Patient reports having no symtpoms today. He reports being more ambulatory, he has been walking to the toilet. He states he has soft stools. He denies any anxiety. He reports the back is less itchy. He denies any palpitations. Problem List Medical Problems: (1) Biliary colic Status: Acute (2) Postoperative hematoma Status: Acute Review of Systems Constitutional: No fever, No chills ENT: No hearing loss Respiratory: No cough, No sputum Cardiac: No chest pain Abdomen: No pain Male : No see HPI Neurologic: No memory loss Psychiatric: No depression symptoms Endo: No fatigue Skin: No rash All Other Systems: Reviewed and Negative Medications Current Inpatient Medications Medications (Trade) Dose Ordered Sig/Homero Route Start Time Stop Time Status Last Admin Dose Admin Ondansetron HCl (Zofran Inj) 4 mg Q6H PRN IV 05/31/17 16:30 06/30/17 16:29 Lorazepam (Ativan Inj) 0.5 mg Q4H PRN IV 06/01/17 08:00 07/01/17 07:59 Oxycodone HCl (Roxicodone Immediate Rel Tab) 10 mg Q6 PRN PO 06/01/17 08:00 06/15/17 07:59 06/05/17 07:54 10 MG Hydralazine HCl (HydrALAZINE INJ) 10 mg Q4H PRN IV 06/01/17 08:00 07/01/17 07:59 Glucose (Glucose 40% Gel) 15-30 GRAMS 15 GRAMS... UD PRN PO 06/01/17 08:15 07/01/17 08:14 Glucose (Glucose Chew Tab) 4-8 Tablets 4 Tabl... UD PRN PO 06/01/17 08:15 07/01/17 08:14 Dextrose (Dextrose 50% 50ML Syringe) 25-50ML OF 50% DW IV FOR... UD PRN IV 06/01/17 08:15 07/01/17 08:14 Glucagon (Glucagon Inj) 1 mg UD PRN SQ 06/01/17 08:15 07/01/17 08:14 Lorazepam 0.5 mg/ Syringe 1 ml @ 1 mls/min Q4H PRN IV 06/01/17 08:15 07/01/17 08:14 Acetaminophen (Tylenol Tab) 650 mg Q6H PRN PO 06/02/17 18:00 07/02/17 17:59 Future Hold Hydromorphone HCl (Dilaudid Inj) 1 mg Q3H PRN IV 06/02/17 18:00 06/16/17 17:59 Hydromorphone HCl (Dilaudid Inj) 1.5 mg Q3H PRN IV 06/02/17 18:00 06/16/17 17:59 Promethazine HCl 12.5 mg/Sodium Chloride 50.5 ml @ 202 mls/hr Q6H PRN IV 06/02/17 18:00 07/02/17 17:59 Metoclopramide HCl (Reglan Inj) 10 mg Q6H PRN IV 06/02/17 18:00 07/02/17 17:59 Lorazepam (Ativan Tab) 1 mg Q6H PRN PO 06/02/17 18:00 07/02/17 17:59 06/10/17 18:04 1 MG Lorazepam 1 mg/ Syringe 1 ml @ 1 mls/min Q6H PRN IV 06/02/17 18:00 07/02/17 17:59 Bisacodyl (Dulcolax Tab) 5 mg DAILY PRN PO 06/03/17 06:00 07/03/17 05:59 06/05/17 20:32 5 MG Bisacodyl (Dulcolax Supp) 10 mg DAILY PRN MD 06/03/17 06:00 07/03/17 05:59 Magnesium Hydroxide (Milk Of Magnesia Susp) 30 ml DAILY PRN PO 06/02/17 18:00 07/02/17 17:59 06/05/17 18:07 30 ML Diphenhydramine HCl (Benadryl Cap) 25 mg Q6H PRN PO 06/02/17 18:00 07/02/17 17:59 06/08/17 04:45 25 MG Oxycodone/ Acetaminophen (Percocet 5-325mg Tab) `1-2 tabs for pain 1 tab ... Q4H PRN PO 06/02/17 18:00 06/16/17 17:59 Oxycodone HCl (Roxicodone Immediate Rel Tab) 5 mg Q4H PRN PO 06/02/17 18:00 06/16/17 17:59 Alfuzosin HCl (Uroxatral Tab) 10 mg QPM PO 06/02/17 21:00 07/02/17 20:59 06/10/17 20:23 10 MG Metformin HCl (Glucophage Tab) 1,000 mg BIDM PO 06/03/17 08:30 07/03/17 08:29 06/11/17 07:33 1,000 MG Multivitamins/ Minerals (Multivitamin W/ Minerals Tab) 1 tab QAM PO 06/03/17 09:00 07/03/17 08:59 06/11/17 07:34 1 TAB Simvastatin (Zocor Tab) 10 mg HS PO 06/02/17 21:00 07/02/17 20:59 06/10/17 20:23 10 MG Glimepiride (Amaryl Tab) 2 mg QDB PO 06/03/17 08:30 07/03/17 08:29 06/11/17 07:33 2 MG Insulin Aspart (novoLOG ASPART) SLIDING SCALE PARAMETER ACHS SC 06/02/17 21:00 07/02/17 20:59 06/04/17 13:01 2 UNITS Miscellaneous (Iv Fluids Completed) 1 ea PRN PRN N/A 06/02/17 20:30 06/02/18 20:29 Polyethylene (Miralax Powder Packet) 17 gm BID PO 06/03/17 21:00 07/03/17 08:59 06/05/17 20:32 17 GM Senna (Senokot Tab) 8.6 mg BID PO 06/03/17 21:00 07/03/17 20:59 06/05/17 20:32 8.6 MG Acetaminophen (Tylenol Tab) 500 mg Q4 PO 06/05/17 12:00 07/05/17 11:59 06/11/17 05:36 500 MG Warfarin Sodium (Coumadin Tab) 6 mg DAILY@16 PO 06/07/17 16:00 07/07/17 15:59 06/10/17 15:58 6 MG Diphenhydramine HCl (Benadryl Extra Strength Cream) 1 appln Q8 PRN EXT 06/07/17 12:15 07/07/17 12:14 06/08/17 22:14 1 APPLN Betamethasone Dipropion Augmented (Diprolene 0.05% Cr) 1 appln Q12H PRN EXT 06/08/17 22:00 07/08/17 21:59 Metoprolol Succinate (Toprol Xl Tab) 100 mg QAM PO 06/10/17 09:00 07/10/17 08:59 06/11/17 07:34 100 MG Objective Vital Signs Date Time Temp Pulse Resp B/P (MAP) Pulse Ox O2 Delivery O2 Flow Rate FiO2 06/11/17 07:38 37.2 70 20 111/62 (78) 93 Room Air 06/11/17 04:00 Room Air 06/11/17 03:33 36.7 66 18 109/74 (86) 98 Room Air 06/10/17 23:59 36.6 100 16 119/75 (90) 97 Room Air 06/10/17 23:59 97 Room Air 06/10/17 20:03 36.6 91 20 112/74 (87) 95 Room Air 06/10/17 20:00 Room Air 06/10/17 16:00 Room Air 06/10/17 15:34 36.4 94 18 107/75 (86) 96 Room Air 06/10/17 12:00 Room Air 06/10/17 11:47 36.8 75 20 112/77 (89) 97 Nasal Cannula 1.0 Physical Exam General Appearance: WD/WN, no apparent distress Eyes: normal inspection ENT: normal ENT inspection Neck: supple, no adenopathy Respiratory/Chest: chest non-tender, lungs clear, normal breath sounds Cardiovascular: no edema, + irregularly irregular Abdomen: normal bowel sounds, non tender, soft Extremities: normal range of motion Neurologic/Psychiatric: alert, oriented x 3 Skin: normal color Lymphatic: no adenopathy Laboratory Results Last 24 Hours Test 06/10/17 11:05 06/10/17 16:15 06/10/17 21:14 06/11/17 06:58 Bedside Glucose 103 mg/dl 128 mg/dl 89 mg/dl 102 mg/dl Assessment and Plan Mr. Turner is a 71 year old man post op 05/22 spinal surgery, developed a spinal hematoma and surgical evacuation 06/02 with bilateral drains in place A. fib: His HR has remained in the 80s at rest. It goes up to 110-120s when he moves to the chair. Patient though is asymptomatic. D/W ok to discharge him today. No episodes of V tach overnight. Continue metoprolol to 100mg PO daily INR is 1.8 on 6 mg yesterday. Awaiting today's INR. Off lovenox, as patient refused. DMII will resume his home meds. BPH alfuzosin was previously used, will have iglesias cath post op Constipation : improved. Patient no longer has complaints of this. No longer having diarrhea either. Pruritus lumbar region will continue benadryl and will start a topical steroid cream Anxiety Discussed with family. They do not want maintenance meds while he is in the hospital or rehab as the meds take about 4 weeks to take effect. Family states they believe he will be better once he returns home. Hospitalist team is signing off case. Please call us for any questions.
[2017-06-11] MEDS ORDERED: ATV1 PO (08:28)
--- NOTE | 2017-06-11 11:34 | DISCHARGE SUMMARY ---
Luiz is a delightful gentleman. He is 72 years of age. He had a postoperative hematoma, lumbar spine with significant pain. We took him back to surgery about 10 days ago for evacuation of hematoma. He did well. He had bouts of AFib and tachycardia through the mid week, which kept his stay a little bit longer. As of today, June 11, he is improved, stable, alert, oriented, no complaints of pain. PLAN: [facility]. Continue with his current medications, keep his wound clean and dry protected. His sutures can be removed at [facility], Monday or of this week, which would be the or or 15 of June.
--- NOTE | 2017-06-11 11:37 | Cardiology Follow-Up ---
Subjective General Date of Service: Jun 11, 2017. Chief Complaint: follow up AF, VT Pt evaluation today including: conversation w/ patient, physical exam History of Present Illness The patient is a 72 year old male seen in follow up. Feeling well. Pain absent. Telemetry reveals rate controlled AF, no additional NSVT overnight or this am. Allergies Coded Allergies: Adhesives (Verified Adverse Reaction, Intermediate, blister/rash - EKG lead tape, 05/31/17) Atorvastatin (Verified Adverse Reaction, Intermediate, MUSCLE PAIN/ WEAKNESS, 05/31/17) Social History Smoking Status: Former Smoker Hx Tobacco Use In Past Year?: No (QUIT 2008, SMOKED OFF AND ON FOR 20 YRS) Hx Alcohol Use - Type And Amou: No Hx Substance Use - Type And Am: No Problem List Medical Problems: (1) Biliary colic Status: Acute (2) Postoperative hematoma Status: Acute Physical Exam Vital Signs Last Vital Signs Documentation Date Time Temp Pulse Resp B/P (MAP) Pulse Ox O2 Delivery O2 Flow Rate FiO2 06/11/17 11:16 37.2 70 20 93 1.0 06/11/17 08:00 Room Air 06/11/17 07:38 111/62 (78) Physical Exam Constitutional: General Apperance: heathly-appearing Level of Distress: mild distress Ambulation: limited ambulation Psychiatric: Mental Status: depressed Head: normocephalic Eyes: EOM: EOMI ENMT: normal ENT inspection, hearing grossly normal Neck: supple, no masses Lungs: Respiratory effort: no dyspnea, good air movement Auscultation: breath sounds normal, no wheezing Cardiovascular: Heart Auscultation: no murmurs, no rubs, no gallops, irregular rate rhythm Peripheral Pulses: Bruits: none appreciated Abdomen: Bowel Sounds: normal Inspection & Palpation: soft, no tenderness, guarding & rebound, no masses Musculoskeletal: normal strength (5/5 throughout) Extremities: no edema Neurologic: Cranial Nerves: grossly intact Sensation: grossly intact Assessment and Plan Assessment and Plan IMPRESSION: 72 year old male 1. 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 Chronic atrial fibrillation, past remote cardioembolic stroke 3. Spinal hematoma status post lumbar laminectomy 4. Depression and anxiety PLAN: Patients chronic dose of metoprolol succinate 50 mg had been increased to 100 mg. Will continue to monitor on telemetry. Continue coumadin load, without bridge. Will proceed without amiodarone for now. If VT occurs again, will add back oral amiodarone and revisit ablation options with EP. Stable for discharge to rehab or home from cardiac perspective. Will need close outpt follow up of INR. Laboratory Results Last 24 Hours Test 06/10/17 16:15 06/10/17 21:14 06/11/17 06:58 Bedside Glucose 128 mg/dl 89 mg/dl 102 mg/dl
[2017-06-11 12:15] VITALS: O2SAT 93
[2017-06-11 12:21] VITALS: BP 98/65; PULSE 81; TEMP 36.8; O2SAT 95
[2017-06-11 15:40] VITALS: BP 106/66; PULSE 89; TEMP 36.8; O2SAT 98
[2017-06-11] MEDS ORDERED: WARFARIN SOD 4 MG TAB PO ONE (16:53)
[2017-06-11] MEDS: ALFUZosin TAB 10 MG TAB PO SCH (21:19)
[2017-06-11] MEDS: SIMVASTATIN 10 MG TAB PO SCH (21:19)
[2017-06-11 22:55] VITALS: BP 124/78; PULSE 95; TEMP 36.9; O2SAT 97
[2017-06-12] MEDS: ACETAMINOPHEN 500 MG TAB PO SCH ×3 (03:38→12:00)
[2017-06-12] MEDS: INSULIN ASPART 100 UNITS/ML 3 ML PEN SC SCH ×2 (08:00→12:00)
[2017-06-12] MEDS: GLIMEPIRIDE 2 MG TAB PO SCH (08:26)
[2017-06-12] MEDS: CEROVITE ADV FORMULA TAB PO SCH (08:27)
[2017-06-12] MEDS: METFORMIN HCL 500 MG TAB PO SCH (08:27)
[2017-06-12] MEDS: POLYETHYLENE (MIRALAX) 17 GM PACK PO SCH (08:28)
[2017-06-12] MEDS: SENNA 8.6 MG TAB PO SCH (08:28)
[2017-06-12 08:29] VITALS: BP 118/84; PULSE 80; TEMP 36.5; O2SAT 97
[2017-06-12] MEDS: METOPROLOL SUCC 50MG EXT REL TAB PO SCH (08:29)
[2017-06-12 09:22] VITALS: O2SAT 97
[2017-06-12 11:45] VITALS: BP 118/84; PULSE 80; TEMP 36.5; O2SAT 97
[2017-06-12] MEDS ORDERED: WARFARIN SOD 4 MG TAB PO SCH (16:00)
== END 2017-06-12 12:30 | DRG 908 ==
LOC: EDBD 11:28 → C.EDB 11:29 → INTOOBSV 16:27 → OBSVTOIN 16:27 → C.MSN 16:27 → ENRESERV 16:44 → C.2T 06-07 14:54 → EDBEDREQ 06-11 10:55 → ENRESERV 06-11 11:09 → C.MSW 06-11 11:58
PROVIDERS: ADMIT Orthopaedic Surgery Orthopaedic Surgery of the Spine; ATTEND Orthopaedic Surgery Orthopaedic Surgery of the Spine
PROC: 009Y00Z Drainage of Lumbar Spinal Cord with Drainage Device, Open Approach (ICD-10-PCS; principal; 2017-06-02 08:15)
DX: G97.62 Postprocedural hematoma of a nervous system organ or structure following other procedure (principal); I47.2 Ventricular tachycardia; I48.2 Chronic atrial fibrillation; E11.9 Type 2 diabetes mellitus without complications; I25.10 Atherosclerotic heart disease of native coronary artery without angina pectoris; E78.5 Hyperlipidemia, unspecified; Z87.891 Personal history of nicotine dependence; Z88.8 Allergy status to other drugs, medicaments and biological substances; I10 Essential (primary) hypertension; Z86.73 Personal history of transient ischemic attack (TIA), and cerebral infarction without residual deficits; N40.0 Benign prostatic hyperplasia without lower urinary tract symptoms; I95.9 Hypotension, unspecified; K80.50 Calculus of bile duct without cholangitis or cholecystitis without obstruction; K59.00 Constipation, unspecified; Z79.01 Long term (current) use of anticoagulants; Y83.8 Other surgical procedures as the cause of abnormal reaction of the patient, or of later complication, without mention of misadventure at the time of the procedure; Y92.019 Unspecified place in single-family (private) house as the place of occurrence of the external cause

== ENCOUNTER → 2017-07-19 | Outpatient (CLI) | payer OTHER, MEDICARE ==
[~2017-07-19] MED LIST changes: +ATV1 PO; -ENOX1INJ14 SQ
[2017-07-19 12:16] LABS: BASO % 0.4 %; BASO ABS # 0.02 K/uL (0-0.2); EOS ABS # 0.09 K/uL (0-0.5); HEMATOCRIT 40.4 % (42-52); IG# 0.01 K/uL (0.00-0.02); LYMPH % 33.6 %; LYMPH ABS # 1.51 K/uL (1.2-3.4); MEAN CELL VOLUME 92.7 fL (80-100); MEAN CORPUSCULAR HEMOGLOBIN 29.8 pg (25-34); MEAN CORPUSCULAR HGB CONC 32.2 g/dl (32-36); MEAN PLATELET VOLUME 11.4 fL (7.4-10.4); MONO % 6.7 %; NEUT % 57.1 %; NEUT ABS # 2.56 K/uL (1.4-6.5); PLATELET COUNT 166 K/uL (130-400); RED CELL DISTRIBUTION WIDTH CV 13.8 % (11.5-14.5); RED CELL DISTRIBUTION WIDTH SD 47.1 fL (36.4-46.3); WHITE BLOOD COUNT 4.49 K/uL (4.8-10.8)
[2017-07-19 12:29] LABS: HEMOGLOBIN A1C 5.4 % (4.5-5.6)
[2017-07-19 12:36] LABS: ALBUMIN 4.3 gm/dl (3.4-5.0); ALT/SGPT 24 U/L (12-78); AST/SGOT 14 U/L (15-37); BLOOD UREA NITROGEN 13 mg/dl (7-18); CALCIUM 9.5 mg/dl (8.5-10.1); CARBON DIOXIDE 27 mmol/L (21-32); CHOLESTEROL 133 mg/dl (0-200); CREATININE 0.81 mg/dl (0.60-1.40); GLUCOSE 89 mg/dl (70-99); POTASSIUM 3.7 mmol/L (3.5-5.1); SODIUM 140 mmol/L (136-145)
[2017-07-19 12:45] LABS: ALKALINE PHOSPHATASE 60 U/L (45-117); LDL CHOLESTEROL CALCULATED 70 mg/dl; TOTAL PROTEIN 7.9 gm/dl (6.4-8.2)
== END | disposition home or self-care (01) ==
LOC: C.LABBFT 09:11
PROVIDERS: ATTEND Nurse Practitioner Family
DX: E11.9 Type 2 diabetes mellitus without complications (principal); E53.8 Deficiency of other specified B group vitamins; E78.5 Hyperlipidemia, unspecified; R80.9 Proteinuria, unspecified; I10 Essential (primary) hypertension

== ENCOUNTER → 2017-12-27 | Outpatient (CLI) | payer OTHER, MEDICARE ==
--- NOTE | 2017-12-27 13:48 | DIAGNOSTIC IMAGING REPORT ---
LUMBAR SPINE W/O CONTRAST CLINICAL HISTORY: 72 years-old Male with STENOSIS, DISC HERNIATION. Acute low back and left leg pain with history of prior lumbar spine surgery 05/22/2017 COMPARISON: Fluoroscopic images of the lumbar spine 05/22/2017, MRI lumbar spine 05/11/2017. TECHNIQUE: Multiplanar, multi sequence MRI of the lumbar spine was performed without intravenous contrast. FINDINGS: No aortic aneurysm or pathologically enlarged lymph nodes identified. Prostatomegaly with multiple layering bladder calculi measuring up to approximately 8 mm. There are postoperative changes from prior laminectomy at the L4-S1 levels. Subcutaneous fluid about the operative bed likely within normal limits. Soft tissue edema/ill-defined fluid is also noted within the deep tissues at the operative bed. No drainable fluid collection identified. No epidural abscess. No acute fracture or focal bone marrow edema identified. Conus medullaris terminates at T12-L1. Signal within the imaged thoracic spinal cord is unremarkable. T12-L1: Mild spondylitic spurring and facet arthrosis without central canal or foraminal narrowing. L1-L2: Spondylitic spurring with mild facet arthrosis and small circumferential annular disc bulge favoring the left paracentral and left lateral recess causes mild left foraminal stenosis. The central canal and right foramen are patent, unchanged. L2-L3: Minimal posterior spondylitic spurring and mild facet arthrosis. Small posterior disc bulge causes mild inferior foraminal stenosis bilaterally. No central canal narrowing, unchanged. L3-L4: Minimal posterior spondylitic spurring and moderate facet arthrosis with ligamentum flavum thickening. There is a broad-based right foraminal and extraforaminal disc protrusion with annular fissure which is unchanged causing mild right lateral recess and moderate right foraminal narrowing abutting the adjacent exiting L3 nerve root on the right, unchanged. L4-L5: Moderate posterior intervertebral disc space narrowing with posterior annular disc bulge and moderate facet arthrosis. Left paracentral/left lateral recess disc extrusion or sequestered disc fragment measures 11 x 8 x 11 mm, image 18 series 4 and image 11 series 3 has progressively worsened from comparison, abutting and displacing the left L5 nerve root posteriorly. There is resultant mild central canal, severe left lateral recess and [id number] left foraminal narrowing. Mild right foraminal narrowing. L5-S1: Moderate intervertebral disc space narrowing with posterior spondylitic spurring and small circumferential annular disc bulge with mild facet arthrosis. Unchanged mild bilateral foraminal stenosis. No central canal narrowing. IMPRESSION: 1. Interval postoperative changes of laminectomy at L4-S1. 2. Progressively worsened discogenic degenerative changes at L4-L5. There is a circumferential annular disc bulge at this level with a left paracentral/left lateral recess disc extrusion or sequestered disc fragment which abuts and displaces the left L5 nerve root resulting in severe left lateral recess, mild central canal, [id number] left and mild right foraminal narrowing. 3. The remainder of the study is unchanged from comparison as detailed above. 4. Prostatomegaly with multiple urinary bladder calculi. The above report was generated using voice recognition software. It may contain grammatical, syntax or spelling errors. Dictated: 12/27/2017 12:33 PM Transcribed: 12/27/2017 1:47 PM Jannet Electronically signed by: Navin Flores M.D. 12/27/2017 2:03 PM Dictated Date/Time: 12/27/2017 12:33 PM
== END | disposition home or self-care (01) ==
LOC: C.MRIBC 09:18
PROVIDERS: ATTEND Orthopaedic Surgery Orthopaedic Surgery of the Spine
DX: M48.061 Spinal stenosis, lumbar region without neurogenic claudication (principal); M47.816 Spondylosis without myelopathy or radiculopathy, lumbar region; M51.26 Other intervertebral disc displacement, lumbar region; N40.0 Benign prostatic hyperplasia without lower urinary tract symptoms; N21.0 Calculus in bladder

== ENCOUNTER 2019-02-19 22:05 | Inpatient (IN) ==
[2019-02-19] MEDS ORDERED: dilTIAZem HCl 5 MG/ML 5 ML VIAL IV STA (22:41)
[2019-02-19] MEDS ORDERED: ONDANSETRON INJ 2 MG/ML 2 ML VIAL IV STA (22:41)
[2019-02-19] MEDS ORDERED: SODIUM CHLORIDE 0.9% 1000ML 1,000 ML IV ONE (22:41)
[2019-02-19] MEDS ORDERED: MoRPHine SULFATE 4 MG/ML 1 ML CARP\\VIAL IV STA (22:41)
[2019-02-19] MEDS ORDERED: dilTIAZem HCL 125 MG in DEXTROSE 5% 100 ML IV SCH (22:45)
[2019-02-19 22:58] LABS: Basophils # (auto) 0.01 K/uL (0-0.2); Basophils % (auto) 0.2 %; Eosinophils # (auto) 0.06 K/uL (0-0.5); Eosinophils % (auto) 1.1 %; Hematocrit (blood only) 41.5 % (42-52); Hemoglobin 13.7 g/dL (14.0-18.0); Immature Granulocytes # (auto) 0.07 K/uL (0.00-0.02); Immature Granulocytes % (auto) 1.2 %; Lymphocytes # (auto) 1.33 K/uL (1.2-3.4); Lymphocytes % (auto) 23.3 %; Mean Corpuscular Hemoglobin 30.4 pg (25-34); Mean Corpuscular Volume 92.2 fL (80-100); Mean Platelet Volume 10.8 fL (7.4-10.4); Monocytes # (auto) 0.66 K/uL (0.11-0.59); Monocytes % (auto) 11.6 %; Neutrophils # (auto) 3.58 K/uL (1.4-6.5); Neutrophils % (auto) 62.6 %; Platelet Count 140 K/uL (130-400); RDW Coefficient of Variation 13.3 % (11.5-14.5); White Blood Count 5.71 K/uL (4.8-10.8)
--- NOTE | 2019-02-19 23:02 | XRay Report ---
XR chest 1V portable HISTORY: 73 years-old Male Chest Pain acute atypical chest pain COMPARISON: Chest radiograph 10/25/2018 TECHNIQUE: Portable AP view of the chest FINDINGS: Cardiac silhouette is enlarged, unchanged. No overt pulmonary edema, pneumothorax, pleural effusion o r focal airspace consolidation. Unchanged mild right hemidiaphragmatic elevation. Healed remote left clavicular fracture. Degenerative changes of the shoulders and spine. IMPRESSION: Cardiomegaly without acute process. The above report was generated using voice recognition software. It may contain grammatical, syntax o r spelling errors. Electronically signed by: Navin Flores M.D. 02/19/2019 11:01 PM
[2019-02-19 23:10] LABS: Prothrombin Time 28.4 Seconds (9.0-12.0)
[2019-02-19 23:18] LABS: Alanine Aminotransferase 39 U/L (12-78); Albumin Level 3.8 gm/dl (3.4-5.0); Aspartate Aminotransferase 17 U/L (15-37); BUN Creatinine Ratio 14.5 (10-20); Blood Urea Nitrogen 16 mg/dl (7-18); Calcium 9.5 mg/dl (8.5-10.1); Carbon Dioxide 27 mmol/L (21-32); Chloride 103 mmol/L (98-107); Creatinine Clr Calc Pharmacy 79.6 ml/min; Est GFR (African American) 77.4; Est GFR (Non-African American) 66.8; Glucose 176 mg/dl (70-99); Lipase 149 U/L (73-393); Potassium 4.3 mmol/L (3.5-5.1); Sodium 138 mmol/L (136-145)
[2019-02-19 23:23] LABS: Albumin Globulin Ratio 1.3 (0.9-2); Alkaline Phosphatase 55 U/L (45-117); Bilirubin,Total 1.5 mg/dl (0.2-1); Total Protein 6.8 gm/dl (6.4-8.2); Troponin I < 0.015 ng/ml (0-0.045)
--- NOTE | 2019-02-20 01:21 | Emergency Department Note ---
Entered by Isabell Denise acting as a scribe for Arjun Saunders DO History of Present Illness General Chief complaint: Cardiac Assessment Stated complaint: LIGHT HEADED, HEAD GETS WARM History of Present Illness Maximum Pain Intensity: 8 Patient is a 73-year-old male with a past medical history of A. fib and chronic back pain with 2 previous surgeries performed by Dr. Ricks. He was seen here a week ago and treated for sciatica as he had lower back pain radiating to his right leg. He was discharged on steroids which helped amount and Kamiah. He has not been taking the Kamiah. His pain has worsened now and is having trouble getting around. Denies any weakness or numbness in his legs. Able to move his bowels and urinate without difficulty. He also notes that around 4 PM today he started to get dizzy and lightheaded. This is been coming intermittently since then. notes she checked his pulse at home and her heart rate was in the 150s. He has been taking all of his medications otherwise. He denies any chest pain or shortness of breath. No nausea vomiting or diarrhea. No focal deficit. No other exacerbating or remitting factors. Home Medications Home Medications Medication Instructions Recorded Confirmed Type Centrum Silver Men 1 tab PO QAM 10/22/18 02/19/19 History TheraTears Nutrition 1 cap PO QAM 10/22/18 02/19/19 History dutasteride 0.5 mg PO QAM 10/22/18 02/19/19 History glimepiride 2 mg PO QAM 10/22/18 02/19/19 History metformin 1,000 mg PO BID 10/22/18 02/19/19 History metoprolol succinate 100 mg PO QAM 10/22/18 02/19/19 History simvastatin 10 mg PO HS 10/22/18 02/19/19 History warfarin 4 mg tablet 4 mg PO DAILY #30 tab 11/20/18 02/19/19 Rx cyanocobalamin (vit B-12) 1,000 1,000 mcg SL QDD #90 tab 12/16/18 02/19/19 History mcg sublingual tablet triamcinolone acetonide 0.1 % 1 appln TOPICAL BID #1 gm 12/16/18 02/19/19 History topical cream psyllium husk 3.4 gram/5.4 gram 1 tbs PO DAILY 12/20/18 02/19/19 History oral powder alfuzosin ER 10 mg tablet,extended 10 mg PO QAM #90 tab 02/08/19 02/19/19 Rx release 24 hr acetaminophen [Tylenol Extra 500 mg PO UD PRN 02/11/19 02/19/19 History Strength] hydrocodone-acetaminophen [Kamiah] 1 tab PO Q8H PRN #15 tab 02/11/19 02/19/19 Rx lidocaine 1 patch TOP DAILY PRN #15 ea 02/11/19 02/19/19 Rx Allergies Allergy/AdvReac Type Severity Reaction Status Date / Time adhesive AdvReac Intermediate BLISTERING/RASH Verified 02/19/19 23:16 (WITH EKG TAPE) atorvastatin AdvReac Intermediate MUSCLE Verified 02/19/19 23:16 PAIN/WEAKNESS OpSite Wound Dressing MISC AdvReac Unknown Uncoded 02/19/19 23:16 Past Med/Surg History Social History Preferred Language: Lithuanian Communication Ability: Effective Beliefs That Will Affect Care: None Current Living Situation: Spouse Feels Safe at Home: Yes Smoking Status: Never smoker Second Hand Exposure: No ; Hx Alcohol Use: No Hx Substance Use: No Review of Systems See HPI for pertinent positives & negatives. and A total of 10 systems reviewed and were otherwise negative Physical Exam Vital Signs Vital Signs - 24 hr 02/19/19 22:08 02/19/19 22:21 02/19/19 22:30 Temperature 36.5 C Temperature Source Oral Sepsis Recent Fever Within 48 Hours No Sepsis Action Taken by Nursing No Action Required Oxygen Flow Rate - Titration Pulse Oximetry Post Tiitration Pulse Rate 137 H 141 H 129 H Pulse Rate [Apical] Pulse Rate from SpO2 Sensor 111 H 101 H Respiratory Rate 18 25 H 22 Respiratory Effort / Characteristics Non-Labored Respiratory Depth Normal Blood Pressure 132/87 126/98 110/90 Blood Pressure [Right Arm] Blood Pressure Mean 102 107 96 Blood Pressure Mean [Right Arm] Blood Pressure Position Sitting Pulse Oximetry 95 97 95 Oxygen Delivery Method Room Air 02/19/19 22:42 02/19/19 23:00 02/19/19 23:15 Temperature Temperature Source Sepsis Recent Fever Within 48 Hours Sepsis Action Taken by Nursing Oxygen Flow Rate - Titration Pulse Oximetry Post Tiitration Pulse Rate 135 H 128 H Pulse Rate [Apical] Pulse Rate from SpO2 Sensor 122 H 117 H Respiratory Rate 16 Respiratory Effort / Characteristics Respiratory Depth Blood Pressure 137/95 Blood Pressure [Right Arm] Blood Pressure Mean 109 Blood Pressure Mean [Right Arm] Blood Pressure Position Pulse Oximetry 95 95 Oxygen Delivery Method Room Air 02/19/19 23:30 02/19/19 23:40 02/19/19 23:43 Temperature Temperature Source Sepsis Recent Fever Within 48 Hours Sepsis Action Taken by Nursing Oxygen Flow Rate - Titration 2 Pulse Oximetry Post Tiitration 95 Pulse Rate 131 H Pulse Rate [Apical] 119 H Pulse Rate from SpO2 Sensor 117 H Respiratory Rate 12 22 Respiratory Effort / Characteristics Non-Labored Spontaneous Respiratory Depth Normal Blood Pressure 112/73 Blood Pressure [Right Arm] 112/73 Blood Pressure Mean 86 Blood Pressure Mean [Right Arm] 86 Blood Pressure Position Pulse Oximetry 93 91 87 L Oxygen Delivery Method Room Air Room Air 02/19/19 23:45 02/20/19 00:00 02/20/19 00:02 Temperature Temperature Source Sepsis Recent Fever Within 48 Hours Sepsis Action Taken by Nursing Oxygen Flow Rate - Titration Pulse Oximetry Post Tiitration Pulse Rate 112 H 135 H 112 H Pulse Rate [Apical] Pulse Rate from SpO2 Sensor 100 H 110 H 126 H Respiratory Rate 15 17 17 Respiratory Effort / Characteristics Respiratory Depth Blood Pressure 132/86 132/86 Blood Pressure [Right Arm] Blood Pressure Mean 101 101 Blood Pressure Mean [Right Arm] Blood Pressure Position Pulse Oximetry 96 96 95 Oxygen Delivery Method 02/20/19 00:10 02/20/19 00:15 02/20/19 00:30 Temperature Temperature Source Sepsis Recent Fever Within 48 Hours Sepsis Action Taken by Nursing Oxygen Flow Rate - Titration Pulse Oximetry Post Tiitration Pulse Rate 142 H 132 H 136 H Pulse Rate [Apical] Pulse Rate from SpO2 Sensor 125 H 129 H 135 H Respiratory Rate 24 14 21 Respiratory Effort / Characteristics Respiratory Depth Blood Pressure 112/74 121/80 Blood Pressure [Right Arm] Blood Pressure Mean 86 93 Blood Pressure Mean [Right Arm] Blood Pressure Position Pulse Oximetry 97 96 96 Oxygen Delivery Method 02/20/19 00:45 02/20/19 00:46 02/20/19 00:51 Temperature Temperature Source Sepsis Recent Fever Within 48 Hours Sepsis Action Taken by Nursing Oxygen Flow Rate - Titration Pulse Oximetry Post Tiitration Pulse Rate 127 H 135 H 141 H Pulse Rate [Apical] Pulse Rate from SpO2 Sensor 136 H 120 H 133 H Respiratory Rate 16 22 14 Respiratory Effort / Characteristics Respiratory Depth Blood Pressure 119/81 99/80 L Blood Pressure [Right Arm] Blood Pressure Mean 93 86 Blood Pressure Mean [Right Arm] Blood Pressure Position Pulse Oximetry 95 97 97 Oxygen Delivery Method 02/20/19 00:53 02/20/19 00:54 02/20/19 01:00 Temperature Temperature Source Sepsis Recent Fever Within 48 Hours Sepsis Action Taken by Nursing Oxygen Flow Rate - Titration Pulse Oximetry Post Tiitration Pulse Rate 128 H 113 H Pulse Rate [Apical] 120 H Pulse Rate from SpO2 Sensor 132 H 120 H Respiratory Rate 21 20 29 H Respiratory Effort / Characteristics Respiratory Depth Blood Pressure 102/73 Blood Pressure [Right Arm] 99/80 L Blood Pressure Mean 88 82 Blood Pressure Mean [Right Arm] 86 Blood Pressure Position Pulse Oximetry 97 98 97 Oxygen Delivery Method 02/20/19 01:15 02/20/19 01:30 02/20/19 01:31 Temperature Temperature Source Sepsis Recent Fever Within 48 Hours Sepsis Action Taken by Nursing Oxygen Flow Rate - Titration Pulse Oximetry Post Tiitration Pulse Rate 137 H 121 H 99 H Pulse Rate [Apical] Pulse Rate from SpO2 Sensor 127 H 104 H 115 H Respiratory Rate 21 17 17 Respiratory Effort / Characteristics Respiratory Depth Blood Pressure 102/83 102/73 Blood Pressure [Right Arm] Blood Pressure Mean 89 82 Blood Pressure Mean [Right Arm] Blood Pressure Position Pulse Oximetry 97 95 95 Oxygen Delivery Method 02/20/19 01:45 Temperature Temperature Source Sepsis Recent Fever Within 48 Hours Sepsis Action Taken by Nursing Oxygen Flow Rate - Titration Pulse Oximetry Post Tiitration Pulse Rate 101 H Pulse Rate [Apical] Pulse Rate from SpO2 Sensor 104 H Respiratory Rate 17 Respiratory Effort / Characteristics Respiratory Depth Blood Pressure Blood Pressure [Right Arm] Blood Pressure Mean Blood Pressure Mean [Right Arm] Blood Pressure Position Pulse Oximetry 96 Oxygen Delivery Method GENERAL: Sitting up in bed, alert, chronically ill-appearing EYE EXAM: normal conjunctiva. OROPHARYNX: no exudate, no erythema, lips, buccal mucosa, and tongue normal and mucous membranes are moist NECK: supple, no nuchal rigidity, no adenopathy, non-tender LUNGS: Clear to auscultation. Normal chest wall mechanics HEART: Tachycardic and regular regular, S1 normal and S2 normal ABDOMEN: abdomen soft, non-tender, normo-active bowel sounds, no masses, no rebound or guarding. BACK: Acute reproducible tenderness throughout the right SI joint tracking to the right gluteus. Old midline incision in lower lumbar. SKIN: no rashes and no bruising UPPER EXTREMITIES: upper extremities are grossly normal. LOWER EXTREMITIES: No pitting edema. Flexion and extension of the hip knees ankles and EHL intact NEURO EXAM: Normal sensorium, cranial nerves II-XII grossly intact, normal speech, no gross weakness of arms, no gross weakness of legs. Course ED COURSE: Vital signs were reviewed and showed tachycardia The patients medical record was reviewed The above diagnostic studies were performed and reviewed. ED treatments and interventions as stated above. 2235: The patient was evaluated in room B11B. A complete history and physical examination was performed. 2354: Upon reevaluation, the patient is doing well. I discussed my findings with the patient and he understands and agrees with the treatment plan. Based on the patients age, coexisting illnesses, exam and lab findings the decision to treat as an inpatient was made. The patient remained stable while under my care. The [facility] for further management. Consultations Consultation #1: The patient will be [facility] further management. Time: 23:54 Administered Medications Diltiazem HCl 125 mg/ Dextrose 125 mls @ 0 mls/hr IV .Q0M [facility]; Protocol Stop: 03/21/19 22:44 Last Titration: 02/20/19 00:10 Dose: 15 mg/hr, 15 mls/hr Documented by: [id number] Titration: 02/19/19 23:37 Dose: 10 mg/hr, 10 mls/hr Documented by: [id number] Admin: 02/19/19 23:16 Dose: 5 mg/hr, 5 mls/hr Documented by: [id number] Cosigned by: [id number] Discontinued Medications Diltiazem HCl (Cardizem) 10 mg IV NOW STA Stop: 02/19/19 22:42 Last Admin: 02/19/19 23:04 Dose: 10 mg Documented by: [id number] Cosigned by: [id number] Sodium Chloride (Nss 1000ml) 1,000 mls @ 999 mls/hr IV .Q1H1M ONE Stop: 02/19/19 23:41 Last Admin: 02/19/19 23:04 Dose: 999 mls/hr Documented by: [id number] Methylprednisolone (Solumedrol) 40 mg IV NOW STA Stop: 02/19/19 23:57 Last Admin: 02/20/19 00:16 Dose: 40 mg Documented by: [id number] Morphine Sulfate (Morphine Sulfate) 4 mg IV NOW STA Stop: 02/19/19 22:42 Last Admin: 02/19/19 23:03 Dose: 4 mg Documented by: [id number] Ondansetron HCl (Zofran) 4 mg IV NOW STA Stop: 02/19/19 22:42 Last Admin: 02/19/19 23:03 Dose: 4 mg Documented by: [id number] Medical Decision Making Differential Diagnosis Differential diagnoses includes but is not limited to acute coronary syndrome, myocardial infarction, pericarditis, pulmonary embolus, aortic dissection, pneumonia, pneumothorax, musculoskeletal, shingles, esophageal. Medical Records Attestation: I reviewed the patient's medical records. Home Medications Current Medication List: was personally reviewed by me Laboratory Data Attestation: I reviewed the patient's lab results. Result diagrams: 02/19/19 22:51 02/19/19 22:51 Lab Results 02/19/19 02/19/19 02/19/19 Range/Units 22:51 22:51 22:51 WBC 5.71 (4.8-10.8) K/uL RBC 4.50 L (4.7-6.1) M/uL Hgb 13.7 L (14.0-18.0) g/dL Hct 41.5 L (42-52) % MCV 92.2 (80-100) fL MCH 30.4 (25-34) pg MCHC 33.0 (32-36) g/dL RDW Std Deviation 45.0 (36.4-46.3) fL RDW Coeff of Keith 13.3 (11.5-14.5) % Plt Count 140 (130-400) K/uL MPV 10.8 H (7.4-10.4) fL Immature Gran % (Auto) 1.2 % Neut % (Auto) 62.6 % Lymph % (Auto) 23.3 % [place] % (Auto) 11.6 % Eos % (Auto) 1.1 % Baso % (Auto) 0.2 % Immature Gran # (Auto) 0.07 H (0.00-0.02) K/uL Neut # (Auto) 3.58 (1.4-6.5) K/uL Lymph # (Auto) 1.33 (1.2-3.4) K/uL [place] # (Auto) 0.66 H (0.11-0.59) K/uL Eos # (Auto) 0.06 (0-0.5) K/uL Baso # (Auto) 0.01 (0-0.2) K/uL PT 28.4 H (9.0-12.0) Seconds INR 3.0 H (0.9-1.1) Sodium 138 (136-145) mmol/L Potassium 4.3 (3.5-5.1) mmol/L Chloride 103 (98-107) mmol/L Carbon Dioxide 27 (21-32) mmol/L Anion Gap 7.0 (3-11) BUN 16 (7-18) mg/dl Creatinine 1.08 (0.6-1.4) mg/dl Est Cr Clr Drug Dosing 79.6 ml/min Est GFR ( Amer) 77.4 Est GFR (Non-Af Amer) 66.8 BUN/Creatinine Ratio 14.5 (10-20) Glucose 176 H (70-99) mg/dl Calcium 9.5 (8.5-10.1) mg/dl Total Bilirubin 1.5 H (0.2-1) mg/dl AST 17 (15-37) U/L ALT 39 (12-78) U/L Alkaline Phosphatase 55 (45-117) U/L Troponin I < 0.015 (0-0.045) ng/ml Total Protein 6.8 (6.4-8.2) gm/dl Albumin 3.8 (3.4-5.0) gm/dl Globulin 3.0 (2.5-4.0) gm/dl Albumin/Globulin Ratio 1.3 (0.9-2) Lipase 149 (73-393) U/L Imaging Data Radiologist's Impression: Radiology results as stated below per my review and the radiologist's interpretation: XR chest 1V portable HISTORY: 73 years-old Male Chest Pain acute atypical chest pain COMPARISON: Chest radiograph 10/25/2018 TECHNIQUE: Portable AP view of the chest FINDINGS: Cardiac silhouette is enlarged, unchanged. No overt pulmonary edema, pneumoth orax, pleural effusion or focal airspace consolidation. Unchanged mild right hemidiaphragmatic elevation. Healed remote left clavicular fracture. Degenerative changes of the shoulders and spine. IMPRESSION: Cardiomegaly without acute process. The above report was generated using voice recognition software. It may contain grammatical, syntax or spelling errors. Electronically signed by: Navin Flores M.D. 02/19/2019 11:01 PM ECG Data Attestation: I personally reviewed and interpreted this ECG as follows: Indication: tachycardia Rate (beats per minute): 141 Rhythm: atrial fibrillation (with RVR) Findings: + other (no ST changes in septal leads) and + left axis deviation; no PVC Blood Pressure Blood Pressure Findings: Normal blood pressure Blood Pressure Disposition: did not require urgent referral MDM Narrative Patient is a 73-year-old male who presents the ER for dizziness and lightheadedness associated with severe right back pain. He was seen here earlier for about a week ago and treated with steroids for sciatica. His exam is consistent with sciatica. His dizziness and lightheadedness I do believe is caused by his A. fib with RVR. Heart rate is 140s upon presentation. IV was established blood work was obtained. Labs show no significant leukocytosis. Hemoglobin was 13.7. No significant anemia. INR was therapeutic at 3.1. BMP with a glucose of 176. LFTs bilirubin and troponin was unremarkable. Lipase is normal. Patient was given IV morphine and IV fluids. He is updated bedside. Discussed with his and the patient as well as the hospitalist for observation secondary to sciatica and A. fib with RVR. Impression & Plan Atrial fibrillation with RVR, Sciatica, Back pain Critical Care Time Critical Care Time: Yes Total Critical Care Time: 32 I have personally spent 32 minutes of critical care time in the direct management of this patient. This includes bedside care, interpretation of diagnostic studies, and testing, discussion with consultants, patient, and family members, and other required patient management activities. This 32 minutes is in excess of all separately billable procedures. Discharge Plan Visit Data Chief Complaint: Cardiac Assessment Stated Complaint: LIGHT HEADED, HEAD GETS WARM ED Provider: Arjun Saunders Discharge Problem: Atrial fibrillation with RVR, Sciatica, Back pain Patient Disposition: Being Evaluated by Hospitalist Forms Stand Alone Forms: My [facility] Prescriptions Prescriptions: No Action warfarin 4 mg tablet 4 mg PO DAILY Qty: 30 RF: 5 alfuzosin 10 mg tablet extended release 24 hr 10 mg PO QAM Qty: 90 RF: 1 cyanocobalamin (vitamin B-12) 1,000 mcg tablet, sublingual 1,000 mcg SL QDD Qty: 90 RF: 0 triamcinolone acetonide 0.1 % cream 1 appln topical BID Qty: 1 RF: 0 Metamucil 3.4 gram/5.4 gram powder 1 tbs PO DAILY RF: 0 metformin 500 mg Tablet 1,000 mg PO BID RF: 0 glimepiride 4 mg Tablet 2 mg PO QAM RF: 0 dutasteride 0.5 mg Capsule 0.5 mg PO QAM RF: 0 Centrum Silver Men 300-600-300 mcg Tablet 1 tab PO QAM RF: 0 metoprolol succinate 50 mg Tablet Extended Release 24 Hr 100 mg PO QAM RF: 0 simvastatin 10 mg Tablet 10 mg PO HS RF: 0 TheraTears Nutrition [phone] [id number] Capsule 1 cap PO QAM RF: 0 acetaminophen [Tylenol Extra Strength] 500 mg Tablet 500 mg PO UD PRN (Reason: Pain) RF: 0 lidocaine 5 % adhesive patch,medicated 1 patch TOP DAILY PRN (Reason: pain) Qty: 15 RF: 0 hydrocodone-acetaminophen [Kamiah] 5-325 mg tablet 1 tab PO Q8H PRN (Reason: pain) Qty: 15 RF: 0 Referrals Referrals: Alex Tillman III, CRNP [Primary Care Provider] - Discharge Problem: Sciatica Qualifiers: Laterality: right Qualified Code(s): M54.31 - Sciatica, right side Back pain Qualifiers: Back pain location: low back pain Chronicity: acute Back pain laterality: right Sciatica presence: with sciatica Sciatica laterality: sciatica of right side Qualified Code(s): M54.41 - Lumbago with sciatica, right side The scribe's documentation has been prepared under my direction and personally reviewed by me in its entirety. I confirm that the note above accurately reflects all work, treatment, procedures, and medical decision making performed by me.
[2019-02-20] MEDS ORDERED: METOPROLOL SUCC 25MG EXT REL TAB PO STA (02:17)
[2019-02-20] MEDS: NSS + 20MEQ KCL 20 MEQ/1,000 ML BAG IV SCH ×2 (02:28→14:01)
[2019-02-20] MEDS ORDERED: ONDANSETRON INJ 2 MG/ML 2 ML VIAL IV PRN (04:22)
[2019-02-20] MEDS ORDERED: GLUCOSE 10 TABS/TUBE PO PRN (04:22)
[2019-02-20] MEDS ORDERED: ALUMINUM/MAGNESIUM SUSP 30 ML UDC PO PRN (04:22)
[2019-02-20] MEDS ORDERED: MAGNESIUM HYDROXIDE SUSP 30 ML UDC PO PRN (04:22)
[2019-02-20] MEDS ORDERED: CARBOHYDRATES FOR HYPOGLYCEMIA PO PRN (04:22)
[2019-02-20] MEDS ORDERED: ACETAMINOPHEN 325 MG TAB PO PRN (04:22)
[2019-02-20] MEDS ORDERED: GLUCAGON FOR INJ 1 MG VIAL SQ PRN (04:22)
[2019-02-20] MEDS ORDERED: GLUCOSE 40% GEL 15 GM TUBE PO PRN (04:22)
[2019-02-20] MEDS ORDERED: HYDROCODONE/ACETAMOPHEN 5/325MG TAB PO PRN (04:22)
[2019-02-20] MEDS ORDERED: DEXTROSE 50% 50 ML SYRINGE IV PRN (04:22)
[2019-02-20] MEDS ORDERED: INFLUENZA ADMINISTRATION CHARGE ONE (05:45)
[2019-02-20] MEDS ORDERED: INFLUENZA VACCINE HIGH DOSE 65+ 0.5 ML SYR IM ONE (05:45)
[2019-02-20] MEDS ORDERED: MoRPHine SULFATE 4 MG/ML 1 ML CARP\\VIAL IV PRN (06:31)
--- NOTE | 2019-02-20 06:34 | History & Physical Report ---
Date of Service February 20, 2019 Assessment & Plan (1) Atrial fibrillation with RVR: Atrial fibrillation with RVR/hypertension- Patient was initially placed on Cardizem drip by the ED, but at maximum of 15mg/h, heart rate was still in the 130s and systolic blood pressure was at 102. The patient was placed on normal saline with 20 mEq potassium at 100 mils per hour, Cardizem drip was tapered, with plans to eliminate it completely, and patient was given metoprolol succinate 25 mg p.o. Heart rate did improve to the low 90s, and systolic blood pressure improved to 126/94. Patient follows with cardiology Dr. Michel, who will be consulted. The patient will be admitted to telemetry for serial cardiac enzymes, serial EKG's, cardiac rhythm monitoring. INR of 3.0 upon admission. Will be repeated in the morning, with dosing for warfarin to be determined at that point. Continue metoprolol succinate 100 mg p.o. every morning Present on Admission?: Yes (2) Sciatica: Lumbar degenerative disc disease with recurrent low back pain and left lower extremity radiculopathy/bilateral sacroiliitis- Continue Deale for moderate pain. Morphine sulfate 4 mg IV every 3 hours as needed severe pain. Consult his orthopedic surgeon Dr. Ricks. Present on Admission?: Yes (3) Back pain: See above Present on Admission?: Yes (4) Lumbar disc disease: See above Present on Admission?: Yes (5) Bilateral sacroiliitis: See above Present on Admission?: Yes (6) HTN (hypertension): See above Present on Admission?: Yes (7) Diabetes mellitus: Hold glimepiride, and metformin. Place on Accu-Cheks before meals and at bedtime with NovoLog coverage per scale Present on Admission?: Yes (8) Hyperlipidemia: Continue simvastatin 10 mg daily at bedtime Present on Admission?: Yes (9) Vitamin B12 deficiency: Takes vitamin B12 1000 mcg sublingual daily Present on Admission?: Yes (10) Enlarged prostate with lower urinary tract symptoms (LUTS): Continue dutasteride 5 mg every morning and alfuzosin ER 10 mg every morning. Present on Admission?: Yes (11) Dyslipidemia: Continue simvastatin 10 mg at bedtime Present on Admission?: Yes History of Present Illness Chief Complaint: The patient presents to the emergency department with complaint of palpitations, a warm sensation rushing into his head, and a return of low back pain into his left leg. Primary Care Provider: Alex Tillman, III, OVI The patient is a 73-year-old male with past medical history including atrial fibrillation on chronic anticoagulation, diabetes mellitus, BPH, hypertension, B12 deficiency, 2 recent surgeries for lumbar degenerative disc disease and left lower extremity radiculopathy. He presents to the emergency department with sensation of palpitations, a warmth sensation going up to his head, low back pain with radiation to left lower extremity, and bilateral sacroiliac pain. Allergies Allergy/AdvReac Type Severity Reaction Status Date / Time adhesive AdvReac Intermediate BLISTERING/RASH Verified 02/19/19 23:16 (WITH EKG TAPE) atorvastatin AdvReac Intermediate MUSCLE Verified 02/19/19 23:16 PAIN/WEAKNESS OpSite Wound Dressing MISC AdvReac Unknown Uncoded 02/19/19 23:16 Home Medications Home Medications Medication Instructions Recorded Confirmed Type Centrum Silver Men 1 tab PO QAM 10/22/18 02/19/19 History TheraTears Nutrition 1 cap PO QAM 10/22/18 02/19/19 History dutasteride 0.5 mg PO QAM 10/22/18 02/19/19 History glimepiride 2 mg PO QAM 10/22/18 02/19/19 History metformin 1,000 mg PO BID 10/22/18 02/19/19 History metoprolol succinate 100 mg PO QAM 10/22/18 02/19/19 History simvastatin 10 mg PO HS 10/22/18 02/19/19 History warfarin 4 mg tablet 4 mg PO DAILY #30 tab 11/20/18 02/19/19 Rx cyanocobalamin (vit B-12) 1,000 1,000 mcg SL QDD #90 tab 12/16/18 02/19/19 History mcg sublingual tablet triamcinolone acetonide 0.1 % 1 appln TOPICAL BID #1 gm 12/16/18 02/19/19 History topical cream psyllium husk 3.4 gram/5.4 gram 1 tbs PO DAILY 12/20/18 02/19/19 History oral powder alfuzosin ER 10 mg tablet,extended 10 mg PO QAM #90 tab 02/08/19 02/19/19 Rx release 24 hr acetaminophen [Tylenol Extra 500 mg PO UD PRN 02/11/19 02/19/19 History Strength] hydrocodone-acetaminophen [Deale] 1 tab PO Q8H PRN #15 tab 02/11/19 02/19/19 Rx lidocaine 1 patch TOP DAILY PRN #15 ea 02/11/19 02/19/19 Rx Past Med/Surg History Social History Preferred Language: Citizen Of [place] Communication Ability: Effective 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 Beliefs That Will Affect Care: None Current Living Situation: Spouse Other Information That Helps Us Care for You: No Feels Safe at Home: Yes Safety Concerns: Feels Safe At This Time Smoking Status: Never smoker Do You Dip or Chew Tobacco: No ; Second Hand Exposure: No ; Tobacco Cessation Education Requested by Patient: No Hx Alcohol Use: No Hx Substance Use: No Review of Systems Review of Systems: The patient denies chest pain, shortness of breath, dyspnea on exertion, cough, lower extremity swelling, sore throat, fevers, chills, sweats, weight change, fatigue, nausea, vomiting, diarrhea, constipation, abdominal pain, pelvic pain, blood in urine or stool, dysuria, urinary frequency or urgency, lightheadedness, dizziness, headache, memory loss, loss of consciousness, rash, abnormal bruising or bleeding, focal or generalized weakness, numbness or tingling in arms, neck pain, or night sweats. The review of systems is otherwise negative other than for that already noted above, and at least 10 systems have been reviewed. Physical Exam Physical Exam: The patient is awake, alert and oriented 3, well developed and well nourished, normocephalic and atraumatic, lying in bed and in no acute distress. HEENT--PERRL, EOMI, mucous membranes and oropharynx dry. Neck--supple. No JVD. No bruits. Thyroid normal, trachea midline, no adenopathy. Heart--tachycardic, irregularly irregular. No murmurs, rubs or gallops. Lungs--clear bilaterally, no respiratory distress, no accessory muscle use. Abdomen--normal bowel sounds and soft. Nontender. Mildly distended and tympanitic. Extremities--no cyanosis or clubbing. No edema. There are good distal pulses b/l. Dermatologic--normal skin turgor, normal color, no abnormal lymph nodes, no rash. Neurologic--cranial nerves II through XII grossly intact. Rheumatologic--pain over bilateral SI joints.. Lumbar incision, attempted left leg raise results in pain. Psychiatric--normal affect. Results & Data Vital Signs (Past 12 Hours) Vital Signs Temp Pulse Pulse Resp BP BP Pulse Ox 02/20/19 04:06 97.9 F 99 H 22 126/94 98 02/20/19 03:15 90 23 106/82 96 02/20/19 03:00 117 H 24 110/82 96 02/20/19 02:45 103 H 17 111/81 95 02/20/19 02:30 98 H 18 107/75 96 02/20/19 02:15 110 H 17 111/75 96 02/20/19 02:00 119 H 20 103/81 96 02/20/19 01:45 101 H 17 96 02/20/19 01:31 99 H 17 102/73 95 02/20/19 01:30 121 H 17 95 02/20/19 01:15 137 H 21 102/83 97 02/20/19 01:00 113 H 29 H 102/73 97 02/20/19 00:54 120 H 20 99/80 L 98 02/20/19 00:53 128 H 21 97 02/20/19 00:51 141 H 14 99/80 L 97 02/20/19 00:46 135 H 22 119/81 97 02/20/19 00:45 127 H 16 95 02/20/19 00:30 136 H 21 96 02/20/19 00:15 132 H 14 121/80 96 02/20/19 00:10 142 H 24 112/74 97 02/20/19 00:02 112 H 17 132/86 95 02/20/19 00:00 101 H 17 132/86 96 02/19/19 23:45 112 H 15 96 02/19/19 23:43 87 L 02/19/19 23:40 119 H 22 112/73 91 02/19/19 23:30 131 H 12 112/73 93 02/19/19 23:15 128 H 16 95 02/19/19 23:00 135 H 137/95 95 02/19/19 22:30 129 H 22 110/90 95 02/19/19 22:21 141 H 25 H 126/98 97 02/19/19 22:08 97.7 F 137 H 18 132/87 95 Laboratory Results Laboratory Results WBC 5.71 K/uL (4.8-10.8) 02/19/19 22:51 RBC 4.50 M/uL (4.7-6.1) L 02/19/19 22:51 Hgb 13.7 g/dL (14.0-18.0) L 02/19/19 22:51 Hct 41.5 % (42-52) L 02/19/19 22:51 MCV 92.2 fL (80-100) 02/19/19 22:51 MCH 30.4 pg (25-34) 02/19/19 22:51 MCHC 33.0 g/dL (32-36) 02/19/19 22:51 RDW Std Deviation 45.0 fL (36.4-46.3) 02/19/19 22:51 RDW Coeff of Keith 13.3 % (11.5-14.5) 02/19/19 22:51 Plt Count 140 K/uL (130-400) 02/19/19 22:51 MPV 10.8 fL (7.4-10.4) H 02/19/19 22:51 Immature Gran % (Auto) 1.2 % 02/19/19 22:51 Neut % (Auto) 62.6 % 02/19/19 22:51 Lymph % (Auto) 23.3 % 02/19/19 22:51 Bosque % (Auto) 11.6 % 02/19/19 22:51 Eos % (Auto) 1.1 % 02/19/19 22:51 Baso % (Auto) 0.2 % 02/19/19 22:51 Immature Gran # (Auto) 0.07 K/uL (0.00-0.02) H 02/19/19 22:51 Neut # (Auto) 3.58 K/uL (1.4-6.5) 02/19/19 22:51 Lymph # (Auto) 1.33 K/uL (1.2-3.4) 02/19/19 22:51 Bosque # (Auto) 0.66 K/uL (0.11-0.59) H 02/19/19 22:51 Eos # (Auto) 0.06 K/uL (0-0.5) 02/19/19 22:51 Baso # (Auto) 0.01 K/uL (0-0.2) 02/19/19 22:51 PT 28.4 Seconds (9.0-12.0) H 02/19/19 22:51 INR 3.0 (0.9-1.1) H 02/19/19 22:51 Sodium 138 mmol/L (136-145) 02/19/19 22:51 Potassium 4.3 mmol/L (3.5-5.1) 02/19/19 22:51 Chloride 103 mmol/L (98-107) 02/19/19 22:51 Carbon Dioxide 27 mmol/L (21-32) 02/19/19 22:51 Anion Gap 7.0 (3-11) 02/19/19 22:51 BUN 16 mg/dl (7-18) 02/19/19 22:51 Creatinine 1.08 mg/dl (0.6-1.4) 02/19/19 22:51 Est Cr Clr Drug Dosing 79.6 ml/min 02/19/19 22:51 Est GFR ( Amer) 77.4 02/19/19 22:51 Est GFR (Non-Af Amer) 66.8 02/19/19 22:51 BUN/Creatinine Ratio 14.5 (10-20) 02/19/19 22:51 Glucose 176 mg/dl (70-99) H 02/19/19 22:51 Calcium 9.5 mg/dl (8.5-10.1) 02/19/19 22:51 Total Bilirubin 1.5 mg/dl (0.2-1) H 02/19/19 22:51 AST 17 U/L (15-37) 02/19/19 22:51 ALT 39 U/L (12-78) 02/19/19 22:51 Alkaline Phosphatase 55 U/L (45-117) 02/19/19 22:51 Troponin I < 0.015 ng/ml (0-0.045) 02/19/19 22:51 Total Protein 6.8 gm/dl (6.4-8.2) 02/19/19 22:51 Albumin 3.8 gm/dl (3.4-5.0) 02/19/19 22:51 Globulin 3.0 gm/dl (2.5-4.0) 02/19/19 22:51 Albumin/Globulin Ratio 1.3 (0.9-2) 02/19/19 22:51 Lipase 149 U/L (73-393) 02/19/19 22:[address] [facility] [place] [phone] XRay Report Patient: KENNA MORELAND Date: 02/19/19 MR#: [id number]: [address] Acct ID:[id number]: [id number] [facility] Zip: [place] [address] Age: 73Location: ED Sex: M Room/Bed: Att Phy:Diagnosis: LIGHT HEADED, HEAD GETS WARM Alie Phy: Alex Tillman, III, CRNPService Date: 02/19/19 Fam Phy:Interpreting Phy: Kosta Flores Admit Phy: Ordering Phy: Arjun Saunders DO cc: ~ XR chest 1V portable HISTORY: 73 years-old Male Chest Pain acute atypical chest pain COMPARISON: Chest radiograph 10/25/2018 TECHNIQUE: Portable AP view of the chest FINDINGS: Cardiac silhouette is enlarged, unchanged. No overt pulmonary edema, pneumothorax, pleural effusion or focal airspace consolidation. Unchanged mild right hemidiaphragmatic elevation. Healed remote left clavicular fracture. Degenerative changes of the shoulders and spine. IMPRESSION: Cardiomegaly without acute process. The above report was generated using voice recognition software. It may contain grammatical, syntax or spelling errors. Electronically signed by: Navin Flores M.D. 02/19/2019 11:01 PM Dictated: 02/19/192299 Transcribed: 02/19/192299 Code Status & VTE Plan Code Status Full code VTE Prophylaxis Plan VTE Prophylaxis will be ordered: Yes PG Care Time/CCT Total # of Minutes Spent Total Time Spent with Patient: Total time spent is greater than 50% in coordination of care (as documented) at patient's floor/unit and/or counseling patient: (1) Sciatica Laterality: right Qualified Code(s): M54.31 - Sciatica, right side (2) Back pain Back pain laterality: right Back pain location: low back pain Chronicity: acute Sciatica laterality: sciatica of right side Sciatica presence: with sciatica Qualified Code(s): M54.41 - Lumbago with sciatica, right side
[2019-02-20] MEDS ORDERED: AVODART~ORDER AWAITING ACTION SCH (08:00)
[2019-02-20] MEDS: INSULIN ASPART 100 UNITS/ML 3 ML PEN SC SCH ×2 (08:08→12:17)
--- NOTE | 2019-02-20 08:29 | Cardiology Consultation ---
Date of Consultation February 20, 2019 Assessment & Plan (1) Atrial fibrillation with RVR: Patient has chronic persistent atrial fibrillation. His elevated ventricular rates recently likely due to significant back pain. Discontinue Cardizem Continue metoprolol succinate 100 mg in the morning which is his home dose. Will add metoprolol succinate 25 mg in the PM Could also consider addition of digoxin if needed. We will update 2D echocardiogram for further evaluation Continue Coumadin with goal INR 2-3 given history of embolic stroke. (2) Bilateral sacroiliitis: Recommend orthopedic consultation Case discussed in detail with Dr. Dodd. Supervising Physician Co-Signing Physician Notes Patient seen and examined with Silvina Penaloza PA-C. Agree with findings and a ssessment as above. Still with significant back pain but no cardiac complaints. Medication changes as above. No further cardiac testing or intervention necessary. General: Awake, alert and oriented x 3. No acute distress. HEENT: Normocephalic, atraumatic. Pupils equal, round and reactive to light and accommodation. Extraocular muscles are intact. Anicteric sclera. Moist mucous membranes. Neck: No JVD. No bruit. Cardiovascular: irregularly irregular, unable to appreciate murmur, rub or gallop. Pulmonary: Clear to auscultation bilaterally. No rales, rhonchi, or wheezing. Abdomen: Bowel sounds x 4, soft. No rebound, guarding or tenderness. No organomegaly. Extremities: No clubbing, cyanosis or edema. +2 pedal pulses bilaterally. Skin: Warm and dry. History of Present Illness Reason for Consultation: Atrial fibrillation with RVR Requesting Physician: Dr. Joiner Attending Physician: Dr. 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 Past history significant for chronic atrial fibrillation, chronic Coumadin, history of remote embolic CVA, and history of wide complex tachycardia for which he was previously evaluated by EP. 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 He was previously on amiodarone for suppression of arrhythmia. Due to medical terminologist side effects, this was discontinued and metoprolol titrated with suppression of arrhythmia. 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 Stable echo findings in 2018 as well at [facility]. Patient has a long history of significant back pain requiring multiple surgeries and complications. He has been in usual state of health until most recently here noted recurrent right-sided back pain with sciatica nerve pain down his right leg. He reports this is "worse than ever". He was in the emergency department earlier this week for similar complaints. Yesterday patient was in significant amount of pain and noted intermittent flushing sensation with mild dizziness. He came back to the emergency room for evaluation. Upon arrival he was found to be in chronic persistent atrial fibrillation with elevated ventricular rates around 140 bpm. He was admitted for further evaluation and treatment. He was started on IV Cardizem to aid with rate control and given an additional dose of metoprolol. Orthopedics has been consulted due to significant back pain. Heart rates have trended down overnight. Currently ranging 100 to 120 bpm. Patient received a.m. dose of metoprolol approximately 1 hour ago. He is otherwise asymptomatic from a cardiac standpoint. He denies symptoms of palpitations, chest pain, shortness of breath, dizziness, syncope or near syncope. No recent orthopnea, PND, lower extremity edema. At time of consult patient denied acute cardiac complaints. His primary concern is ongoing back pain. Allergies Allergy/AdvReac Type Severity Reaction Status Date / Time adhesive AdvReac Intermediate BLISTERING/RASH Verified 02/19/19 23:16 (WITH EKG TAPE) atorvastatin AdvReac Intermediate MUSCLE Verified 02/19/19 23:16 PAIN/WEAKNESS OpSite Wound Dressing MISC AdvReac Unknown Uncoded 02/19/19 23:16 Home Medications Home Medications Medication Instructions Recorded Confirmed Type Centrum Silver Men 1 tab PO QAM 10/22/18 02/19/19 History TheraTears Nutrition 1 cap PO QAM 10/22/18 02/19/19 History dutasteride 0.5 mg PO QAM 10/22/18 02/19/19 History glimepiride 2 mg PO QAM 10/22/18 02/19/19 History metformin 1,000 mg PO BID 10/22/18 02/19/19 History metoprolol succinate 100 mg PO QAM 10/22/18 02/19/19 History simvastatin 10 mg PO HS 10/22/18 02/19/19 History warfarin 4 mg tablet 4 mg PO DAILY #30 tab 11/20/18 02/19/19 Rx cyanocobalamin (vit B-12) 1,000 1,000 mcg SL QDD #90 tab 12/16/18 02/19/19 History mcg sublingual tablet triamcinolone acetonide 0.1 % 1 appln TOPICAL BID #1 gm 12/16/18 02/19/19 History topical cream psyllium husk 3.4 gram/5.4 gram 1 tbs PO DAILY 12/20/18 02/19/19 History oral powder alfuzosin ER 10 mg tablet,extended 10 mg PO QAM #90 tab 02/08/19 02/19/19 Rx release 24 hr acetaminophen [Tylenol Extra 500 mg PO UD PRN 02/11/19 02/19/19 History Strength] hydrocodone-acetaminophen [Lincoln] 1 tab PO Q8H PRN #15 tab 02/11/19 02/19/19 Rx lidocaine 1 patch TOP DAILY PRN #15 ea 02/11/19 02/19/19 Rx metoprolol succinate 25 mg PO QPM 30 Days #30 tab 02/20/19 Rx prednisone 40 mg PO DAILY 5 Days #10 tab 02/20/19 Rx Patient History Social History Preferred Language: Monegasque Communication Ability: Effective Cane Cutter Required: No Beliefs That Will Affect Care: None Current Living Situation: Spouse Feels Safe at Home: Yes Smoking Status: Never smoker Second Hand Exposure: No ; Hx Alcohol Use: No Hx Substance Use: No Review of Systems Review of Systems: All systems reviewed & are unremarkable except as noted in HPI & below Physical Exam Constitutional: WD/WN, vitals as above + obese; no acute distress and not ill appearing Respiratory: normal respiratory effort, lungs clear to auscultation Cardiovascular: Rate/Rhythm: + tachycardic and + irregularly irregular Heart Sounds: no murmur Vessels: no JVD Extremities: no edema Gastrointestinal (Abdomen): normal bowel sounds, soft, nontender, no hepatosplenomegaly Neurologic: PERRL, EOMI, accommodation nl, no face palsy, no dysarthria Results & Data Vital Signs (Past 12 Hours) Vital Signs Temp Pulse Pulse Resp BP BP Pulse Ox 02/20/19 07:36 110 H 18 117/85 94 02/20/19 04:06 36.6 C 99 H 22 126/94 98 02/20/19 03:15 90 23 106/82 96 02/20/19 03:00 117 H 24 110/82 96 02/20/19 02:45 103 H 17 111/81 95 02/20/19 02:30 98 H 18 107/75 96 02/20/19 02:15 110 H 17 111/75 96 02/20/19 02:00 119 H 20 103/81 96 02/20/19 01:45 101 H 17 96 02/20/19 01:31 99 H 17 102/73 95 02/20/19 01:30 121 H 17 95 02/20/19 01:15 137 H 21 102/83 97 02/20/19 01:00 113 H 29 H 102/73 97 02/20/19 00:54 120 H 20 99/80 L 98 02/20/19 00:53 128 H 21 97 02/20/19 00:51 141 H 14 99/80 L 97 02/20/19 00:46 135 H 22 119/81 97 02/20/19 00:45 127 H 16 95 02/20/19 00:30 136 H 21 96 02/20/19 00:15 132 H 14 121/80 96 02/20/19 00:10 142 H 24 112/74 97 02/20/19 00:02 112 H 17 132/86 95 02/20/19 00:00 101 H 17 132/86 96 02/19/19 23:45 112 H 15 96 02/19/19 23:43 87 L 02/19/19 23:40 119 H 22 112/73 91 02/19/19 23:30 131 H 12 112/73 93 02/19/19 23:15 128 H 16 95 02/19/19 23:00 135 H 137/95 95 02/19/19 22:30 129 H 22 110/90 95 02/19/19 22:21 141 H 25 H 126/98 97 02/19/19 22:08 36.5 C 137 H 18 132/87 95 Laboratory Results 02/20/19 02/19/19 02/19/19 Range/Units 07:44 22:51 22:51 WBC (4.8-10.8) K/uL RBC (4.7-6.1) M/uL Hgb (14.0-18.0) g/dL Hct (42-52) % MCV (80-100) fL MCH (25-34) pg MCHC (32-36) g/dL RDW Std Deviation (36.4-46.3) fL RDW Coeff of Keith (11.5-14.5) % Plt Count (130-400) K/uL MPV (7.4-10.4) fL Immature Gran % (Auto) % Neut % (Auto) % Lymph % (Auto) % Coal % (Auto) % Eos % (Auto) % Baso % (Auto) % Immature Gran # (Auto) (0.00-0.02) K/uL Neut # (Auto) (1.4-6.5) K/uL Lymph # (Auto) (1.2-3.4) K/uL Coal # (Auto) (0.11-0.59) K/uL Eos # (Auto) (0-0.5) K/uL Baso # (Auto) (0-0.2) K/uL PT 28.4 H (9.0-12.0) Seconds INR 3.0 H (0.9-1.1) Sodium 138 (136-145) mmol/L Potassium 4.3 (3.5-5.1) mmol/L Chloride 103 (98-107) mmol/L Carbon Dioxide 27 (21-32) mmol/L Anion Gap 7.0 (3-11) BUN 16 (7-18) mg/dl Creatinine 1.08 (0.6-1.4) mg/dl Est Cr Clr Drug Dosing 79.6 ml/min Est GFR ( Amer) 77.4 Est GFR (Non-Af Amer) 66.8 BUN/Creatinine Ratio 14.5 (10-20) Glucose 176 H (70-99) mg/dl POC Glucose 206 H (70-99) Calcium 9.5 (8.5-10.1) mg/dl Total Bilirubin 1.5 H (0.2-1) mg/dl AST 17 (15-37) U/L ALT 39 (12-78) U/L Alkaline Phosphatase 55 (45-117) U/L Troponin I < 0.015 (0-0.045) ng/ml Total Protein 6.8 (6.4-8.2) gm/dl Albumin 3.8 (3.4-5.0) gm/dl Globulin 3.0 (2.5-4.0) gm/dl Albumin/Globulin Ratio 1.3 (0.9-2) Lipase 149 (73-393) U/L 02/19/19 Range/Units 22:51 WBC 5.71 (4.8-10.8) K/uL RBC 4.50 L (4.7-6.1) M/uL Hgb 13.7 L (14.0-18.0) g/dL Hct 41.5 L (42-52) % MCV 92.2 (80-100) fL MCH 30.4 (25-34) pg MCHC 33.0 (32-36) g/dL RDW Std Deviation 45.0 (36.4-46.3) fL RDW Coeff of Keith 13.3 (11.5-14.5) % Plt Count 140 (130-400) K/uL MPV 10.8 H (7.4-10.4) fL Immature Gran % (Auto) 1.2 % Neut % (Auto) 62.6 % Lymph % (Auto) 23.3 % Coal % (Auto) 11.6 % Eos % (Auto) 1.1 % Baso % (Auto) 0.2 % Immature Gran # (Auto) 0.07 H (0.00-0.02) K/uL Neut # (Auto) 3.58 (1.4-6.5) K/uL Lymph # (Auto) 1.33 (1.2-3.4) K/uL Coal # (Auto) 0.66 H (0.11-0.59) K/uL Eos # (Auto) 0.06 (0-0.5) K/uL Baso # (Auto) 0.01 (0-0.2) K/uL PT (9.0-12.0) Seconds INR (0.9-1.1) Sodium (136-145) mmol/L Potassium (3.5-5.1) mmol/L Chloride (98-107) mmol/L Carbon Dioxide (21-32) mmol/L Anion Gap (3-11) BUN (7-18) mg/dl Creatinine (0.6-1.4) mg/dl Est Cr Clr Drug Dosing ml/min Est GFR ( Amer) Est GFR (Non-Af Amer) BUN/Creatinine Ratio (10-20) Glucose (70-99) mg/dl POC Glucose (70-99) Calcium (8.5-10.1) mg/dl Total Bilirubin (0.2-1) mg/dl AST (15-37) U/L ALT (12-78) U/L Alkaline Phosphatase (45-117) U/L Troponin I (0-0.045) ng/ml Total Protein (6.4-8.2) gm/dl Albumin (3.4-5.0) gm/dl Globulin (2.5-4.0) gm/dl Albumin/Globulin Ratio (0.9-2) Lipase (73-393) U/L Diagnostic Findings Telemetry reviewed: Persistent atrial fibrillation with occasional PVC. Rates currently ranging 100 bpm to 120 bpm. EKG from this morning reviewed demonstrating atrial fibrillation with a mildly elevated ventricular rate at 115 bpm Compared to prior EKG, heart rates have trended down. Chest xray report reviewed, on admission: IMPRESSION: Cardiomegaly without acute process. EKG reviewed from admission: Atrial fibrillation with rapid ventricular response Left axis deviation Nonspecific ST and T wave abnormality Compared with prior EKG, Atrial fibrillation has replaced Ventricular tachycardia Prior 2D echo report reviewed, dated 06/08/17: Aortic valve sclerosis mild without significant aortic valvular stenosis. LV is normal in size Mild LVH LVEF 40-45% RV systolic function is normal Mild MR Trace TR Medications Administered Current Inpatient Medications Acetaminophen (Tylenol) 650 mg PO Q4H PRN PRN Reason: Pain or Fever Stop: 03/22/19 04:21 Hydrocodone Bitart/Acetaminophen (Lincoln 5/325) 1 tab PO Q8H PRN PRN Reason: Moderate Pain Stop: 03/06/19 04:21 Al Hydrox/Mg Hydrox/Simethicone (Maalox) 15 ml PO Q4H PRN PRN Reason: Dyspepsia Stop: 03/22/19 04:21 Alfuzosin HCl (Uroxatral) 10 mg PO QAM [facility] Stop: 03/22/19 08:59 Last Admin: 02/20/19 08:09 Dose: 10 mg Documented by: Dextrose (Dextrose 50%) 25 - 50 ml IV UD PRN; Protocol PRN Reason: Hypoglycemia Protocol Stop: 03/22/19 04:21 Glucagon (Glucagen) 1 mg SQ UD PRN; Protocol PRN Reason: Hypoglycemia Protocol Stop: 03/22/19 04:21 Glucose (Glucose 40%) 15 - 30 gm PO UD PRN; Protocol PRN Reason: Hypoglycemia Protocol Stop: 03/22/19 04:21 Glucose (Dex4 Glucose) 4 - 8 tabs PO UD PRN; Protocol PRN Reason: Hypoglycemia Protocol Stop: 03/22/19 04:21 Diltiazem HCl 125 mg/ Dextrose 125 mls @ 0 mls/hr IV .Q0M FABIANO; Protocol Stop: 03/21/19 22:44 Last Titration: 02/20/19 03:17 Dose: 0 mg/hr, 0 mls/hr Documented by: Potassium Chloride/Sodium Chloride (Normal Saline W/20 Meq Kcl) 20 meq in 1,000 mls @ 100 mls/hr IV .Q10H [facility] Stop: 03/22/19 02:14 Last Admin: 02/20/19 02:28 Dose: 100 mls/hr Documented by: Insulin Aspart (Novolog Flexpen) 0 units SC ACHS [facility] Stop: 03/22/19 07:29 Last Admin: 02/20/19 08:08 Dose: 6 units Documented by: Magnesium Hydroxide (Milk Of Magnesia) 30 ml PO Q12H PRN PRN Reason: Constipation Stop: 03/22/19 04:21 Metoprolol Succinate (Toprol Xl) 100 mg PO QAM [facility] Stop: 03/22/19 08:59 Last Admin: 02/20/19 08:09 Dose: 100 mg Documented by: Miscellaneous (Order Awaiting Action) 1 ea N/A QS [facility] Stop: 03/22/19 07:59 Last Admin: 02/20/19 08:10 Dose: Not Given Documented by: Miscellaneous (Carbohydrates For Hypoglycemia) 15 - 30 gm PO UD PRN PRN Reason: Hypoglycemia Treatment Stop: 03/22/19 04:21 Morphine Sulfate (Morphine Sulfate) 4 mg IV Q3H PRN PRN Reason: Severe Pain Stop: 03/06/19 06:30 Multivitamins/Minerals (Multivitamin W/ Minerals Tab) 1 tab PO QAM [facility] Stop: 03/22/19 08:59 Last Admin: 02/20/19 08:09 Dose: 1 tab Documented by: Ondansetron HCl (Zofran) 4 mg IV Q6H PRN PRN Reason: Nausea Stop: 03/22/19 04:21 Psyllium Hydrophilic Mucilloid (Metamucil) 1 pkt PO DAILY [facility]AB[facility]O Stop: 03/22/19 08:59 Last Admin: 02/20/19 08:09 Dose: 1 pkt Documented by: Simvastatin (Zocor) 10 mg PO HS [facility] Stop: 03/22/19 20:59 Triamcinolone Acetonide (Kenalog 0.1%) 1 appln TOP BID [facility] Stop: 03/22/19 08:59 Last Admin: 02/20/19 08:09 Dose: 1 appln Documented by: Warfarin Sodium (Coumadin) 4 mg PO DAILY@1600 [facility] Stop: 03/23/19 15:59
[2019-02-20] MEDS ORDERED: METOPROLOL SUCC 50MG EXT REL TAB PO SCH (09:00)
[2019-02-20] MEDS ORDERED: TRIAMCINOLONE ACET 0.1% CR 15 GM TUBE TOP SCH (09:00)
[2019-02-20] MEDS ORDERED: PSYLLIUM 58.6% POWDER PACKET PO SCH (09:00)
[2019-02-20] MEDS ORDERED: ALFUZOSIN HCL 10 MG TAB PO SCH (09:00)
[2019-02-20] MEDS ORDERED: [UNRECOGNIZED DRUG - OTHER] PO SCH (09:00)
[2019-02-20] MEDS ORDERED: CEROVITE ADV FORMULA TAB PO SCH (09:00)
--- NOTE | 2019-02-20 18:15 | Discharge Summary ---
Date of Service February 20, 2019 Admission HPI Per Admitting Provider The patient is a 73-year-old male with past medical history including atrial fibrillation on chronic anticoagulation, diabetes mellitus, BPH, hypertension, B12 deficiency, 2 recent surgeries for lumbar degenerative disc disease and left lower extremity radiculopathy. He presents to the emergency department with sensation of palpitations, a warmth sensation going up to his head, low back pain with radiation to left lower extremity, and bilateral sacroiliac pain. Admission Exam Per Admitting Provider The patient is awake, alert and oriented 3, well developed and well nourished, normocephalic and atraumatic, lying in bed and in no acute distress. HEENT--PERRL, EOMI, mucous membranes and oropharynx dry. Neck--supple. No JVD. No bruits. Thyroid normal, trachea midline, no adenopathy. Heart--tachycardic, irregularly irregular. No murmurs, rubs or gallops. Lungs--clear bilaterally, no respiratory distress, no accessory muscle use. Abdomen--normal bowel sounds and soft. Nontender. Mildly distended and tympanitic. Extremities--no cyanosis or clubbing. No edema. There are good distal pulses b/l. Dermatologic--normal skin turgor, normal color, no abnormal lymph nodes, no rash. Neurologic--cranial nerves II through XII grossly intact. Rheumatologic--pain over bilateral SI joints. Lumbar incision, attempted left leg raise results in pain. Psychiatric--normal affect. Principal Diagnosis Atrial Fibrillation with RVR Lumbar radiculopathy Discharge Exam Constitutional WD/WN, vitals as above + obese and cooperative Eyes + anicteric sclerae ENMT external ear and nose normal, oropharynx normal Neck trachea midline No bruits in bilateral carotids Respiratory normal respiratory effort, lungs clear to auscultation Auscultation: no crackles, no rales, no wheezes and no pleural rub Cardiovascular Rate/Rhythm: + tachycardic and + irregularly irregular Heart Sounds: normal S1 and normal S2 Musculoskeletal Straight leg raise negative b/l . Sensation intact and symmetric in L4, L5, S1 distributions Skin no rashes, warm and dry Psychiatric A+Ox3, euthymic affect Discharge Data Allergies Allergy/AdvReac Type Severity Reaction Status Date / Time adhesive AdvReac Intermediate BLISTERING/RASH Verified 02/19/19 23:16 (WITH EKG TAPE) atorvastatin AdvReac Intermediate MUSCLE Verified 02/19/19 23:16 PAIN/WEAKNESS OpSite Wound Dressing MISC AdvReac Unknown Uncoded 02/19/19 23:16 Consultations 02/19/19 23:45 ED Decision to Admit Stat 02/20/19 04:22 Consult Cardiology Routine 02/20/19 06:30 Consult Orthopedic Surgery Routine Hospital Course (1) Atrial fibrillation with RVR: Patient was admitted to [facility] on 02/19/19 to 02/20/19 for Atrial Fibrillation with rapid ventricular response and recurrent lumbar radiculopathy. On arrival, HR was in 130s. He was started on a diltiazem drip and was administered a 25mg dose of Metoprolol Succinate. While this temporarily improved Mr. Turner's heart rate, at the time of discharge his rate was 118, thus rate control was never totally achieved. While he is chronically in A-fib, the etiology of his RVR is unknown, but is presumed to be his sever low back pain with lumbar radiculopathy. Mr. Turner typically follows with [facility] volcanologist Dr. Michel. Cardiology was consulted during his stay and performed an Echo. EF was listed 40-45%. Cardiology recommended continuing Toprolol 100mg, qAM and adding an additional dose of 25mg in the evening. On admission, Mr. Loves INR was at 3.0. His coumadin was held throughout his hospital stay and he was advised to hold it one day after discharge. Outpatient items to do: check INR in 1-2 days and advise Coumadin dose. (2) Bilateral sacroiliitis: Mr. Turner's intense low back pain with radicular pain affecting the right leg prompted him to seek medical attention. He is s/p lumbar laminectomy by Dr. Ricks (May 2017), at which time he was experiencing L sided radiculitis. The surgery brought him immense relief but was complicated by a hematoma formation in the post-operative period. Of note, he came to the [facility] Emergency Department 9 days prior to this admission for R sided lumbar radiculitis. He was treated with IV steroids and sent home with a minimal supply of narcotic pain medication. He returned to the [facility] ED on 02/19/19 for an recurrent episode of the R sided radicular pain. He was treated with IV methy lprednisalone, which brought him total relief. He was given a 5 day course of oral prednisone at discharge and was also encouraged to use Ibuprofen for further analgesia and anti-inflammation effect. He was advised to follow up with Dr. Ricks on an outpatient basis. (3) Lumbar disc disease: Likely etiology of lumbar radiculopathy. Will hold off on MRI while in hospital. Patient advised to schedule close follow up with Dr. Ricks. (4) Diabetes mellitus: Patient was maintained on sliding scale insulin during his hospital stay. He was warned that prednisone may drive up his sugars, and he was encouraged to make an extra effort to consume fewer carbohydrates over the next few days while taking the prednisone. Total Time Total Time Spent Total Time Spent (In Minutes): see attending attestation Discharge Plan Discharge Items Patient Disposition: Home - Self-Care Reason For Visit: ATRIAL FIB WITH RVR Discharge Diagnosis: Atrial fibrillation Low back pain with radiculopathy Condition on Discharge: Good Goals: control low back pain control heart rate follow up with Dr. Ricks Activity: Per Instructions section Lifting: No more than 5 pounds Bathing: No limitations Exercise/Sports: Gradually increase as tolerated Driving/Machine Use: do not drive if you take narcotic Non-emergency contact: Primary Care Provider and Surgeon Call non-emergency contact if: you have any medication questions, your symptoms worsen, your pain is not controlled and you have a fever Follow-up/Referrals: Alex Tillman III, CRNP [Primary Care Provider] - 02/25/19 9:15 am (Please, follow up with Alex DIOR on MondayFebruary 25 at 9:15 am. *If you need to change this appointment, call the office at [phone].) Raphael Ricks DO [Physician] - 03/01/19 11:10 am (Please, follow up with Dr. Ricks on MondayMarch 01 at 11:10 am. *If you need to change this appointment, call the office at [phone].) Diet: Carb Consistent or DM2 and Heart Healthy Addtl Attending Provider Instructions: Medications: - PREDNISONE: 40mg daily for 5 days, no need for taper - IBUPROFEN: take 600mg three times a day with food as needed for pain, only take for 5 days - TOPROL: take 25mg at night in addition to the 100mg that you take in the morning - COUMADIN: hold dose today due to INR of 3.0, take your INR tomorrow AM as you normally do and await instructions from Alex Tillman - NORCO: take as needed for any breakthrough pain Atrial fibrillation: cardiology recommends continuing Toprol 100mg in the morning and taking an additional 25mg in the evening hold Coumadin today and tomorrow, take your INR as you typically do and await instructions from Alex Tillman rates probably went up due to low back pain Low back pain, radicular pain down right leg responded well to steroids, will continue on Prednisone for 5 days use Ibuprofen as well for anti-inflammation my nurse navigator will get you appt with Dr. Ricks, he said that the MRI can wait to be done outpatient if he feels it is necessary Diabetes: prednisone will drive up sugars, make an extra effort to eat less carb ohydrates over the next 5 days avoid sweets, pastas, breads and continue to take your normal medications FOLLOW UP - Dr. Ricks, as soon as possible, my nurse will contact you with appt - Alex Tillman in 7-10 days, again, my nurse will help you get in the office sooner Pending Studies at Discharge: No Stand-Alone Forms: [facility] Medications and DC Order Prescriptions: New metoprolol succinate 25 mg Tablet Extended Release 24 Hr 25 mg PO QPM 30 Days Qty: 30 RF: 1 prednisone 20 mg tablet 40 mg PO DAILY 5 Days Qty: 10 RF: 0 Continued warfarin 4 mg tablet 4 mg PO DAILY Qty: 30 RF: 5 alfuzosin 10 mg tablet extended release 24 hr 10 mg PO QAM Qty: 90 RF: 1 cyanocobalamin (vitamin B-12) 1,000 mcg tablet, sublingual 1,000 mcg SL QDD Qty: 90 RF: 0 triamcinolone acetonide 0.1 % cream 1 appln topical BID Qty: 1 RF: 0 Metamucil 3.4 gram/5.4 gram powder 1 tbs PO DAILY RF: 0 metformin 500 mg Tablet 1,000 mg PO BID RF: 0 glimepiride 4 mg Tablet 2 mg PO QAM RF: 0 dutasteride 0.5 mg Capsule 0.5 mg PO QAM RF: 0 Centrum Silver Men 300-600-300 mcg Tablet 1 tab PO QAM RF: 0 metoprolol succinate 50 mg Tablet Extended Release 24 Hr 100 mg PO QAM RF: 0 simvastatin 10 mg Tablet 10 mg PO HS RF: 0 TheraTears Nutrition [phone] [id number] Capsule 1 cap PO QAM RF: 0 acetaminophen [Tylenol Extra Strength] 500 mg Tablet 500 mg PO UD PRN (Reason: Pain) RF: 0 lidocaine 5 % adhesive patch,medicated 1 patch TOP DAILY PRN (Reason: pain) Qty: 15 RF: 0 hydrocodone-acetaminophen [[place]] 5-325 mg tablet 1 tab PO Q8H PRN (Reason: pain) Qty: 15 RF: 0 Discharge Orders: Discharge Order (Routine); Ordered 02/20/19 Ordered By: Shine Cervantes Admission Data Admit Date/Time: 02/20/19 02:34 Attending Provider: Shine Cervantes Admit Provider: Jason Joiner Primary Care Provider: Alex Tillman. III Other Providers: Jason Joiner ; Antonio Michel ; Raphael Ricks Other Interventions: Discharge Summary Assessment (RN) Last Done: 02/20/19 15:27 DC Date/Time DO NOT enter until pt leaves facility: 02/20/19 16:08 Supervising Physician Co-Signing Physician Notes Patient seen and examined with Dr. Fuller. I agree with their exam findings, review of systems, assessment and plan. I have personally reviewed the lab work and imaging from today. patient with a great deal of pain relief with Solu Medrol, no pain down the right leg today. HR better with the Toprol 25mg given last night. Titrated off the Cardizem drip. discussed with cardiology, nathen Patricia to go home. discussed with Dr. Ricks, he recommends steroids and follow up in the office Exam: obese male, NAD, lungs CTA bilaterally, normal effort, irreg irreg, no murmurs, tachycardic, abdomen soft NT, ND, +BS extremities warm, no cyanosis, no edema strength in legs is 5/5 bilaterally, negative straight leg raise - Afib with RVR: likely due to increased adrenergic effect from back pain will continue Toprol 100mg qAM and added 25mg qPM INR 3.0, hold Coumadin, check INR tomorrow with home machine - lumbar back pain pain with right sided radiculopathy d/c home on Prednisone 40mg daily x 5 days, Ibuprofen PRN with food follow up closely with Dr. Ricks Resident Activity Tracking Resident Involvement: Resident Care Provided Care Provided: Adult Hospital Medicine
[2019-02-20] MEDS ORDERED: SIMVASTATIN 10 MG TAB PO SCH (21:00)
[2019-02-20] MEDS ORDERED: METOPROLOL SUCC 25MG EXT REL TAB PO SCH (21:00)
[2019-02-21] MEDS ORDERED: WARFARIN SOD 4 MG TAB PO SCH (16:00)
== END 2019-02-20 16:08 | disposition home or self-care (01) | DRG 552 ==
LOC: ED 22:05 → SUATTDRO 02-20 02:34 → 2E 02-20 02:34

== ENCOUNTER 2023-09-08 19:16 | Inpatient (IN) ==
[2023-09-08 20:19] LABS: Basophils # (auto) 0.04 K/uL (0.00-0.20); Basophils % (auto) 0.7 %; Eosinophils # (auto) 0.16 K/uL (0.00-0.50); Eosinophils % (auto) 2.7 %; Hematocrit (blood only) 42.3 % (42.0-52.0); Hemoglobin 14.3 g/dl (14.0-18.0); Immature Granulocytes # (auto) 0.02 K/uL (0.01-0.20); Immature Granulocytes % (auto) 0.3 %; Lymphocytes # (auto) 1.79 K/uL (1.20-3.40); Mean Corpuscular Hemoglobin 30.2 pg (25.0-34.0); Mean Corpuscular Hgb Conc 33.8 g/dL (32.0-36.0); Mean Corpuscular Volume 89.4 fL (80.0-100.0); Mean Platelet Volume 10.7 fL (9.4-12.4); Monocytes # (auto) 0.53 K/uL (0.11-0.59); Monocytes % (auto) 8.9 %; Neutrophils # (auto) 3.43 K/uL (1.40-6.50); Neutrophils % (auto) 57.4 %; Platelet Count 153 K/uL (130-400); RDW Coefficient of Variation 12.3 % (11.5-14.5); RDW Standard Deviation 40.3 fL (36.4-46.3); Red Blood Count 4.73 M/uL (4.70-6.10); White Blood Count 5.97 K/ul (4.8-10.8)
[2023-09-08 20:44] LABS: Alanine Aminotransferase 24 U/L (7-52); Albumin Globulin Ratio 1.7 (0.9-2); Albumin Level 4.6 gm/dl (3.4-5.0); Alkaline Phosphatase 55 U/L (34-104); Anion Gap 9 (3-11); Aspartate Aminotransferase 20 U/L (13-39); BUN Creatinine Ratio 19.4 (10-20); Bilirubin,Total 1.9 mg/dl (0.2-1.0); Blood Urea Nitrogen 18 mg/dl (6-23); Calcium 9.9 mg/dl (8.6-10.3); Carbon Dioxide 25 mmol/L (21-32); Chloride 104 mmol/L (98-107); Est GFR (African American) 89.5 ml/min; Est GFR (Non-African American) 77.3 ml/min; Globulin 2.7 gm/dl (2.5-4.0); Glucose 186 mg/dl (70-99(Fasting)); Potassium 4.3 mmol/L (3.5-5.1); Sodium 138 mmol/L (136-145); Total Protein 7.3 gm/dl (6.0-8.3)
[2023-09-08] MEDS: KETOROLAC TROMETHAMINE 15 MG/ML VIAL IV ONE (21:33)
--- NOTE | 2023-09-08 21:34 | Emergency Department Note ---
Impression & Plan Bladder stones ED Provider Note NAME: KENNA MORELAND AGE: 78 SEX: M : 1945 ARRIVES VIA: Walk-In INFORMANT: Patient, ED PROVIDER(S): Marleni Christianson MD CHIEF COMPLAINT: Bladder pain/hematuria HPI: This is an 78-year-old male history of urinary retention, previous kidney stones, diabetes, hypertension, A-fib presenting for hematuria and suprapubic abdominal pain. Patient has noted that since this morning is noted excruciating abdominal pain in the suprapubic region. He has noted being small amounts of urine that have been mostly blood over the past 2 hours. He currently is writhing in the stretcher. States for similar to previous passing of kidney stones. He has not had this much blood however. ROS: See above HPI for pertinent positives & negatives. A total of 10 systems reviewed and were otherwise negative. PHYSICAL EXAMINATION: General: Moderate distress due to pain Head: Normocephalic and atraumatic Eyes: Normal inspection, extraocular muscles intact Ear, nose, throat: Normal external exam Neck: Normal range of motion Respiratory: lungs clear to auscultation bilaterally Cardiovascular: Regular rate/rhythm, no murmur GI: soft, nontender, no guarding or rebound Extremities: nontender, moves all extremities Neuro: The patient awake and alert, appropriately conversive, no focal deficits, symmetric faces Skin: Warm, dry, and intact MEDICAL DECISION MAKING: This is an 78-year-old male with history of urinary retention, kidney stones, diabetes, hypertension, A-fib presenting for hematuria/abdominal pain. Consider renal colic, hematuria, pyelonephritis. -Blood was reviewed without significant abnormalities aside from a bilirubin 1.9 without clear cause -Urinalysis reveals mostly blood, and low concern for acute infection -Patient is having associating pain, Toradol has not helped his pain. Will give Dilaudid at this time -Upon evaluation Dilaudid also did minimal improvement in his pain. Patient is writhing in the stretcher still. -Patient CT ab/pelvis was innumerable bladder stones with bladder wall thickening -Will discuss with urology service for these innumerable bladder stones. Will admit for pain control as well. -Discussed with Jose Baez PA-C for urology who will see the patient at bedside. Discussed care with Dr. Zimmer for evaluation of admission Differential diagnosis: Kidney stone, bladder stone, pyelonephritis, cystitis, bladder rupture, SBO, diverticulitis ER treatment provided: See below Diagnostics interpreted by me: ECG: None Cardiac Monitoring: An order was placed for continuous cardiac monitoring. The monitor shows a rate of 82 with sinus rhythm. Laboratory studies: As stated above and show below. Imaging studies: See below. Past Med/Surg History Medical History Lower extremity edema Pt was started on steroids for severe sciatica and edema noticed soon after. Lasix started by PCP, steroids finished, edema improved Obesity Back pain Atrial fibrillation with RVR Sciatica BPH (benign prostatic hyperplasia) Kidney stones + BLADDER STONES Hypertension Diabetes mellitus, type 2 NIDDM History of stroke 25 YEARS AGO= NO RESIDUAL DEFICIT Atrial fibrillation ON W[place]IN Hyperlipidemia Diverticulitis Surgical History History of dental surgery (2013) gum surgery H/O lithotripsy History of tonsillectomy History of colonoscopy S/P arthroscopy of right shoulder S/P right knee arthroscopy Hx of cystoscopy cystolithopaxy History of back surgery X2; S/P L4-S1 laminectomy: 05/22/17: Grade I view, Hess 2, ETT 8 at [facility]. History of cholecystectomy Family History Father Type 2 diabetes mellitus Mother Family history of diabetes mellitus Cervical cancer Uterine cancer Son Family history of diabetes mellitus Aunt Family history of diabetes mellitus Brother Stroke syndrome Acute myocardial infarction Acute leukemia Myocardial infarction Unknown Aneurysm of abdominal aorta Hypertension Heart disease Other FHx: cancer Denies family history of Colon cancer Ovarian cancer Prostate cancer Breast cancer Social History Smoking Status: Former smoker Age Started Using Tobacco: 14; Second Hand Exposure: No; Do You Dip or Chew Tobacco: No; Hx Alcohol Use: No Hx Substance Use: No Preferred Language: Kosovan Communication Ability: Effective Visual Impairment: No Limitations Hearing Ability: Use of Hearing Aid Wire Taper Required: No Beliefs That Will Affect Care: None marital status: Current Living Situation: Spouse current occupational status: retired How many Children do You have: 3 Feels Safe at Home: Yes Childhood Exposure to Second-Hand Smoke: No Diet: regular caffeine: Yes during the past year weight has: increased > 10 lbs Dental Care, Regularly: Yes Physical Activity Frequency: Does not Exercise Seatbelt Use: always Sunscreen Use: Yes Assistive Devices: Cane, Glasses, Hearing Aid - Bilateral, Oxygen - at Night and Scooter/Electric Scooter Allergies Allergies Allergy/AdvReac Type Severity Reaction Status Date / Time adhesive AdvReac Intermediate BLISTERING/RASH Verified 07/25/23 14:07 (WITH EKG TAPE) atorvastatin AdvReac Intermediate MUSCLE Verified 07/25/23 14:07 SORENESS lisinopril AdvReac cough Verified 07/25/23 14:07 OpSite Wound Dressing MISC AdvReac Unknown Uncoded 07/25/23 14:07 Home Meds Home Medications Medication Instructions Recorded Confirmed metoprolol succinate 50 mg 100 mg PO QAM 10/22/18 07/25/23 tablet,extended release 24 hr [id number] 300 mcg-K 60 1 tab PO QAM 10/22/18 07/25/23 mcg-lycop 600 mcg-lutein 300 mcg tablet (Centrum Silver Men) omeg3-epa 150 mg-dha 100 mg-fish 3 cap PO QAM 10/22/18 07/25/23 oil-flaxseed oil 333 mg-E 61 unit cap (TheraTears Nutrition) acetaminophen 500 mg tablet 500 mg PO UD PRN Pain 02/11/19 07/25/23 (Tylenol Extra Strength) triamcinolone acetonide 0.1 % 1 appln topical BID PRN IRRITATION 02/25/19 07/25/23 topical cream #1 g metoprolol succinate 25 mg capsule 25 mg PO DAILY 04/26/19 07/25/23 sprinkle, ext. release 24 hr Previous Rx's Medication Instructions Recorded Oxygen Home E0424 2 ea .Route HS #1 ea 04/01/20 triamcinolone acetonide 0.1 % 1 applic topical BID #80 grams 08/11/21 topical ointment cyanocobalamin (vitamin B-12) 1,000 mcg sublingual DAILY #90 tabs 09/14/21 1,000 mcg sublingual tablet Motorized scooter #1 ea 09/29/22 glipizide 5 mg tablet 5 mg PO DAILY #90 tabs 09/21/23 apixaban 5 mg tablet (Eliquis) 5 mg PO BID #180 tabs 05/29/23 losartan 25 mg tablet 25 mg PO QAM #90 tabs 05/29/23 alfuzosin 10 mg tablet,extended 10 mg PO DAILY #90 tabs 06/01/23 release 24 hr dutasteride 0.5 mg capsule 0.5 mg PO DAILY #90 caps 06/01/23 simvastatin 10 mg tablet (Zocor) 10 mg PO HS #90 tabs 06/05/23 semaglutide 1 mg/dose (4 mg/3 mL) 1 mg (0.75 mL) subcut .weekly #9 mL 06/12/23 subcutaneous pen injector (Ozempic) Results & Data (ED) Vital Signs Vital Signs - 24 hr 09/08/23 19:28 09/08/23 21:03 Temperature 36.5 C Temperature Source Temporal Artery Scan Pulse Rate 78 116 H Respiratory Rate 18 18 Respiratory Effort / Characteristics Non-Labored Spontaneous Respiratory Depth Normal Respiratory Pattern Regular Blood Pressure 123/71 122/74 Blood Pressure Mean 88 90 Blood Pressure Position Sitting Pulse Oximetry 93 Oxygen Delivery Method Room Air Sepsis Recent Fever Within 48 Hours No Sepsis New/Unexplained Change in Mental Status N/A Sepsis Action Taken by Nursing No Action Required Laboratory Data 09/08/23 19:45 09/08/23 19:45 Lab Results 09/08/23 09/08/23 Range/Units 19:45 22:08 WBC 5.97 (4.8-10.8) K/ul RBC 4.73 (4.70-6.10) M/uL Hgb 14.3 (14.0-18.0) g/dl Hct 42.3 (42.0-52.0) % MCV 89.4 (80.0-100.0) fL MCH 30.2 (25.0-34.0) pg MCHC 33.8 (32.0-36.0) g/dL RDW Std Deviation 40.3 (36.4-46.3) fL RDW Coeff of Keith 12.3 (11.5-14.5) % Plt Count 153 (130-400) K/uL MPV 10.7 (9.4-12.4) fL Immature Gran % (Auto) 0.3 % Neut % (Auto) 57.4 % Lymph % (Auto) 30.0 % Moody % (Auto) 8.9 % Eos % (Auto) 2.7 % Baso % (Auto) 0.7 % Neut # (Auto) 3.43 (1.40-6.50) K/uL Lymph # (Auto) 1.79 (1.20-3.40) K/uL Moody # (Auto) 0.53 (0.11-0.59) K/uL Eos # (Auto) 0.16 (0.00-0.50) K/uL Baso # (Auto) 0.04 (0.00-0.20) K/uL Immature Gran # (Auto) 0.02 (0.01-0.20) K/uL Sodium 138 (136-145) mmol/L Potassium 4.3 (3.5-5.1) mmol/L Chloride 104 (98-107) mmol/L Carbon Dioxide 25 (21-32) mmol/L Anion Gap 9 (3-11) BUN 18 (6-23) mg/dl Creatinine 0.93 (0.6-1.4) mg/dl Est Cr Clr Drug Dosing Not Reportable Est GFR ( Amer) 89.5 ml/min Est GFR (Non-Af Amer) 77.3 ml/min BUN/Creatinine Ratio 19.4 (10-20) Glucose 186 H (70-99(Fasting)) mg/dl Calcium 9.9 (8.6-10.3) mg/dl Total Bilirubin 1.9 H (0.2-1.0) mg/dl AST 20 (13-39) U/L ALT 24 (7-52) U/L Alkaline Phosphatase 55 (34-104) U/L Total Protein 7.3 (6.0-8.3) gm/dl Albumin 4.6 (3.4-5.0) gm/dl Globulin 2.7 (2.5-4.0) gm/dl Albumin/Globulin Ratio 1.7 (0.9-2) Urine Color Red Urine Appearance Cloudy A (Clear) Urine pH 6.0 (4.5-7.5) Ur Specific [place] >= 1.030 (1.000-1.030) Urine Protein 3+ H (Negative) Urine Glucose (UA) Negative (Negative) Urine Ketones Trace H (Negative) Urine Blood 3+ H (Negative) Urine Nitrite Negative (Negative) Urine Bilirubin 1+ H (Negative) Urine Urobilinogen Negative (Negative) Ur Leukocyte Esterase Negative (Negative) Urine RBC >20 H (0-2) /hpf Urine WBC 11-20 H (0-5) /hpf Ur Epithelial Cells 3-5 H (0-2) /hpf Urine Bacteria None Seen (None Seen) Administered Medications Ciprofloxacin (Cipro / D5w) 400 mg in 200 mls @ 100 mls/hr IV Q12H [facility]; Protocol Stop: 09/19/23 01:29 Last Admin: 09/09/23 01:33 Dose: 100 mls/hr Documented By: JESUS Sodium Chloride (Nss) 1,000 mls @ 999 mls/hr IV .Q1H1M ONE Stop: 09/09/23 01:50 Last Admin: 09/09/23 00:58 Dose: 999 mls/hr Documented By: JESUS Phenazopyridine HCl (Phenazopyridine Hcl 200 Mg Tab) 200 mg PO TID PRN PRN Reason: Bladder pain Stop: 10/09/23 00:22 Last Admin: 09/09/23 01:33 Dose: 200 mg Documented By: EJSUS Discontinued Medications Hydromorphone HCl (Hydromorphone Inj 0.5 Mg/0.5 Ml Syr) 0.5 mg IV NOW STA Stop: 09/08/23 23:10 Last Admin: 09/08/23 23:14 Dose: 0.5 mg Documented By: JESUS Hydromorphone HCl (Hydromorphone Inj 0.5 Mg/0.5 Ml Syr) 0.5 mg IV NOW STA Stop: 09/08/23 23:56 Last Admin: 09/09/23 00:00 Dose: 0.5 mg Documented By: JESUS Ioversol (Optiray 320 100ml) 94 ml IV ONCE ONE Stop: 09/08/23 22:00 Last Admin: 09/08/23 22:00 Dose: 94 ml Documented By: DIANNA Ketorolac Tromethamine (Ketorolac Tromethamine 15 Mg/Ml Vial) 15 mg IV NOW ONE Stop: 09/08/23 21:30 Last Admin: 09/08/23 21:33 Dose: 15 mg Documented By: JESUS Imaging Data Radiologist's Impression: Abdomen/Pelvis CT 09/08/23 21:29 Exam(s): CT ABDOMEN + PELVIS With Contrast IV Amt: 94ml optiray 320 EXAM: CT Abdomen and Pelvis With Intravenous Contrast CLINICAL HISTORY: Hematuria. TECHNIQUE: Axial computed tomography images of the abdomen and pelvis with intravenous contrast. CTDI is 28.14 mGy and DLP is 1542.04 mGy-cm. Automated exposure control was utilized for the study. A dose lowering technique was utilized adhering to the principles of ALARA. CONTRAST: Patient received 94ml optiray 320 of IV contrast COMPARISON: CT abdomen and pelvis 10/09/2018 FINDINGS: Lung bases: Unremarkable. No mass. No consolidation. ABDOMEN: Liver: Unremarkable. No mass. Gallbladder and bile ducts: Cholecystectomy. No ductal dilation. Pancreas: Unremarkable. No mass. No ductal dilation. Spleen: Unremarkable. No splenomegaly. Adrenals: Unremarkable. No mass. Kidneys and ureters: Punctate nonobstructing left renal calculus is present. No hydronephrosis. Stomach and bowel: Diverticulosis. No obstruction. No mucosal thickening. PELVIS: Appendix: Normal appendix. Bladder: There is marked thickening of the bladder wall. Innumerable bladder calculi are present. Reproductive: Prostate gland enlargement. ABDOMEN and PELVIS: Intraperitoneal space: Unremarkable. No free air. No significant fluid collection. Bones/joints: There are degenerative changes of the spine. No acute fracture. No dislocation. Soft tissues: Small bilateral fat-containing inguinal hernias. Vasculature: Mild atherosclerotic disease. No abdominal aortic aneurysm. Lymph nodes: Unremarkable. No enlarged lymph nodes. IMPRESSION: 1. No hydronephrosis. 2. There is marked thickening of the bladder wall. Innumerable bladder calculi are present. 3. Prostate gland enlargement. 4. Punctate nonobstructing left renal calculus is present. 5. Diverticulosis. Electronically signed by: Mirtha Hernandez MD 09/08/23 23:32 PM Discharge Plan Visit Data Chief Complaint: Urinary Symptoms Stated Complaint: BURNING/FREQUENT URINATION, STONES, HEMATURIA ED Provider: Marleni Christianson Discharge Problem: Bladder stones Forms Stand Alone Forms: [employer] Prescriptions Prescriptions: No Action Oxygen Home E0424 Liters Per Minute 2 ea .Route HS Qty: 1 0RF Rx Instructions: Oxygen 2 liters/minute via nasal cannula overnight. Repeat overnight oximetry on 2 liters/minute via nasal cannula. triamcinolone acetonide 0.1 % ointment 1 applic topical BID Qty: 80 0RF cyanocobalamin (vitamin B-12) 1,000 mcg tablet, sublingual 1,000 mcg SL DAILY Qty: 90 1RF (DME) Motorized scooter See Rx Instructions .Route .MEDSUPPLY Qty: 1 0RF Rx Instructions: As directed glipizide 5 mg tablet 5 mg PO DAILY Qty: 90 3RF Eliquis 5 mg tablet 5 mg PO BID Qty: 180 3RF losartan 25 mg tablet 25 mg PO QAM Qty: 90 3RF simvastatin [Zocor] 10 mg tablet 10 mg PO HS Qty: 90 3RF Ozempic 1 mg/dose (4 mg/3 mL) pen injector 1 mg subcut .weekly Qty: 9 3RF metoprolol succinate 25 mg capsule,sprinkle,ER 24hr 25 mg PO DAILY alfuzosin 10 mg tablet extended release 24 hr 10 mg PO DAILY Qty: 90 3RF dutasteride 0.5 mg capsule 0.5 mg PO DAILY Qty: 90 3RF triamcinolone acetonide 0.1 % cream 1 appln topical BID PRN (Reason: IRRITATION) Qty: 1 Centrum Silver Men 300-600-300 mcg Tablet 1 tab PO QAM metoprolol succinate 50 mg Tablet Extended Release 24 Hr 100 mg PO QAM TheraTears Nutrition [phone] mm-vf-at-unit Capsule 3 cap PO QAM acetaminophen [Tylenol Extra Strength] 500 mg Tablet 500 mg PO UD PRN (Reason: Pain) Referrals Referrals: Alex Tillman III, CRNP [Primary Care Provider] -
[2023-09-08] MEDS: OPTIRAY 320 100ml IV ONE (22:00)
[2023-09-08 22:48] LABS: Appearance Urine Cloudy (Clear); Bilirubin Urine 1+ (Negative); Blood Urine 3+ (Negative); Color Urine Red; Glucose Urine UA Negative (Negative); Ketones Urine Trace (Negative); Leukocyte Esterase Urine Negative (Negative); Nitrite Urine Negative (Negative); Protein Urine 3+ (Negative); Specific Gravity Urine >= 1.030 (1.000-1.030); Urobilinogen Urine Negative (Negative)
[2023-09-08 22:52] LABS: Bacteria Urine None Seen (None Seen); RBC Urine >20 /hpf (0-2)
[2023-09-08] MEDS: HYDROmorphone INJ 0.5 MG/0.5 ML SYR IV STA (23:14)
--- NOTE | 2023-09-08 23:33 | CT Scan Report ---
Exam(s): CT ABDOMEN + PELVIS With Contrast IV Amt: 94ml optiray 320 EXAM: CT Abdomen and Pelvis With Intravenous Contrast CLINICAL HISTORY: Hematuria. TECHNIQUE: Axial computed tomography images of the abdomen and pelvis with intravenous contrast. CTDI is 28.14 mGy and DLP is 1542.04 mGy-cm. Automated exposure control was utilized for the study. A dose lowering technique was utilized adhering to the principles of ALARA. CONTRAST: Patient received 94ml optiray 320 of IV contrast COMPARISON: CT abdomen and pelvis 10/09/2018 FINDINGS: Lung bases: Unremarkable. No mass. No consolidation. ABDOMEN: Liver: Unremarkable. No mass. Gallbladder and bile ducts: Cholecystectomy. No ductal dilation. Pancreas: Unremarkable. No mass. No ductal dilation. Spleen: Unremarkable. No splenomegaly. Adrenals: Unremarkable. No mass. Kidneys and ureters: Punctate nonobstructing left renal calculus is present. No hydronephrosis. Stomach and bowel: Diverticulosis. No obstruction. No mucosal thickening. PELVIS: Appendix: Normal appendix. Bladder: There is marked thickening of the bladder wall. Innumerable bladder calculi are present. Reproductive: Prostate gland enlargement. ABDOMEN and PELVIS: Intraperitoneal space: Unremarkable. No free air. No significant fluid collection. Bones/joints: There are degenerative changes of the spine. No acute fracture. No dislocation. Soft tissues: Small bilateral fat-containing inguinal hernias. Vasculature: Mild atherosclerotic disease. No abdominal aortic aneurysm. Lymph nodes: Unremarkable. No enlarged lymph nodes. IMPRESSION: 1. No hydronephrosis. 2. There is marked thickening of the bladder wall. Innumerable bladder calculi are present. 3. Prostate gland enlargement. 4. Punctate nonobstructing left renal calculus is present. 5. Diverticulosis. Electronically signed by: Mirtha Hernandez MD 09/08/23 23:32 PM
[2023-09-09] MEDS: HYDROmorphone INJ 0.5 MG/0.5 ML SYR IV STA
--- NOTE | 2023-09-09 00:28 | Urology Consultation ---
<Statement entered by Solo Ramsey MD - 09/09/23 09:28> I have seen and discussed Mr. Turner's case with Kenneth Baez PA-C and agree with the above documentation. Over the past week he has had worsening suprapubic pressure, bladder discomfort, most likely bladder spasms. Although these are almost certainly exacerbated by the numerous bladder stones that he has, I think the stones have probably been there for a much longer time. The recent changes may represent more of a low-grade infection, even though urinalysis was not overly suspicious. Given the number and size of bladder stones, he is not going to be able to pass these all spontaneously and he is going to require some procedural intervention to remove them. I think he would be a candidate for cystolitholapaxy, although ideally this would be done as an outpatient with full preoperative workup, holding anticoagulation, possible plan for combining an outlet procedure with the cystolitholapaxy, to help prevent stone recurrence. Urine culture at this point is pending. His last dose of anticoagulation was on 09/08/2023. Pending clinical course, we could continue to treat empirically with antibiotics, hold anticoagulation and tentatively plan on cystolitholapaxy on 09/09. In the meantime, would also recommend Pyridium and could try oxybutynin for bladder spasms. Additionally would recommend he stay well-hydrated to keep the urine is dilute as possible to help prevent clot formation. If he is unable to void, catheter could be placed and hand irrigated as needed. -Solo Ramsey MD. Date of Consultation September 09, 2023 Assessment & Plan (1) Bladder calculi: I discussed with the treating emergency room physician that the patient is being admitted on the hospitalist service. From a urologic perspective we recommend the following: It appears that the patient may have a urinary tract infection. I have ordered Cipro to be initiated. A urine culture has been sent and antibiotics can be tailored accordingly I suspect some of the patient's pain is likely due to bladder spasm and may be related to his underlying bladder calculi. I have ordered Pyridium to see if this helps alleviate any of the patient's discomfort Additional analgesics to be provided as needed Antiemetics to be provided on an as-needed basis The patient should be hydrated with IV fluids I have offered to have a Dotson catheter placed, however the patient and his wish to employ some hydration measures to see if he can void more comfortably on his own which I think is reasonable. If the patient does have the inability to empty his bladder consideration be given to placing a Dotson catheter at a later time. Will empirically make the patient n.p.o. for the present time and he will be reassessed by Dr. Ramsey in the morning to determine if any cystoscopic intervention is needed. At the present time the patient is nontoxic-appearing. He is normotensive without leukocytosis or fever. He also does not have acute kidney injury or hydronephrosis on his imaging. He does have a slight tachycardia but I suspect that this is due to the discomfort the patient is experiencing and therefore do not feel an emergent procedure is required at this time Additional recommendations be forthcoming based on his clinical course as it unfolds History of Present Illness Reason for Consultation: Bladder calculi History of Present Illness This is an 78-year-old male who follows locally with [facility] u[facility]. The patient most recently saw Dr. Alicea on 06/01/2023. The patient notes that he did have a digital rectal exam at that time to assess his prostate gland. The patient notes that he has been having some intermittent urinary symptoms since that time. Although the patient has been having some intermittent urinary symptoms since this most recent visit he has been doing overall well until earlier today the patient began developing some severe suprapubic discomfort along with some dysuria. He notes that this discomfort comes and goes in waves and he has a sensation of urinary urgency. He does note when he gets this he is able to void small amounts. He has also noted some hematuria. He specifically denies passing any blood clots. He also denies any fevers, shakes, or chills. He denies any back or flank pain. The patient does note that he has a prior history of kidney stones. The patient says that he has required procedural intervention for his kidney stones. Upon review of records his most recent procedure was on 04/12/[address] Hernandez performed extracorporeal shockwave lithotripsy. The patient notes that he has not had a history of bladder stones prior to today. It is also nowhere the mention that the patient does take Eliquis. Since arrival to the hospital the patient has had labs and imaging which I independent reviewed. Patient did have a CT scan of the abdomen and pelvis. This showed the patient had some punctate nonobstructing calculi of the left kidney. There is no hydronephrosis noted. The patient did have some thickening of the bladder wall and there were innumerable bladder calculi noted. Prostate gland enlargement was noted. CBC revealed white blood cell count, hemoglobin, hematocrit, platelet count are all within normal range. Chemistry profile showed sodium and potassium along with the BUN and creatinine were normal. Patient's calcium level was noted to be normal. Urinalysis did show cloudy urine with 3+ blood. The specimen was negative for nitrites and negative for leukocyte Estrace. The patient did have 11-20 white blood cells per high-power field and there is no bacteria on the study. At the time of my interview the patient was resting comfortably in bed and he wa s in no distress. Allergies Allergy/AdvReac Type Severity Reaction Status Date / Time adhesive AdvReac Intermediate BLISTERING/RASH Verified 07/25/23 14:07 (WITH EKG TAPE) atorvastatin AdvReac Intermediate MUSCLE Verified 07/25/23 14:07 SORENESS lisinopril AdvReac cough Verified 07/25/23 14:07 OpSite Wound Dressing MISC AdvReac Unknown Uncoded 07/25/23 14:07 Home Medications Medication Instructions Recorded Confirmed Type metoprolol succinate 50 mg 100 mg PO QAM 10/22/18 07/25/23 History tablet,extended release 24 hr [id number] 300 mcg-K 60 1 tab PO QAM 10/22/18 07/25/23 History mcg-lycop 600 mcg-lutein 300 mcg tablet (Centrum Silver Men) omeg3-epa 150 mg-dha 100 mg-fish 3 cap PO QAM 10/22/18 07/25/23 History oil-flaxseed oil 333 mg-E 61 unit cap (TheraTears Nutrition) acetaminophen 500 mg tablet 500 mg PO UD PRN Pain 02/11/19 07/25/23 History (Tylenol Extra Strength) triamcinolone acetonide 0.1 % 1 appln topical BID PRN IRRITATION 02/25/19 07/25/23 History topical cream #1 g metoprolol succinate 25 mg capsule 25 mg PO DAILY 04/26/19 07/25/23 History sprinkle, ext. release 24 hr Oxygen Home [id number] 2 ea .Route HS #1 ea 04/01/20 07/25/23 Rx triamcinolone acetonide 0.1 % 1 applic topical BID #80 grams 08/11/21 07/25/23 Rx topical ointment cyanocobalamin (vitamin B-12) 1,000 mcg sublingual DAILY #90 tabs 09/14/21 07/25/23 Rx 1,000 mcg sublingual tablet Motorized scooter #1 ea 09/29/22 07/25/23 Rx glipizide 5 mg tablet 5 mg PO DAILY #90 tabs 01/26/23 07/25/23 Rx apixaban 5 mg tablet (Eliquis) 5 mg PO BID #180 tabs 05/29/23 07/25/23 Rx losartan 25 mg tablet 25 mg PO QAM #90 tabs 05/29/23 07/25/23 Rx alfuzosin 10 mg tablet,extended 10 mg PO DAILY #90 tabs 06/01/23 07/25/23 Rx release 24 hr dutasteride 0.5 mg capsule 0.5 mg PO DAILY #90 caps 06/01/23 07/25/23 Rx simvastatin 10 mg tablet (Zocor) 10 mg PO HS #90 tabs 06/05/23 07/25/23 Rx semaglutide 1 mg/dose (4 mg/3 mL) 1 mg (0.75 mL) subcut .weekly #9 mL 06/12/23 07/25/23 Rx subcutaneous pen injector (Ozempic) Patient History Medical History Lower extremity edema Pt was started on steroids for severe sciatica and edema noticed soon after. Lasix started by PCP, steroids finished, edema improved Obesity Back pain Atrial fibrillation with RVR Sciatica BPH (benign prostatic hyperplasia) Kidney stones + BLADDER STONES Hypertension Diabetes mellitus, type 2 NIDDM History of stroke 25 YEARS AGO= NO RESIDUAL DEFICIT Atrial fibrillation ON WARFARIN Hyperlipidemia Diverticulitis Surgical History History of dental surgery (2013) gum surgery H/O lithotripsy History of tonsillectomy History of colonoscopy S/P arthroscopy of right shoulder S/P right knee arthroscopy Hx of cystoscopy cystolithopaxy History of back surgery X2; S/P L4-S1 laminectomy: 05/22/17: Grade I view, Hess 2, ETT 8 at [facility]. History of cholecystectomy Family History Father Type 2 diabetes mellitus Mother Family history of diabetes mellitus Cervical cancer Uterine cancer Son Family history of diabetes mellitus Aunt Family history of diabetes mellitus Brother Stroke syndrome Acute myocardial infarction Acute leukemia Myocardial infarction Unknown Aneurysm of abdominal aorta Hypertension Heart disease Other FHx: cancer Denies family history of Colon cancer Ovarian cancer Prostate cancer Breast cancer Social History Smoking Status: Former smoker Age Started Using Tobacco: 14; Second Hand Exposure: No; Do You Dip or Chew Tobacco: No; Hx Alcohol Use: No Hx Substance Use: No Preferred Language: Hungarian Communication Ability: Effective Visual Impairment: No Limitations Hearing Ability: Use of Hearing Aid Inside [employer] Sales Required: No Beliefs That Will Affect Care: None marital status: Current Living Situation: Spouse current occupational status: retired How many Children do You have: 3 Feels Safe at Home: Yes Childhood Exposure to Second-Hand Smoke: No Diet: regular caffeine: Yes during the past year weight has: increased > 10 lbs Dental Care, Regularly: Yes Physical Activity Frequency: Does not Exercise Seatbelt Use: always Sunscreen Use: Yes Assistive Devices: Cane, Glasses, Hearing Aid - Bilateral, Oxygen - at Night and Scooter/Electric Scooter Review of Systems Constitutional: no fever and no chills Eyes: + corrective lenses Ear, Nose, Mouth, Throat: no hearing loss Respiratory: no cough and no dyspnea Cardiovascular: no chest pain Gastrointestinal: + abdominal pain (Suprapubic discomfort) Genitourinary: + as per Subjective / HPI Musculoskeletal: no back pain Integumentary: no rash Neurologic: no localized weakness Physical Exam Constitutional: WD/WN, vitals as above Eyes: Wears glasses ENMT: Ears: no hearing impairment Mouth: no oropharynx abnormality Neck: trachea midline Respiratory: normal respiratory effort; no respiratory distress and no labored breathing Cardiovascular: Rate/Rhythm: regular rate and regular rhythm Gastrointestinal (Abdomen): At the time of my exam the patient's abdomen was soft and nondistended. There is no rebound tenderness or guarding. There is no pain with palpation in any area of his abdomen Musculoskeletal: No calf tenderness Skin: no rashes Neurologic: moves all extremities Psychiatric: A+Ox3, euthymic affect Genitourinary: No CVA tenderness with percussion bilaterally Results & Data Vital Signs (Past 12 Hours) Vital Signs Temp Pulse Resp BP Pulse Ox O2 Del Method 09/08/23 21:03 116 H 18 122/74 09/08/23 19:28 36.5 C 78 18 123/71 93 Room Air PG Care Time/CCT Total # of Minutes Spent Total Time Spent with Patient: Total time spent is greater than 50% in coordination of care (as documented) at patient's floor/unit and/or counseling patient: Coding Level of Care Code 24674 INT INP/OBS CARE MIN Diagnoses Bladder calculi N21.0
[2023-09-09] MEDS: SODIUM CHLORIDE 0.9% 1,000 ML IV ONE (00:58)
--- NOTE | 2023-09-09 01:32 | History & Physical Report ---
Date of Service September 09, 2023 Assessment & Plan (1) Bladder calculi: (2) Lumbar post-laminectomy syndrome: (3) Enlarged prostate with lower urinary tract symptoms (LUTS): (4) Diabetic peripheral neuropathy: (5) Hx of cystoscopy: (6) Atrial fibrillation: (7) HTN (hypertension): (8) Diabetes mellitus: (9) Gross hematuria: Plan Multiple bladder calculi/gross hematuria/severe suprapubic spasms- CT of abdomen pelvis with bladder wall thickening, multiple bladder calculi, and increased prostate size NPO Acetaminophen 1 g IV every 8 hours as needed for mild pain or fever Dilaudid 0.5 mg IV every 3 hours as needed for moderate pain Dilaudid 1 mg IV every 3 hours as needed for severe pain Zofran 4 mg IV every 6 hours as needed Pantoprazole 40 mg IV daily Follow urine culture and sensitivity Cipro 400 mg IV every 12 hours Continue dutasteride and alfuzosin Previous history of cystoscopy to treat bladder calculi Consult urology, who saw the patient in the ED Check 25-hydroxy vitamin D and parathyroid hormone intact levels in the a.m. Would likely benefit from 24-hour urine collection Atrial fibrillation/hypertension- Last dose of apixaban was the morning of 09/07, with further doses held for now Depending upon when any procedures done in the morning and depend upon how i nvolved it is, we will determine if heparin drip is used in transition Hold losartan Patient is usually on metoprolol succinate 100 mg in the morning and 25 mg in the evening. Give a partial dose of 50 mg in the morning and follow blood pressure and heart rate Diabetes mellitus- Hold glipizide and semaglutide Place on Accu-Cheks with NovoLog SSI History of Present Illness Chief Complaint: The patient presents to the emergency department with complaint of suprapubic severe spasming pain blood and urine especially worsened today, but symptoms of spasming present over the past. Primary Care Provider: Alex Tillman III, OVI The patient is an 78-year-old male with a past medical history including kidney stones, ambulatory dysfunction, lumbar postlaminectomy syndrome CAD, atrial fibrillation, hypertension, hyperlipidemia, diabetes mellitus, diabetic peripheral neuropathy, dyslipidemia, BPH with LUTS, vitamin B12 deficiency and obesity. Who presents to the emergency department with 1 week of intermittent suprapubic discomfort, which worsened considerably over the past 24 hours and has had his hematuria. CT scan of abdomen and pelvis this evening reveals some bladder wall thickening, and multiple bladder calculi, up to 1.5 cm in size, along with increased prostate size. Allergies Allergy/AdvReac Type Severity Reaction Status Date / Time adhesive AdvReac Intermediate BLISTERING/RASH Verified 09/09/23 02:43 (WITH EKG TAPE) atorvastatin AdvReac Intermediate MUSCLE Verified 09/09/23 02:43 SORENESS lisinopril AdvReac cough Verified 09/09/23 02:43 OpSite Wound Dressing MISC AdvReac Unknown Uncoded 09/09/23 02:43 Home Medications Medication Instructions Recorded Confirmed Type metoprolol succinate 50 mg 100 mg PO QAM 10/22/18 09/09/23 History tablet,extended release 24 hr fazjevhf-fu-shktc 300 mcg-K 60 1 tab PO QAM 10/22/18 09/09/23 History mcg-lycop 600 mcg-lutein 300 mcg tablet (Centrum Silver Men) omeg3-epa 150 mg-dha 100 mg-fish 3 cap PO QAM 10/22/18 09/09/23 History oil-flaxseed oil 333 mg-E 61 unit cap (TheraTears Nutrition) metoprolol succinate 25 mg capsule 25 mg PO QPM 04/26/19 09/09/23 History sprinkle, ext. release 24 hr triamcinolone acetonide 0.1 % 1 applic topical BID #80 grams 08/11/21 09/09/23 Rx topical ointment cyanocobalamin (vitamin B-12) 1,000 mcg sublingual DAILY #90 tabs 09/14/21 09/09/23 Rx 1,000 mcg sublingual tablet Motorized scooter #1 ea 09/29/22 09/09/23 Rx glipizide 5 mg tablet 5 mg PO DAILY #90 tabs 01/26/23 09/09/23 Rx apixaban 5 mg tablet (Eliquis) 5 mg PO BID #180 tabs 05/29/23 09/09/23 Rx losartan 25 mg tablet 25 mg PO QAM #90 tabs 05/29/23 09/09/23 Rx alfuzosin 10 mg tablet,extended 10 mg PO DAILY #90 tabs 06/01/23 09/09/23 Rx release 24 hr dutasteride 0.5 mg capsule 0.5 mg PO DAILY #90 caps 06/01/23 09/09/23 Rx simvastatin 10 mg tablet (Zocor) 10 mg PO HS #90 tabs 06/05/23 09/09/23 Rx semaglutide 1 mg/dose (4 mg/3 mL) 1 mg (0.75 mL) subcut .weekly #9 mL 06/12/23 09/09/23 Rx subcutaneous pen injector (Ozempic) Bee Pollen Powder 0 mg PO DAILY PRN .runny nose 09/09/23 09/09/23 History Prune Juice 4 oz PO .QSUPPER 09/09/23 09/09/23 History acetaminophen 500 mg tablet 1,000 mg PO Q6H PRN Pain 09/09/23 09/09/23 History (Tylenol Extra Strength) tlszo-t-adukbovrdraxo 400 unit 0 unit PO DIRECTED PRN .take 09/09/23 09/09/23 History tablet (Beano) 2-3 tabs before eating gassy food cholecalciferol (vitamin D3) 50 50 mcg PO DAILY 09/09/23 09/09/23 History mcg (2,000 unit) capsule (Vitamin D3) clobetasol 0.05 % scalp solution 1 applic topical DIRECTED PRN .. 09/09/23 09/09/23 History guaifenesin 400 mg tablet 400 mg PO Q4H PRN .cough 09/09/23 09/09/23 History lidocaine 4 % topical patch 1 patch topical Q8 PRN Pain 09/09/23 09/09/23 History (Salonpas (lidocaine)) loratadine-pseudoephedrine ER 10 1 tab PO DAILY 09/09/23 09/09/23 History mg-240 mg tablet,extended [id number] (Claritin-D 24 Hour) sennosides 8.6 mg tablet (Senokot) 17.2 mg PO QPM 09/09/23 09/09/23 History terbinafine HCl 1 % topical cream 1 applic topical DIRECTED 09/09/23 09/09/23 History Past Med/Surg History Medical History (Updated 09/09/23 @ 03:02 by Jason Joiner MD) Lower extremity edema Pt was started on steroids for severe sciatica and edema noticed soon after. Lasix started by PCP, steroids finished, edema improved Obesity Back pain Atrial fibrillation with RVR Sciatica BPH (benign prostatic hyperplasia) Kidney stones + BLADDER STONES Hypertension Diabetes mellitus, type 2 NIDDM History of stroke 25 YEARS AGO= NO RESIDUAL DEFICIT Hyperlipidemia Diverticulitis Surgical History (Updated 09/09/23 @ 03:02 by Jason Joiner MD) History of dental surgery (2013) gum surgery H/O lithotripsy History of tonsillectomy History of colonoscopy S/P arthroscopy of right shoulder S/P right knee arthroscopy Hx of cystoscopy cystolithopaxy History of back surgery X2; S/P L4-S1 laminectomy: 05/22/17: Grade I view, Hess 2, ETT 8 at [facility]. History of cholecystectomy Family History Father Type 2 diabetes mellitus Mother Family history of diabetes mellitus Cervical cancer Uterine cancer Son Family history of diabetes mellitus Aunt Family history of diabetes mellitus Brother Stroke syndrome Acute myocardial infarction Acute leukemia Myocardial infarction Unknown Aneurysm of abdominal aorta Hypertension Heart disease Other FHx: cancer Denies family history of Colon cancer Ovarian cancer Prostate cancer Breast cancer Social History Smoking Status: Former smoker Age Started Using Tobacco: 14; Second Hand Exposure: No; Do You Dip or Chew Tobacco: No; Hx Alcohol Use: No Hx Substance Use: No Preferred Language: Portuguese Communication Ability: Effective Visual Impairment: No Limitations Hearing Ability: Use of Hearing Aid Ssds Mk 2 Advanced Operator Required: No Beliefs That Will Affect Care: None marital status: Current Living Situation: Spouse current occupational status: retired How many Children do You have: 3 Feels Safe at Home: Yes Childhood Exposure to Second-Hand Smoke: No Diet: regular caffeine: Yes during the past year weight has: increased > 10 lbs Dental Care, Regularly: Yes Physical Activity Frequency: Does not Exercise Seatbelt Use: always Sunscreen Use: Yes Assistive Devices: Cane, Glasses, Hearing Aid - Bilateral, Oxygen - at Night and Scooter/Electric Scooter Review of Systems Review of Systems: The patient denies chest pain, palpitations, shortness of breath, dyspnea on exertion, cough, lower extremity swelling, sore throat, fevers, chills, sweats, vomiting, diarrhea , constipation, blood in stool, dysuria, lightheadedness, dizziness, headache, memory loss, loss of consciousness, rash, imbalance, focal or generalized weakness, numbness or tingling in arms, generalized arthralgias or myalgias, back or neck pain, or night sweats. The review of systems is otherwise negative other than for that already noted above, and at least 10 systems have been reviewed. Physical Exam Physical Exam: The patient is awake, alert and oriented 3, well developed and well nourished, normocephalic and atraumatic, lying in bed, with severe spasms of her bladder area HEENT--PERRL, EOMI, mucous membranes and oropharynx dry. Neck--supple. No JVD. No bruits. Thyroid normal, trachea midline, no adenopathy. Heart--normal S1 and S2. No murmurs, rubs or gallops. Lungs--clear bilaterally, no respiratory distress, no accessory muscle use. Abdomen--normal bowel sounds and soft. Nondistended. Suprapubic tenderness Extremities--no cyanosis or clubbing. No edema. Dermatologic--normal skin turgor, normal color, no abnormal lymph nodes, no rash. Neurologic--cranial nerves II through XII grossly intact. Rheumatologic--normal range of motion. Psychiatric--normal affect. Results & Data Results & Data Vital Signs (Past 12 Hours) Vital Signs Temp Pulse Resp BP Pulse Ox O2 Del Method 09/08/23 21:03 116 H 18 122/74 09/08/23 19:28 36.5 C 78 18 123/71 93 Room Air Laboratory Results Laboratory Results WBC 5.97 K/ul (4.8-10.8) 09/08/23 19:45 RBC 4.73 M/uL (4.70-6.10) 09/08/23 19:45 Hgb 14.3 g/dl (14.0-18.0) 09/08/23 19:45 Hct 42.3 % (42.0-52.0) 09/08/23 19:45 MCV 89.4 fL (80.0-100.0) 09/08/23 19:45 MCH 30.2 pg (25.0-34.0) 09/08/23 19:45 MCHC 33.8 g/dL (32.0-36.0) 09/08/23 19:45 RDW Std Deviation 40.3 fL (36.4-46.3) 09/08/23 19:45 RDW Coeff of Keith 12.3 % (11.5-14.5) 09/08/23 19:45 Plt Count 153 K/uL (130-400) 09/08/23 19:45 MPV 10.7 fL (9.4-12.4) 09/08/23 19:45 Immature Gran % (Auto) 0.3 % 09/08/23 19:45 Neut % (Auto) 57.4 % 09/08/23 19:45 Lymph % (Auto) 30.0 % 09/08/23 19:45 [place] % (Auto) 8.9 % 09/08/23 19:45 Eos % (Auto) 2.7 % 09/08/23 19:45 Baso % (Auto) 0.7 % 09/08/23 19:45 Neut # (Auto) 3.43 K/uL (1.40-6.50) 09/08/23 19:45 Lymph # (Auto) 1.79 K/uL (1.20-3.40) 09/08/23 19:45 [place] # (Auto) 0.53 K/uL (0.11-0.59) 09/08/23 19:45 Eos # (Auto) 0.16 K/uL (0.00-0.50) 09/08/23 19:45 Baso # (Auto) 0.04 K/uL (0.00-0.20) 09/08/23 19:45 Immature Gran # (Auto) 0.02 K/uL (0.01-0.20) 09/08/23 19:45 Sodium 138 mmol/L (136-145) 09/08/23 19:45 Potassium 4.3 mmol/L (3.5-5.1) 09/08/23 19:45 Chloride 104 mmol/L (98-107) 09/08/23 19:45 Carbon Dioxide 25 mmol/L (21-32) 09/08/23 19:45 Anion Gap 9 (3-11) 09/08/23 19:45 BUN 18 mg/dl (6-23) 09/08/23 19:45 Creatinine 0.93 mg/dl (0.6-1.4) 09/08/23 19:45 Est Cr Clr Drug Dosing Not Reportable 09/08/23 19:45 Est GFR ( Amer) 89.5 ml/min 09/08/23 19:45 Est GFR (Non-Af Amer) 77.3 ml/min 09/08/23 19:45 BUN/Creatinine Ratio 19.4 (10-20) 09/08/23 19:45 Glucose 186 mg/dl (70-99(Fasting)) H 09/08/23 19:45 Calcium 9.9 mg/dl (8.6-10.3) 09/08/23 19:45 Total Bilirubin 1.9 mg/dl (0.2-1.0) H 09/08/23 19:45 AST 20 U/L (13-39) 09/08/23 19:45 ALT 24 U/L (7-52) 09/08/23 19:45 Alkaline Phosphatase 55 U/L (34-104) 09/08/23 19:45 Total Protein 7.3 gm/dl (6.0-8.3) 09/08/23 19:45 Albumin 4.6 gm/dl (3.4-5.0) 09/08/23 19:45 Globulin 2.7 gm/dl (2.5-4.0) 09/08/23 19:45 Albumin/Globulin Ratio 1.7 (0.9-2) 09/08/23 19:45 Urine Color Red 09/08/23 22:08 Urine Appearance Cloudy (Clear) A 09/08/23 22:08 Urine pH 6.0 (4.5-7.5) 09/08/23 22:08 Ur Specific [place] >= 1.030 (1.000-1.030) 09/08/23 22:08 Urine Protein 3+ (Negative) H 09/08/23 22:08 Urine Glucose (UA) Negative (Negative) 09/08/23 22:08 Urine Ketones Trace (Negative) H 09/08/23 22:08 Urine Blood 3+ (Negative) H 09/08/23 22:08 Urine Nitrite Negative (Negative) 09/08/23 22:08 Urine Bilirubin 1+ (Negative) H 09/08/23 22:08 Urine Urobilinogen Negative (Negative) 09/08/23 22:08 Ur Leukocyte Esterase Negative (Negative) 09/08/23 22:08 Urine RBC >20 /hpf (0-2) H 09/08/23 22:08 Urine WBC 11-20 /hpf (0-5) H 09/08/23 22:08 Ur Epithelial Cells 3-5 /hpf (0-2) H 09/08/23 22:08 Urine Bacteria None Seen (None Seen) 09/08/23 22:08 Impressions Abdomen/Pelvis CT 09/08/23 21:29 Exam(s): CT ABDOMEN + PELVIS With Contrast IV Amt: 94ml optiray 320 EXAM: CT Abdomen and Pelvis With Intravenous Contrast CLINICAL HISTORY: Hematuria. TECHNIQUE: Axial computed tomography images of the abdomen and pelvis with intravenous contrast. CTDI is 28.14 mGy and DLP is 1542.04 mGy-cm. Automated exposure control was utilized for the study. A dose lowering technique was utilized adhering to the principles of ALARA. CONTRAST: Patient received 94ml optiray 320 of IV contrast COMPARISON: CT abdomen and pelvis 10/09/2018 FINDINGS: Lung bases: Unremarkable. No mass. No consolidation. ABDOMEN: Liver: Unremarkable. No mass. Gallbladder and bile ducts: Cholecystectomy. No ductal dilation. Pancreas: Unremarkable. No mass. No ductal dilation. Spleen: Unremarkable. No splenomegaly. Adrenals: Unremarkable. No mass. Kidneys and ureters: Punctate nonobstructing left renal calculus is present. No hydronephrosis. Stomach and bowel: Diverticulosis. No obstruction. No mucosal thickening. PELVIS: Appendix: Normal appendix. Bladder: There is marked thickening of the bladder wall. Innumerable bladder calculi are present. Reproductive: Prostate gland enlargement. ABDOMEN and PELVIS: Intraperitoneal space: Unremarkable. No free air. No significant fluid collection. Bones/joints: There are degenerative changes of the spine. No acute fracture. No dislocation. Soft tissues: Small bilateral fat-containing inguinal hernias. Vasculature: Mild atherosclerotic disease. No abdominal aortic aneurysm. Lymph nodes: Unremarkable. No enlarged lymph nodes. IMPRESSION: 1. No hydronephrosis. 2. There is marked thickening of the bladder wall. Innumerable bladder calculi are present. 3. Prostate gland enlargement. 4. Punctate nonobstructing left renal calculus is present. 5. Diverticulosis. Electronically signed by: Mirtha Hernandez MD 09/08/23 23:32 PM Code Status & VTE Plan Code Status Full code VTE Prophylaxis Plan VTE Prophylaxis will be ordered: Yes PG Care Time/CCT Total # of Minutes Spent Total Time Spent with Patient: Total time spent is greater than 50% in coordination of care (as documented) at patient's floor/unit and/or counseling patient: Coding Level of Care Code 84600 INT INP/OBS CARE 3/75MIN Diagnoses Bladder calculi N21.0 Lumbar post-laminectomy syndrome M96.1 Enlarged prostate with lower urinary tract symptoms (LUTS) N40.1 Diabetic peripheral neuropathy E11.42 Hx of cystoscopy Z98.890 Atrial fibrillation I48.91 HTN (hypertension) I10 Diabetes mellitus E11.9 Gross hematuria R31.0
[2023-09-09] MEDS: PHENAZOPYRIDINE HCL 200 MG TAB PO PRN (01:33)
[2023-09-09] MEDS: CIPROFLOXACIN / D5W 400 MG/200 ML BAG IV SCH (01:33)
[2023-09-09] MEDS: HYDROmorphone INJ 1 MG/ML SYRINGE IV STA (02:02)
[2023-09-09] MEDS: Patient's HEIGHT &/or WEIGHT Needed STA (02:05)
[2023-09-09] MEDS ORDERED: GLUCAGON FOR INJ 1 MG VIAL SQ PRN (02:20)
[2023-09-09] MEDS ORDERED: GLUCOSE 40% GEL 15 GM TUBE PO PRN (02:20)
[2023-09-09] MEDS ORDERED: GLUCOSE 10 TAB/TUBE PO PRN (02:20)
[2023-09-09] MEDS ORDERED: CARBOHYDRATES FOR HYPOGLYCEMIA PO PRN (02:20)
[2023-09-09] MEDS ORDERED: DEXTROSE 50% 50 ML SYRINGE IV PRN (02:20)
[2023-09-09] MEDS: INSULIN ASPART PER UNIT CHARGE SC SCH (06:20)
[2023-09-09 07:17] LABS: Estimated Average Glucose 157 mg/dl; Hemoglobin A1C 7.1 % (4.5-5.6)
[2023-09-09] MEDS: METOPROLOL SUCC 50MG EXT REL TAB PO SCH (07:54)
[2023-09-09] MEDS: TAMSULOSIN HCL 0.4 MG CAP PO SCH (07:54)
[2023-09-09] MEDS: FINASTERIDE 5 MG TAB PO SCH (07:54)
[2023-09-09] MEDS: HYDROmorphone INJ 0.5 MG/0.5 ML SYR IV PRN (07:54)
[2023-09-09] MEDS: ONDANSETRON INJ 2 MG/ML 2 ML VIAL IV PRN (07:59)
[2023-09-09] MEDS: HYDROmorphone INJ 1 MG/ML SYRINGE IV PRN (09:27)
[2023-09-09] MEDS: MoRPHine SULFATE 2 MG/ML CARP IV ONE (16:37)
--- NOTE | 2023-09-10 07:59 | Urology Progress Note ---
Date of Service September 10, 2023 Assessment & Plan (1) Bladder stones: (2) Gross hematuria: Plan I suspect the bladder stones are a major contributor to his bladder spasms and hematuria. At this point, he has been pretreated with antibiotics and we have been holding anticoagulation. Reviewed the plan for cystoscopy and cystolitholapaxy. We reviewed risks and benefits of the surgery including bleeding, infection, injury to urinary tract, recurrence of bladder stones, need for additional procedures. He expressed understanding and would like to proceed with surgery. Admission and Anticipated Discharge Date Admission Date: September 09, 2023 Subjective Feeling okay, still having bladder spasms and urinary urgency. Denies any fevers or chills Denies any chest pain or shortness of breath. Urine culture from 09/08/2023 still pending, urine culture from 08/28/2023 was negative. Physical Exam Physical Exam: Well-appearing, uncomfortable and having bladder spasms Results & Data Vital Signs (Past 12 Hours) Vital Signs Temp Pulse Resp BP Pulse Ox O2 Del Method O2 Flow Rate 09/10/23 07:39 37.1 C 103 H 20 118/62 88 L Room Air 09/10/23 02:58 36.9 C 79 18 109/70 95 Nasal Cannula 2 09/09/23 23:43 Nasal Cannula 2 09/09/23 23:15 36.8 C 91 H 18 127/75 95 Nasal Cannula 2 PG Care Time/CCT Total # of Minutes Spent Total Time Spent with Patient: Total time spent is greater than 50% in coordination of care (as documented) at patient's floor/unit and/or counseling patient: Coding Level of Care Code 65169 SUB INP/OBS CARE 1/25MIN Diagnoses Bladder stones N21.0 Gross hematuria R31.0
[2023-09-10] MEDS ORDERED: fentaNYL citrate PF 100 MCG/2 ML VIAL ONE (08:08)
[2023-09-10] MEDS ORDERED: ROCURONIUM BROMIDE 10 MG/ML 5 ML VIAL IV ONE (08:08)
[2023-09-10] MEDS ORDERED: ONDANSETRON INJ 2 MG/ML 2 ML VIAL ONE (08:08)
[2023-09-10] MEDS ORDERED: LIDOCAINE 2% 2 ML VIAL/AMP(20MG/ML) INFIL ONE (08:08)
[2023-09-10] MEDS ORDERED: PROPOFOL IV EMULSION 10 MG/ML 20 ML VIAL IV ONE (08:08)
[2023-09-10] MEDS ORDERED: ATROPINE SULFATE 0.1 MG/ML 10ML SYR IV PRN (08:19)
[2023-09-10] MEDS ORDERED: ePHEDrine sulfate 50 MG/ML AMP IV PRN (08:19)
[2023-09-10] MEDS ORDERED: ONDANSETRON INJ 2 MG/ML 2 ML VIAL IV PRN (08:19)
--- NOTE | 2023-09-10 08:20 | Anesthesiology Consultation ---
Date of Service September 10, 2023 Assessment & Plan Chart Review Chart Review: Acceptable Risk for Surgery and Patient NOT seen in Pre Admission Testing Consults Requested none ASA ASA3 Proposed Anesthesia Anesthesia Type: General Risk / Benefits Reviewed With: PT / POA / Parent / Guardian, Accepts Plan and Informed Consent Obtained Additional Comments: 78 y/o pt with hx of stroke 30 years ago, a-fib, T2DM, on ozempic (took 2 days ago) presents for procedure as above. Plan for GA with ETT. History Surgery Operation Date: 09/10/23 10:00 Proposed Procedures p Cystoscopy, Laser Lithotripsy and/or basket removal of bladder stones - Solo Ramsey MD Height/Weight Height: 6 ft 1 in Weight: 110.6 kg Allergies Allergy/AdvReac Type Severity Reaction Status Date / Time adhesive AdvReac Intermediate BLISTERING/RASH Verified 09/09/23 02:43 (WITH EKG TAPE) atorvastatin AdvReac Intermediate MUSCLE Verified 09/09/23 02:43 SORENESS lisinopril AdvReac cough Verified 09/09/23 02:43 OpSite Wound Dressing MISC AdvReac Unknown Uncoded 09/09/23 02:43 Medications Home Medications Medication Instructions Recorded Confirmed Last Taken metoprolol succinate 50 mg 100 mg PO QAM 10/22/18 09/09/23 04/12/19 07:00 tablet,extended release 24 hr dszqbaxw-yt-mikvy 300 mcg-K 60 1 tab PO QAM 10/22/18 09/09/23 04/11/19 mcg-lycop 600 mcg-lutein 300 mcg tablet (Centrum Silver Men) omeg3-epa 150 mg-dha 100 mg-fish 3 cap PO QAM 10/22/18 09/09/23 04/11/19 oil-flaxseed oil 333 mg-E 61 unit cap (TheraTears Nutrition) metoprolol succinate 25 mg capsule 25 mg PO QPM 04/26/19 09/09/23 Unknown sprinkle, ext. release 24 hr triamcinolone acetonide 0.1 % 1 applic topical BID #80 grams 08/11/21 09/09/23 Unknown topical ointment cyanocobalamin (vitamin B-12) 1,000 mcg sublingual DAILY #90 tabs 09/14/21 09/09/23 Unknown 1,000 mcg sublingual tablet Motorized scooter #1 ea 09/29/22 09/09/23 Unknown glipizide 5 mg tablet 5 mg PO DAILY #90 tabs 01/26/23 09/09/23 Unknown apixaban 5 mg tablet (Eliquis) 5 mg PO BID #180 tabs 05/29/23 09/09/23 Unknown losartan 25 mg tablet 25 mg PO QAM #90 tabs 05/29/23 09/09/23 Unknown alfuzosin 10 mg tablet,extended 10 mg PO DAILY #90 tabs 06/01/23 09/09/23 Unknown release 24 hr dutasteride 0.5 mg capsule 0.5 mg PO DAILY #90 caps 06/01/23 09/09/23 Unknown simvastatin 10 mg tablet (Zocor) 10 mg PO HS #90 tabs 06/05/23 09/09/23 Unknown semaglutide 1 mg/dose (4 mg/3 mL) 1 mg (0.75 mL) subcut .weekly #9 mL 06/12/23 09/09/23 Unknown subcutaneous pen injector (Ozempic) Bee Pollen Powder 0 mg PO DAILY PRN .runny nose 09/09/23 09/09/23 Unknown Prune Juice 4 oz PO .QSUPPER 09/09/23 09/09/23 Unknown acetaminophen 500 mg tablet 1,000 mg PO Q6H PRN Pain 09/09/23 09/09/23 Unknown (Tylenol Extra Strength) lwcgf-m-ljmwnthfdzwin 400 unit 0 unit PO DIRECTED PRN .take 09/09/23 09/09/23 Unknown tablet (Beano) 2-3 tabs before eating gassy food cholecalciferol (vitamin D3) 50 50 mcg PO DAILY 09/09/23 09/09/23 Unknown mcg (2,000 unit) capsule (Vitamin D3) clobetasol 0.05 % scalp solution 1 applic topical DIRECTED PRN .. 09/09/23 09/09/23 Unknown guaifenesin 400 mg tablet 400 mg PO Q4H PRN .cough 09/09/23 09/09/23 Unknown lidocaine 4 % topical patch 1 patch topical Q8 PRN Pain 09/09/23 09/09/23 Unknown (Salonpas (lidocaine)) loratadine-pseudoephedrine ER 10 1 tab PO DAILY 09/09/23 09/09/23 Unknown mg-240 mg tablet,extended [id number] (Claritin-D 24 Hour) sennosides 8.6 mg tablet (Senokot) 17.2 mg PO QPM 09/09/23 09/09/23 Unknown terbinafine HCl 1 % topical cream 1 applic topical DIRECTED 09/09/23 09/09/23 Unknown Active Medications Generic Name Dose Route Start Last Admin Trade Name Freq PRN Reason Stop Dose Admin Finasteride 5 mg 09/09/23 09:00 09/09/23 07:54 Finasteride 5 Mg Tab PO 10/09/23 08:59 5 mg DAILY FABIANO Administration Hydromorphone HCl 0.5 mg 09/09/23 02:20 09/09/23 07:54 Hydromorphone Inj 0.5 Mg/0.5 Ml Syr IV 09/23/23 02:19 0.5 mg Q3H PRN Administration Moderate Pain (Scale 4, 5, 6) Hydromorphone HCl 1 mg 09/09/23 02:20 09/10/23 03:03 Hydromorphone Inj 1 Mg/Ml Syringe IV 09/23/23 02:19 1 mg Q3H PRN Administration Severe Pain (Scale 7, 8, 9,10) Ciprofloxacin 400 mg in 200 mls @ 100 mls/hr 09/09/23 01:30 09/10/23 03:29 Cipro / D5w IV 09/19/23 01:29 Infused Q12H FABIANO Infusion Protocol Insulin Aspart 0 units 09/09/23 06:00 09/10/23 06:14 Insulin Aspart Per Unit Charge SC 10/09/23 05:59 1 units Q6 FABIANO Administration Metoprolol Succinate 50 mg 09/09/23 09:00 09/09/23 07:54 Metoprolol Succ 50mg Ext Rel Tab PO 10/09/23 08:59 50 mg QAM FABIANO Administration Ondansetron HCl 4 mg 09/09/23 02:20 09/09/23 07:59 Ondansetron Inj 2 Mg/Ml 2 Ml Vial IV 10/09/23 02:19 4 mg Q6H PRN Administration Nausea Phenazopyridine HCl 200 mg 09/09/23 00:23 09/09/23 21:34 Phenazopyridine Hcl 200 Mg Tab PO 10/09/23 00:22 200 mg TID PRN Administration Bladder pain Tamsulosin HCl 0.4 mg 09/09/23 09:00 09/09/23 07:54 Tamsulosin Hcl 0.4 Mg Cap PO 10/09/23 08:59 0.4 mg DAILY FABIANO Administration Past Medical History Medical History Lower extremity edema Pt was started on steroids for severe sciatica and edema noticed soon after. Lasix started by PCP, steroids finished, edema improved Obesity Back pain Atrial fibrillation with RVR Sciatica BPH (benign prostatic hyperplasia) Kidney stones + BLADDER STONES Hypertension Diabetes mellitus, type 2 NIDDM History of stroke 25 YEARS AGO= NO RESIDUAL DEFICIT Hyperlipidemia Diverticulitis Past Family History Family History Father Type 2 diabetes mellitus Mother Family history of diabetes mellitus Cervical cancer Uterine cancer Son Family history of diabetes mellitus Aunt Family history of diabetes mellitus Brother Stroke syndrome Acute myocardial infarction Acute leukemia Myocardial infarction Unknown Aneurysm of abdominal aorta Hypertension Heart disease Other FHx: cancer Denies family history of Colon cancer Ovarian cancer Prostate cancer Breast cancer Past Surgical History Surgical History History of dental surgery (2013) gum surgery H/O lithotripsy History of tonsillectomy History of colonoscopy S/P arthroscopy of right shoulder S/P right knee arthroscopy Hx of cystoscopy cystolithopaxy History of back surgery X2; S/P L4-S1 laminectomy: 05/22/17: Grade I view, Hess 2, ETT 8 at [facility]. History of cholecystectomy Past Anesthesia History No Hx of Anesthesia Complications and No Family Hx of Anesthesia Complications Social History Smoking Status: Never smoker tobacco type: cigarettes Do You Dip or Chew Tobacco: No Hx Alcohol Use: No Hx Substance Use: No substance use type: does not use Review of Systems ROS Unobtainable: All systems reviewed & are unremarkable except as noted in HPI & below Physical Exam Vital Signs Last Vital Signs Temp 37.1 C 09/10/23 07:39 Pulse 103 H 09/10/23 07:39 Resp 20 09/10/23 07:39 BP 118/62 09/10/23 07:39 Pulse Ox 92 09/10/23 07:55 O2 Del Method Room Air 09/10/23 08:04 O2 Flow Rate 2 09/10/23 02:58 ENMT Mouth: no TMJ abnormality Thyromental Distance: > or= 3.5 Finger Breadths Mallampati Class: III Neck normal visual inspection and trachea midline; neck extension not limited Respiratory normal respiratory effort Auscultation: lungs clear to auscultation bilaterally Cardiovascular Rate/Rhythm: regular rate and regular rhythm Heart Sounds: no murmur Musculoskeletal Spine: normal cervical ROM Extremities: full ROM of extremities Neurologic moves all extremities Psychiatric Orientation: alert and oriented x 3 Testing Laboratory Results 09/08/23 19:45 09/08/23 19:45 Hemoglobin A1c 7.1 % (4.5-5.6) H 09/09/23 02:25 Urine Color Red 09/08/23 22:08 Urine Appearance Cloudy (Clear) A 09/08/23 22:08 Urine pH 6.0 (4.5-7.5) 09/08/23 22:08 Ur Specific Douglass >= 1.030 (1.000-1.030) 09/08/23 22:08 Urine Protein 3+ (Negative) H 09/08/23 22:08 Urine Glucose (UA) Negative (Negative) 09/08/23 22:08 Urine Ketones Trace (Negative) H 09/08/23 22:08 Urine Nitrite Negative (Negative) 09/08/23 22:08 Ur Leukocyte Esterase Negative (Negative) 09/08/23 22:08 Urine RBC >20 /hpf (0-2) H 09/08/23 22:08 Urine WBC 11-20 /hpf (0-5) H 09/08/23 22:08 Ur Epithelial Cells 3-5 /hpf (0-2) H 09/08/23 22:08 09/10/23 09/10/23 06:09 01:04 POC Glucose 171 H 136 H Electrocardiogram Findings: no SB @ Echocardiogram Date: 02/20/19 EF: 45-50 LV Function: normal severe right atrial enlargement
[2023-09-10] MEDS ORDERED: SUCCINYLCHOLINE CHLORIDE 20 MG/ML 10 ML VIAL IV ONE (10:01)
[2023-09-10] MEDS ORDERED: SUGAMMADEX SODIUM 200 MG/2 ML VIAL IV ONE (10:01)
--- NOTE | 2023-09-10 10:12 | Operative Report ---
PG Post Operative Report Pre & Post Diagnosis Operation Date: 09/10/23 10:00 Pre-Op Diagnosis: Bladder stones Post-Op Diagnosis: bladder stones I identified the patient and participated in the time-out.: Yes Procedure Operation Date: 09/10/23 10:00 Actual Procedures p meatal dilation, cystoscopy, cystolitholapaxy laser Lithotripsy of bladder stones - Solo Ramsey MD Surgeon Solo Ramsey MD Library Assistant None Estimated Blood Loss 5 Findings See Below Too numerous to count bladder stones, many of these were flushed out through the sheath of the cystoscope. Larger stones were lasered into pieces which were flushed out as well. Largest stone estimated to be 2.3 cm in diameter. Specimens Bladder stones Drains 22 E[place] three-way Dotson catheter, CBI running Anesthesia Type General Complications none Disposition Accompanied Patient To Recovery: Yes Disposition: Recovery Room Indications This is an 78-year-old male followed by urology for incomplete bladder emptying. He presented to the emergency department with significant bladder spasms and was found to have bladder stones. He presents to the OR today for cystolithol apaxy/bladder stone removal. Description of Procedure The patient was identified in the holding area and informed consent was confirmed. He was taken to the operating room where anesthesia was initiated. He was placed in the dorsal lithotomy position with all pressure points appropriately padded. He was prepped and draped in the usual sterile fashion and a preoperative timeout was performed. Upon inspection, his urethral meatus was somewhat narrow in caliber. Meatal dilation was performed using cystoscopy sounds from 16-30 E[place]an. A well-lubricated cystoscope was inserted per urethra and panendoscopy was performed. The urethra was normal in appearance. His prostate was significantly enlarged with a fairly high bladder neck. The bladder was full of innumerable stones. The 1000 m thulium laser fiber was introduced and using high amplitude, low- frequency settings the stones were broken into smaller pieces. Once they were sufficiently small, they were evacuated from the bladder. There were many small stones which could be evacuated without lasering, however the largest stone was estimated to be about 2.3 cm in diameter. At the conclusion of this process, there was somewhat decreased visualization from bleeding from the bladder neck, however there were no large stones appreciated left over. A 22 [place]an three-way Dotson catheter was advanced per urethra. The balloon was inflated with 20 cc of normal saline. The catheter was attached to gravity drainage and continuous bladder irrigation was initiated. At this point all instrumentation was removed. The patient was then awakened from anesthesia and was brought to the PACU in stable condition. I attest to the content of the Intraoperative Record and any orders documented therein. Any exceptions are noted below.
[2023-09-10] MEDS: fentaNYL citrate PF 100 MCG/2 ML VIAL IV PRN (10:25)
[2023-09-10] MEDS: HYDROmorphone INJ 2 MG/ML SYR/VIAL IV PRN (10:39)
[2023-09-10] MEDS: oxyBUTYnin chloride 5 MG TAB PO PRN (11:00)
--- NOTE | 2023-09-10 12:25 | Anesthesiology Progress Note ---
Date of Service September 10, 2023 Anesthesia Post Procedure Vital Signs Vital Signs: Temp Pulse Pulse Pulse Resp BP BP 09/10/23 12:15 104 H 16 124/74 09/10/23 12:00 89 14 124/67 09/10/23 11:50 37.0 C 96 H 16 123/84 09/10/23 11:40 98 H 16 137/86 09/10/23 11:30 100 H 14 133/87 09/10/23 11:20 94 H 16 133/76 09/10/23 11:10 99 H 16 141/85 H 09/10/23 11:00 110 H 20 138/98 09/10/23 10:50 112 H 22 160/100 H 09/10/23 10:40 118 H 22 140/92 09/10/23 10:30 107 H 20 157/102 H 09/10/23 10:21 36.0 C L 93 H 20 156/87 H 09/10/23 08:04 09/10/23 07:55 09/10/23 07:39 37.1 C 103 H 20 118/62 09/10/23 07:30 92 H 09/10/23 02:58 36.9 C 79 18 109/70 09/09/23 23:43 09/09/23 23:15 36.8 C 91 H 18 127/75 09/09/23 19:48 36.3 C L 79 18 108/69 09/09/23 15:45 57 L 09/09/23 15:16 75 24 103/73 Pulse Ox O2 Del Method O2 Flow Rate 09/10/23 12:15 96 Nasal Cannula 2 09/10/23 12:00 96 Room Air 09/10/23 11:50 96 Room Air 09/10/23 11:40 95 Oxymask 3 09/10/23 11:30 96 Oxymask 3 09/10/23 11:20 97 Oxymask 3 09/10/23 11:10 95 Oxymask 3 09/10/23 11:00 96 Oxymask 3 09/10/23 10:50 95 Oxymask 4 09/10/23 10:40 93 Oxymask 4 09/10/23 10:30 93 Oxymask 4 09/10/23 10:21 96 Oxymask 6 09/10/23 08:04 Room Air 09/10/23 07:55 92 Room Air 09/10/23 07:39 88 L Room Air 09/10/23 07:30 09/10/23 02:58 95 Nasal Cannula 2 09/09/23 23:43 Nasal Cannula 2 09/09/23 23:15 95 Nasal Cannula 2 09/09/23 19:48 92 Room Air 09/09/23 15:45 09/09/23 15:16 96 Room Air Pain Intensity Groin: Pain Intensity: 9 Lower Abdomen: Pain Intensity: 4 Transfer of Care Handoff Completed per policy Notes Mental Status: alert / awake / arousable Patient Amnestic to Procedure: Yes Nausea / Vomiting: adequately controlled Pain: adequately controlled Airway Patency, RR, SpO2: stable & adequate BP & HR: stable & adequate Hydration State: stable & adequate Anesthetic Complications: no major complications apparent and Pt Satisfied with anesthetic care
[2023-09-10] MEDS ORDERED: Nursing to Pharmacy Communication SCH (14:15)
[2023-09-10] MEDS: INSULIN ASPART PER UNIT CHARGE SC SCH (17:53)
--- NOTE | 2023-09-10 22:28 | Hospitalist Progress Note ---
Date of Service September 10, 2023 Assessment & Plan (1) Bladder calculi: (2) Lumbar post-laminectomy syndrome: (3) Enlarged prostate with lower urinary tract symptoms (LUTS): (4) Diabetic peripheral neuropathy: (5) Hx of cystoscopy: (6) Atrial fibrillation: (7) HTN (hypertension): (8) Diabetes mellitus: (9) Gross hematuria: Plan Multiple bladder calculi/gross hematuria/severe suprapubic spasms- CT of abdomen pelvis with bladder wall thickening, multiple bladder calculi, and increased prostate size S?P cystocopy Caluli removed. Patient continues to have significant pain. WIll conitnue to monitor. COntinue pain management possible discharge tomorrow. diet ordered Atrial fibrillation/hypertension- Last dose of apixaban was the morning of 09/07, with further doses held for now Depending upon when any procedures done in the morning and depend upon how involved it is, we will determine if heparin drip is used in transition will resume metoprolol in AM. Diabetes mellitus- Hold glipizide and semaglutide Place on Accu-Cheks with NovoLog SSI Admission and Anticipated Discharge Date Admission Date: September 09, 2023 Subjective Patient reports he continues to have severe bladder spasms. Review of Systems Review of Systems: All systems reviewed & are unremarkable except as noted in HPI & below Physical Exam Physical Exam: The patient is awake, alert and oriented 3, well developed and well nourished, normocephalic and atraumatic, lying in bed, with severe spasms of her bladder area HEENT--PERRL, EOMI, mucous membranes and oropharynx dry. Neck--supple. No JVD. No bruits. Thyroid normal, trachea midline, no adenopathy. Heart--normal S1 and S2. No murmurs, rubs or gallops. Lungs--clear bilaterally, no respiratory distress, no accessory muscle use. Abdomen--normal bowel sounds and soft. Nondistended. Extremities--no cyanosis or clubbing. No edema. Results & Data Results & Data Vital Signs (Past 12 Hours) Vital Signs Temp Pulse Pulse Pulse Resp BP Pulse Ox 09/10/23 20:58 09/10/23 19:54 36.7 C 88 19 116/66 94 09/10/23 15:58 101 H 09/10/23 15:41 36.9 C 106 H 16 146/79 H 88 L 09/10/23 12:30 36.7 C 101 H 18 132/77 95 09/10/23 12:15 104 H 16 124/74 96 09/10/23 12:00 89 14 124/67 96 09/10/23 11:50 37.0 C 96 H 16 123/84 96 09/10/23 11:40 98 H 16 137/86 95 09/10/23 11:30 100 H 14 133/87 96 09/10/23 11:20 94 H 16 133/76 97 09/10/23 11:10 99 H 16 141/85 H 95 09/10/23 11:00 110 H 20 138/98 96 09/10/23 10:50 112 H 22 160/100 H 95 09/10/23 10:40 118 H 22 140/92 93 09/10/23 10:30 107 H 20 157/102 H 93 O2 Del Method O2 Flow Rate 09/10/23 20:58 Room Air 09/10/23 19:54 Room Air 09/10/23 15:58 09/10/23 15:41 Room Air 09/10/23 12:30 Room Air 09/10/23 12:15 Nasal Cannula 2 09/10/23 12:00 Room Air 09/10/23 11:50 Room Air 09/10/23 11:40 Oxymask 3 09/10/23 11:30 Oxymask 3 09/10/23 11:20 Oxymask 3 09/10/23 11:10 Oxymask 3 09/10/23 11:00 Oxymask 3 09/10/23 10:50 Oxymask 4 09/10/23 10:40 Oxymask 4 09/10/23 10:30 Oxymask 4 PG Care Time/CCT Total # of Minutes Spent Total Time Spent with Patient: Total time spent is greater than 50% in coordination of care (as documented) at patient's floor/unit and/or counseling patient: Coding Level of Care Code 94474 SUB INP/OBS CARE 2/35MIN Diagnoses Bladder calculi N21.0 Lumbar post-laminectomy syndrome M96.1 Enlarged prostate with lower urinary tract symptoms (LUTS) N40.1 Diabetic peripheral neuropathy E11.42 Hx of cystoscopy Z98.890 Atrial fibrillation I48.91 HTN (hypertension) I10 Diabetes mellitus E11.9 Gross hematuria R31.0
[2023-09-11 07:31] LABS: Hematocrit (blood only) 37.3 % (42.0-52.0); Hemoglobin 12.5 g/dl (14.0-18.0); Mean Corpuscular Hemoglobin 30.4 pg (25.0-34.0); Mean Corpuscular Hgb Conc 33.5 g/dL (32.0-36.0); Mean Corpuscular Volume 90.8 fL (80.0-100.0); Mean Platelet Volume 10.7 fL (9.4-12.4); Platelet Count 125 K/uL (130-400); RDW Coefficient of Variation 12.2 % (11.5-14.5); RDW Standard Deviation 40.6 fL (36.4-46.3); Red Blood Count 4.11 M/uL (4.70-6.10); White Blood Count 6.16 K/ul (4.8-10.8)
[2023-09-11 07:50] LABS: BUN Creatinine Ratio 16.8 (10-20); Calcium 8.7 mg/dl (8.6-10.3); Creatinine Clr Calc Pharmacy 77.3 ml/min; Est GFR (Non-African American) 69.9 ml/min; Potassium 3.8 mmol/L (3.5-5.1)
[2023-09-11] MEDS: DOCUSATE SODIUM/SENNA 50/8.6MG TAB PO SCH (09:01)
[2023-09-11] MEDS: POLYETHYLENE (MIRALAX) 17 GM PACK PO SCH (09:01)
--- NOTE | 2023-09-11 09:48 | Urology Progress Note ---
Date of Service September 11, 2023 Assessment & Plan (1) Bladder stones: (2) Enlarged prostate with lower urinary tract symptoms (LUTS): Plan: Follow-up of bladder stones, bladder spasms Patient is POD #1 s/p meatal dilation, cystolitholapaxy and laser lithotripsy of bladder stones Labs reviewedcreatinine 1.10, WBC 6.16, hemoglobin 12.5 Urine culture showed more than 3 types of organisms present, all high counts Remains on IV Ciprofloxacin Dotson catheter was removed postoperatively Recommend monitor voiding with bladder scan as needed Continue Finasteride and Tamsulosin Recommend discharge with course of PO antibiotics when medically stable Continue supportive care medical management per primary service Will arrange outpatient follow-up with our service for ongoing management and to discuss bladder outlet procedures will sign off Admission and Anticipated Discharge Date Admission Date: September 09, 2023 Subjective Patient seen and examined at bedside Resting comfortably in bed Reports some dysuria with voids Bladder spasms/pain improved Denies fever or chills His catheter and CBI were discontinued in the PACU after surgery He is voiding spontaneously into urinal He reports decreased sensation/urge to void yesterday evening, but seems to be improving today Review of Systems Constitutional: as per Subjective / HPI Genitourinary: + as per Subjective / HPI Physical Exam Constitutional: well developed and well nourished; no acute distress Respiratory: normal respiratory effort; no respiratory distress and no labored breathing Musculoskeletal: Head/Neck/Chest: normocephalic Neurologic: moves all extremities and awake Psychiatric: Orientation: alert and oriented x 3 Results & Data Vital Signs (Past 12 Hours) Vital Signs Temp Pulse Pulse Resp BP Pulse Ox O2 Del Method 09/11/23 08:10 36.8 C 121 H 18 120/72 92 Room Air 09/11/23 07:15 74 09/11/23 03:16 36.6 C 82 18 119/71 92 Room Air 09/10/23 23:21 82 09/10/23 22:15 36.7 C 97 H 18 137/80 94 Room Air PG Care Time/CCT Total # of Minutes Spent Total Time Spent with Patient: Total time spent is greater than 50% in coordination of care (as documented) at patient's floor/unit and/or counseling patient: Coding Level of Care Code 22970 SUB INP/OBS CARE 25MIN Diagnoses Bladder stones N21.0 Enlarged prostate with lower urinary tract symptoms (LUTS) N40.1
[2023-09-11] MEDS: METOPROLOL SUCC 25MG EXT REL TAB PO STA (13:56)
--- NOTE | 2023-09-11 15:16 | Electrocardiogram Report ---
Test Reason : Blood Pressure : / mmHG Vent. Rate : 095 BPM Atrial Rate : 092 BPM P-R Int : 000 ms QRS Dur : 090 ms QT Int : 374 ms P-R-T Axes : 000 -18 060 degrees QTc Int : 469 ms Atrial fibrillation Low voltage QRS Nonspecific ST abnormality Abnormal ECG When compared with ECG of 20-FEB-2019 09:45, Premature ventricular complexes are no longer Present Confirmed by Yariel Thompson ([id number]) on 09/11/2023 3:16:22 PM Referred By: REFERRED SELF Confirmed By:Yariel Thompson
[2023-09-11] MEDS: ACETAMINOPHEN 325 MG TAB PO SCH (18:04)
[2023-09-11 18:27] LABS: Appearance Urine Clear (Clear); Bacteria Urine Automated None Seen (None Seen); Bilirubin Urine 1+ (Negative); Blood Urine 3+ (Negative); Cast Urine Automated 0-2 /lpf (0-2); Color Urine Orange; Epithelial Cell Urine Auto 0-2 /hpf (0-2); Glucose Urine UA Negative (Negative); Ketones Urine Negative (Negative); Leukocyte Esterase Urine 2+ (Negative); Nitrite Urine Positive (Negative); Protein Urine 1+ (Negative); RBC Urine Automated >20 /hpf (0-2); Specific Gravity Urine 1.011 (1.000-1.030); Urobilinogen Urine Negative (Negative); pH Urine 5.5 (4.5-7.5)
--- NOTE | 2023-09-11 23:02 | Hospitalist Progress Note ---
Date of Service September 11, 2023 Assessment & Plan (1) Bladder calculi: (2) Lumbar post-laminectomy syndrome: (3) Enlarged prostate with lower urinary tract symptoms (LUTS): (4) Diabetic peripheral neuropathy: (5) Hx of cystoscopy: (6) Atrial fibrillation: (7) HTN (hypertension): (8) Diabetes mellitus: (9) Gross hematuria: Plan Multiple bladder calculi/gross hematuria/severe suprapubic spasms- CT of abdomen pelvis with bladder wall thickening, multiple bladder calculi, and increased prostate size S/P cystoscopy Calculi removed. Patient continues to have significant pain. Will continue to monitor. Continue pain management Patient continues with pain, added tylenol, continue pyridium. added stool softeners diet ordered Atrial fibrillation/hypertension- Last dose of apixaban was the morning of 09/07, with further doses held for now Depending upon when any procedures done in the morning and depend upon how involved it is, we will determine if heparin drip is used in transition will resume metoprolol in AM. Diabetes mellitus- Hold glipizide and semaglutide Place on Accu-Cheks with NovoLog SSI Admission and Anticipated Discharge Date Admission Date: September 09, 2023 Subjective Patient reports no new symptoms. Review of Systems Review of Systems: All systems reviewed & are unremarkable except as noted in HPI & below Physical Exam Physical Exam: The patient is awake, alert and oriented 3, well developed and well nourished, normocephalic and atraumatic, lying in bed HEENT--PERRL, EOMI, mucous membranes and oropharynx dry. Neck--supple. No JVD. No bruits. Thyroid normal, trachea midline, no adenopathy. Heart--normal S1 and S2. No murmurs, rubs or gallops. Lungs--clear bilaterally, no respiratory distress, no accessory muscle use. Abdomen--normal bowel sounds and soft. Nondistended. Extremities--no cyanosis or clubbing. No edema. Results & Data Results & Data Vital Signs (Past 12 Hours) Vital Signs Temp Pulse Pulse Resp BP Pulse Ox O2 Del Method 09/11/23 21:59 Room Air 09/11/23 19:50 36.8 C 95 H 20 122/75 92 Room Air 09/11/23 15:33 37.1 C 94 H 20 117/72 96 Room Air 09/11/23 14:59 89 PG Care Time/CCT Total # of Minutes Spent Total Time Spent with Patient: Total time spent is greater than 50% in coordination of care (as documented) at patient's floor/unit and/or counseling patient: Coding Level of Care Code 76440 SUB INP/OBS CARE 2/35MIN Diagnoses Bladder calculi N21.0 Lumbar post-laminectomy syndrome M96.1 Enlarged prostate with lower urinary tract symptoms (LUTS) N40.1 Diabetic peripheral neuropathy E11.42 Hx of cystoscopy Z98.890 Atrial fibrillation I48.91 HTN (hypertension) I10 Diabetes mellitus E11.9 Gross hematuria R31.0
[2023-09-12] MEDS ORDERED: Nursing to Pharmacy Communication SCH (02:30)
[2023-09-12 06:18] LABS: Hematocrit (blood only) 38.1 % (42.0-52.0); Hemoglobin 12.6 g/dl (14.0-18.0); Mean Corpuscular Hemoglobin 30.3 pg (25.0-34.0); Mean Corpuscular Hgb Conc 33.1 g/dL (32.0-36.0); Mean Corpuscular Volume 91.6 fL (80.0-100.0); Mean Platelet Volume 10.8 fL (9.4-12.4); Platelet Count 124 K/uL (130-400); RDW Coefficient of Variation 12.4 % (11.5-14.5); RDW Standard Deviation 41.4 fL (36.4-46.3); Red Blood Count 4.16 M/uL (4.70-6.10); White Blood Count 4.65 K/ul (4.8-10.8)
[2023-09-12 06:34] LABS: BUN Creatinine Ratio 18.6 (10-20); C Reactive Protein 3.29 mg/dl (0-0.5); Calcium 8.8 mg/dl (8.6-10.3); Creatinine Clr Calc Pharmacy 80.8 ml/min; Est GFR (African American) 85.1 ml/min; Est GFR (Non-African American) 73.4 ml/min
--- NOTE | 2023-09-12 12:03 | Discharge Summary ---
Date of Service September 12, 2023 Admission HPI Per Admitting Provider The patient is an 78-year-old male with a past medical history including kidney stones, ambulatory dysfunction, lumbar postlaminectomy syndrome CAD, atrial fibrillation, hypertension, hyperlipidemia, diabetes mellitus, diabetic peripheral neuropathy, dyslipidemia, BPH with LUTS, vitamin B12 deficiency and obesity. Who presents to the emergency department with 1 week of intermittent suprapubic discomfort, which worsened considerably over the past 24 hours and has had his hematuria. CT scan of abdomen and pelvis this evening reveals some bladder wall thickening, and multiple bladder calculi, up to 1.5 cm in size, a long with increased prostate size. Discharge Data Allergies Allergy/AdvReac Type Severity Reaction Status Date / Time adhesive AdvReac Intermediate BLISTERING/RASH Verified 09/09/23 02:43 (WITH EKG TAPE) atorvastatin AdvReac Intermediate MUSCLE Verified 09/09/23 02:43 SORENESS lisinopril AdvReac cough Verified 09/09/23 02:43 OpSite Wound Dressing MISC AdvReac Unknown Uncoded 09/09/23 02:43 Consultations 09/09/23 00:28 ED Decision to Admit Stat 09/09/23 00:50 Consult Urology Stat Procedures Performed Operation Date: 09/10/23 10:00 Actual Procedures p Cystoscopy, Laser Lithotripsy of bladder stones(Not Applicable) - Solo Ramsey MD Ordered Studies 09/08/23 21:29 CT abd pelvis IV con only Stat Hospital Course (1) Bladder calculi: (2) Lumbar post-laminectomy syndrome: (3) Enlarged prostate with lower urinary tract symptoms (LUTS): (4) Diabetic peripheral neuropathy: (5) Hx of cystoscopy: (6) Atrial fibrillation: (7) HTN (hypertension): (8) Diabetes mellitus: (9) Gross hematuria: Plan Multiple bladder calculi/gross hematuria/severe suprapubic spasms- CT of abdomen pelvis with bladder wall thickening, multiple bladder calculi, and increased prostate size S/P cystoscopy Calculi removed. Patient continues to have significant pain. Will continue to monitor. Continue pain management Patient continues with pain, added tylenol, continue pyridium. added stool softeners diet ordered Paroxysmal Atrial fibrillation/Hypertension Last dose of apixaban was the morning of 09/07, with further doses held for now Depending upon when any procedures done in the morning and depend upon how involved it is, we will determine if heparin drip is used in transition will resume metoprolol in AM. Diabetes mellitus- Hold glipizide and semaglutide Place on Accu-Cheks with NovoLog [facility] Discharge Plan Discharge Items Patient Disposition: Home - Self-Care Reason For Visit: UTI, BLADDER CALCULI Discharge Diagnosis: UTI, bladder calculi Activity: Resume your previous activity Non-emergency contact: Primary Care Provider Call non-emergency contact if: you have any medication questions Follow-up/Referrals: Alex Tillman III, CRNP [Primary Care Provider] - 09/19/23 9:20 am Diet: Carb Consistent or DM2 Addtl Attending Provider Instructions: Good afternoon Mr. Turner, It was a pleasure meeting you and I appreciate the offer regarding the chuy paper. That sounds neat. I discussed your care and followup with Dr. Ramsey and he told me you have no restrictions and it is ok to restart your Eliquis. He recommends that you follow up with Dr. Ramirez in the next couple weeks. Their office will contact you. In regards to your pain, we can have you take tylenol 4 times a day scheduled for the next 10 days. Either dose of 650mg or 500 mg will be fine. Please limit any alcohol intake during this time. I also prescribed you the oxybutynin which is a muscle relaxer for your bladder spasms, take as needed. Again, it was very nice to meet you. You are a very caring and insightful patient. I wish you the best as you continue to recover. Baldo Aguirre MD Pending Studies at Discharge: No Stand-Alone Forms: My [facility], Smoking Cessation Medications and DC Order Prescriptions: New oxybutynin chloride 5 mg Tablet 5 mg PO TID PRN (Reason: bladder spasms) Qty: 20 0RF Continued triamcinolone acetonide 0.1 % ointment 1 applic topical BID Qty: 80 0RF Rx Instructions: Apply to neck hairline/ back cyanocobalamin (vitamin B-12) 1,000 mcg tablet, sublingual 1,000 mcg SL DAILY Qty: 90 1RF (DME) Motorized scooter See Rx Instructions .Route .MEDSUPPLY Qty: 1 0RF Rx Instructions: As directed glipizide 5 mg tablet 5 mg PO DAILY Qty: 90 3RF Eliquis 5 mg tablet 5 mg PO BID Qty: 180 3RF losartan 25 mg tablet 25 mg PO QAM Qty: 90 3RF simvastatin [Zocor] 10 mg tablet 10 mg PO HS Qty: 90 3RF Ozempic 1 mg/dose (4 mg/3 mL) pen injector 1 mg subcut .weekly Qty: 9 3RF Rx Instructions: Qfri metoprolol succinate 25 mg capsule,sprinkle,ER 24hr 25 mg PO QPM alfuzosin 10 mg tablet extended release 24 hr 10 mg PO DAILY Qty: 90 3RF dutasteride 0.5 mg capsule 0.5 mg PO DAILY Qty: 90 3RF Centrum Silver Men 300-600-300 mcg Tablet 1 tab PO QAM metoprolol succinate 50 mg Tablet Extended Release 24 Hr 100 mg PO QAM TheraTears Nutrition [phone] [id number] Capsule 3 cap PO QAM sennosides [Senokot] 8.6 mg Tablet 17.2 mg PO QPM cholecalciferol (vitamin D3) [Vitamin D3] 50 mcg (2,000 unit) Capsule 50 mcg PO DAILY terbinafine HCl 1 % Cream 1 applic TOPICAL DIRECTED Rx Instructions: Wash & dry 1st lidocaine [Salonpas (lidocaine)] 4 % Adhesive Patch,Medicated 1 patch TOPICAL Q8 PRN (Reason: Pain) Claritin-D 24 Hour 10-240 mg Tablet Extended Release 24 Hr 1 tab PO DAILY clobetasol 0.05 % solution 1 applic TOPICAL DIRECTED PRN (Reason: ..) guaifenesin 400 mg Tablet 400 mg PO Q4H PRN (Reason: .cough) Beano 400 unit Tablet 0 unit PO DIRECTED PRN (Reason: .take 2-3 tabs before eating gassy food) Bee Pollen Powder 0 mg PO DAILY PRN (Reason: .runny nose) Rx Instructions: 1/4 tsp daily prn Prune Juice 4 oz PO .QSUPPER Changed acetaminophen [Tylenol Extra Strength] 500 mg Tablet 1,000 mg PO Q6H Qty: 0 0RF Discharge Orders: Discharge Order (Routine); Ordered 09/12/23 Ordered By: Baldo Gallegos/Other Patient Handouts: Managing Type 2 Diabetes Admission Data Admit Date/Time: 09/09/23 01:31 Attending Provider: Baldo Aguirre Admit Provider: Jason Joiner Primary Care Provider: Alex Tillman III Other Providers: Solo Ramsey; Jason Joiner Other Interventions: Discharge Summary Assessment (RN) Last Done: 09/12/23 11:32 Coding Diagnoses Bladder calculi N21.0 Lumbar post-laminectomy syndrome M96.1 Enlarged prostate with lower urinary tract symptoms (LUTS) N40.1 Diabetic peripheral neuropathy E11.42 Hx of cystoscopy Z98.890 Atrial fibrillation I48.91 HTN (hypertension) I10 Diabetes mellitus E11.9 Gross hematuria R31.0
== END 2023-09-12 12:40 | disposition home or self-care (01) | DRG 694 ==
LOC: ED 19:16 → EDINP 09-09 01:31 → SUATTDRO 09-09 01:31 → 2N 09-09 15:24